=== PATIENT | female | born 1980 | race Caucasian/White ===

== ENCOUNTER 2020-02-14 16:59 | Outpatient (CLI) | payer OTHER, SELFPAY ==
--- NOTE | ~2020-02-14 | MR_ITS ---
EXAMINATION: MR brain/brain stem wo/w con DATE: 02/14/2020 18:46 INDICATION: Hyperprolactinemia. TECHNIQUE: Magnetic resonance imaging (MRI) of the brain and brainstem was performed without and with 20 mL MultiHance intravenous contrast. Whole-brain sequences included sagittal T1-weighted FSE, axia l diffusion-weighted FS EPI, axial T2*-weighted GRE, axial T2-weighted FLAIR Propeller, and axial T2- weighted Propeller. Small [id number] sequences included sagittal and coronal T1-weighted FSE cente red at the pituitary. Postcontrast sequences included small [id number]-[id number] coronal T1-weighted FSE in a time course and sagittal T1-weighted FSE and whole-brain axial T1-weighted FSE. Apparent diffusion coefficient (ADC) maps were created. COMPARISON: None. FINDINGS: The pituitary is normal in size with height of 6 mm. There is a 2 mm cyst in the pituitary at the junction of the anterior and posterior pituitary. The infundibulum is at midline. There is no intracranial hemorrhage or acute infarction. The ventricles are normal in size. The orbits are normal . The paranasal sinuses are clear. There is a small right mastoid effusion. IMPRESSION: 1. 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 Reviewed, dictated and finalized at location A.
[2020-02-14 18:09] LABS: Estimated Glomerular Filt Rate > 60
== END 2020-02-14 17:00 | disposition home or self-care (01) ==
PROVIDERS: PCP Nurse Practitioner Family; Visit Provider Family Medicine
DX: E22.1 Hyperprolactinemia (principal); E23.6 Other disorders of pituitary gland
CPT/HCPCS: 36415; 70553; A9577

== ENCOUNTER 2020-04-30 12:52 | Emergency (ER) | payer OTHER, SELFPAY ==
[2020-04-30 12:59] VITALS: BP 132/74; PULSE 92; RESP 18; TEMP 36.7; O2SAT 98
--- NOTE | 2020-04-30 12:59 | ED.FEMALEGU ---
HPI - Female Genitourinary General Chief complaint: Urogenital-Female Stated complaint: Blood in Urine Time Seen by Provider: 04/30/20 12:59 Source: patient and RN notes reviewed Mode of arrival: ambulatory Limitations: no limitations History of Present Illness HPI Narrative: 40 year old female who presents to express care with complaints of UTI symptoms since yesterday which includes urgency,frequency, decrease amounts, with some blood noted in urine. Patient states that she has some pain in the suprapubic abdominal area denies any CVA tenderness. Patient denies any fevers,chills, or sweats, denies any nausea or vomiting, states that appetite and foods are taken without complaints. Patient denies taking anything OTC such as AZO for her symptoms.Patient states that she has not had menses since November, states no recent test for past 3 months, is being worked up for possible PCOS. MD elicited complaint: dysuria Pertinent past history: recurrent UTIs Onset (ago): day(s) (1) Location of symptoms: suprapubic Severity: moderate Female Urogenital Radiation: Suprapubic Severity scale (1-10): 8 Quality of pain: other (pressure) Consistency: constant Vaginal discharge: none Vaginal bleeding: none Urinary symptoms: Dysuria, Urgency, Frequency and Hematuria Exacerbating factors: none Relieving factors: none Associated symptoms: denies other symptoms Treatment prior to arrival: none Sexual activity: Yes Patient : No Possible : unsure if (no menses since November,being worked up for PCOS) Related Data Home Medications Medication Instructions Recorded Confirmed buprenorphine-naloxone [Suboxone] 1 film BUCCAL DAILY 04/30/20 04/30/20 risperidone 2 mg PO DAILY 04/30/20 04/30/20 sumatriptan succinate See Rx Instructions .ROUTE .COMPLEX 04/30/20 04/30/20 Allergies Allergy/AdvReac Type Severity Reaction Status Date / Time [place] Allergy Unknown Unknown Uncoded 04/30/20 13:09 Review of Systems Review of Systems: Narrative: CONSTITUTIONAL: Denies fever, chills, or sweats. EYES: Denies visual changes, redness, or discharge. ENT: Denies rhinorrhea, congestion, sore throat, or otalgia. CARDIOVASCULAR: Denies chest pain, palpitations, or edema. RESPIRATORY: Denies cough or dyspnea. GASTROINTESTINAL: Denies abdominal pain, nausea, vomiting, or diarrhea. GENITOURINARY: Positive for dysuria or hematuria, frequency and urgency with decrease urine amounts. SKIN: Denies rash or itching. MUSCULOSKELETAL: Voices history of low back pain history with no CVA tenderness,no joint pain, or myalgia. NEUROLOGIC: Denies headache, numbness, or weakness. PSYCHIATRIC: Denies anxiety or depression. All systems reviewed & are unremarkable except as noted in HPI and below PMFSH Past Medical History Medical History (Updated 04/30/20 @ 13:20 by Mary Erwin NP) Anxiety and depression Back pain Psoriasis Surgical History Surgical History (Updated 04/30/20 @ 13:03 by Mary Erwin NP) H/O LEEP History of appendectomy History of tonsillectomy Family History Family History (Updated 04/30/20 @ 13:12 by Mary Erwin NP) Father Hypertension Other Diabetes mellitus Social History Social History (Updated 04/30/20 @ 13:13 by Mary Erwin NP) Smoking packs per day: 1 Smoking cigarettes per day: 20.0 Smoking status: Current every day smoker Tobacco type: cigarettes Alcohol intake: current Substance use: former Living arrangements: with family Gender identity (if verbalized by the patient): Female Comments At time of signature, agree with nursing past medical, surgical, social and family history. There is no relevant family history pertinent to the presenting complaint Exam Narrative: Exam Narrative: GENERAL: Well-appearing, well-nourished, and in no acute distress. HEAD: Normocephalic, atraumatic. EYES: PERRLA and EOMI. ENT: Nares clear, no rhinorrhea or epistaxis. Mucous membran
== END 2020-04-30 13:25 | disposition home or self-care (01) ==
PROVIDERS: Emergency Provider Registered Nurse; PCP Family Medicine
DX: N39.0 Urinary tract infection, site not specified (principal); F17.210 Nicotine dependence, cigarettes, uncomplicated
CPT/HCPCS: 81003; 87077; 87086; 87088; 87186; 99213; G0463

== ENCOUNTER 2020-07-14 11:39 | Emergency (ER) | payer OTHER, SELFPAY ==
--- NOTE | ~2020-07-14 | XR_ITS ---
EXAMINATION: XR chest 2V 07/14/2020 12:18 INDICATION: Dry cough PROCEDURE: 2 view chest COMPARISON: 08/25/2018 FINDINGS: The lungs are clear. The cardiomediastinal silhouette is within normal limits. There are no pleural effusions. There is no pneumothorax suspected. IMPRESSION: 1: NO ACUTE CARDIOPULMONARY DISEASE. Reviewed, dictated and finalized at location A. [employer]
[2020-07-14 11:50] VITALS: BP 118/92; PULSE 101; RESP 14; TEMP 36.3; O2SAT 97
[2020-07-14 12:22] VITALS: BP 118/92; PULSE 101; RESP 14; TEMP 36.3; O2SAT 97
--- NOTE | 2020-07-14 12:35 | ED.GENADULT ---
HPI - General Adult General Chief complaint: Upper Respiratory Infection Stated complaint: COVID Syptoms Source: patient Mode of arrival: ambulatory Limitations: no limitations History of Present Illness HPI narrative: Patient presents for evaluation of respiratory symptoms. She indicates 2 days ago she had a scratchy throat . Yesterday she developed fever, chills, sore throat, right-sided otalgia, nonproductive cough, body aches. During coughing spells she experiences some dyspnea but otherwise does not feel short of breath and denies any chest pain. No nausea, vomiting, diarrhea. She states she was in contact with her best friend 5 days ago and that individual tested positive for Covid 2 days ago. Patient reports smoking 1 pack/day and also vapes. She is not on exogenous estrogen. No leg swelling. No recent surgeries. No history of VTE. Related Data Home Medications Medication Instructions Recorded Confirmed buprenorphine-naloxone [Suboxone] 1 film BUCCAL DAILY 04/30/20 07/14/20 risperidone 2 mg PO DAILY 04/30/20 07/14/20 sumatriptan succinate See Rx Instructions .ROUTE .COMPLEX 04/30/20 07/14/20 fluvoxamine 50 mg PO HS 07/14/20 07/14/20 hydrochlorothiazide 25 mg PO DAILY 07/14/20 07/14/20 metformin 500 mg PO BID 07/14/20 07/14/20 quetiapine 50 mg PO HS 07/14/20 07/14/20 spironolactone 100 mg PO DAILY 07/14/20 07/14/20 Allergies Allergy/AdvReac Type Severity Reaction Status Date / Time [place] Allergy Unknown Unknown Uncoded 04/30/20 13:09 Review of Systems Review of Systems: Narrative: CONSTITUTIONAL: Reports fever and chills. Denies sweats. EYES: Denies visual changes, redness, or discharge. ENT: Reports sore throat and right sided otalgia. Denies tinnitus and hearing loss. CARDIOVASCULAR: Denies chest pain, palpitations, or edema. RESPIRATORY: Reports nonproductive cough and mild dyspnea during coughing spells. Denies shortness of breath otherwise. GASTROINTESTINAL: Denies abdominal pain, nausea, vomiting, or diarrhea. GENITOURINARY: Denies dysuria or hematuria. SKIN: Denies rash or itching. MUSCULOSKELETAL: Reports generalized body aches. NEUROLOGIC: Denies headache, numbness, dizziness, or weakness. PSYCHIATRIC: Denies anxiety or depression. [facility] Past Medical History Medical History Anxiety and depression Back pain Hypertension PCOS (polycystic ovarian syndrome) Psoriasis Schizophrenia Surgical History Surgical History H/O LEEP History of appendectomy History of tonsillectomy Family History Family History Father Hypertension Other Diabetes mellitus Social History Social History Smoking packs per day: 1 Smoking cigarettes per day: 20.0 Smoking status: Current every day smoker Tobacco type: cigarettes Alcohol intake: current Alcohol use details: 1 day per week-binge consumption those days Substance use: former Living arrangements: alone Gender identity (if verbalized by the patient): Female Spiritual care concerns: No Exam Narrative: Exam Narrative: GENERAL: Well-appearing, well-nourished, and in no acute distress. HEAD: Normocephalic, atraumatic. EYES: PERRLA and EOMI. ENT: Nares clear, no rhinorrhea or epistaxis. Mucous membranes moist. Oropharynx without tonsillar hypertrophy exudate. Posterior phary NECK: Supple. No adenopathy or masses. No carotid bruits or JVD CHEST: Effort nonlabored. Mild scattered wheezing bilaterally HEART: HR 98. No murmur heard. Normal peripheral pulses. ABDOMEN: Soft, nontender, nondistended, normal active bowel sounds. EXTREMITIES: Normal range of motion. No edema. SKIN: Warm, dry, no rash. NEURO: No focal deficits. Alert and oriented x3. PSYCH: Normal mood and affect. Course Course
== END 2020-07-14 13:07 | disposition home or self-care (01) ==
PROVIDERS: Emergency Provider Nurse Practitioner; PCP Family Medicine
DX: B34.9 Viral infection, unspecified (principal); F17.210 Nicotine dependence, cigarettes, uncomplicated; I10 Essential (primary) hypertension; E28.2 Polycystic ovarian syndrome; F20.9 Schizophrenia, unspecified
CPT/HCPCS: 71046; 87081; 87804; 87880; 99213; G0463

== ENCOUNTER 2020-09-09 12:26 | Emergency (ER) | payer OTHER, SELFPAY ==
[2020-09-09 12:31] VITALS: BP 133/80; PULSE 100; RESP 16; TEMP 36.4; O2SAT 100
--- NOTE | 2020-09-09 12:32 | ED.FEMALEGU ---
HPI - Female Genitourinary General Chief complaint: Urogenital-Female Stated complaint: poss uti Time Seen by Provider: 09/09/20 12:35 Source: patient and RN notes reviewed Mode of arrival: ambulatory Limitations: no limitations History of Present Illness HPI Narrative: 40-year-old female presents to the [facility] stating I have a UTI Has suprapubic pressure along with burning with urination. Denies fevers. No nausea vomiting or diarrhea. States that she has a history of UTIs. Denies any chance of . Denies any vaginal discharge. Related Data Home Medications Medication Instructions Recorded Confirmed risperidone 2 mg PO DAILY 04/30/20 09/09/20 fluvoxamine 50 mg PO HS 07/14/20 09/09/20 hydrochlorothiazide 25 mg PO DAILY 07/14/20 09/09/20 metformin 500 mg PO BID 07/14/20 09/09/20 quetiapine 50 mg PO HS 07/14/20 09/09/20 spironolactone 100 mg PO DAILY 07/14/20 09/09/20 Allergies Allergy/AdvReac Type Severity Reaction Status Date / Time [place] Allergy Unknown Unknown Uncoded 04/30/20 13:09 Review of Systems Review of Systems: Narrative: CONSTITUTIONAL: Denies fever, chills, or sweats. EYES: Denies visual changes, redness, or discharge. ENT: Denies rhinorrhea, congestion, sore throat, or otalgia. CARDIOVASCULAR: Denies chest pain, palpitations, or edema. RESPIRATORY: Denies cough or dyspnea. GASTROINTESTINAL: Denies nausea, vomiting, or diarrhea. Reports suprapubic pressure GENITOURINARY: Reports dysuria or hematuria. SKIN: Denies rash or itching. MUSCULOSKELETAL: Denies back pain, joint pain, or myalgia. NEUROLOGIC: Denies headache, numbness, or weakness. PSYCHIATRIC: Denies anxiety or depression. All other systems reviewed are negative, except as documented in HPI. [facility] Past Medical History Medical History Anxiety and depression Back pain Hypertension PCOS (polycystic ovarian syndrome) Psoriasis Schizophrenia Surgical History Surgical History H/O LEEP History of appendectomy History of tonsillectomy Family History Family History Father Hypertension Other Diabetes mellitus Social History Social History Smoking packs per day: 1 Smoking cigarettes per day: 20.0 Smoking status: Current every day smoker Tobacco type: cigarettes Alcohol intake: current Substance use: former Gender identity (if verbalized by the patient): Female Spiritual care concerns: No Comments At the time of my signature, I reviewed and agree with the nursing past medical, surgical, social, and family history. There is no relevant family history pertinent to the patient complaint. Exam Narrative: Exam Narrative: GENERAL: This is a well-nourished, well-developed patient, in no apparent distress. Obese HEAD: normocephalic, atraumatic. EYES: PERRL. Sclera clear/white. Vision is grossly intact. EARS: External ears normal. . CARDIOVASCULAR: Regular rate and rhythm without murmurs, gallops, or rubs. RESPIRATORY: Clear to auscultation. Breath sounds equal bilaterally. No wheezes, rales, or rhonchi. GASTROINTESTINAL: Abdomen soft, non-tender, nondistended. SKIN: warm, intact with no suspicious lesions or rash, good texture and turgor. NEURO: awake, alert, and oriented to person, place and time. There were no obvious focal neurologic abnormalities. EXTREMITIES: No joint tenderness, effusion, or edema noted. No calf tenderness. Negative Homans sign bilaterally. BACK: Nontender without deformity. No CVA tenderness. Course Vital Signs Vital signs: Vital Signs Temperature 97.5 F L 09/09/20 12:31 Pulse Rate 100 09/09/20 12:31 Respiratory Rate 16 09/09/20 12:31 Blood Pressure 133/80 09/09/20 12:31 Pulse Oximetry 100 09/09/20 12:31 Temperature 97.5 F L 09/09/20 12:41 Pulse Rate 100 03
[2020-09-09 12:41] VITALS: BP 133/80; PULSE 100; RESP 16; TEMP 36.4; O2SAT 100
== END 2020-09-09 12:55 | disposition home or self-care (01) ==
PROVIDERS: Emergency Provider Nurse Practitioner; PCP Family Medicine
DX: N30.01 Acute cystitis with hematuria (principal); F17.210 Nicotine dependence, cigarettes, uncomplicated; I10 Essential (primary) hypertension; E28.2 Polycystic ovarian syndrome; F20.9 Schizophrenia, unspecified
CPT/HCPCS: 81003; 87077; 87086; 87088; 87186; 99213; G0463

== ENCOUNTER 2021-06-29 14:14 | Emergency (ER) | payer OTHER, SELFPAY ==
--- NOTE | ~2021-06-29 | XR_ITS ---
EXAMINATION: XR foot RT min 3V DATE: 06/29/2021 15:28 INDICATION: Right foot injury. First toenail pain. TECHNIQUE: 5 views of right foot were obtained. COMPARISON: None. FINDINGS: Bone alignment is normal. There is a transverse fracture of tuft of first distal phalanx. T he distal fracture fragment demonstrates 2 mm plantar displacement. 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 There are enthesophytes at the posterior and plantar aspects of calca jael tuberosity. IMPRESSION: 1. Transverse fracture of tuft of first distal phalanx. Reviewed, dictated and finalized at location A. [employer]
[2021-06-29 15:17] VITALS: BP 127/87; PULSE 98; RESP 16; TEMP 36.5; O2SAT 98
--- NOTE | 2021-06-29 16:52 | ED.LOWEXIN ---
HPI - Extremity Injury (Lower) General Chief Complaint: Extremity Injury, Lower Stated Complaint: right big toe injury Time Seen by Provider: 06/29/21 16:50 Source: patient, RN notes reviewed and old records reviewed Mode of arrival: ambulatory Limitations: no limitations History of Present Illness HPI Narrative: 41 year old [facility] with complaints of falling down 12 stairs new years day with injury to her right great toe, developed pain and bruising that evening. Patient denies LOC or hitting her head or any other injuries. Patient has not taken any OTC medication for her discomfort or applied any ice to her toe. Patient verbalizes increased pain with ambulation.Patient has noted swelling to right great toe with ecchymosis noted. MD complaint: other (toe right great) Severity scale (1-10): 6 Related Data Home Medications Medication Instructions Recorded Confirmed risperidone 2 mg PO DAILY 04/30/20 06/30/21 fluvoxamine 50 mg PO HS 07/14/20 06/30/21 hydrochlorothiazide 25 mg PO DAILY 07/14/20 06/30/21 metformin 500 mg PO BID 07/14/20 06/30/21 quetiapine 50 mg PO HS 07/14/20 06/30/21 spironolactone 100 mg PO DAILY 07/14/20 06/30/21 cabergoline 0.25 mg PO 2XW 06/30/21 06/30/21 Allergies Allergy/AdvReac Type Severity Reaction Status Date / Time No Known Allergies Allergy Verified 06/30/21 16:09 Review of Systems Review of Systems: CONSTITUTIONAL: Denies fever, chills, or sweats. EYES: Denies visual changes, redness, or discharge. ENT: Denies rhinorrhea, congestion, sore throat, or otalgia. CARDIOVASCULAR: Denies chest pain, palpitations, or edema. RESPIRATORY: Denies cough or dyspnea. GASTROINTESTINAL: Denies abdominal pain, nausea, vomiting, or diarrhea. GENITOURINARY: Denies dysuria or hematuria. SKIN: Denies rash or itching. MUSCULOSKELETAL: Denies back pain,right great toe pain from injury, or myalgia. NEUROLOGIC: Denies headache, numbness, or weakness. PSYCHIATRIC: Positive anxiety or depression. All systems reviewed & are unremarkable except as noted in HPI and below PMFSH Past Medical History Medical History Anxiety and depression Back pain Hypertension PCOS (polycystic ovarian syndrome) Psoriasis Schizophrenia Surgical History Surgical History H/O LEEP History of appendectomy History of tonsillectomy Family History Family History Father Hypertension Other Diabetes mellitus Social History Social History Smoking packs per day: 1 Smoking cigarettes per day: 20.0 Smoking status: Current every day smoker Tobacco type: cigarettes Alcohol intake: current Alcohol use details: 1 day per week-binge consumption those days Substance use: former Gender identity (if verbalized by the patient): Female Spiritual care concerns: No Comments At time of signature, agree with nursing past medical, surgical, social and family history. There is no relevant family history pertinent to the presenting complaint Exam Narrative: GENERAL: Well-appearing, well-nourished, and in no acute distress. HEAD: Normocephalic, atraumatic. EYES: PERRLA and EOMI. ENT: Nares clear, no rhinorrhea or epistaxis. Mucous membranes moist.TM's normal throat pink with no lesions or exudates, tonsils absent NECK: Supple. CHEST: Clear to auscultation. No respiratory distress.SAO2 98% on room air HEART: Regular rate and rhythm. No murmur heard. Normal peripheral pulses. ABDOMEN: Soft, nontender, nondistended, normal active bowel sounds. EXTREMITIES: Normal range of motion. No edema.Exception noted to right great toe with noted pain swelling and ecchymosis. SKIN: Warm, dry, no rash. NEURO: No focal deficits. Alert and oriented x3. Course Course Level of Care: Express Care Visit Vital S
== END 2021-06-29 17:28 | disposition home or self-care (01) ==
PROVIDERS: Emergency Provider Registered Nurse; PCP Family Medicine
DX: S92.411A Displaced fracture of proximal phalanx of right great toe, initial encounter for closed fracture (principal); W10.9XXA Fall (on) (from) unspecified stairs and steps, initial encounter; F17.210 Nicotine dependence, cigarettes, uncomplicated; I10 Essential (primary) hypertension; E28.2 Polycystic ovarian syndrome; L40.9 Psoriasis, unspecified; F20.9 Schizophrenia, unspecified
CPT/HCPCS: 73630; 99213; G0463

== ENCOUNTER 2021-06-30 15:50 | Emergency (ER) | payer OTHER, SELFPAY ==
[2021-06-30 16:02] VITALS: BP 133/81; PULSE 86; RESP 14; TEMP 37; O2SAT 100
--- NOTE | 2021-06-30 17:05 | ED.FEMALEGU ---
HPI - Female Genitourinary General Chief complaint: Urogenital-Female Stated complaint: poss uti Time Seen by Provider: 06/30/21 17:06 Source: patient and family Mode of arrival: ambulatory Limitations: no limitations History of Present Illness HPI Narrative: patient presents with burning with urination. no vaginal discharge no abdominal, pelvic or flank pain. no gross hematuria and no concern for sti MD elicited complaint: dysuria and UTI Related Data Home Medications Medication Instructions Recorded Confirmed risperidone 2 mg PO DAILY 04/30/20 06/30/21 fluvoxamine 50 mg PO HS 07/14/20 06/30/21 hydrochlorothiazide 25 mg PO DAILY 07/14/20 06/30/21 metformin 500 mg PO BID 07/14/20 06/30/21 quetiapine 50 mg PO HS 07/14/20 06/30/21 spironolactone 100 mg PO DAILY 07/14/20 06/30/21 cabergoline 0.25 mg PO 2XW 06/30/21 06/30/21 Allergies Allergy/AdvReac Type Severity Reaction Status Date / Time No Known Allergies Allergy Verified 06/30/21 16:09 Review of Systems Review of Systems: CONSTITUTIONAL: Denies fever, chills, or sweats. EYES: Denies visual changes, redness, or discharge. ENT: Denies rhinorrhea, congestion, sore throat, or otalgia. CARDIOVASCULAR: Denies chest pain, palpitations, or edema. RESPIRATORY: Denies cough or dyspnea. GASTROINTESTINAL: Denies abdominal pain, nausea, vomiting, or diarrhea. GENITOURINARY: Denies dysuria or hematuria. SKIN: Denies rash or itching. MUSCULOSKELETAL: Denies back pain, joint pain, or myalgia. NEUROLOGIC: Denies headache, numbness, or weakness. PSYCHIATRIC: Denies anxiety or depression. Allergic/Immunologic: Comments: At time of signature, agree with nursing past medical, surgical, social and family history. There is no relevant family history pertinent to the presenting complaint [facility] Past Medical History Medical History Anxiety and depression Back pain Hypertension PCOS (polycystic ovarian syndrome) Psoriasis Schizophrenia Surgical History Surgical History H/O LEEP History of appendectomy History of tonsillectomy Family History Family History Father Hypertension Other Diabetes mellitus Social History Social History Smoking packs per day: 1 Smoking cigarettes per day: 20.0 Smoking status: Current every day smoker Tobacco type: cigarettes Alcohol intake: current Alcohol use details: 1 day per week-binge consumption those days Substance use: former Gender identity (if verbalized by the patient): Female Spiritual care concerns: No Exam Narrative: GENERAL: Well-appearing, well-nourished, and in no acute distress. HEAD: Normocephalic, atraumatic. EYES: PERRLA and EOMI. ENT: Nares clear, no rhinorrhea or epistaxis. Mucous membranes moist. NECK: Supple. CHEST: Clear to auscultation. No respiratory distress. HEART: Regular rate and rhythm. No murmur heard. Normal peripheral pulses. ABDOMEN: Soft, nontender, nondistended, normal active bowel sounds. EXTREMITIES: Normal range of motion. No edema. SKIN: Warm, dry, no rash. NEURO: No focal deficits. Alert and oriented x3. [place] Coma Scale Eye Opening: Spontaneous 4 [place] Coma Scale Motor: Obeys Commands 6 [place] Coma Scale Verbal: Oriented 5 [place] Coma Scale Total 15 Course Course Level of Care: Express Care Visit Vital Signs Vital signs: Vital Signs Temperature 37.0 C 06/30/21 16:02 Pulse Rate 86 06/30/21 16:02 Respiratory Rate 14 06/30/21 16:02 Blood Pressure 133/81 06/30/21 16:02 Pulse Oximetry 100 06/30/21 16:02 Temperature 37.0 C 06/30/21 16:02 Pulse Rate 86 06/30/21 16:02 Respiratory Rate 14 06/30/21 16:02 Blood Pressure 133/81 06/30/21 16:02 Pulse Oximetry 100 06/30/21 16:02 Please RAQUEL schedule a fo
== END 2021-06-30 17:21 | disposition home or self-care (01) ==
PROVIDERS: Emergency Provider Nurse Practitioner Family; PCP Family Medicine
DX: N39.0 Urinary tract infection, site not specified (principal); F17.210 Nicotine dependence, cigarettes, uncomplicated; I10 Essential (primary) hypertension; E28.2 Polycystic ovarian syndrome; L40.9 Psoriasis, unspecified; F20.9 Schizophrenia, unspecified
CPT/HCPCS: 81003; 87077; 87086; 87088; 87186; 99213; G0463

== ENCOUNTER 2021-09-24 12:25 | Outpatient (CLI) | payer OTHER, SELFPAY ==
--- NOTE | ~2021-09-24 | MMUS_ITS ---
EXAMINATION: MM diagnostic martha BI w monserrat, US breast BI limited HISTORY: Bilateral milky nipple discharge TECHNIQUE: Craniocaudal, mediolateral, and mediolateral oblique 3-D tomosynthesis images of the breas ts were performed and synthetic 2-D images were generated. CAD analysis was submitted and interpreted . High resolution limited bilateral breast ultrasound was performed. COMPARISON: None, baseline BREAST PARENCHYMAL COMPOSITION: There are scattered areas of fibroglandular density. FINDINGS: MAMMOGRAPHIC FINDINGS: There is no suspicious mass, calcification, or architectural distortion in either breast to suggest malignancy. Intramammary lymph nodes are noted in the upper outer quadrants of the breasts. ULTRASOUND: There are fluid-filled subareolar ducts bilaterally without suspicious mass. IMPRESSION: 1. No specific mammographic or sonographic correlate is identified for the patient's nipple discharge . Further evaluation at this time should be based on clinical assessment. Continued follow-up physica l examination is recommended. 2. Recommend routine screening mammography in one year. BI-RADS Category 2: Benign finding(s). Reviewed, dictated and finalized at location A. IMPRESSION: 1. No specific mammographic or sonographic correlate is identified for the mitra ent's nipple discharge. Further evaluation at this time should be based on clin ical assessment. Continued follow-up physical examination is recommended. 2. Recommend routine screening mammography in one year. BI-RADS Category 2: Benign finding(s).
--- NOTE | ~2021-09-24 | US_ITS ---
EXAMINATION: US thyroid DATE: 09/24/2021 13:49 INDICATION: Nontoxic goiter. TECHNIQUE: Multiple ultrasound images of the thyroid were obtained. COMPARISON: None. FINDINGS: The right thyroid lobe measures 5.7 x 2.8 x 1.4 cm. The left thyroid lobe measures 6.0 x 2.4 x 1.5 c m. In the right thyroid lobe, there is a 9 mm solid, hypoechoic, [id number] nodule with smooth margin without echogenic foci (TI-RADS TR4). In the right thyroid lobe, there is a 12 mm mixed cystic and solid, hypoechoic, qoefz-[id number]-[id number] nodule with smooth margin without echogenic foci (TR3). IMPRESSION: 1. Small thyroid nodules, likely not clinically significant. No follow-up is needed. Reviewed, dictated and finalized at location A. IMPRESSION: 1. Small thyroid nodules, likely not clinically significant. No follow-up is ne eded.
== END 2021-09-24 12:26 | disposition home or self-care (01) ==
PROVIDERS: PCP Family Medicine; Visit Provider Nurse Practitioner Obstetrics & Gynecology
DX: N64.52 Nipple discharge (principal)
CPT/HCPCS: 76536; 76642; 77062; 77066; G0279

== ENCOUNTER 2022-05-31 11:17 | Emergency (ER) | payer OTHER, SELFPAY ==
[2022-05-31 11:30] VITALS: BP 122/57; PULSE 91; RESP 20; TEMP 36.3; O2SAT 98
--- NOTE | 2022-05-31 11:38 | ED.URI ---
HPI - URI/Sore Throat General Chief Complaint: Upper Respiratory Infection Stated Complaint: sore throat fever chills cough Time Seen by Provider: 05/31/22 11:38 Source: patient and RN notes reviewed History of Present Illness HPI Narrative: Patient is a 42-year-old female who presents to complaints of sore throat, fever, cough. Patient states this started yesterday and she sent home from work. Patient has been taking symptoms. Denies any ill exposures. No other acute complaints. No acute distress noted. Patient aware of plan of care. Some parts of this dictation were generated by voice recognition software and may contain typographical and/or grammatical inaccuracies. Related Data Home Medications Medication Instructions Recorded Confirmed risperidone 2 mg tablet 2 mg PO DAILY 04/30/20 05/31/22 fluvoxamine 50 mg tablet 50 mg PO HS 07/14/20 05/31/22 hydrochlorothiazide 25 mg tablet 25 mg PO DAILY 07/14/20 05/31/22 metformin 500 mg tablet 500 mg PO BID 07/14/20 05/31/22 quetiapine 50 mg tablet 50 mg PO HS 07/14/20 05/31/22 spironolactone 100 mg tablet 100 mg PO DAILY 07/14/20 05/31/22 cabergoline 0.5 mg tablet 0.25 mg PO 2XW 06/30/21 05/31/22 Allergies Allergy/AdvReac Type Severity Reaction Status Date / Time No Known Allergies Allergy Verified 05/31/22 11:37 Review of Systems Review of Systems: CONSTITUTIONAL: t reports of fever, chills, sweats EYES: Denies visual changes, redness, or discharge. ENT: Reports of congestion, postnasal drainage, rhinorrhea, sore throat CARDIOVASCULAR: Denies chest pain, palpitations, or edema. RESPIRATORY: reports cough without dyspnea GASTROINTESTINAL: Denies abdominal pain, nausea, vomiting, or diarrhea. GENITOURINARY: Denies dysuria or hematuria. SKIN: Denies rash or itching. MUSCULOSKELETAL: Denies back pain, joint pain. Reports of body aches NEUROLOGIC: Denies headache, numbness, or weakness. All other systems reviewed are negative, except as documented in HPI. [facility] Past Medical History Medical History Anxiety and depression Back pain Hypertension PCOS (polycystic ovarian syndrome) Psoriasis Schizophrenia Surgical History Surgical History H/O LEEP History of appendectomy History of tonsillectomy Family History Family History Father Hypertension Other Diabetes mellitus Social History Social History Smoking packs per day: 1 Smoking cigarettes per day: 20.0 Smoking status: Current every day smoker Tobacco type: cigarettes Alcohol intake: current Alcohol use details: 1 day per week-binge consumption those days Substance use: former Gender identity (if verbalized by the patient): Female Spiritual care concerns: No Comments At the time of my signature, I reviewed and agree with the nursing past medical, surgical, social, and family history. There is no relevant family history pertinent to the patient complaint. Exam Narrative: GENERAL: This is a well-nourished, well-developed patient, in no apparent distress. HEAD: normocephalic, atraumatic. EYES: PERRL. Sclera clear/white. Vision is grossly intact. EARS: External ears normal, auditory canals clear and without drainage, TMs normal without perforation. Hearing grossly intact. NOSE: External nose normal with no obvious nasal discharge, nares without redness, Clear to yellow rhinorrhea. THROAT: Mucous membranes moist, Moderate erythema to posterior pharynx with moderate postnasal drainage. NECK: Neck supple, non-tender without lymphadenopathy CARDIOVASCULAR: Regular rate and rhythm without murmurs, gallops, or rubs. RESPIRATORY: harsh wet cough noted on exam. Inspiratory wheezes cleared with cough. SKIN: warm, intact with no suspicious lesions or rash, good t
== END 2022-05-31 12:20 | disposition home or self-care (01) ==
PROVIDERS: Emergency Provider Nurse Practitioner Family; PCP Family Medicine
DX: J11.1 Influenza due to unidentified influenza virus with other respiratory manifestations (principal); I10 Essential (primary) hypertension; F17.210 Nicotine dependence, cigarettes, uncomplicated
CPT/HCPCS: 87804; 99213; G0463

== ENCOUNTER 2022-07-26 11:25 | Emergency (ER) | payer BC, OTHER, SELFPAY ==
[2022-07-26 11:28] VITALS: BP 123/73; PULSE 95; RESP 20; TEMP 36.8; O2SAT 98
--- NOTE | 2022-07-26 11:37 | ED.URI ---
HPI - URI/Sore Throat General Chief Complaint: Upper Respiratory Infection Stated Complaint: cold flu Time Seen by Provider: 07/26/22 11:37 Source: patient and RN notes reviewed Mode of arrival: ambulatory Limitations: no limitations History of Present Illness HPI Narrative: 42-year-old female presents concern for 12 day history of cough, nasal congestion, yellow drainage. Reports sore throat started yesterday with worsening cough. She reports she has been taking DayQuil and Mucinex without relief. She uses an inhaler for asthma, last used it yesterday. MD elicited complaint: cough, sore throat and nasal congestion Related Data Home Medications Medication Instructions Recorded Confirmed risperidone 2 mg tablet 2 mg PO DAILY 04/30/20 07/26/22 fluvoxamine 50 mg tablet 50 mg PO HS 07/14/20 07/26/22 hydrochlorothiazide 25 mg tablet 25 mg PO DAILY 07/14/20 07/26/22 metformin 500 mg tablet 500 mg PO BID 07/14/20 07/26/22 quetiapine 50 mg tablet 50 mg PO HS 07/14/20 07/26/22 spironolactone 100 mg tablet 100 mg PO DAILY 07/14/20 07/26/22 lumateperone 10.5 mg capsule 10.5 mg PO DAILY 07/26/22 07/26/22 sertraline 50 mg tablet (Zoloft) 50 mg PO DAILY 07/26/22 07/26/22 Allergies Allergy/AdvReac Type Severity Reaction Status Date / Time No Known Allergies Allergy Verified 07/26/22 11:30 Review of Systems Review of Systems: CONSTITUTIONAL: Reports malaise. Denies fever. EYES: Denies visual changes, redness, or discharge. ENT: Reports rhinorrhea, congestion, sinus pain, and sore throat. CARDIOVASCULAR: Denies chest pain, palpitations, or edema. RESPIRATORY: Reports productive cough. Denies dyspnea. GASTROINTESTINAL: Denies abdominal pain, nausea, vomiting, diarrhea SKIN: Denies rash or itching. MUSCULOSKELETAL: Denies myalgia. NEUROLOGIC: Reports headache. All systems reviewed & are unremarkable except as noted in HPI and below PMFSH Past Medical History Medical History Anxiety and depression Back pain Hypertension PCOS (polycystic ovarian syndrome) Psoriasis Schizophrenia Surgical History Surgical History H/O LEEP History of appendectomy History of tonsillectomy Family History Family History Father Hypertension Other Diabetes mellitus Social History Social History Smoking packs per day: 1 Smoking cigarettes per day: 20.0 Smoking status: Current every day smoker Tobacco type: cigarettes Alcohol intake: current Alcohol use details: 1 day per week-binge consumption those days Substance use: former Living arrangements: alone Gender identity (if verbalized by the patient): Female Spiritual care concerns: No Comments At time of signature, agree with nursing past medical, surgical, social and family history. There is no relevant family history pertinent to the presenting complaint Exam Narrative: GENERAL: Nontoxic appearing And in no acute distress. HEAD: Normocephalic EYES: PERRLA, conjunctivae clear ENT: Nares clear, turbinates edematous and erythematous, yellow discharge. Mucous membranes moist. TM pearly casarez with dull light reflex bilaterally; no tragal tenderness. Oropharynx not erythematous without lesions. Tonsils not enlarged and without exudate, no drooling, no hoarseness, no trismus, uvula midline. NECK: Supple. No lymphadenopathy CHEST: Scattered Expiratory wheeze with upper airway rhonchi, otherwise Clear to auscultation, breath sounds equal. No rales, or stridor. No respiratory distress, speaks in full sentences. HEART: Regular rate and rhythm. No murmur heard. SKIN: Warm, dry, no rash. NEURO: Alert and oriented x3. PSYCH: Normal mood and affect Course Course Emergency Course: Patient is aware of diagnosis, understands and agrees to treatment plan.
== END 2022-07-26 11:54 | disposition home or self-care (01) ==
PROVIDERS: Emergency Provider Nurse Practitioner; PCP Family Medicine
DX: J32.9 Chronic sinusitis, unspecified (principal); J40 Bronchitis, not specified as acute or chronic; F17.210 Nicotine dependence, cigarettes, uncomplicated; I10 Essential (primary) hypertension; E28.2 Polycystic ovarian syndrome; L40.9 Psoriasis, unspecified; F20.9 Schizophrenia, unspecified; F41.9 Anxiety disorder, unspecified; F32.A Depression, unspecified
CPT/HCPCS: 99213; G0463

== ENCOUNTER 2022-09-13 17:57 | Emergency (ER) | payer BC, OTHER, SELFPAY ==
[2022-09-13 18:05] VITALS: BP 139/85; PULSE 99; RESP 20; TEMP 36.4; O2SAT 99
--- NOTE | 2022-09-13 19:12 | ED.URI ---
HPI - URI/Sore Throat General Chief Complaint: Upper Respiratory Infection Stated Complaint: Sore Throat Time Seen by Provider: 09/13/22 19:20 Source: patient, RN notes reviewed and old records reviewed Mode of arrival: ambulatory Limitations: no limitations History of Present Illness HPI Narrative: 42-year-old female who presents to [facility] with 2 day history of sore throat, headache,ear pain, cough, and runny nose with no fevers noted.Patient reports that she has not had any chills, sweats or any body aches, has taken some Excedrin for her discomfort. Patient reports no known ill contacts. MD elicited complaint: cough, sore throat, rhinorrhea, nasal congestion and other (ear pain and headache) Pertinent past history: other (tobacco abuse) Onset (ago): day(s) (2) Pain scale (0-10): 5 Able to tolerate fluids by mouth: Yes Treatments prior to arrival: other (excedrin) Related Data Home Medications Medication Instructions Recorded Confirmed hydrochlorothiazide 25 mg tablet 25 mg PO DAILY 07/14/20 09/13/22 quetiapine 50 mg tablet 50 mg PO HS 07/14/20 09/13/22 lumateperone 10.5 mg capsule 10.5 mg PO DAILY 07/26/22 09/13/22 sertraline 50 mg tablet (Zoloft) 50 mg PO DAILY 07/26/22 09/13/22 lumateperone 10.5 mg capsule See Rx Instructions .Route .COMPLEX 09/13/22 09/13/22 (Caplyta) Allergies Allergy/AdvReac Type Severity Reaction Status Date / Time No Known Allergies Allergy Verified 09/13/22 18:20 Review of Systems Review of Systems: CONSTITUTIONAL: Denies malaise, chills, sweats, or fever. EYES: Denies visual changes, redness, or discharge. ENT: Reports rhinorrhea, congestion, sinus pain, otalgia, positive for sore throat. CARDIOVASCULAR: Denies chest pain, palpitations, or edema. RESPIRATORY: Reports dry/loose cough.? Denies dyspnea. GASTROINTESTINAL: Denies abdominal pain, nausea, vomiting, diarrhea SKIN: Denies rash or itching. MUSCULOSKELETAL: Denies myalgia. NEUROLOGIC: Reports headache. All systems reviewed & are unremarkable except as noted in HPI and below PMFSH Past Medical History Medical History Anxiety and depression Back pain Hypertension PCOS (polycystic ovarian syndrome) Psoriasis Schizophrenia Surgical History Surgical History H/O LEEP History of appendectomy History of tonsillectomy Family History Family History Father Hypertension Other Diabetes mellitus Social History Social History Smoking packs per day: 1 Smoking cigarettes per day: 20.0 Smoking status: Current every day smoker Tobacco type: cigarettes Alcohol intake: current Alcohol use details: 1 day per week-binge consumption those days Substance use: former Living arrangements: alone Gender identity (if verbalized by the patient): Female Spiritual care concerns: No Comments At time of signature, agree with nursing past medical, surgical, social and family history. There is no relevant family history pertinent to the presenting complaint Exam Narrative: GENERAL: Well-appearing, well-nourished, and in no acute distress. HEAD: Normocephalic EYES: PERRLA, conjunctivae clear ENT: Nares clear, turbinates edematous and erythematous, clear discharge. Mucous membranes moist. TM pearly casarez with dull light reflex bilaterally; no tragal tenderness. Oropharynx erythematous without lesions. Tonsils not present and throat without exudate, no drooling, no hoarseness, no trismus, uvula midline.post nasal drainage NECK: Supple. No lymphadenopathy CHEST: Clear to auscultation, breath sounds equal. No wheezing, rhonchi, rales, or stridor. No respiratory distress, speaks in full sentences.loose cough, SAO2 99% on room air HEART: Regular rate and rhythm. No murmur heard.
== END 2022-09-13 19:30 | disposition home or self-care (01) ==
PROVIDERS: Emergency Provider Registered Nurse; PCP Family Medicine
DX: J06.9 Acute upper respiratory infection, unspecified (principal); I10 Essential (primary) hypertension; F41.9 Anxiety disorder, unspecified; F32.A Depression, unspecified; F17.210 Nicotine dependence, cigarettes, uncomplicated
CPT/HCPCS: 87081; 87880; 99213; G0463

== ENCOUNTER 2022-12-18 09:14 | Emergency (ER) | payer BC, OTHER, SELFPAY ==
[2022-12-18 09:20] VITALS: BP 152/92; PULSE 102; RESP 18; TEMP 36.8; O2SAT 98
--- NOTE | 2022-12-18 09:44 | ED.PSYCH ---
HPI - Psych General Chief Complaint: Psychiatric Symptoms Stated Complaint: psychotic episode Source: patient and RN notes reviewed History of Present Illness HPI Narrative: 42-year-old female with history of schizophrenia and bipolar, who presents to urgent care with complaints of having a psychotic episode. Pt states for the last 4 days, she has been paranoid and can't get anything done. Pt states she reads the newspaper and news feed on social media and sees murder stories. Pt states she then thinks she is the murderer. Pt also admits to hearing people at work talk badly to her. Pt states she can't go to [employer] b/c she is so paranoid. Pt states she is taking her medication but hasn't started the lithium yet b/c she was waiting until she got down to [place]. PT states she is supposed to move to [place] in 5 days and her daughter is on a plane currently, on her way here, to help her move. Pt denies any suicidal or homicidal ideations. Pt states she called her psychiatrist who told her he can do nothing for her. Pt refuses to go to the ER. Denies any fevers, chills, vomiting, chest pain, or SOB. Related Data Home Medications Medication Instructions Recorded Confirmed hydrochlorothiazide 25 mg tablet 25 mg PO DAILY 07/14/20 12/18/22 quetiapine 50 mg tablet 50 mg PO HS 07/14/20 12/18/22 lumateperone 10.5 mg capsule 10.5 mg PO DAILY 07/26/22 12/18/22 sertraline 50 mg tablet (Zoloft) 50 mg PO DAILY 07/26/22 12/18/22 lumateperone 10.5 mg capsule See Rx Instructions .Route .COMPLEX 09/13/22 12/18/22 (Caplyta) Allergies Allergy/AdvReac Type Severity Reaction Status Date / Time No Known Allergies Allergy Verified 12/18/22 09:33 Review of Systems Review of Systems: CONSTITUTIONAL: Denies fever, chills, or sweats. EYES: Denies visual changes, redness, or discharge. ENT: Denies otalgia and sore throat CARDIOVASCULAR: Denies chest pain, palpitations, or edema. RESPIRATORY: Denies cough or dyspnea. GASTROINTESTINAL: Denies abdominal pain, nausea, vomiting, or diarrhea. GENITOURINARY: Denies dysuria or hematuria. SKIN: Denies rash or itching. MUSCULOSKELETAL: Denies back pain, joint pain, or myalgia. NEUROLOGIC: Denies headache, numbness, or weakness. PSYCH: pt admits to paranoia, anxiety, and feeling stressed. Denies any SI or HI. Pertinent positives per HPI. [facility] Past Medical History Medical History Anxiety and depression Back pain Hypertension PCOS (polycystic ovarian syndrome) Psoriasis Schizophrenia Surgical History Surgical History H/O LEEP History of appendectomy History of tonsillectomy Family History Family History Father Hypertension Other Diabetes mellitus Social History Social History Smoking packs per day: 1 Smoking cigarettes per day: 20.0 Smoking status: Current every day smoker Tobacco type: cigarettes Alcohol intake: current Alcohol use details: 1 day per week-binge consumption those days Substance use: former Substance use type: does not use Living arrangements: alone Gender identity (if verbalized by the patient): Female Spiritual care concerns: No Comments At the time of my signature, I reviewed and agree with the nursing past medical, surgical, social, and family history. There is no relevant family history pertinent to the patient complaint. Exam Narrative: GENERAL: Pt is tearful, anxious, and admits to paranoid thoughts. HEAD: normocephalic, atraumatic. EYES: Sclera clear/white. Vision is grossly intact. EARS: External ears normal, auditory canals clear and without drainage, TMs normal without perforation. Hearing grossly intact. NOSE: External nose normal with no obvious nasal discharge, nares without redness, no rhinor
== END 2022-12-18 09:57 | disposition home or self-care (01) ==
PROVIDERS: Emergency Provider Nurse Practitioner Family; PCP Family Medicine
DX: F22 Delusional disorders (principal); F17.210 Nicotine dependence, cigarettes, uncomplicated; I10 Essential (primary) hypertension; E28.2 Polycystic ovarian syndrome; L40.9 Psoriasis, unspecified; F20.9 Schizophrenia, unspecified; F41.9 Anxiety disorder, unspecified; F32.A Depression, unspecified
CPT/HCPCS: 99212; G0463

== ENCOUNTER 2024-02-10 12:53 | Emergency (ER) | payer OTHER, SELFPAY ==
--- NOTE | ~2024-02-10 | XR_ITS ---
EXAMINATION: XR foot RT min 3V DATE: 02/10/2024 13:39 INDICATION: Right heel pain. Injury. TECHNIQUE: 4 views of right foot were obtained. COMPARISON: Right foot radiographs 06/29/2021 FINDINGS: Bone alignment is normal. Joint spaces are normal. There are enthesophytes at the posterior and plantar aspects of calcaneal tuberosity. There is nondisplaced fracture of the enthesophyte at t he plantar aspect of calcaneal tuberosity when compared to the prior radiograph. IMPRESSION: 1. Fracture of the enthesophyte at the plantar aspect of calcaneal tuberosity. Reviewed, dictated and finalized at location A.
--- NOTE | 2024-02-10 12:59 | ED.GENADULT ---
HPI - General Adult General Chief complaint: Extremity Injury, Lower Stated complaint: right ankle injury Time Seen by Provider: 02/10/24 12:59 Source: patient, RN notes reviewed and old records reviewed Mode of arrival: ambulatory Limitations: no limitations History of Present Illness HPI narrative: 43-[facility] right heel pain. Patient states that she rolled her right ankle last night and has had the heel pain since. Patient reports increased discomfort with walking and moderate swelling. Patient denies prior injury, numbness, tingling, weakness, allergies, pertinent medical history. Patient was able to drive [facility] to [facility] and able to ambulate into exam room with slow but steady gait. Patient appears mildly uncomfortable. Respirations even and nonlabored. Patient in no acute distress. Related Data Home Medications Medication Instructions Recorded Confirmed alprazolam 1 mg tablet 1 mg PO HS PRN Anxiety 02/10/24 02/10/24 aripiprazole 10 mg tablet 10 mg PO DAILY 02/10/24 02/10/24 cetirizine 10 mg tablet 10 mg PO DAILY 02/10/24 02/10/24 Allergies Allergy/AdvReac Type Severity Reaction Status Date / Time No Known Allergies Allergy Verified 12/18/22 09:33 Review of Systems Review of Systems: All systems reviewed & are unremarkable except as noted in HPI and below Constitutional: Constitutional: Reports no additional constitutional complaints Eyes: Eyes: Reports no additional eye complaints ENT: Reports system reviewed and no additional complaints, except as documented Cardiovascular: Cardiovascular: Reports no additional cardiovascular complaints, Denies chest pain and Denies dyspnea Respiratory: Respiratory: Reports no additional respiratory complaints, Denies cough and Denies dyspnea Musculoskeletal: Musculoskeletal: Reports as per HPI and Reports other (right heel pain) Neurologic: Reports as per HPI, Denies numbness, Denies tingling and Denies weakness Psychiatric: Psychiatric: Reports no additional psychiatric complaints PMFSH Past Medical History Medical History Anxiety and depression Back pain Hypertension PCOS (polycystic ovarian syndrome) Psoriasis Schizophrenia Surgical History Surgical History H/O LEEP History of appendectomy History of tonsillectomy Family History Family History Father Hypertension Other Diabetes mellitus Social History Social History Smoking packs per day: 1 Smoking cigarettes per day: 20.0 Smoking status: Current every day smoker Tobacco type: cigarettes Alcohol intake: current Alcohol use details: 1 day per week-binge consumption those days Substance use: former Substance use type: does not use Living arrangements: alone Gender identity (if verbalized by the patient): Female Spiritual care concerns: No Comments At the time of my signature, I reviewed and agree with the nursing past medical, surgical, social, and family history. There is no relevant family history pertinent to the patient complaint. Exam Const: General: cooperative, healthy appearing, comfortable, no acute distress, alert and well nourished Nutritional Appearance: well nourished Orientation/consciousness: patient oriented x3 Limitations: no limitations HENMT: Head: normal to inspection Ears: external ears normal Face/Nose/Sinus: Normal external nose present, Normal nares present, normal facial exam, No erythema and No edema Face and sinus: normal facial exam, no erythema and no edema Mouth: Yes Normal oral and palatal mucosa present Eyes: General: appearance normal, both eyes and all related structures Neck: Neck: normal visual inspection, full ROM and no meningeal signs Chest: Chest palp
[2024-02-10 13:02] VITALS: BP 130/89; PULSE 76; RESP 16; TEMP 36.5; O2SAT 100
== END 2024-02-10 14:12 | disposition home or self-care (01) ==
PROVIDERS: Emergency Provider Nurse Practitioner Family; PCP Emergency Medicine
DX: M77.31 Calcaneal spur, right foot (principal); F17.210 Nicotine dependence, cigarettes, uncomplicated; I10 Essential (primary) hypertension; E28.2 Polycystic ovarian syndrome; L40.9 Psoriasis, unspecified; F41.9 Anxiety disorder, unspecified
CPT/HCPCS: 73630; 99213; G0463

== ENCOUNTER 2024-02-26 05:12 | Emergency (ER) | payer OTHER, SELFPAY ==
[2024-02-26 05:19] VITALS: BP 148/135; PULSE 96; RESP 18; TEMP 36.7; O2SAT 97
--- NOTE | 2024-02-26 05:48 | ED.EXTPRO ---
HPI - Extremity Problem General Chief complaint: Extremity Problem,Nontraumatic Stated complaint: shoulder pain Time Seen by Provider: 02/26/24 05:18 History of Present Illness HPI Narrative: Patient is a 43-year-old female who presents to the emergency department this evening complaining of right shoulder pain. Patient states that she has a known nerve impingement of her right shoulder and is pending surgery in approximately 10 days for this. Patient has drained using Lidoderm patches, ibuprofen, Tylenol, tramadol with mild to no relief of pain. Patient states that overnight the pain has been throbbing preventing her from being able to sleep. Denies any recent injuries since her MRI showing the nerve impingement, denies any falls or trauma. No additional symptoms or concerns at this time. Related Data Home Medications Medication Instructions Recorded Confirmed alprazolam 1 mg tablet 1 mg PO HS PRN Anxiety 02/10/24 02/10/24 aripiprazole 10 mg tablet 10 mg PO DAILY 02/10/24 02/10/24 cetirizine 10 mg tablet 10 mg PO DAILY 02/10/24 02/10/24 Allergies Allergy/AdvReac Type Severity Reaction Status Date / Time No Known Allergies Allergy Verified 02/26/24 05:25 Review of Systems Review of Systems: All systems are reviewed and are negative unless stated otherwise in the HPI. PENDING SALE TO [facility] Past Medical History Medical History Anxiety and depression Back pain Hypertension PCOS (polycystic ovarian syndrome) Psoriasis Schizophrenia Surgical History Surgical History H/O LEEP History of appendectomy History of tonsillectomy Family History Family History Father Hypertension Other Diabetes mellitus Social History Social History Smoking packs per day: 1 Smoking cigarettes per day: 20.0 Smoking status: Current every day smoker Tobacco type: cigarettes Alcohol intake: current Alcohol use details: 1 day per week-binge consumption those days Substance use: former Substance use type: does not use Living arrangements: alone Gender identity (if verbalized by the patient): Female Spiritual care concerns: No Exam Narrative: General: Alert, awake, afebrile, in no acute distress. HEENT: PERRL, no rhinorrhea, no post nasal drip, oropharynx clear. Cardiovascular: Regular rate and rhythm, no murmurs, rubs or gallops, no peripheral edema. Respiratory: Clear to auscultation bilaterally, no tachypnea, no wheezing, no rhonchi, no rubs, no respiratory distress. Abdomen: Soft, nontender, nondistended, no rebound, no guarding, no peritoneal signs. Musculoskeletal: Patient has full range of motion of the right shoulder joint although limited past 90 degree abduction due to to pain. Skin: No rashes or petechia, no signs of infection. Neurological: Alert and oriented to person, place, and time. Follows all commands. No focal deficits, speech is clear and fluent. Course Vital Signs Vital signs: Vital Signs Temperature 98.1 F 02/26/24 05:19 Pulse Rate 96 02/26/24 05:19 Respiratory Rate 18 02/26/24 05:19 Blood Pressure 148/135 H 02/26/24 05:19 Pulse Oximetry 97 02/26/24 05:19 Oxygen Delivery Room Air 02/26/24 05:19 Temperature 98.1 F 02/26/24 05:19 Pulse Rate 96 02/26/24 05:19 Respiratory Rate 18 02/26/24 05:19 Blood Pressure 148/135 H 02/26/24 05:19 Pulse Oximetry 97 02/26/24 05:19 Oxygen Delivery Room Air 02/26/24 05:19 MDM - Extremity (Nontraumatic) MDM Narrative Medical decision making narrative: The patient was evaluated by myself in the emergency department. History is obtained from patient who is an independent historian and physical exam was performed. External medical records were reviewed at this time. IV was established and
[2024-02-26] MEDS: HYDROcodone/acetaminophen (*CRX) 7.5-325 MG TABLET 1 TAB PO (05:51)
== END 2024-02-26 05:56 | disposition home or self-care (01) ==
PROVIDERS: Emergency Provider Emergency Medicine; PCP Emergency Medicine
DX: M25.811 Other specified joint disorders, right shoulder (principal); F17.210 Nicotine dependence, cigarettes, uncomplicated; F41.9 Anxiety disorder, unspecified; F32.A Depression, unspecified; I10 Essential (primary) hypertension
CPT/HCPCS: 99283; A9270

== ENCOUNTER 2024-04-16 16:14 | Emergency (ER) | payer OTHER, SELFPAY ==
--- NOTE | ~2024-04-16 | XR_ITS ---
XR ribs RT 2V w CXR 2V Ordering provider: Sheree Perez PA-C History: . COUGH 5 WKS, COUGHED HARD RT RIB PAIN 1 WK, WORSENED 1 DAY . Comparison: July 14, 2020 FINDINGS: BONES: Possible fracture in the right seventh rib follow-up advised Degenerative spine. MEDIASTINUM: The cardiac silhouette is not enlarged. LUNGS: No infiltrates, effusions or pneumothorax. OTHER: No free air under the diaphragm. IMPRESSION: 1. Possible fracture in the right seventh rib. 2. No acute cardiopulmonary findings. Reviewed, dictated and finalized at location A.
[2024-04-16 16:20] VITALS: BP 127/64; PULSE 96; RESP 18; TEMP 36.6; O2SAT 100
--- NOTE | 2024-04-16 17:50 | PC.NURSE ---
Called out @ [id number], no answer. Pt not seen in waiting room or outside.
--- NOTE | 2024-04-16 17:58 | PC.NURSE ---
pt left due to long wait
== END 2024-04-16 18:19 | disposition left against medical advice (07) ==
PROVIDERS: Emergency Provider Physician Assistant; PCP Emergency Medicine
DX: R07.81 Pleurodynia (principal)
CPT/HCPCS: 71046; 71100; 99199

== ENCOUNTER 2024-06-18 04:24 | Emergency (ER) | payer OTHER, SELFPAY ==
--- NOTE | ~2024-06-18 | US_ITS ---
EXAMINATION: US right upper quadrant DATE: 06/18/2024 07:45 INDICATION: Abdominal pain. TECHNIQUE: Multiple grayscale and Doppler ultrasound images of the abdomen were obtained. COMPARISON: None FINDINGS: Sensitivity is decreased by obesity. The visualized portions of the head, body, and tail of the pancreas are normal. The liver is normal without focal lesion. There is normal flow in main port al vein. The gallbladder is normal in size. No gallstones or gallbladder wall thickening. There is no sonographic Philip's sign. The common duct is normal and measures 6 mm. IMPRESSION: 1. Normal right upper quadrant ultrasound. Reviewed, dictated and finalized at location A. ER [facility]
[2024-06-18 04:43] VITALS: BP 149/81; PULSE 94; RESP 15; TEMP 35.8; O2SAT 100
[2024-06-18 06:28] VITALS: BP 104/59; PULSE 72; RESP 17; O2SAT 98
[2024-06-18 06:30] LABS: Basophils Absolute Auto 0.1 K/mm3 (0.0-0.1); Eosinophils Absolute Auto 0.4 K/mm3 (0-0.3); Eosinophils Percent Auto 3.9 % (0-4.4); Hematocrit 36.1 % (37.0-47.0); Immature Granulocyte Absolute 0.03 K/mm3 (0.00-0.031); Immature Granulocyte Percent A 0.3 % (0-0.5); Lymphocytes Absolute Auto 2.75 K/mm3 (0.9-3.2); Lymphocytes Percent Auto 29.6 % (18.3-44.2); Mean Corpuscular HGB Conc 30.5 g/dl (32-36); Mean Corpuscular Hemoglobin 24.4 pg (26-34); Mean Platelet Volume 9.4 fl (7.4-10.4); Monocytes Absolute Auto 0.7 K/mm3 (0.1-0.6); Monocytes Percent Auto 7.9 % (2.6-8.5); Neutrophils Absolute Auto 5.3 K/mm3 (1.3-6.7); Neutrophils Percent Auto 57.3 % (45.5-73.1); Platelet Count Result 297 k/mm3 (150-375); Red Blood Count 4.51 M/mm3 (4.2-5.4); White Blood Count 9.3 K/mm3 (4.5-10.0)
[2024-06-18 06:38] LABS: Alanine Aminotransferase 23 U/L (6-35); Albumin Level 3.8 g/dL (3.5-5.1); Alkaline Phosphatase 57 U/L (38-126); Anion Gap 4 mmol/L (4-12); Aspartate Amino Transferase 30 U/L (14-36); Bilirubin,Total 0.3 mg/dL (0.2-1.3); Blood Urea Nitrogen 14 mg/dL (7-17); Calcium 9.1 mg/dL (8.4-10.2); Carbon Dioxide 24 mmol/L (22-30); Chloride 107 mmol/L (98-107); Estimated CRCL calculation 92 ml/min; Estimated Glomerular Filt Rate > 60; Glucose 100 mg/dL (65-110); Lipase 85 U/L (23-300); Potassium 4.5 mmol/L (3.4-5.0); Sodium 135 mmol/L (137-145)
--- NOTE | 2024-06-18 07:53 | ED_ITS ---
HPI - Abdominal Pain General Chief Complaint: Abdominal Pain Stated Complaint: abdominal pain Time Seen by Provider: 06/18/24 07:00 History of Present Illness HPI narrative: patient is a 44-year-old female who presents the ER with right-sided abdominal pain. Located upper quadrant. Worse with eating and drinking. Occurred suddenly overnight and last longer than typical. No fevers or chills or sweats. Occasional nausea. No history of gallstones. Reports 30 lb weight gain recently. Related Data Home Medications ?Medication ?Instructions ?Recorded ?Confirmed ?Last Taken ?Type alprazolam 1 mg tablet 1 mg PO HS PRN Anxiety 02/10/24 02/10/24 Unknown History aripiprazole 10 mg tablet 10 mg PO DAILY 02/10/24 02/10/24 Unknown History cetirizine 10 mg tablet 10 mg PO DAILY 02/10/24 02/10/24 Unknown History Allergies Allergy/AdvReac Type Severity Reaction Status Date / Time No Known Allergies Allergy Verified 06/18/24 06:22 Review of Systems 2 Review of Systems: All systems reviewed & are unremarkable except as noted in HPI and below Constitutional: Constitutional: Reports no additional constitutional complaints ENT: Reports system reviewed and no additional complaints, except as documented Cardiovascular: Cardiovascular: Reports no additional cardiovascular complaints Respiratory: Respiratory: Reports no additional respiratory complaints Gastrointestinal: Gastrointestinal: Reports abdominal pain, Reports nausea and Denies vomiting PMFSH Past Medical History Medical History Anxiety and depression Back pain Hypertension PCOS (polycystic ovarian syndrome) Psoriasis Schizophrenia Surgical History Surgical History H/O LEEP History of appendectomy History of tonsillectomy Family History Family History Father Hypertension Other Diabetes mellitus Social History Social History Smoking packs per day: 1 Smoking cigarettes per day: 20.0 Smoking status: Current every day smoker Tobacco type: cigarettes Alcohol intake: current Alcohol use details: 1 day per week-binge consumption those days Substance use: former Substance use type: does not use Living arrangements: alone Gender identity (if verbalized by the patient): Female Spiritual care concerns: No Exam 2 Narrative: GENERAL: Well-appearing, obese, and in no acute distress. HEAD: Normocephalic, atraumatic. ENT: Mucous membranes moist. NECK: Supple. CHEST: Clear to auscultation. No respiratory distress. HEART: Regular rate and rhythm. Normal peripheral pulses. ABDOMEN: Soft, mild tenderness the right upper quadrant without guarding, nondistended. EXTREMITIES: Normal range of motion. No edema. SKIN: Warm, dry, no rash. NEURO: Alert and oriented x3. PSYCH: Normal mood and affect. Course Course Emergency Course: Patient resting comfortably. Toradol for pain. No leukocytosis, mild anemia of 11. CMP normal as is lipase. Ultrasound without evidence of gallstones. Recommend follow-up with PCP. May need outpatient HIDA scan or GI referral. Recommend low-fat diet and will start on PPI. Vital Signs Vital signs: Vital Signs Temperature 96.4 F L 06/18/24 04:43 Pulse Rate 94 06/18/24 04:43 Respiratory Rate 15 06/18/24 04:43 Blood Pressure 149/81 H 06/18/24 04:43 Pulse Oximetry 100 06/18/24 04:43 Oxygen Delivery Room Air 06/18/24 04:43 Temperature 96.4 F L 06/18/24 04:43 Pulse Rate 71 06/18/24 08:12 Respiratory Rate 17 06/18/24 08:12 Blood Pressure 121/80 06/18/24 08:12 Pulse Oximetry 99 06/18/24 08:12 Oxygen Delivery Room Air 06/18/24 04:43 MDM - Abdominal Pain Lab Data 06/18/24 06:23 06/18/24 06:23 Labs: Lab Results 06/18/24 06/18/24 06/18/24 Range/Units 06:23 08:05 08:09 WBC 9.3 (4.5-10.0) K/mm3 RBC 4.51 (4.2-5.4) M/mm3 Hgb 11.0 L (12.0-15.0) g/dL Hct 36.1 L (37.0-47.0) % MCV 80.0 (80-100) fl MCH 24.4 L (26-34) pg MCHC 30.5 L (32-36) g/dl RDW 17.0 H (11.5-14.5) % Plt Count 297 (150-375) k/mm3 MPV 9.4 (7.4-10.4) fl Immature Gran % (Auto) 0.3 (0-0.5) % Neut % (Auto) 57.3 (45.5-73.1) % Lymph % (Auto) 29.6 (18.3-44.2) % Meagher % (Auto) 7.9 (2.6-8.5) % Eos % (Auto) 3.9 (0-4.4) % Baso % (Auto) 1.0 (0.2-1.2) % Lymph # (Auto) 2.75 (0.9-3.2) K/mm3 Meagher # (Auto) 0.7 H (0.1-0.6) K/mm3 Eos # (Auto) 0.4 H (0-0.3) K/mm3 Baso # (Auto) 0.1 (0.0-0.1) K/mm3 Abs Immat Gran (auto) 0.03 (0.00-0.031) K/mm3 Absolute Neuts (auto) 5.3 (1.3-6.7) K/mm3 Absolute Nucleated RBC 0.000 (0.0-0.012) K/mm3 Nucleated RBC % 0.0 (0.0-0.2) % Sodium 135 L (137-145) mmol/L Potassium 4.5 (3.4-5.0) mmol/L Chloride 107 (98-107) mmol/L Carbon Dioxide 24 (22-30) mmol/L Anion Gap 4 (4-12) mmol/L BUN 14 (7-17) mg/dL Creatinine 1.00 (0.7-1.0) mg/dL Estim Creat Clear Calc 92 ml/min Estimated GFR > 60 (59 - ) Glucose 100 (65-110) mg/dL Calcium 9.1 (8.4-10.2) mg/dL Total Bilirubin 0.3 (0.2-1.3) mg/dL AST 30 (14-36) U/L ALT 23 (6-35) U/L Alkaline Phosphatase 57 (38-126) U/L Total Protein 7.0 (6.3-8.2) g/dL Albumin 3.8 (3.5-5.1) g/dL Lipase 85 (23-300) U/L Urine Color Yellow (Yellow) Urine Appearance Cloudy H (Clear) Urine pH 5.5 (5.0-9.0) Ur Specific Pickford 1.013 (1.001-1.035) Urine Protein Negative (Negative) mg/dL Urine Glucose (UA) Negative (Negative) mg/dL Urine Ketones Negative (Negative) mg/dL Ur Blood (Man) Negative (Negative) Urine Nitrate Negative (Negative) Urine Bilirubin Negative (Negative) Urine Urobilinogen 0.2 (<2.0) mg/dL Add Ur Microanalysis Reviewed Leukocyte Esterase Rfl Negative (Negative) MAICOL/UL Urine RBC 6-10 H (0-2) /hpf Urine WBC 0-5 (0-3) /hpf Ur Squamous Epith Cells None seen (Few) /hpf Urine Bacteria None seen /hpf Urine Casts 0-2 POC Urine HCG, Qual Negative (Negative) Imaging Data Radiologist's impression: ITS Impressions Upper Quadrant Ultrasound 06/18/24 07:47 IMPRESSION: 1. Normal right upper quadrant ultrasound. Discharge Plan Discharge Clinical Impression: Right upper quadrant abdominal pain Patient Disposition: Home, Self-Care Condition: Stable Instructions: Low Fat Diet (ED), Abdominal Pain (ED) Additional Instructions: Return to the emergency department if you develop severe abdominal pain, severe nausea and vomiting to the point where you are unable to keep down fluids, if you develop chest pain or difficulty breathing, blood in your stool, dizziness or fainting, or if you develop any other new or concerning symptoms as these could be signs of more serious medical illness. Try to stay well hydrated. Discuss obtaining a HIDA scan with your PCP. Patient Language: Polish Prescriptions: New pantoprazole 20 mg tablet,delayed release (DR/EC) 20 mg PO HS 28 Days Qty: 28 0RF No Action cetirizine 10 mg tablet 10 mg PO DAILY alprazolam 1 mg tablet 1 mg PO HS PRN (Reason: Anxiety) aripiprazole 10 mg tablet 10 mg PO DAILY hydrocodone-acetaminophen 5-325 mg tablet 1 tablet PO Q8H PRN (Reason: pain) Qty: 8 0RF hydrocodone-acetaminophen 5-325 mg tablet 1 tablet PO Q6H PRN (Reason: pain) Qty: 8 0RF Follow-up/Referrals: Jose J Celeste MD [Physician] - 1 Week UNKNOWN,DOCTOR [Primary Care Provider] -
[2024-06-18 08:12] VITALS: BP 121/80; PULSE 71; RESP 17; O2SAT 99
[2024-06-18 08:12] LABS: BEDSIDEPREGUCG Negative (Negative)
[2024-06-18 08:29] LABS: Add Urine Microscopic? YES; Appearance Urine Cloudy (Clear); Bacteria Urine None Seen /hpf; Bilirubin Urine Negative (Negative); Blood Urine Negative (Negative); Color Urine Yellow (Yellow); Glucose Urine UA Negative (Negative); Ketones Urine Negative (Negative); Leukocyte Esterase Ur Negative LEU/UL (Negative); Need Manual Microscopic Reviewed; Nitrate Urine Negative (Negative); Non Pathogenic Casts 0-2; Protein Urine Negative (Negative); Specific Grav Ur 1.013 (1.001-1.035); Squamous Epithelial Cell Urine None Seen /hpf (Few); Urobilinogen Urine 0.2 mg/dL (<2.0); WBC Urine 0-5 /hpf (0-3); pH Urine 5.5 (5.0-9.0)
[2024-06-18] MEDS: BELLADONNA ALK/PHENOB ELIX 10 ML, MAG HYDROX/ALUMINUM HYD/SIMETH 30 ML, LIDOCAINE 2% VI... PO (08:38)
[2024-06-18] MEDS: KETOROLAC 30 MG/ML VIAL (*BKC) IV PUSH (08:38)
[2024-06-18 09:55] VITALS: BP 144/76; PULSE 80; RESP 16; O2SAT 98
--- OUTSIDE RECORDS SUMMARY | 2024-06-25 03:36 | XMS_ITS | Encounter Summary ---
Author Organization [facility] Address [address] [place] [address]. [place] [address] [place] [address] Care Team Providers Care Beauty Sales Advisor Name Role Phone None, Provider MD Primary Care Provider Unavaila ble Reason for Visit * Reason Onset Date Comments Other 05/15/2024 Patient is reque sting a letter for work restrictions Encounter Details Date Type Department Care Team (Late st Contact Info) Description 05/15/2024 Telephone [facility] - [place] [address] [place] [address] Dev Reynolds MD [address] [address] [place], [place] [id number] Other (Patient is requesting a letter for work restrictions) Social History Tobacco Use Types Packs/Day Years Used Date Smoking Tobacco: Every Day Cigarettes Smokeless Tobacco: Never Comments Unknown Sex and Gender Information Value Date Recorded Sex Assigned at Not on file Legal Sex Female 11:50 AM CDT Gender Identity Not on file Sexual Orientation Not on file documented as of this encounter Progress Notes * Catherine Aquino - 05/15/2024 4:09 PM CST Rosie from [employer] called saying her client needs a letter for restrictions for her new job she starts on Wednesday. I informed her that on 05/08/24 at 5:16 pm [employer] sent her a message thru my chart stating that she will have no restrictions until after surgery. I also told her that I told the patient that. OVEMENT ADVISOR documented in this encounter Plan of Treatment Upcoming Encounters Date Type Department Care Team (Latest Contact Info) Description 07/11/2024 1:20 PM IMPROVEMENT ADVISOR Office Visit [facility] Sports [facility] [address] [place] [address] Dev Reynolds MD [phone] [place] [id number] 07/26/2024 10:05 AM IMPROVEMENT ADVISOR Hospital Encounter [facility] [place] [address] Dev Reynolds MD [id number] [place] [id number] 07/26/2024 10:05 AM IMPROVEMENT ADVISOR - 07/26/2024 12:40 PM IMPROVEMENT ADVISOR Surgery [facility] [place] [address] Dev Reynolds MD [phone] [place] [phone] RIGHT SHOULDER ARTHROSCOPY WITH DEBRIDEMENT OF POSTERIOR VARIANT SLAP LESION, BICEPS TENOTOMY, DECOMPRESSION OF POSTERIOR SUPERIOR PARA LABRAL CYST, SUBACROMIAL DECOMPRESSION AND DISTAL CLAVICLE EXCISION 08/03/2024 11:00 AM IMPROVEMENT ADVISOR Office Visit [facility] [address] [place] [address] Dev Reynolds MD [phone] [place] [id number] Scheduled Procedures Name Priority Associated Diagnoses Date/Ti me ARTHROSCOPY SHOULDER Osteoarthritis of right acromioclavicular joint Paralabral cyst of right shoulder, initial encounter Suprascapular entrapment neuropathy, right 07/26/2024 10:05 AM IMPROVEMENT ADVISOR documented as of this encounter Visit Diagnoses Not on filedocumented in this encounter Care Teams Beauty Sales Advisor Relationship Specialty Start Date End Date None, Provider, PCP - General UNKNOWN PHYSICIAN SPECIALTY 02/23/24 documented as of this encounter
--- OUTSIDE RECORDS SUMMARY | 2024-06-25 03:36 | XMS_ITS | Encounter Summary ---
Author Organization [facility] Address [address] [place] [address]. [place] [address] [place] [address] Care Team Providers Care Cereal Popper Name Role Phone None, Provider Primary Care Provider Haley vargas Encounter Details Date Type Department Care Team (Latest Contact Info) Description 03/23/2024 Travel Social History Tobacco Use Types Packs/Day Years Used Date Smoking Tobacco: Every Day Cigarettes Smokeless Tobacco: Never Comments Unknown Sex and Gender Information Value Date Recorded Sex Assigned at Not on file Legal Sex Female 11:50 AM CDT Gender Identity Not on file Sexual Orientation Not on file documented as of this encounter Plan of Treatment Upcoming Encounters Date Type Department Care Team (Latest Contact Info) Description 07/11/2024 1:20 PM CHILD SUPPORT OFFICER Office Visit [facility] Medical Group [facility] Medicine - [place] [address] [place] [address] Dev Reynolds MD [address] [address] [place] [address] 07/26/2024 10:05 AM CHILD SUPPORT OFFICER Hospital Encounter [facility] [place] [address] Dev Reynolds MD [phone] [place] [phone] 07/26/2024 10:05 AM CHILD SUPPORT OFFICER - 07/26/2024 12:40 PM CHILD SUPPORT OFFICER Surgery [facility] OR [facility] [place] [address] Dev Reynolds MD [address] [address] [place] [address] RIGHT SHOULDER ARTHROSCOPY WITH DEBRIDEMENT OF POSTERIOR VARIANT SLAP LESION, BICEPS TENOTOMY, DECOMPRESSION OF POSTERIOR SUPERIOR PARA LABRAL CYST, SUBACROMIAL DECOMPRESSION AND DISTAL CLAVICLE EXCISION 08/03/2024 11:00 AM CHILD SUPPORT OFFICER Office Visit [facility] Medical [facility] - [place] [address] [place] [address] Dev Reynolds MD [address] [facility] [phone] [place] [id number] Scheduled Procedures Name Priority Associated Diagnoses Date/Ti me ARTHROSCOPY SHOULDER Osteoarthritis of right acromioclavicular joint Paralabral cyst of right shoulder, initial encounter Suprascapular entrapment neuropathy, right 07/26/2024 10:05 AM CHILD SUPPORT OFFICER documented as of this encounter Visit Diagnoses Not on filedocumented in this encounter Care Teams Cereal Popper Relationship Specialty Start Date End Date None, Provider, PCP - General UNKNOWN PHYSICIAN SPECIALTY 02/23/24 documented as of this encounter
--- OUTSIDE RECORDS SUMMARY | 2024-06-25 03:36 | XMS_ITS | Encounter Summary ---
Author Organization [facility] Address [address] [place] [address]. [place], [place] [id number] [place] [address] Care Team Providers Care Alcohol Still Operator Name Role Phone None, Provider MD Primary Care Provider Unavaila ble Reason for Referral * Imaging (Routine) - Closed Specialty Diagnoses / Procedures Referred By Contgerardo t Referred To Contact RADIOLOGY Diagnoses Paralabral cyst of right shoulder, initial encounter Procedures MRI SHOULDER RT WO CON Tae Owens MD [facility] [address] [place], [place] [address] Phone: tel: fax: Referral ID Status Reason Start Date Expiration Date Visits Re quested Visits Authorized [id number] Closed 2024 04/06/2025 1 1 * Procedure (Routine) - Closed Specialty Diagnoses / Procedures Referred By Contac t Referred To Contact Diagnoses Suprascapular entrapment neuropathy, right Procedures NCVS\EMG ([facility]) Tae Owens MD [address] [place] [address] [place] [address] [place] [address] Phone: tel: fax: Danny Hudson MD [address] [place] [address] Phone: tel: fax: Referral ID Status Reason Start Date Expiration Date V isits Requested Visits Authorized [id number] Closed Office Procedure 2024 04/07/2025 1 1 Reason for Visit * Reason Comments New Patient Right shoulder * Consultation/Treatment (Routine) - Pending Review Specialty Diagnoses / Procedures Referred By Deandre franco Referred To Contact ORTHOPAEDICS Diagnoses Work related injury Right shoulder pain Non-Staff, Provider Tae Owens MD [address] [address] [place] [address] Phone: tel: fax: Referral ID Status Reason Start Date Expiration Date V isits Requested Visits Authorized [id number] Pending Review 02/25/2024 02/24/2025 100 100 Encounter Details Date Type Department Care Team (Late st Contact Info) Description 2024 2:20 PM CDT Office Visit [facility] - [place] [address] [place] [address] [phone] Tae Owens MD [address] [address] [place], [place] [id number] New Patient (Right shoulder) Social History Tobacco Use Types Packs/Day Years Used Date Smoking Tobacco: Every Day Cigarettes Smokeless Tobacco: Never Tobacco Cessation:Ready to Q uit: No; Counseling Given: Yes Comments Unknown Sex and Gender Information Value Date Recorded Sex Assigned at Not on file Legal Sex Female 11:50 AM CDT Gender Identity Not on file Sexual Orientation Not on file documented as of this encounter Last Filed Vital Signs Vital Sign Reading Time Taken Comments Blood Pressure 126/79 2024 2:30 PM CDT Pulse 84 2024 2:30 PM CDT Temperature 36.2 ??C (97.2 ??F) 2024 2:30 PM CD T Respiratory Rate - - Oxygen Saturation - - Inhaled Oxygen Concentration - - Weight 117.2 kg (258 lb 6.4 oz) 2024 2:30 PM CDT Height 172.7 cm (5' 8 ) 2024 2:30 PM CDT Body Mass Index 39.29 2024 2:30 PM CDT documented in this encounter Progress Notes * Tae Owens MD - 2024 2:20 PM CDT Images from the original note were not included. 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 He had sudden pain extending from the trapezius up to the cervical spine. 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 She now has moved back to our area. She has taken multiple medicines for this including hydrocodone and naproxen and tramadol and Toradol as well as Flexeril and used lidocaine patches. She has had a couple of formal physical therapy visits and done a home exercise program. She saw an orthopedic surgeon on July 14 down in [place] who gave an injection that sounds like was at the AC joint and that helped for about 2 weeks. She is having anterior pain but also some posterior pain. It is worse with crossarm and overhead reaching and internal rotation behind the back. Pain better at rest. ROS: ROS VITALS: Filed Vitals: 03/07/24 1430 BP: 126/79 Pulse: 84 Temp: 97.2 ??F (36.2 ??C) Weight: 117.2 kg (258 lb 6.4 oz) Height: 1.727 m (5' 8 ) PE: Physical Exam Ortho Exam No swelling or warmth or erythema. Elevation 170, external rotation 45/90, internal rotation T12. Belly press test negative. Osiris's and empty can test negative. Infraspinatus test positive. Crossarm test negative. Impingement test negative. Strength +5/+5. Positive speeds test. Slight tenderness atthe AC joint. No tenderness at the long biceps tendon. No rotator cuff atrophy noted. Imaging: X-ray today shows type I acromion and severe AC joint arthritis. MRI scan from April 08, 2023 did show some bone marrow edema at the arthritic AC joint. There is a large paralabral cyst in the spinal glenoid notch as well as a SLAP lesion that is likely the source of that cyst. There is no rotator cuff atrophy or fatty infiltration noted. Discussion/Summary: I believe her present symptoms are from compression of the suprascapular nerve at the spinal glenoid notch by the paralabral cyst. This cyst is likely the result of the SLAP lesion which can commonlybe seen in patients that do a lot of lifting. I do not believe she sustained a sprain to the AC joint lifting boxes. That injury would only occur from a fall onto the shoulder. She does have AC jointarthritis which could have been flared up by a lot of lifting and might have improved after a cortisone injection given back in June. My recommendation is a repeat MRI scan to look for any changes in the infraspinatus muscle belly such as atrophy or fatty infiltration as I would expect with compression of the suprascapular nerve atthe spinal glenoid notch. Also a nerve conduction/EMG study to evaluate the suprascapular nerve. Worker's Comp. will have to approve the studies. If there is significant compression of the suprascapular nerve by the paralabral cysts at the spinal glenoid notch evident my recommendation would be a right shoulder arthroscopy with debridement of the SLAP lesion and debridement of the paralabral cyst and tenotomy of the long biceps tendon. Diagnoses: 1. Paralabral cyst of right shoulder, initial encounter MRI SHOULDER RT WO CON 2. Osteoarthritis of right acromioclavicular joint 3. Suprascapular entrapment neuropathy, right NCVS\EMG ([facility]) Medications: Current Outpatient Medications: ALPRAZolam (XANAX) 1 MG tablet, Take 1 tablet (1 mg total) by mouth nightly as needed., Disp: , Rfl: amLODIPine (NORVASC) 5 MG tablet, Take 1 tablet (5 mg total) by mouth daily., Disp: , Rfl: ARIPiprazole (ABILIFY) 10 MG tablet, Take 1 tablet (10 mg total) by mouth daily., Disp: , Rfl: cetirizine (ZYRTEC) 10 MG tablet, Take 1 tablet (10 mg total) by mouth daily., Disp: , Rfl: cyclobenzaprine (FLEXERIL) 10 MG tablet, Take 1 tablet (10 mg total) by mouth 3 (three) times daily., Disp: , Rfl: HYDROcodone-acetaminophen (NORCO) 5-325 MG tablet, Take 1 tablet by mouth every 6 (six) hours as needed., Disp: , Rfl: ibuprofen (MOTRIN) 600 MG tablet, Take 1 tablet (600 mg total) by mouth every 8 (eight) hours., Disp: , Rfl: ketorolac (TORADOL) 10 MG tablet, Take 1 tablet (10 mg total) by mouth 2 (two) times daily as needed., Disp: , Rfl: lidocaine (LIDODERM) 5 %, APPLY ONE PATCH TOPICALLY TO CLEAN, DRY SKIN ON RIGHT SHOULDER. LEAVE ON FOR 12 HOURS THEN REMOVE. MUST WAIT AT LEAST 12 HOURS BEFORE APPLYING PATCH(ES) AGAIN., Disp: , Rfl: Lumateperone Tosylate (CAPLYTA) 42 MG Cap, Take by mouth., Disp: , Rfl: naproxen (NAPROSYN) 500 MG tablet, TAKE 1 TABLET BY MOUTH EVERY 12 HOURS WITH FOOD NEEDED, Disp:, Rfl: ondansetron (ZOFRAN-ODT) 4 MG disintegrating tablet, DISSOLVE AND SWALLOW 1 TABLET BY MOUTH EVERY 8HOURS FOR 5 DAYS, Disp: , Rfl: QUEtiapine (SEROQUEL) 50 MG tablet, Take 1 tablet (50 mg total) by mouth daily., Disp: , Rfl: sertraline (ZOLOFT) 100 MG tablet, Take 1 tablet (100 mg total) by mouth daily., Disp: , Rfl: spironolactone (ALDACTONE) 50 MG tablet, Take 1 tablet (50 mg total) by mouth daily., Disp: , Rfl: SUMAtriptan (IMITREX) 50 MG tablet, , Disp: , Rfl: traMADol (ULTRAM) 50 MG tablet, TAKE 1 OR 2 TABLETS BY MOUTH EVERY 8 HOURS, Disp: , Rfl: Allergies: Review of patient's allergies indicates: No Known Allergies Medical History: Past Medical History: Diagnosis Date Bipolar disorder, unspecified ([facility]) Essential (primary) hypertension OCD (obsessive compulsive disorder) PCOS (polycystic ovarian syndrome) Schizophrenia, unspecified ([facility]) Sciatica Seasonal allergies Surgical History: Past Surgical History: Procedure Laterality Date APPENDECTOMY TONSILLECTOMY Social History: Social History Socioeconomic History Marital status: Single Tobacco Use Smoking status: Every Day Types: Cigarettes Smokeless tobacco: Never Vaping Use Vaping status: Never Used Family History: No family history on file. Orders Placed This Encounter MRI SHOULDER RT WO CON NCVS\EMG ([facility]) ALPRAZolam (XANAX) 1 MG tablet amLODIPine (NORVASC) 5 MG tablet ARIPiprazole (ABILIFY) 10 MG tablet cetirizine (ZYRTEC) 10 MG tablet cyclobenzaprine (FLEXERIL) 10 MG tablet HYDROcodone-acetaminophen (NORCO) 5-325 MG tablet ibuprofen (MOTRIN) 600 MG tablet ketorolac (TORADOL) 10 MG tablet lidocaine (LIDODERM) 5 % Lumateperone Tosylate (CAPLYTA) 42 MG Cap naproxen (NAPROSYN) 500 MG tablet ondansetron (ZOFRAN-ODT) 4 MG disintegrating tablet QUEtiapine (SEROQUEL) 50 MG tablet sertraline (ZOLOFT) 100 MG tablet spironolactone (ALDACTONE) 50 MG tablet SUMAtriptan (IMITREX) 50 MG tablet traMADol (ULTRAM) 50 MG tablet Cannot display discharge medications since this is not an admission. TAE OWENS MD 2024 documented in this encounter Plan of Treatment Upcoming Encounters Date Type Department Care Team (Latest Contact Info) Description 07/11/2024 1:20 PM BAG PRESS OPERATOR Office Visit [facility] - [place] [address] [place] [address] Tae Owens MD [address] [address] [place] [address] 07/26/2024 10:05 AM BAG PRESS OPERATOR Hospital Encounter [facility] [place] [address] Tae Owens MD [address] [address] [place] [address] 07/26/2024 10:05 AM BAG PRESS OPERATOR - 07/26/2024 12:40 PM BAG PRESS OPERATOR [facility] [place] [address] Tae Owens MD [address] [address] [place] [address] RIGHT SHOULDER ARTHROSCOPY WITH DEBRIDEMENT OF POSTERIOR VARIANT SLAP LESION, BICEPS TENOTOMY, DECOMPRESSION OF POSTERIOR SUPERIOR PARA LABRAL CYST, SUBACROMIAL DECOMPRESSION AND DISTAL CLAVICLE EXCISION 08/03/2024 11:00 AM BAG PRESS OPERATOR Office Visit [facility] - [place] [address] [place] [address] Tae Owens MD [address] [address] [place] [address] Scheduled Procedures Name Priority Associated Diagnoses Date/Ti me ARTHROSCOPY SHOULDER Osteoarthritis of right acromioclavicular joint Paralabral cyst of right shoulder, initial encounter Suprascapular entrapment neuropathy, right 07/26/2024 10:05 AM BAG PRESS OPERATOR documented as of this encounter Results * MRI SHOULDER RT WO CON (03/23/2024 12:15 PM CDT) Anatomical Region Laterality Modality Shoulder Magnetic Resonan ce 03/23/2024 1:45 PM CDT Impressions 03/23/2024 1:48 PM CDT IMPRESSION: 1. ?? There is likely a small posterior superior labral tear. ??Although not well visualized, superior posterior paralabral cyst communicates with this location, suggesting occult or subtle tear at this site. 2. ??No definite rotator cuff tear. ??Findings concerning for subacromial impingement including moderate bursitis. 3. ??Acromioclavicular osteoarthritis. Referred By: TAE OWENS Interpreted By: Mateo Berrios MD, 03/23/2024 1:45 PM Narrative 03/23/2024 1:[address] PM [address]T [address] [address] EXAMINATION: MRI RIGHT ??SHOULDER WITHOUT CONTRAST EXAM DATE: 03/23/2024 11:40 AM REASON FOR EXAM: Shoulder injury and pain and swelling COMPARISON: None TECHNIQUE: Multisequence multiplanar imaging of the shoulder without intravenous contrast. FINDINGS: Mild soft tissue swelling surrounding the joint. ROTATOR CUFF: No evidence of rotator cuff or deltoid atrophy. No clear evidence of rotator cuff tear. BICEPS: Long head biceps anatomically positioned in the intertubercular groove. LABRUM: No obvious labral tear. ??However presence of a 2 cm posterior superior paralabral cyst suggests an underlying subtle superior labral tear. ACROMIOCLAVICULAR: Osteoarthritis. ??Subacromial spurring and narrowing and moderate bursitis concerning for impingement. GLENOHUMERAL: No joint effusion or full-thickness cartilage loss is identified. BONES: No evidence of fracture or suspicious bone lesion. Procedure Note Mateo Berrios MD - 03/23/[address] [address] EXAMINATION: MRI RIGHT SHOULDER WITHOUT CONTRAST EXAM DATE: 03/23/2024 11:40 AM REASON FOR EXAM: Shoulder injury and pain and swelling COMPARISON: None TECHNIQUE: Multisequence multiplanar imaging of the shoulder withoutintravenous contrast. FINDINGS: Mild soft tissue swelling surrounding the joint. ROTATOR CUFF: No evidence of rotator cuff or deltoid atrophy. No clear evidence of rotator cuff tear. BICEPS: Long head biceps anatomically positioned in the intertubercular groove. LABRUM: No obvious labral tear. However presence of a 2 cm posterior superiorparalabral cyst suggests an underlying subtle superior labral tear. ACROMIOCLAVICULAR: Osteoarthritis. Subacromial spurring and narrowing and moderate bursitisconcerning for impingement. GLENOHUMERAL: No joint effusion or full-thickness cartilage loss is identified. BONES: No evidence of fracture or suspicious bone lesion. IMPRESSION: 1. There is likely a small posterior superior labral tear. Although notwell visualized, superior posterior paralabral cyst communicates with thislocation, suggesting occult or subtle tear at this site. 2. No definite rotator cuff tear. Findings concerning for subacromialimpingement including moderate bursitis. 3. Acromioclavicular osteoarthritis. Referred By: TAE OWENS Interpreted By: Mateo Berrios MD, 03/23/2024 1:45 PM us Tae Owens MD MRI Final Result * NCVS\EMG ([facility]) (03/16/2024 10:00 AM CDT) Narrative Danny Hudson MD - 03/16/2024 10:00 AM CDT Danny Hudson MD ? 03/16/2024 10:16 PM For sensory nerve conduction studies, the amplitude is measured [id number], the latency reported is the distal peak latency, and the conduction velocity, if measured, is determined from onset latencies and is over the forearm. For motor nerve conduction studies, the amplitude is measured [id number], the latency reported is the distal onset latency, the conduction velocity is calculated over the forearm, and the F wave latency is the minimum latency. Unless otherwise noted, the hand temperature was monitored continuously and remained between 32??C and 36??C during the performance of the NCSs.The study was performed with a concentric needle electrode. Fibrillation and fasciculation activity is graded from none (0) to continuous (4+). The configuration and recruitment pattern of motor unit action potentials under voluntary control, if not normal, are described below. Abbreviations: NCS= nerve conduction study SNAP= sensory nerve action potential CMAP= compound muscle action potential MUP= motor unit potential EMG= electromyogram F IBS= fibrillations PS W's= positive sharp waves Summary of findings Bilateral median and ulnar motor NCS is normal Left median sensory NCS is normal Right median sensory NCS is absent Bilateral ulnar and radial sensory NCS is normal Bilateral median and ulnar orthodromic mixed NCS is normal Needle EMG of the right upper limb, infraspinatus, supraspinatus, middle trapezius is normal Conclusion This study shows no electrodiagnostic evidence of a suprascapular neuropathy, cervical radiculopathy, brachial plexopathy, compressive mononeuropathy. 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
--- OUTSIDE RECORDS SUMMARY | 2024-06-25 03:36 | XMS_ITS | Encounter Summary ---
Author Organization [facility] Address [address] [place] [address]. [place], [place] [address] [place] [address] Care Team Providers Care Fittings Tightener Name Role Phone None, Provider Primary Care Provider Unavaila ble Reason for Referral * Imaging (Routine) - Closed Specialty Diagnoses / Procedures Referred By Deandre franco Referred To Contact RADIOLOGY Diagnoses Paralabral cyst of right shoulder, initial encounter Procedures MRI SHOULDER RT WO CON Tae Owens MD [address] [address] [place] [address] Phone: tel: fax: Referral ID Status Reason Start Date Expiration Date Visits Re quested Visits Authorized [id number] Closed 2024 04/06/2025 1 1 Reason for Visit * Imaging (Routine) - Closed Specialty Diagnoses / Procedures Referred By Deandre franco Referred To Contact RADIOLOGY Diagnoses Paralabral cyst of right shoulder, initial encounter Procedures MRI SHOULDER RT WO CON Tae Owens MD [address] [address] [place] [address] Phone: tel: fax: Referral ID Status Reason Start Date Expiration Date Visits Re quested Visits Authorized [id number] Closed 2024 04/06/2025 1 1 Encounter Details Date Type Department Care Team (Latest Contact Info) Description 03/23/2024 11:30 AM CDT - 03/23/2024 11:59 PM CDT Hospital Encounter [facility] [place] [address] Tae Owens MD [address] [address] [place] [address] Discharge Disposition: Home or Self Care (Routine Discharge) Social History Tobacco Use Types Packs/Day Years Used Date Smoking Tobacco: Every Day Cigarettes Smokeless Tobacco: Never Comments Unknown Sex and Gender Information Value Date Recorded Sex Assigned at Not on file Legal Sex Female 11:50 AM CDT Gender Identity Not on file Sexual Orientation Not on file documented as of this encounter Medications at Time of Discharge ALPRAZolam (XANAX) 1 MG tablet Take 1 tablet (1 mg total) by mouth nightly as needed. 01/12/2024 amLODIPine (NORVASC) 5 MG tablet Take 1 tablet (5 mg total) by mouth daily. ARIPiprazole (ABILIFY) 10 MG tablet Take 1 tablet (10 mg total) by mouth daily. 01/12/2024 cetirizine (ZYRTEC) 10 MG tablet Take 1 tablet (10 mg total) by mouth daily. cyclobenzaprine (FLEXERIL) 10 MG tablet Take 1 tablet (10 mg total) by mouth 3 (three) times daily. 08/19/2023 HYDROcodone-acetamin ophen (NORCO) 5-325 MG tablet Take 1 tablet by mouth every 6 (six) hours as needed. 02/26/2024 ibuprofen (MOTRIN) 600 MG tablet Take 1 tablet (600 mg total) by mouth every 8 (eight) hours. 06/19/2023 ketorolac (TORADOL) 10 MG tablet Take 1 tablet (10 mg total) by mouth 2 (two) times daily as needed. 09/20/2023 lidocaine (LIDODERM) 5 % APPLY ONE PATCH TOPICALLY TO CLEAN, DRY SKIN ON RIGHT SHOULDER. LEAVE ON FOR 12 HOURS THEN REMOVE. MUST WAIT AT LEAST 12 HOURS BEFORE APPLYING PATCH(ES) AGAIN. 07/01/2023 Lumateperone Tosylate (CAPLYTA) 42 MG Cap Take by mouth. naproxen (NAPROSYN) 500 MG tablet TAKE 1 TABLET BY MOUTH EVERY 12 HOURS WITH FOOD NEEDED 04/12/2023 ondansetron (ZOFRAN-ODT) 4 MG disintegrating tablet DISSOLVE AND SWALLOW 1 TABLET BY MOUTH EVERY 8 HOURS FOR 5 DAYS 10/22/2023 QUEtiapine (SEROQUEL) 50 MG tablet Take 1 tablet (50 mg total) by mouth daily. sertraline (ZOLOFT) 100 MG tablet Take 1 tablet (100 mg total) by mouth daily. spironolactone (ALDACTONE) 50 MG tablet Take 1 tablet (50 mg total) by mouth daily. SUMAtriptan (IMITREX) 50 MG tablet 10/08/2023 traMADol (ULTRAM) 50 MG tablet TAKE 1 OR 2 TABLETS BY MOUTH EVERY 8 HOURS 05/10/2023 documented as of this encounter Progress Notes * Tae Owens MD - 03/23/2024 11:30 AM CDT Posterior variant SLAP lesion with an associated 2 cm para-labral cyst at the spinoglenoid notch. No atrophy or fatty infiltration of the infraspinatus. No rotator cuff tear. Impingement at the AC joint which is significantly arthritic with bone marrow edema on both sides of the AC joint. My recommendation is : Right shoulder arthroscopy with debridement of posterior variant SLAP lesion, tenotomy of long biceps tendon, decompression of posterior- superior para-labral cyst, subacromial decompression and distal clavicle excision. * Charline Cali RN - 03/23/2024 11:30 AM CDT I have to get her W/C company to approve the surgery and then we can schedule documented in this encounter Plan of Treatment Upcoming Encounters Date Type Department Care Team (Latest Contact Info) Description 07/11/2024 1:20 PM SALES OPERATIONS COORDINATOR Office Visit [facility] Orth[facility] Medicine - [place] [address] [place] [address] Tae Owens MD [address] [address] [place] [address] 07/26/2024 10:05 AM SALES OPERATIONS COORDINATOR Hospital Encounter [facility] [place] [address] Tae Owens MD [id number] [place] [address] 07/26/2024 10:05 AM SALES OPERATIONS COORDINATOR - 07/26/2024 12:40 PM SALES OPERATIONS COORDINATOR [facility] [place] [address] Tae Owens MD [phone] [place] [address] RIGHT SHOULDER ARTHROSCOPY WITH DEBRIDEMENT OF POSTERIOR VARIANT SLAP LESION, BICEPS TENOTOMY, DECOMPRESSION OF POSTERIOR SUPERIOR PARA LABRAL CYST, SUBACROMIAL DECOMPRESSION AND DISTAL CLAVICLE EXCISION 08/03/2024 11:00 AM SALES OPERATIONS COORDINATOR Office Visit [facility] - [place] [address] [place] [address] Tae Owens MD [phone] [place] [address] Scheduled Procedures Name Priority Associated Diagnoses Date/Ti me ARTHROSCOPY SHOULDER Osteoarthritis of right acromioclavicular joint Paralabral cyst of right shoulder, initial encounter Suprascapular entrapment neuropathy, right 07/26/2024 10:05 AM SALES OPERATIONS COORDINATOR documented as of this encounter Procedures Procedure Name Priority Date/Time Associated Diagnosis Comments MRI SHOULDER RT WO CON Routine 03/23/2024 12:15 PM CDT Paralabral cyst of right shoulder, initial encounter documented in this encounter Results * MRI SHOULDER RT [...] 1:45 PM Narrative 03/23/2024 1:48 PM CDT [place] [address] EXAMINATION: MRI RIGHT ??SHOULDER WITHOUT CONTRAST EXAM [...] Procedure Note Mateo Berrios MD - 03/23/2024 [place] [address] EXAMINATION: MRI RIGHT SHOULDER WITHOUT CONTRAST EXAM [...] By: Mateo Berrios MD, 03/23/2024 1:45 PM Tae Owens MD MRI Final Result documented in this encounter Visit Diagnoses Diagnosis Paralabral cyst of right shoulder, initial encounter Osteoarthritis of right acromioclavicular joint Paralabral cyst of right shoulder, initial encounter Suprascapular entrapment neuropathy, right documented in this encounter Care Teams Fittings Tightener Relationship Specialty Start Date End Date None, Provider, PCP - General UNKNOWN PHYSICIAN SPECIALTY 02/23/24 documented as of this encounter
--- OUTSIDE RECORDS SUMMARY | 2024-06-25 03:36 | XMS_ITS | Encounter Summary ---
Author Organization [facility] Address [address] [place] [address]. [place] [address] [place] [address] Care Team Providers Care Assembler Ping Pong Table Name Role Phone None, Provider MD Primary Care Provider Unavaila ble Reason for Visit * Reason Onset Date Comments Work Comp Injury Management 03/08/2024 Question 03/08/2024 Encounter Details Date Type Department Care Team (Late st Contact Info) Description 03/08/2024 Telephone [facility] Medical Group Orthopedic & Sports Medicine - [place] [address] [place] [address] Dev Reynolds MD [address] [address] [place] [address] Work Comp Injury Management; Question Social History Tobacco Use Types Packs/Day Years Used Date Smoking Tobacco: Every Day Cigarettes Smokeless Tobacco: Never Comments Unknown Sex and Gender Information Value Date Recorded Sex Assigned at Not on file Legal Sex Female 11:50 AM CDT Gender Identity Not on file Sexual Orientation Not on file documented as of this encounter Progress Notes * Charline Cali RN - 03/08/2024 2:34 PM CDT I typed a note but Dr Reynolds said he will not address work status since she is no longer employed by [employer] there is no need I faxed to Sonia Kenney * Carley Clark - 03/08/2024 11:15 AM CDTSummary: WC- R shoulder - work status Sonia antonio/ Pablito FREEMAN called in about a letter for the work status for the patient. She is asking if Dr. Reynolds can type one up for her please. documented in this encounter Plan of Treatment Upcoming Encounters Date Type Department Care Team (Latest Contact Info) Description 07/11/2024 1:20 PM SUPPLY PERSON Office Visit [facility] [place] [address] [place] [address] Dev Reynolds MD [id number] [place] [address] 07/26/2024 10:05 AM SUPPLY PERSON Hospital Encounter [facility] [place] [address] Dev Reynolds MD [phone] [place] [address] 07/26/2024 10:05 AM SUPPLY PERSON - 07/26/2024 12:40 PM SUPPLY PERSON Surgery [facility] [place] [address] Dev Reynolds MD [id number] [place] [address] RIGHT SHOULDER ARTHROSCOPY WITH DEBRIDEMENT OF POSTERIOR VARIANT SLAP LESION, BICEPS TENOTOMY, DECOMPRESSION OF POSTERIOR SUPERIOR PARA LABRAL CYST, SUBACROMIAL DECOMPRESSION AND DISTAL CLAVICLE EXCISION 08/03/2024 11:00 AM SUPPLY PERSON Office Visit [facility] [place] [address] [place] [address] Dev Reynolds MD [address] [address] [place] [address] Scheduled Procedures Name Priority Associated Diagnoses Date/Ti me ARTHROSCOPY SHOULDER Osteoarthritis of right acromioclavicular joint Paralabral cyst of right shoulder, initial encounter Suprascapular entrapment neuropathy, right 07/26/2024 10:05 AM SUPPLY PERSON documented as of this encounter Visit Diagnoses Not on filedocumented in this encounter Care Teams Assembler Ping Pong Table Relationship Specialty Start Date End Date None, Provider, PCP - General UNKNOWN PHYSICIAN SPECIALTY 02/23/24 documented as of this encounter
--- OUTSIDE RECORDS SUMMARY | 2024-06-25 03:36 | XMS_ITS | Encounter Summary ---
Author Organization [facility] Address [address] [place] [address]. [place] [address] [place] [address] Care Team Providers Care Dishing Machine Operator Name Role Phone None, Provider MD Primary Care Provider Unavaila ble Reason for Visit * Reason Onset Date Comments Work Excuse 05/15/2024 Encounter Details Date Type Department Care Team (Late st Contact Info) Description 05/15/2024 Telephone [facility] Medical Group Orthopedic & Sports Medicine - [place] [address] [place] [address] Dev Reynolds MD [address] [address] [place], [place] [id number] Work Excuse Social History Tobacco Use Types Packs/Day Years Used Date Smoking Tobacco: Every Day Cigarettes Smokeless Tobacco: Never Comments Unknown Sex and Gender Information Value Date Recorded Sex Assigned at Not on file Legal Sex Female 11:50 AM CDT Gender Identity Not on file Sexual Orientation Not on file documented as of this encounter Progress Notes * Beth Arzate MA - 05/15/2024 12:26 PM CST Task given to Catherine to contact patient since she wants to talk to management ESSOR OF MECHANICAL ENGINEERING * Valencia Jara - 05/15/2024 12:12 PM CSTSummary: Letter Patient called in the office and stated that the nursing team had stated to her that we would not write the work restrictions letter, unless her employer would send us a formal request with restricted duties and that she wanted to speak with management team, and she asked if her mother was on her emergency contact list because we do not want her mother calling up here,I had put the patient on hold to reach management, and the patient had hung up the phone ESSOR OF MECHANICAL ENGINEERING documented in this encounter Plan of Treatment Upcoming Encounters Date Type Department Care Team (Latest Contact Info) Description 07/11/2024 1:20 PM PROFESSOR OF MECHANICAL ENGINEERING Office Visit [facility] Orthopedic [facility] Sports [facility] [address] [place] [address] Dev Reynolds MD [phone] [place] [address] 07/26/2024 10:05 AM PROFESSOR OF MECHANICAL ENGINEERING Hospital Encounter [facility] [place] [address] Dev Reynolds MD [phone] [place] [address] 07/26/2024 10:05 AM PROFESSOR OF MECHANICAL ENGINEERING - 07/26/2024 12:40 PM PROFESSOR OF MECHANICAL ENGINEERING Surgery [facility] [place] [address] Dev Reynolds MD [phone] [place] [address] RIGHT SHOULDER ARTHROSCOPY WITH DEBRIDEMENT OF POSTERIOR VARIANT SLAP LESION, BICEPS TENOTOMY, DECOMPRESSION OF POSTERIOR SUPERIOR PARA LABRAL CYST, SUBACROMIAL DECOMPRESSION AND DISTAL CLAVICLE EXCISION 08/03/2024 11:00 AM PROFESSOR OF MECHANICAL ENGINEERING Office Visit [facility] [address] [place] [address] Dev Reynolds MD [phone] [place] [address] Scheduled Procedures Name Priority Associated Diagnoses Date/Ti me ARTHROSCOPY SHOULDER Osteoarthritis of right acromioclavicular joint Paralabral cyst of right shoulder, initial encounter Suprascapular entrapment neuropathy, right 07/26/2024 10:05 AM PROFESSOR OF MECHANICAL ENGINEERING documented as of this encounter Visit Diagnoses Not on filedocumented in this encounter Care Teams Dishing Machine Operator Relationship Specialty Start Date End Date None, Provider, PCP - General UNKNOWN PHYSICIAN SPECIALTY 02/23/24 documented as of this encounter
--- OUTSIDE RECORDS SUMMARY | 2024-06-25 03:36 | XMS_ITS | Encounter Summary ---
Author Organization [facility] Address [address] [place] [address]. [place] [address] [place] [address] Care Team Providers Care Carpenter Bridge Name Role Phone None, Provider MD Primary Care Provider Unavaila ble Reason for Visit * Reason Comments EMG Testing BUE*SUPRASCAPULAR EN TRAPMENT NEUROPATHY RT * Procedure (Routine) - Closed Specialty Diagnoses / Procedures Referred By Contac t Referred To Contact Diagnoses Suprascapular entrapment neuropathy, right Procedures NCVS\EMG ([facility]) Dev Reynolds MD [address] [address] [place] [address] Phone: tel: fax: Danny Hudson MD [address] [place] [address] Phone: tel: fax: Referral ID Status Reason Start Date Expiration Date V isits Requested Visits Authorized [id number] Closed Office Procedure 2024 04/07/2025 1 1 Encounter Details Date Type Department Care Team (Latest Contact Info) Description 03/16/2024 10:00 AM CDT Office Visit [facility] Medical Group Multispecialty Care - [address], [address] [place] [address] Dev Reynolds MD [address] [address] [place] [address] Danny Hudson MD [address] [place] [address] EMG Testing (BUE*SUPRASCAPULAR ENTRAPMENT NEUROPATHY RT) Social History Tobacco Use Types Packs/Day Years Used Date Smoking Tobacco: Every Day Cigarettes Smokeless Tobacco: Never Comments Unknown Sex and Gender Information Value Date Recorded Sex Assigned at Not on file Legal Sex Female 11:50 AM CDT Gender Identity Not on file Sexual Orientation Not on file documented as of this encounter Progress Notes * Danny Hudson MD - 03/16/2024 10:00 AM CDT EMG report * Dev Reynolds MD - 03/16/2024 10:00 AM CDT NCV/EMG negative. See my result report with regards to the MRI of the shoulder for further recommendations. documented in this encounter Procedure Notes * Danny Hudson MD - 03/16/2024 10:00 AM CDTAssociated Order(s): EMG For sensory nerve conduction studies, the amplitude is measured [id number], the latency reported is the distal peak latency, and the conduction velocity, if measured, is determined from onset latencies and is over the forearm. For motor nerve conduction studies, the amplitude is measured [id number], the latency reported is the distal onset [...] neuropathy, cervical radiculopathy, brachial plexopathy, compressive mononeuropathy. documented in this encounter Plan of Treatment Upcoming Encounters Date Type Department Care Team (Latest Contact Info) Description 07/11/2024 1:20 PM TRUCK RAILROAD AND BUS MOTOR MECHANIC Office Visit [facility] Medical Group Orthopedic & Sports Medicine - [place] [address] [place] [address] Dev Reynolds MD [address] [place] [address] [place] [address] 07/26/2024 10:05 AM TRUCK RAILROAD AND BUS MOTOR MECHANIC Hospital Encounter [facility] [place] [address] Dev Reynolds MD [id number] [place] [address] 07/26/2024 10:05 AM TRUCK RAILROAD AND BUS MOTOR MECHANIC - 07/26/2024 12:40 PM TRUCK RAILROAD AND BUS MOTOR MECHANIC Surgery [facility] [address] Dev Reynolds MD [phone] [place] [address] RIGHT SHOULDER ARTHROSCOPY WITH DEBRIDEMENT OF POSTERIOR VARIANT SLAP LESION, BICEPS TENOTOMY, DECOMPRESSION OF POSTERIOR SUPERIOR PARA LABRAL CYST, SUBACROMIAL DECOMPRESSION AND DISTAL CLAVICLE EXCISION 08/03/2024 11:00 AM TRUCK RAILROAD AND BUS MOTOR MECHANIC Office Visit [facility] Medical Group Orthopedic & Sports Medicine - [place] [address] [place] [address] Dev Reynolds MD [address] [address] [place] [address] Scheduled Orders Name Type Priority Associated Diagnoses Orde r Schedule COMPLETE FIVE OR MORE MUSCLES STUDIED INNERVATED Procedures Routine Suprascapular entrapment neuropathy, right Ordered: 03/16/2024 NERVE CONDUCTION, 13+ STUDIES Procedures Routine Suprascapular entrapment neuropathy, right Ordered: 03/16/2024 Scheduled Procedures Name Priority Associated Diagnoses Date/Ti me ARTHROSCOPY SHOULDER Osteoarthritis of right acromioclavicular joint Paralabral cyst of right shoulder, initial encounter Suprascapular entrapment neuropathy, right 07/26/2024 10:05 AM TRUCK RAILROAD AND BUS MOTOR MECHANIC documented as of this encounter Procedures Procedure Name Priority Date/Time Associated Diagnosis Comments EMG Routine 03/16/2024 10:00 AM CDT Suprascapular entrapment neuropathy, right documented in this encounter Results * NCVS\EMG ([facility]) (03/16/2024 10:00 AM CDT) Narrative Danny Hudson MD - 03/16/2024 10:00 AM CDT Danny Hudson MD ? 03/16/2024 10:16 PM For sensory nerve conduction studies, the amplitude is measured [id number], the latency reported is the distal peak latency, and the conduction velocity, if measured, is determined from onset latencies and is over the forearm. For motor nerve conduction studies, the amplitude is measured [id number], the latency reported is the distal onset [...] neuropathy, cervical radiculopathy, brachial plexopathy, compressive mononeuropathy. Dev Reynolds MD NEUROLOGY ORDERABLES Final Re sult documented in this encounter Visit Diagnoses Diagnosis Suprascapular entrapment neuropathy, right Osteoarthritis of right acromioclavicular joint Paralabral cyst of right shoulder, initial encounter Suprascapular entrapment neuropathy, right documented in this encounter Care Teams Carpenter Bridge Relationship Specialty Start Date End Date None, Provider, PCP - General UNKNOWN PHYSICIAN SPECIALTY 02/23/24 documented as of this encounter
--- OUTSIDE RECORDS SUMMARY | 2024-06-25 03:36 | XMS_ITS | Encounter Summary ---
Author Organization [facility] Address [address] [place] [address]. [place], [place] [address] [place] [address] Care Team Providers Care Lpn Home Health Name Role Phone None, Provider Primary Care Provider Haley vargas Encounter Details Date Type Department Care Team (Latest Contact Info) Description 2024 Scan HEALTH INFO SRVCS Scanned, Doc Med Group Social History Tobacco Use Types Packs/Day Years [...] (Latest Contact Info) Description 07/11/2024 1:20 PM BLENDING KETTLE TENDER Office Visit [facility] Medical Group Orthopedic & Sports Medicine - [place] [address] [place] [address] Dev Reynolds MD [address] [address] [place] [address] 07/26/2024 10:05 AM BLENDING KETTLE TENDER Hospital Encounter [facility] [place] [address] Dev Reynolds MD [phone] [place] [address] 07/26/2024 10:05 AM BLENDING KETTLE TENDER - 07/26/2024 12:40 PM BLENDING KETTLE TENDER Surgery [facility] [address] [facility] [place] [address] Dev Reynolds MD [address] [address] [place] [address] RIGHT SHOULDER ARTHROSCOPY WITH DEBRIDEMENT OF POSTERIOR VARIANT SLAP LESION, BICEPS TENOTOMY, DECOMPRESSION OF POSTERIOR SUPERIOR PARA LABRAL CYST, SUBACROMIAL DECOMPRESSION AND DISTAL CLAVICLE EXCISION 08/03/2024 11:00 AM BLENDING KETTLE TENDER Office Visit [facility] Medical Group Orthopedic & Sports Medicine - [place] [address] [place] [address] Dev Reynolds MD [address] [address] [place] [address] Scheduled Procedures Name Priority Associated Diagnoses Date/Ti me ARTHROSCOPY SHOULDER Osteoarthritis of right acromioclavicular joint Paralabral cyst of right shoulder, initial encounter Suprascapular entrapment neuropathy, right 07/26/2024 10:05 AM BLENDING KETTLE TENDER documented as of this encounter Visit Diagnoses Not on filedocumented in this encounter Care Teams Lpn Home Health Relationship Specialty Start Date End Date None, Provider, PCP - General UNKNOWN PHYSICIAN SPECIALTY 02/23/24 documented as of this encounter
--- OUTSIDE RECORDS SUMMARY | 2024-06-25 03:36 | XMS_ITS | Encounter Summary ---
Author Organization [facility] Address [address] [place] [address]. [place] [address] [place] [address] Care Team Providers Care Drain Tile Press Operator Name Role Phone None, Provider MD Primary Care Provider Unavaila ble Reason for Visit * Reason Onset Date Comments Follow Up Call 06/08/2024 Encounter Details Date Type Department Care Team (Late st Contact Info) Description 06/08/2024 Telephone [facility] Medical Group Orthopedic & Sports Medicine - [place] [address] [place] [address] Dev Reynolds MD [address] [address] [place], [place] [phone] Follow Up Call Social History Tobacco Use Types Packs/Day Years Used Date Smoking Tobacco: Every Day Cigarettes Smokeless Tobacco: Never Comments Unknown Sex and Gender Information Value Date Recorded Sex Assigned at Not on file Legal Sex Female 11:50 AM CDT Gender Identity Not on file Sexual Orientation Not on file documented as of this encounter Progress Notes * Charline Cali RN - 06/08/2024 5:05 PM CST Thank you ARCH ARCHAEOLOGIST * Carley Clark - 06/08/2024 1:53 PM CSTSummary: RT shoulder- WC - orders Amparo FREEMAN case folder called in to ask if we could send her over any testing orders/notes if and when the patient gets to that point. RT shoulder Fax- [phone] ARCH ARCHAEOLOGIST documented in this encounter Plan of Treatment Upcoming Encounters Date Type Department Care Team (Latest Contact Info) Description 07/11/2024 1:20 PM RESEARCH ARCHAEOLOGIST Office Visit [facility] Orthopedic & Sports Medicine [facility] [address] [place] [address] Dev Reynolds MD [phone] [place] [address] 07/26/2024 10:05 AM RESEARCH ARCHAEOLOGIST Hospital Encounter [facility] [place] [address] Dev Reynolds MD [address] [place] [address] 07/26/2024 10:05 AM RESEARCH ARCHAEOLOGIST - 07/26/2024 12:40 PM RESEARCH ARCHAEOLOGIST Surgery [facility] [place] [address] Dev Reynolds MD [phone] [place] [address] RIGHT SHOULDER ARTHROSCOPY WITH DEBRIDEMENT OF POSTERIOR VARIANT SLAP LESION, BICEPS TENOTOMY, DECOMPRESSION OF POSTERIOR SUPERIOR PARA LABRAL CYST, SUBACROMIAL DECOMPRESSION AND DISTAL CLAVICLE EXCISION 08/03/2024 11:00 AM RESEARCH ARCHAEOLOGIST Office Visit [facility] Orthopedic & Sports Medicine [facility] [address] [place] [address] Dev Reynolds MD [address] [place] [address] Scheduled Procedures Name Priority Associated Diagnoses Date/Ti me ARTHROSCOPY SHOULDER Osteoarthritis of right acromioclavicular joint Paralabral cyst of right shoulder, initial encounter Suprascapular entrapment neuropathy, right 07/26/2024 10:05 AM RESEARCH ARCHAEOLOGIST documented as of this encounter Visit Diagnoses Not on filedocumented in this encounter Care Teams Drain Tile Press Operator Relationship Specialty Start Date End Date None, Provider, MD PCP - General UNKNOWN PHYSICIAN SPECIALTY 02/23/24 documented as of this encounter
--- OUTSIDE RECORDS SUMMARY | 2024-06-25 03:36 | XMS_ITS | Encounter Summary ---
Author Organization [facility] Address [address] [place] [address]. [place] [address] [place] [address] Care Team Providers Care Collating Machine Operator Name Role Phone None, Provider MD Primary Care Provider Unavaila ble Reason for Visit * Reason Onset Date Comments Schedule Surgery 03/29/2024 Encounter Details Date Type Department Care Team (Late st Contact Info) Description 03/29/2024 Local.[email or web address] Message [facility] Medical Group Orthopedic & Sports Medicine - [place] [address] [place] [address] [employer], [facility] Provider surgery information Social History Tobacco Use Types Packs/Day Years Used Date Smoking Tobacco: Every Day Cigarettes Smokeless Tobacco: Never Comments Unknown Sex and Gender Information Value Date Recorded Sex Assigned at Not on file Legal Sex Female 11:50 AM CDT Gender Identity Not on file Sexual Orientation Not on file documented as of this encounter Progress Notes * Charline Cali RN - 04/06/2024 11:39 AM CDT Looks like we received something yesterday but it did not approve the recommended surgery Dr Freeman to them. It had Dr Albin Mcdonnell listed and did not include the entire procedure. I have sent this back and messaged Melvina to let her know what is happening now * Valencia Jara - 04/06/2024 10:09 AM CDT Patient called in the office and stated that she heard from her attourney that the surgery was approved and she wanted to know if we got the approval from and she would like [facility] documented in this encounter Plan of Treatment Upcoming Encounters Date Type Department Care Team (Latest Contact Info) Description 07/11/2024 1:20 PM MUD MIXER HELPER Office Visit [facility] Orthopedic & Sports Medicine [facility] [address] [place] [address] Dev Reynolds MD [phone] [place] [address] 07/26/2024 10:05 AM MUD MIXER HELPER Hospital Encounter [facility] [place] [address] Dev Reynolds MD [address] [place] [address] 07/26/2024 10:05 AM MUD MIXER HELPER - 07/26/2024 12:40 PM MUD MIXER HELPER Surgery [place] [address] Dev Reynolds MD [phone] [place] [address] RIGHT SHOULDER ARTHROSCOPY WITH DEBRIDEMENT OF POSTERIOR VARIANT SLAP LESION, BICEPS TENOTOMY, DECOMPRESSION OF POSTERIOR SUPERIOR PARA LABRAL CYST, SUBACROMIAL DECOMPRESSION AND DISTAL CLAVICLE EXCISION 08/03/2024 11:00 AM MUD MIXER HELPER Office Visit [facility] Orthopedic & Sports [facility] [address] [place] [address] Dev Reynolds MD [phone] [place] [address] Scheduled Procedures Name Priority Associated Diagnoses Date/Ti me ARTHROSCOPY SHOULDER Osteoarthritis of right acromioclavicular joint Paralabral cyst of right shoulder, initial encounter Suprascapular entrapment neuropathy, right 07/26/2024 10:05 AM MUD MIXER HELPER documented as of this encounter Visit Diagnoses Not on filedocumented in this encounter Care Teams Collating Machine Operator Relationship Specialty Start Date End Date None, Provider, PCP - General UNKNOWN PHYSICIAN SPECIALTY 02/23/24 documented as of this encounter
--- OUTSIDE RECORDS SUMMARY | 2024-06-25 03:36 | XMS_ITS | Encounter Summary ---
Author Organization [facility] Address [address] [place] [address]. [place] [address] [place] [address] Care Team Providers Care Coloring Room Man Name Role Phone None, Provider MD Primary Care Provider Unavaila ble Reason for Visit * Reason Onset Date Comments Question 03/15/2024 Encounter Details Date Type Department Care Team (Late st Contact Info) Description 03/15/2024 Telephone [facility] Medical Group Orthopedic & Sports Medicine - [place] [address] [place], [place] [address] [phone] Dev Reynolds MD [address] [address] [place], [place] [id number]- Question Social History Tobacco Use Types Packs/Day Years Used Date Smoking Tobacco: Every Day Cigarettes Smokeless Tobacco: Never Comments Unknown Sex and Gender Information Value Date Recorded Sex Assigned at Not on file Legal Sex Female 11:50 AM CDT Gender Identity Not on file Sexual Orientation Not on file documented as of this encounter Progress Notes * Beth Arzate MA - 03/16/2024 10:00 AM CDT Spoke with Madiha explained that Dr. Reynolds had said he will not do work restrictions since she isno longer an employee of [employer]. Madiha said she has spoken to crop insurance claims adjuster as well and since patient is currently waiting to testing and results they are ok without having work restrictions however if patient is surgical and has surgery since they will be paying her benefits under work comp at that time they will have to have restrictions letter. I let her know I will update this in the chart * Valencia Jara - 03/15/2024 11:56 AM CDT Sonia from [facility] called in and stated that she had sent request needing work restrictions, and Dr Reynolds and nursing team sent back to her stating that Dr Reynolds would not be addressing restrictions since she is no longer working for [employer], and Sonia stated that they still need somethingas to what she can or can't do with that arm she is still under WC documented in this encounter Plan of Treatment Upcoming Encounters Date Type Department Care Team (Latest Contact Info) Description 07/11/2024 1:20 PM SCROLL SHEAR OPERATOR Office Visit [facility] Medical Group Orthopedic & Sports Medicine - [place] [address] [place] [address] Dev Reynolds MD [id number] [place] [address] 07/26/2024 10:05 AM SCROLL SHEAR OPERATOR Hospital Encounter [facility] [place] [address] Dev Reynolds MD [phone] [place] [address] 07/26/2024 10:05 AM SCROLL SHEAR OPERATOR - 07/26/2024 12:40 PM SCROLL SHEAR OPERATOR Surgery [facility] [address] Dev Reynolds MD [phone] [place] [address] RIGHT SHOULDER ARTHROSCOPY WITH DEBRIDEMENT OF POSTERIOR VARIANT SLAP LESION, BICEPS TENOTOMY, DECOMPRESSION OF POSTERIOR SUPERIOR PARA LABRAL CYST, SUBACROMIAL DECOMPRESSION AND DISTAL CLAVICLE EXCISION 08/03/2024 11:00 AM SCROLL SHEAR OPERATOR Office Visit [facility] Medical Group Orthopedic & Sports Medicine - [place] [address] [place] [address] Dev Reynolds MD [address] [address] [place] [address] Scheduled Procedures Name Priority Associated Diagnoses Date/Ti me ARTHROSCOPY SHOULDER Osteoarthritis of right acromioclavicular joint Paralabral cyst of right shoulder, initial encounter Suprascapular entrapment neuropathy, right 07/26/2024 10:05 AM SCROLL SHEAR OPERATOR documented as of this encounter Visit Diagnoses Not on filedocumented in this encounter Care Teams Coloring Room Man Relationship Specialty Start Date End Date None, Provider, PCP - General UNKNOWN PHYSICIAN SPECIALTY 02/23/24 documented as of this encounter
--- OUTSIDE RECORDS SUMMARY | 2024-06-25 03:36 | XMS_ITS | Encounter Summary ---
Author Organization [facility] Address [address] [place] [address]. [place] [address] [place] [address] Care Team Providers Care Cow Trimmer Name Role Phone None, Provider Primary Care Provider Haley vargas Encounter Details Date Type Department Care Team (Latest Contact Info) Description 2024 Travel Social History Tobacco Use Types Packs/Day [...] (Latest Contact Info) Description 07/11/2024 1:20 PM COVERED BUCKLE ASSEMBLER Office Visit [facility] Medical Group Orthopedic & Sports Medicine - [place] [address] [place] [address] Dev Reynolds MD [address] [address] [place] [address] 07/26/2024 10:05 AM COVERED BUCKLE ASSEMBLER Hospital Encounter [facility] [place] [address] Dev Reynolds MD [phone] [place] [address] 07/26/2024 10:05 AM COVERED BUCKLE ASSEMBLER - 07/26/2024 12:40 PM COVERED BUCKLE ASSEMBLER Surgery [facility] OR [facility] [place] [address] Dev Reynolds MD [address] [address] [place] [address] RIGHT SHOULDER ARTHROSCOPY WITH DEBRIDEMENT OF POSTERIOR VARIANT SLAP LESION, BICEPS TENOTOMY, DECOMPRESSION OF POSTERIOR SUPERIOR PARA LABRAL CYST, SUBACROMIAL DECOMPRESSION AND DISTAL CLAVICLE EXCISION 08/03/2024 11:00 AM COVERED BUCKLE ASSEMBLER Office Visit [facility] Medical Group Orthopedic & Sports Medicine - [place] [address] [place] [address] Dev Reynolds MD [address] [facility] [phone] [place] [address] Scheduled Procedures Name Priority Associated Diagnoses Date/Ti me ARTHROSCOPY SHOULDER Osteoarthritis of right acromioclavicular joint Paralabral cyst of right shoulder, initial encounter Suprascapular entrapment neuropathy, right 07/26/2024 10:05 AM COVERED BUCKLE ASSEMBLER documented as of this encounter Visit Diagnoses Not on filedocumented in this encounter Care Teams Cow Trimmer Relationship Specialty Start Date End Date None, Provider, PCP - General UNKNOWN PHYSICIAN SPECIALTY 02/23/24 documented as of this encounter
--- OUTSIDE RECORDS SUMMARY | 2024-06-25 03:36 | XMS_ITS | Encounter Summary ---
Author Organization [facility] Address [address] [place] [address]. [place], [place] [address] [place] [address] Care Team Providers Care Brownfield Redevelopment Site Manager Name Role Phone None, Provider Primary Care Provider Haley vargas Encounter Details Date Type Department Care Team (Late st Contact Info) Description 03/06/2024 Orders Only [facility] Medical [facility] Orthopedic & Sports Medicine [facility] [address] [place] [address] Dev Reynolds MD [phone] [place] [address] Social History Tobacco Use Types Packs/Day Years Used Date Smoking Tobacco: Never Assessed Comments Unknown Sex and Gender Information Value Date Recorded Sex Assigned at Not on file Legal Sex Female 11:50 AM CDT Gender Identity Not on file Sexual Orientation Not on file documented as of this encounter Plan of Treatment Upcoming Encounters Date Type Department Care Team (Latest Contact Info) Description 07/11/2024 1:20 PM CARDER BLANKETS Office Visit [facility] Medical [facility] Orthopedic & Sports Medicine [facility] [address] [place] [address] Dev Reynolds MD [phone] [place] [address] 07/26/2024 10:05 AM CARDER BLANKETS Hospital Encounter [facility] [place] [address] Dev Reynolds MD [address] [address] [place] [address] 07/26/2024 10:05 AM CARDER BLANKETS - 07/26/2024 12:40 PM CARDER BLANKETS Surgery [facility] OR ONE [facility] [place] [address] Dev Reynolds MD [address] [address] [place] [address] RIGHT SHOULDER ARTHROSCOPY WITH DEBRIDEMENT OF POSTERIOR VARIANT SLAP LESION, BICEPS TENOTOMY, DECOMPRESSION OF POSTERIOR SUPERIOR PARA LABRAL CYST, SUBACROMIAL DECOMPRESSION AND DISTAL CLAVICLE EXCISION 08/03/2024 11:00 AM CARDER BLANKETS Office Visit [facility] Medical Group Orthopedic & Sports Medicine - [place] [address] [place] [address] Dev Reynolds MD [address] [facility] [address] [place] [address] Scheduled Procedures Name Priority Associated Diagnoses Date/Ti me ARTHROSCOPY SHOULDER Osteoarthritis of right acromioclavicular joint Paralabral cyst of right shoulder, initial encounter Suprascapular entrapment neuropathy, right 07/26/2024 10:05 AM CARDER BLANKETS documented as of this encounter Results * OXR RT SHOULDER 3V (2024 2:20 PM CDT) Anatomical Region Laterality Modality Radiographic Alycia ging Narrative 2024 2:31 PM CDT PROCEDURE: OXR RT SHOULDER 3V VIEWS: 4 DATE: ??03/07/24 COMPARISONS: None CLINICAL INDICATION: ?? FINDINGS: Type I acromion, severe acromioclavicular joint osteoarthritis. ?? No acute findings. IMPRESSION: Severe AC joint arthritis. Dev Reynolds MD GENERAL IMAGING Final Result documented in this encounter Visit Diagnoses Diagnosis Right shoulder pain, unspecified chronicity- Primary Osteoarthritis of right acromioclavicular joint Paralabral cyst of right shoulder, initial encounter Suprascapular entrapment neuropathy, right documented in this encounter Care Teams Brownfield Redevelopment Site Manager Relationship Specialty Start Date End Date None, Provider, MD PCP - General UNKNOWN PHYSICIAN SPECIALTY 02/23/24 documented as of this encounter
--- OUTSIDE RECORDS SUMMARY | 2024-06-25 03:36 | XMS_ITS | Encounter Summary ---
Author Organization [facility] Address [address] [place] [address]. [place], [place] [address] [place] [address] Care Team Providers Care Marble Setter Helper Name Role Phone None, Provider Primary Care Provider Haley vargas Encounter Details Date Type Department Care Team (Latest Contact Info) Description 03/08/2024 Scan HEALTH INFO SRVCS Scanned, Doc Med [...] (Latest Contact Info) Description 07/11/2024 1:20 PM DIVER'S TENDER Office Visit [facility] Medical Group Orthopedic & Sports Medicine - [place] [address] [place] [address] Dev Reynolds MD [address] [address] [place] [address] 07/26/2024 10:05 AM DIVER'S TENDER Hospital Encounter [facility] [place] [address] Dev Reynolds MD [phone] [place] [address] 07/26/2024 10:05 AM DIVER'S TENDER - 07/26/2024 12:40 PM DIVER'S TENDER Surgery [facility] OR [place] [address] Dev Reynolds MD [address] [address] [place] [address] RIGHT SHOULDER ARTHROSCOPY WITH DEBRIDEMENT OF POSTERIOR VARIANT SLAP LESION, BICEPS TENOTOMY, DECOMPRESSION OF POSTERIOR SUPERIOR PARA LABRAL CYST, SUBACROMIAL DECOMPRESSION AND DISTAL CLAVICLE EXCISION 08/03/2024 11:00 AM DIVER'S TENDER Office Visit [facility] Medical Group Orthopedic & Sports Medicine - [place] [address] [place] [address] Dev Reynolds MD [address] [address] [place] [address] Scheduled Procedures Name Priority Associated Diagnoses Date/Ti me ARTHROSCOPY SHOULDER Osteoarthritis of right acromioclavicular joint Paralabral cyst of right shoulder, initial encounter Suprascapular entrapment neuropathy, right 07/26/2024 10:05 AM DIVER'S TENDER documented as of this encounter Visit Diagnoses Not on filedocumented in this encounter Care Teams Marble Setter Helper Relationship Specialty Start Date End Date None, Provider, PCP - General UNKNOWN PHYSICIAN SPECIALTY 02/23/24 documented as of this encounter
--- OUTSIDE RECORDS SUMMARY | 2024-06-25 03:36 | XMS_ITS | Encounter Summary ---
Author Organization [facility] Address [address] [place] [address]. [place] [address] [place] [address] Care Team Providers Care Advance Agent Name Role Phone None, Provider MD Primary Care Provider Unavaila ble Reason for Visit * Reason Onset Date Comments Information 05/19/2024 Encounter Details Date Type Department Care Team (Late st Contact Info) Description 05/19/2024 Telephone [facility] Medical Group Orthopedic & Sports Medicine - [place] [address] [place] [address] Dev Reynolds MD [address] [address] [place] [address] Information Social History Tobacco Use Types Packs/Day Years Used Date Smoking Tobacco: Every Day Cigarettes Smokeless Tobacco: Never Comments Unknown Sex and Gender Information Value Date Recorded Sex Assigned at Not on file Legal Sex Female 11:50 AM CDT Gender Identity Not on file Sexual Orientation Not on file documented as of this encounter Progress Notes * Valencia Jara - 05/19/2024 2:26 PM CST Patient called in the office and stated that she had missed a call from our office, she was informed that unfortunatley we do not have sooner appointments at this time, and as far as pain medicationsgoes, our providers usually do not prescribe any pain medications before surgery and that she wouldhave to contact her pcp for that. She stated she did and they told her to call us, patient vu INAL ANALYST * Beth Arzate MA - 05/19/2024 2:23 PM CST LVM for patient to return call At this time there are not any sooner openings, Dr. Reynolds does not prescribe pain medication pre surgery she will need to discuss with her PCM INAL ANALYST * Carolyn Torres - 05/19/2024 2:12 PM CST Melvina is calling in stating she is in a lot of pain and would like to see if she can be seen sooner. She also asked if she can't be seen sooner if Dr. Reynolds could send her anything for her pain. Melvina would like a call back at [phone] INAL ANALYST documented in this encounter Plan of Treatment Upcoming Encounters Date Type Department Care Team (Latest Contact Info) Description 07/11/2024 1:20 PM CRIMINAL ANALYST Office Visit [facility] Medical Group Orthopedic & Sports Medicine - [place] [address] [place] [address] Dev Reynolds MD [phone] [place] [address] 07/26/2024 10:05 AM CRIMINAL ANALYST Hospital Encounter [facility] [place] [address] Dev Reynolds MD [address] [address] [place] [address] 07/26/2024 10:05 AM CRIMINAL ANALYST - 07/26/2024 12:40 PM CRIMINAL ANALYST Surgery [facility] [place] [address] Dev Reynolds MD [phone] [place] [address] RIGHT SHOULDER ARTHROSCOPY WITH DEBRIDEMENT OF POSTERIOR VARIANT SLAP LESION, BICEPS TENOTOMY, DECOMPRESSION OF POSTERIOR SUPERIOR PARA LABRAL CYST, SUBACROMIAL DECOMPRESSION AND DISTAL CLAVICLE EXCISION 08/03/2024 11:00 AM CRIMINAL ANALYST Office Visit [facility] Medical Group Orthopedic & Sports Medicine - [place] [address] [place] [address] Dev Reynolds MD [address] [address] [place] [address] Scheduled Procedures Name Priority Associated Diagnoses Date/Ti me ARTHROSCOPY SHOULDER Osteoarthritis of right acromioclavicular joint Paralabral cyst of right shoulder, initial encounter Suprascapular entrapment neuropathy, right 07/26/2024 10:05 AM CRIMINAL ANALYST documented as of this encounter Visit Diagnoses Not on filedocumented in this encounter Care Teams Advance Agent Relationship Specialty Start Date End Date None, Provider, PCP - General UNKNOWN PHYSICIAN SPECIALTY 02/23/24 documented as of this encounter
--- OUTSIDE RECORDS SUMMARY | 2024-06-25 03:36 | XMS_ITS | Encounter Summary ---
Author Organization [facility] Address [address] [place] [address]. [place] [address] [place] [address] Care Team Providers Care Fire Supervisor Name Role Phone None, Provider Primary Care Provider Haley vargas Encounter Details Date Type Department Care Team (Latest Contact Info) Description 03/16/2024 Travel Social History Tobacco Use Types Packs/Day [...] (Latest Contact Info) Description 07/11/2024 1:20 PM DRAMATIC TEACHER Office Visit [facility] Medical Group Orthopedic & Sports Medicine - [place] [address] [place] [address] Dev Reynolds MD [address] [address] [place] [address] 07/26/2024 10:05 AM DRAMATIC TEACHER Hospital Encounter [facility] [address] Dev Reynolds MD [phone] [place] [address] 07/26/2024 10:05 AM DRAMATIC TEACHER - 07/26/2024 12:40 PM DRAMATIC TEACHER Surgery [facility] [place] [address] Dev Reynolds MD [address] [address] [place] [address] RIGHT SHOULDER ARTHROSCOPY WITH DEBRIDEMENT OF POSTERIOR VARIANT SLAP LESION, BICEPS TENOTOMY, DECOMPRESSION OF POSTERIOR SUPERIOR PARA LABRAL CYST, SUBACROMIAL DECOMPRESSION AND DISTAL CLAVICLE EXCISION 08/03/2024 11:00 AM DRAMATIC TEACHER Office Visit [facility] Medical Group Orthopedic & Sports Medicine - [place] [address] [place] [address] Dev Reynolds MD [address] [facility] [phone] [place] [address] Scheduled Procedures Name Priority Associated Diagnoses Date/Ti me ARTHROSCOPY SHOULDER Osteoarthritis of right acromioclavicular joint Paralabral cyst of right shoulder, initial encounter Suprascapular entrapment neuropathy, right 07/26/2024 10:05 AM DRAMATIC TEACHER documented as of this encounter Visit Diagnoses Not on filedocumented in this encounter Care Teams Fire Supervisor Relationship Specialty Start Date End Date None, Provider, PCP - General UNKNOWN PHYSICIAN SPECIALTY 02/23/24 documented as of this encounter
--- OUTSIDE RECORDS SUMMARY | 2024-06-25 03:36 | XMS_ITS | Encounter Summary ---
Author Organization [facility] Address [address] [place] [address]. [place] [address] [place] [address] Care Team Providers Care Outside Maintenance Worker Name Role Phone None, Provider Primary Care Provider Haley vargas Encounter Details Date Type Department Care Team (Late st Contact Info) Description 04/06/2024 tagga Message Enc [facility] Medical [facility] Orthopedic & Sports Medicine [facility] [address] [place], [place] [address] [phone] Sarmad, [facility] Provider surgery approval Social History Tobacco Use Types Packs/Day Years [...] (Latest Contact Info) Description 07/11/2024 1:20 PM PSYCHOLOGIST RESEARCH ASSISTANT Office Visit [facility] Medical [facility] Orthopedic & Sports Medicine [facility] [address] [place] [address] Dev Reynolds MD [address] [address] [place] [address] 07/26/2024 10:05 AM PSYCHOLOGIST RESEARCH ASSISTANT Hospital Encounter [facility] [place] [address] Dev Reynolds MD [address] [address] [place] [address] 07/26/2024 10:05 AM PSYCHOLOGIST RESEARCH ASSISTANT - 07/26/2024 12:40 PM PSYCHOLOGIST RESEARCH ASSISTANT Surgery [facility] OR ONE [facility] [place] [address] Dev Reynolds MD [phone] [place] [address] RIGHT SHOULDER ARTHROSCOPY WITH DEBRIDEMENT OF POSTERIOR VARIANT SLAP LESION, BICEPS TENOTOMY, DECOMPRESSION OF POSTERIOR SUPERIOR PARA LABRAL CYST, SUBACROMIAL DECOMPRESSION AND DISTAL CLAVICLE EXCISION 08/03/2024 11:00 AM PSYCHOLOGIST RESEARCH ASSISTANT Office Visit [facility] Medical Group Orthopedic & Sports Medicine - [place] [address] [place] [address] Dev Reynodls MD [address] [facility] [phone] [place] [address] Scheduled Procedures Name Priority Associated Diagnoses Date/Ti me ARTHROSCOPY SHOULDER Osteoarthritis of right acromioclavicular joint Paralabral cyst of right shoulder, initial encounter Suprascapular entrapment neuropathy, right 07/26/2024 10:05 AM PSYCHOLOGIST RESEARCH ASSISTANT documented as of this encounter Visit Diagnoses Not on filedocumented in this encounter Care Teams Outside Maintenance Worker Relationship Specialty Start Date End Date None, Provider, PCP - General UNKNOWN PHYSICIAN SPECIALTY 02/23/24 documented as of this encounter
--- OUTSIDE RECORDS SUMMARY | 2024-06-25 03:36 | XMS_ITS | Encounter Summary ---
Author Organization [facility] Address [address] [place] [address]. [place], [place] [address] [place] [address] Care Team Providers Care Medical Safety Director Name Role Phone None, Provider Primary Care Provider Haley vargas Encounter Details Date Type Department Care Team (Late st Contact Info) Description 05/04/2024 MyChart Message Enc [facility] Medical [facility] Orthopedic & Sports Medicine [place] [address] [place] [address] Dev Reynolds MD [phone] [place] [address] Restrictions Social History Tobacco Use Types Packs/Day Years [...] (Latest Contact Info) Description 07/11/2024 1:20 PM CLINICAL EDUCATION SPECIALIST Office Visit [facility] Medical [facility] Orthopedic & Sports Medicine - [place] [address] [place] [address] Dev Reynolds MD [phone] [place] [address] 07/26/2024 10:05 AM CLINICAL EDUCATION SPECIALIST Hospital Encounter [facility] [place] [address] Dev Reynolds MD [address] [address] [place] [address] 07/26/2024 10:05 AM CLINICAL EDUCATION SPECIALIST - 07/26/2024 12:40 PM CLINICAL EDUCATION SPECIALIST Surgery [facility] OR [address] [facility] [place] [address] Dev Reynolds MD [address] [address] [place] [address] RIGHT SHOULDER ARTHROSCOPY WITH DEBRIDEMENT OF POSTERIOR VARIANT SLAP LESION, BICEPS TENOTOMY, DECOMPRESSION OF POSTERIOR SUPERIOR PARA LABRAL CYST, SUBACROMIAL DECOMPRESSION AND DISTAL CLAVICLE EXCISION 08/03/2024 11:00 AM CLINICAL EDUCATION SPECIALIST Office Visit [facility] Medical Group Orthopedic & Sports Medicine - [place] [address] [place] [address] Dev Reynolds MD [address] [address] [place] [address] Scheduled Procedures Name Priority Associated Diagnoses Date/Ti me ARTHROSCOPY SHOULDER Osteoarthritis of right acromioclavicular joint Paralabral cyst of right shoulder, initial encounter Suprascapular entrapment neuropathy, right 07/26/2024 10:05 AM CLINICAL EDUCATION SPECIALIST documented as of this encounter Visit Diagnoses Not on filedocumented in this encounter Care Teams Medical Safety Director Relationship Specialty Start Date End Date None, Provider, PCP - General UNKNOWN PHYSICIAN SPECIALTY 02/23/24 documented as of this encounter
--- OUTSIDE RECORDS SUMMARY | 2024-06-25 03:36 | XMS_ITS | Encounter Summary ---
Author Organization [facility] Address [address] [place] [address]. [place], [place] [id number] [place] [address] Care Team Providers Care District Home Economics Agent Name Role Phone None, Provider MD Primary Care Provider Unavaila ble Reason for Referral * Surgical (Routine) - Authorized Specialty Diagnoses / Procedures Referred By Deandre franco Referred To Contact Diagnoses Osteoarthritis of right acromioclavicular joint Paralabral cyst of right shoulder, initial encounter Suprascapular entrapment neuropathy, right Procedures Case request operating room: RIGHT SHOULDER ARTHROSCOPY WITH DEBRIDEMENT OF POSTERIOR VARIANT SLAP LESION, BICEPS TENOTOMY, DECOMPRESSION OF POSTERIOR SUPERIOR PARA LABRAL CYST, SUBACROMIAL DECOMPRESSION AND DISTAL CLAVICLE EXCISION SHLDR ARTHROSCOP,PART ACROMIOPLAS SHOULDER ARTHROSCOPY/SURGERY SHLDR ARTHROSCOP,EXTEN DEBRIDE Dev Reynolds MD [id number] [place] [address] Phone: tel: fax: [place] [address] Phone: tel: Referral ID Status Reason Start Date Expiration Date Visits Requested Visits Authorized [id number] Authorized Surgery Outpatient 07/26/2024 05/16/2025 1 1 RRAGE CLERK Encounter Details Date Type Department Care Team (Late st Contact Info) Description 05/16/2024 Prep for Procedure [facility] Orthopedic & Sports Medicine - [place] [address] [place] [address] [phone] Dev Reynolds MD [address] [address] [place] [address] Social History Tobacco Use Types Packs/Day Years [...] (Latest Contact Info) Description 07/11/2024 1:20 PM DEMURRAGE CLERK Office Visit [facility] Orthopedic & Sports Medicine [facility] [address] [place] [address] Dev Reyonlds MD [address] [address] [place] [address] 07/26/2024 10:05 AM DEMURRAGE CLERK Hospital Encounter [facility] [place] [address] Dev Reynolds MD [address] [address] [place] [address] 07/26/2024 10:05 AM DEMURRAGE CLERK - 07/26/2024 12:40 PM DEMURRAGE CLERK Surgery [facility] [place] [address] Dev Reynolds MD [id number] [place] [address] RIGHT SHOULDER ARTHROSCOPY WITH DEBRIDEMENT OF POSTERIOR VARIANT SLAP LESION, BICEPS TENOTOMY, DECOMPRESSION OF POSTERIOR SUPERIOR PARA LABRAL CYST, SUBACROMIAL DECOMPRESSION AND DISTAL CLAVICLE EXCISION 08/03/2024 11:00 AM DEMURRAGE CLERK Office Visit [facility] Orthopedic & Sports Medicine [facility] [address] [place] [address] Dev Reynolds MD [address] [address] [place] [address] Scheduled Orders Name Type Priority Associated Diagnoses Orde r Schedule Case request operating room: RIGHT SHOULDER ARTHROSCOPY WITH DEBRIDEMENT OF POSTERIOR VARIANT SLAP LESION, BICEPS TENOTOMY, DECOMPRESSION OF POSTERIOR SUPERIOR PARA LABRAL CYST, SUBACROMIAL DECOMPRESSION AND DISTAL CLAVICLE EXCISION Case Request Routine Osteoarthritis of right acromioclavicular joint Paralabral cyst of right shoulder, initial encounter Suprascapular entrapment neuropathy, right Once for 1 Occurrences starting 05/16/2024 until 05/16/2024 Scheduled Procedures Name Priority Associated Diagnoses Date/Ti me ARTHROSCOPY SHOULDER Osteoarthritis of right acromioclavicular joint Paralabral cyst of right shoulder, initial encounter Suprascapular entrapment neuropathy, right 07/26/2024 10:05 AM DEMURRAGE CLERK documented as of this encounter Visit Diagnoses Diagnosis Osteoarthritis of right acromioclavicular joint- Primary Paralabral cyst of right shoulder, initial encounter Suprascapular entrapment neuropathy, right Suprascapular entrapment neuropathy, right- Primary Osteoarthritis of right acromioclavicular joint Paralabral cyst of right shoulder, initial encounter Osteoarthritis of right acromioclavicular joint Paralabral cyst of right shoulder, initial encounter Suprascapular entrapment neuropathy, right documented in this encounter Care Teams District Home Economics Agent Relationship Specialty Start Date End Date None, Provider, PCP - General UNKNOWN PHYSICIAN SPECIALTY 02/23/24 documented as of this encounter
--- OUTSIDE RECORDS SUMMARY | 2024-06-25 03:36 | XMS_ITS | Clinical Summary ---
Author Organization [facility] Address [address] [place] [address]. [place], [place] [address] [place] [address] Care Team Providers Care Manager Fiber Name Role Phone None, Provider MD Primary Care Provider Unavaila ble Allergies No known active allergies Medications ALPRAZolam (XANAX) 1 MG tablet Take 1 tablet (1 mg total) by mouth nightly as needed. 4 Active amLODIPine (NORVASC) 5 MG tablet Take 1 tablet (5 mg total) by mouth daily. Active ARIPiprazole (ABILIFY) 10 MG tablet Take 1 tablet (10 mg total) by mouth daily. 4 Active cetirizine (ZYRTEC) 10 MG tablet Take 1 tablet (10 mg total) by mouth daily. Active cyclobenzaprine (FLEXERIL) 10 MG tablet Take 1 tablet (10 mg total) by mouth 3 (three) times daily. 4 Active HYDROcodone-acetam inophen (NORCO) 5-325 MG tablet Take 1 tablet by mouth every 6 (six) hours as needed. 4 Active ibuprofen (MOTRIN) 600 MG tablet Take 1 tablet (600 mg total) by mouth every 8 (eight) hours. 3 Active ketorolac (TORADOL) 10 MG tablet Take 1 tablet (10 mg total) by mouth 2 (two) times daily as needed. 4 Active lidocaine (LIDODERM) 5 % APPLY ONE PATCH TOPICALLY TO CLEAN, DRY SKIN ON RIGHT SHOULDER. LEAVE ON FOR 12 HOURS THEN REMOVE. MUST WAIT AT LEAST 12 HOURS BEFORE APPLYING PATCH(ES) AGAIN. 4 Active Lumateperone Tosylate (CAPLYTA) 42 MG Cap Take by mouth. Active naproxen (NAPROSYN) 500 MG tablet TAKE 1 TABLET BY MOUTH EVERY 12 HOURS WITH FOOD NEEDED 3 Active ondansetron (ZOFRAN-ODT) 4 MG disintegrating tablet DISSOLVE AND SWALLOW 1 TABLET BY MOUTH EVERY 8 HOURS FOR 5 DAYS 4 Active QUEtiapine (SEROQUEL) 50 MG tablet Take 1 tablet (50 mg total) by mouth daily. Active sertraline (ZOLOFT) 100 MG tablet Take 1 tablet (100 mg total) by mouth daily. Active spironolactone (ALDACTONE) 50 MG tablet Take 1 tablet (50 mg total) by mouth daily. 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 2024 Paralabral cyst of right shoulder, initial encou nter 2024 Encounters Date Type Department Care Team Description 06/08/2024 Telephone [facility] Orthopedic & Sports Medicine [facility] [address] [place] [address] Dev Reynolds MD Follow Up Call 05/19/2024 Telephone [facility] Orthopedic & Sports Medicine [facility] [address] [place] [address] Dev Reynolds MD Information 05/16/2024 Prep for Procedure [facility] Orthopedic & Sports Medicine [facility] [address] [place] [address] Dev Reynolds MD 05/15/2024 Telephone [facility] Orthopedic & Sports Medicine [facility] [address] [place] [address] Dev Reynolds MD Other (Patient is requesting a letter for work restrictions) 05/15/2024 Telephone [facility] Orthopedic & Sports Medicine [facility] [address] [place] [address] Dev Reynolds MD Work Excuse 05/04/2024 MyChart Message Enc [facility] Orthopedic & Sports Medicine [facility] [address] [place] [address] Dev Reynolds MD Restrictions 04/06/2024 MyChart Message Enc [facility] Orthopedic & Sports [facility] [address] [place] [address] Sarmad, [facility] Provider surgery approval 03/29/2024 MyChart Message Enc [facility] Orthopedic & Sports [facility] [address] [place] [address] [place], [facility] Provider surgery information from Last 3 Months Social History Tobacco Use Types Packs/Day Years Used Date Smoking Tobacco: Every Day Cigarettes Smokeless Tobacco: Never Tobacco Cessation:Ready to Q uit: No; Counseling Given: Yes Comments Unknown Sex and Gender Information Value Date Recorded Sex Assigned at Not on file Legal Sex Female 11:50 AM CDT Gender Identity Not on file Sexual Orientation Not on file Last Filed Vital Signs Vital Sign Reading [...] Mass Index 39.29 2024 2:30 PM CDT Plan of Treatment Upcoming Encounters Date Type Department Care Team (Latest Contact Info) Description 07/11/2024 1:20 PM CUB REPORTER Office Visit [facility] Medical [facility] Orthopedic & Sports [facility] [address] [place] [address] Dev Reynolds MD [address] [address] [place] [address] 07/26/2024 10:05 AM CUB REPORTER Hospital Encounter [facility] [place] [address] Dev Reynolds MD [phone] [place] [address] 07/26/2024 10:05 AM CUB REPORTER - 07/26/2024 12:40 PM CUB REPORTER Surgery [facility] [place] [address] Dev Reynolds MD [id number] [place] [address] RIGHT SHOULDER ARTHROSCOPY WITH DEBRIDEMENT OF POSTERIOR VARIANT SLAP LESION, BICEPS TENOTOMY, DECOMPRESSION OF POSTERIOR SUPERIOR PARA LABRAL CYST, SUBACROMIAL DECOMPRESSION AND DISTAL CLAVICLE EXCISION 08/03/2024 11:00 AM CUB REPORTER Office Visit [facility] Medical Group Orthopedic & Sports Medicine - [place] [address] [place] [address] Dev Reynolds MD [phone] [place] [address] Scheduled Procedures Name Priority Associated Diagnoses Date/Ti me ARTHROSCOPY SHOULDER Osteoarthritis of right acromioclavicular joint Paralabral cyst of right shoulder, initial encounter Suprascapular entrapment neuropathy, right 07/26/2024 10:05 AM CUB REPORTER Health Maintenance Due Date Last Done Comments Cervical Cancer Screening Pap Smear (Age 30 to 64) Every 3 Years 1982 Annual Physical 1985 Pneumococcal Vaccine: Pediatrics (0 to 5 Years) and At-Risk Patients (6 to 64 Years) (1 of 2 - PCV) 1988 Hepatitis C 2000 Hepatitis B Vaccines (1 of 3 - 19+ 3-dose series) 2001 Cervical Cancer Screening Pap with HPV Testing (Age 30 to 64) Every 5 Years 2012 Cervical Cancer Screening with HPV 2012 Mammogram Screening 2022 COVID-19 Vaccine ( - season) 2024 05/14/2022, 09/02/2021, 12/18/2020, Additional history exists Influenza Adult (#1) 2024 05/14/2022, 04/03/20 15 DTaP, Tdap and Td Vaccines (2 - Td or Tdap) 03/22/2028 03/22/2018 HPV Vaccines Aged Out No longer eligi ble based on patient's age to complete this topic Meningococcal Vaccine Aged Out No lm kristin eligible based on patient's age to complete this topic RSV Immunizations Under 20 Months Aged Out No longer eligible based on patient's age to complete [place] [address] [facility] [employer] [facility] Care Teams Manager Fiber Relationship Specialty Start Date End Date None, Provider, MD PCP - General UNKNOWN PHYSICIAN SPECIALTY 02/23/24
--- OUTSIDE RECORDS SUMMARY | 2024-06-25 03:36 | XMS_ITS | Encounter Summary ---
Author Organization [facility] Address [address] [place] [address]. [place] [address] [place] [address] Care Team Providers Care Gas Desulfurizer Name Role Phone None, Provider MD Primary Care Provider Unavaila ble Reason for Visit * Reason Onset Date Comments Information 03/15/2024 Encounter Details Date Type Department Care Team (Late st Contact Info) Description 03/15/2024 Telephone [facility] Medical Group Orthopedic & Sports Medicine - [place] [address] [place], [place] [address] [phone] Dev Reynolds MD [address] [address] [place], [place] [phone] Information Social History Tobacco Use Types Packs/Day Years Used Date Smoking Tobacco: Every Day Cigarettes Smokeless Tobacco: Never Comments Unknown Sex and Gender Information Value Date Recorded Sex Assigned at Not on file Legal Sex Female 11:50 AM CDT Gender Identity Not on file Sexual Orientation Not on file documented as of this encounter Progress Notes * Beth Arzate MA - 03/15/2024 12:50 PM CDT Noted, let patient know we received her message and once results are in Dr. Reynolds will review * Valencia Jara - 03/15/2024 12:05 PM CDT Patient called in the office and stated that she has some upcoming appointments for emg and mri on and and she wanted Dr Reynolds to know so he can check for her results, documented in this encounter Plan of Treatment Upcoming Encounters Date Type Department Care Team (Latest Contact Info) Description 07/11/2024 1:20 PM CREEL CLEANER Office Visit [facility] Orthopedic & Sports Medicine [facility] [address] [place] [address] Dev Reynolds MD [phone] [place] [address] 07/26/2024 10:05 AM CREEL CLEANER Hospital Encounter [facility] [place] [address] Dev Reynolds MD [address] [place] [address] 07/26/2024 10:05 AM CREEL CLEANER - 07/26/2024 12:40 PM CREEL CLEANER Surgery [facility] [place] [address] Dev Reynolds MD [phone] [place] [address] RIGHT SHOULDER ARTHROSCOPY WITH DEBRIDEMENT OF POSTERIOR VARIANT SLAP LESION, BICEPS TENOTOMY, DECOMPRESSION OF POSTERIOR SUPERIOR PARA LABRAL CYST, SUBACROMIAL DECOMPRESSION AND DISTAL CLAVICLE EXCISION 08/03/2024 11:00 AM CREEL CLEANER Office Visit [facility] Orthopedic & Sports Medicine [facility] [address] [place] [address] Dev Reynolds MD [phone] [place] [address] Scheduled Procedures Name Priority Associated Diagnoses Date/Ti me ARTHROSCOPY SHOULDER Osteoarthritis of right acromioclavicular joint Paralabral cyst of right shoulder, initial encounter Suprascapular entrapment neuropathy, right 07/26/2024 10:05 AM CREEL CLEANER documented as of this encounter Visit Diagnoses Not on filedocumented in this encounter Care Teams Gas Desulfurizer Relationship Specialty Start Date End Date None, Provider, PCP - General UNKNOWN PHYSICIAN SPECIALTY 02/23/24 documented as of this encounter
--- OUTSIDE RECORDS SUMMARY | 2024-06-25 03:38 | XMS_ITS | Encounter Summary ---
Author Organization [facility] Healthcare Address [address] [place] [address] Care Team Providers Care Carbon Dioxide Operator Name Role Phone Miscellaneous, Not In File Unavailable Unava Dony Logan MD Primary Care [facility] Encounter Details Date Type Department Care Team (Late st Contact Info) Description 03/17/2024 Telephone [facility] Medical Group [facility] [address] [place] [address] Giana Arvizu LPN Social History Tobacco Use Types Packs/Day Years Used Date Smoking Tobacco: Every Day Cigarettes 07 27 Started: 1994 Vaping Smokeless Tobacco: Never Alcohol Use Standard Drinks/Week Comments Yes 0 (1 standard drink = 0.6 oz pur e alcohol) 1-2 times per week PHQ-2 Answer Date Recorded PHQ-2 Total Score (If total score is 3 or more points, staff should administer the PHQ-9) 0 03/08/2024 Comments No Sex and Gender Information Value Date Recorded Sex Assigned at Not on file Legal Sex Female 1:38 PM SEWER Gender Identity Not on file Sexual Orientation Not on file documented as of this encounter Miscellaneous Notes * Telephone Encounter - Giana Arvizu LPN - 03/17/2024 4:11 PM CDT Yes, report was filed. * Telephone Encounter - Chelsea Koroma DO - 03/17/2024 3:55 PM CDT This should be reported. The orders were in. * Telephone Encounter - Shannan Salazar MA - 03/17/2024 3:50 PM CDT Pt notified and will have labs done here or at [facility]. * Telephone Encounter - Giana Arvizu LPN - 03/17/2024 3:45 PM CDT LMOM to return call. Lab missed some blood work and patient will need to come back in to have done. Lab orders are stillin system. * Telephone Encounter - Giana Arvizu LPN - 03/17/2024 2:24 PM CDT Message sent to [facility] lab. * Telephone Encounter - Giana Arvizu LPN - 03/17/2024 2:24 PM CDT ----- Message from Chelsea Koroma DO sent at 03/17/2024 1:25 PM CDT ----- Can we check on this and make sure all of the labs ordered were drawn? A few of them just saw Future on them. documented in this encounter Plan of Treatment Not on file documented as of this encounter Visit Diagnoses Not on filedocumented in this encounter Care Teams Carbon Dioxide Operator Relationship Specialty Start Date End Date Dony Reed MD [address] [address] PCP - General Family Practice 03/08/24 Miscellaneous, Not In File 02/02/24 documented as of this encounter
--- OUTSIDE RECORDS SUMMARY | 2024-06-25 03:38 | XMS_ITS | Encounter Summary ---
Author Organization [facility] Healthcare Address [address] [place] [address] Care Team Providers Care Fountain Worker Name Role Phone Miscellaneous, Not In File Unavailable Unava Dony Logan MD Primary Care [facility] Encounter Details Date Type Department Care Team (Latest Contact Info) Description 05/18/2024 2:21 PM BINDER CASER - 05/18/2024 11:59 PM BINDER CASER Hospital Encounter [facility] [address] [place] [address] Shortness of breath; Abnormal breath sounds Discharge Disposition: Discharge to home or self care Social History Tobacco Use Types Packs/Day Years [...] on file Legal Sex Female 1:38 PM BINDER CASER Gender Identity Not on file Sexual Orientation Not on file documented as of this encounter Medications at Time of Discharge amLODIPine (NORVASC) 5 mg tabletIndications:Es sential hypertension Take 1 tablet (5 mg total) by mouth daily 90 tablet 1 05/18/2024 cetirizine (ZyrTEC) 10 mg tabletIndications:En vironmental and seasonal allergies Take 1 tablet (10 mg total) by mouth daily 90 tablet 1 04/06/2024 5 cyclobenzaprine (FLEXERIL) 10 mg tabletIndications:Ch ronic right-sided low back pain with right-sided sciatica Take 1 tablet (10 mg total) by mouth 3 (three) times a day as needed for muscle spasms 12 tablet 04/06/2024 ibuprofen (ADVIL,MOTRIN) 600 mg tablet Take 1 tablet (600 mg total) by mouth 06/19/2023 lumateperone (Caplyta) 42 mg capsule 07/09/2022 lumateperone (Caplyta) 42 mg capsuleIndications:D epression associated with Bipolar Disorder Take 1 capsule (42 mg total) by mouth daily 90 capsule 1 05/18/2024 ondansetron ODT (ZOFRAN-ODT) 4 mg disintegrating tablet DISSOLVE AND SWALLOW 1 TABLET BY MOUTH EVERY 8 HOURS FOR 5 DAYS 10/22/2023 spironolactone (ALDACTONE) 50 mg tabletIndications:Es sential hypertension Take 1 tablet (50 mg total) by mouth daily 90 tablet 1 05/18/2024 5 SUMAtriptan (IMITREX) 50 mg tablet 10/08/2023 traMADoL (ULTRAM) 50 mg tablet TAKE 1 TABLET BY MOUTH EVERY 6 HOURS NEEDED FOR MODERATE OR SEVERE PAIN 05/15/2024 azithromycin (ZITHROMAX) 250 mg tablet Take 2 tabs (500 mg) by mouth today, than 1 tab (250 mg) daily for 4 days. 6 tablet 05/18/2024 4 ALPRAZolam (XANAX) 1 mg tabletIndications:Bi polar affective disorder in remission (CMS/HCC) (HCC) Take 1 tablet (1 mg total) by mouth nightly 30 tablet 1 04/06/2024 4 documented as of this encounter Discharge Disposition Disposition Code Departure Means Destination Discharge to home or self care documented in this encounter Miscellaneous Notes * Result Encounter Note - Beth Wiseman MA - 05/18/2024 11:59 PM BINDER CASER Baetat message sent ER CASER documented in this encounter Plan of Treatment Not on file documented as of this encounter Procedures Procedure Name Priority Date/Time Associated Diagnosis Comments XR CHEST PA LATERAL 2 VIEWS Schedule Routine, Read Routine (OP Routine) 05/18/2024 2:50 PM BINDER CASER Shortness of breath Abnormal breath sounds documented in this encounter Results * XR Chest Pa Lateral 2 Views (05/18/2024 2:50 PM BINDER CASER) Anatomical Region Laterality Modality Body, Chest N/A Computed Radiogr aphy 05/23/2024 2:43 PM BINDER CASER Narrative 05/23/2024 2:44 PM BINDER CASER EXAM DESCRIPTION: XR CHEST PA LATERAL 2 VIEWS REASON FOR STUDY: SOB ?? Shortness of breath, cough since February 2024 ??Hypertension controlled with meds. ??Asthma. No surgery ?? TECHNIQUE: Frontal and lateral ??radiographic view(s) of the chest. COMPARISON: 10/01/2021. FINDINGS: LUNGS: ??No focal opacity, pleural effusion, or pneumothorax. ?? HEART/MEDIASTINUM: ??Cardiac silhouette normal in size. Mediastinal and hilar contours appear normal. LINES/TUBES: ??None. BONES: ??No acute osseous abnormality. IMPRESSION: No acute cardiopulmonary abnormality. THIS IS AN ELECTRONICALLY VERIFIED FINAL REPORT 05/23/2024 2:44 PM - Electronically signed by ??Denys Lewis M.D. CH: CH D: ??05/23/2024 2:44 PM T: ??05/23/2024 2:44 PM Report ID: [id number] Reading Location: ??[id number] Procedure Note Denys Lewis Jr., MD - 05/23/2024 EXAM DESCRIPTION: XR CHEST PA LATERAL 2 VIEWS REASON FOR STUDY: SOB Shortness of breath, cough since February 2024 Hypertension controlledwith meds. Asthma. No surgery TECHNIQUE: Frontal and lateral radiographic view(s) of the chest. COMPARISON: 10/01/2021. FINDINGS: LUNGS: No focal opacity, pleural effusion, or pneumothorax. HEART/MEDIASTINUM: Cardiac silhouette normal in size. Mediastinal andhilar contours appear normal. LINES/TUBES: None. BONES: No acute osseous abnormality. IMPRESSION: No acute cardiopulmonary abnormality. THIS IS AN ELECTRONICALLY VERIFIED FINAL REPORT 05/23/2024 2:44 PM - Electronically signed by Denys Lewis M.D. CH: DESTINY Report ID: [id number] Reading Location: [place] [address] Dony Reed MD IMG XR PROCEDURES F inal Result documented in this encounter Visit Diagnoses Diagnosis Shortness of breath Abnormal breath sounds Abnormal chest sounds documented in this encounter Care Teams Fountain Worker Relationship Specialty Start Date End Date Dony Reed MD [address] [address] PCP - General Family Practice 03/08/24 Miscellaneous, Not In File 02/02/24 documented as of this encounter
--- OUTSIDE RECORDS SUMMARY | 2024-06-25 03:38 | XMS_ITS | Clinical Summary ---
Author Organization [facility] [place] Address [address] [place] [address] Phone Care Team Providers Care Public Relations Coordinator Name Role Phone Provider, None Primary Care Provider Unavailabl e Allergies No known active allergies Medications ALPRAZolam (XANAX) 1 MG Tablet Take 1 mg by mouth. 4 Active amLODIPine (NORVASC) 5 MG Tablet Take 5 mg by mouth daily. Active cetirizine (ZyrTEC) 10 MG Tablet Take 10 mg by mouth daily. Active cyclobenzaprine (FLEXERIL) 10 MG Tablet take 1 tablet by mouth three times a day as needed for muscle spasms Active ibuprofen (MOTRIN) 600 MG Tablet Take 600 mg by mouth. 3 Active Lumateperone Tosylate (Caplyta) 42 MG Capsule Take by mouth. Active ondansetron (ZOFRAN-ODT) 4 MG TABLET DISPERSIBLE DISSOLVE AND SWALLOW 1 TABLET BY MOUTH EVERY 8 HOURS FOR 5 DAYS 4 Active spironolactone (ALDACTONE) 50 MG Tablet Take 50 mg by mouth. Active SUMAtriptan (IMITREX) 50 MG Tablet 4 Active traMADol (ULTRAM) 50 MG Tablet TAKE 1 OR 2 TABLETS BY MOUTH EVERY 8 HOURS 3 Active traMADol (ULTRAM) 50 MG TabletIndication s:Chronic right shoulder pain Take 1 Tablet by mouth every 6 hours as needed for Moderate or more severe pain. 12 Tablet 4 Active Active Problems No known active problems Encounters Date Type Department Care Team Description 05/15/2024 11:35 AM OPAL POLISHER Urgent Care Visit [facility] [place] [address] [place] [phone] Ryan Najera, PAC Chronic right shoulder pain (Primary Dx) Discharge Disposition: Discharged to home or Selfcare 05/15/2024 Travel from Last 3 Months Social History Tobacco Use Types Packs/Day Years Used Date Smoking Tobacco: Every Day Cigarettes Smokeless Tobacco: Never Tobacco Cessation:Ready to Q uit: Not Asked; Counseling Given: Not Answered Alcohol Use Standard Drinks/Week Comments Not Currently 0 (1 standard drink = 0.6 oz pur e alcohol) Comments Unknown Sex and Gender Information Value Date Recorded Sex Assigned at Not on file Legal Sex Female 11:39 PM CDT Gender Identity Not on file Sexual Orientation Not on file Last Filed Vital Signs Vital Sign Reading Time Taken Comments Blood Pressure 130/84 05/15/2024 11:41 AM OPAL POLISHER Pulse 88 05/15/2024 11:41 AM OPAL POLISHER Temperature 37.1 ??C (98.8 ??F) 05/15/2024 11:[address] Respiratory Rate 18 05/15/2024 11:41 AM OPAL POLISHER Oxygen Saturation 100% 05/15/2024 11:41 AM OPAL POLISHER Inhaled Oxygen Concentration - - Weight - - Height - - Body Mass Index - - Plan of Treatment Health Maintenance Due Date Last Done Comments Hepatitis C Virus (HCV) Screening 1982 Hepatitis B Immunization (1 of 3 - 19+ 3-dose series) 2001 Pneumococcal Immunization Combined (1 of 2 - PCV) 2001 Pap Smear 2003 Cervical Cancer Screening (CCS) 2012 HPV/Cotest 2012 Discussion re Starting/Frequency of Mammograms 2022 Influenza Immunization (#1) 2024 05/14/2022, 1 SARS-COV-2 Immunization ( season) 2024 05/14/2022, 09/02/2021, 12/18/2020, Additional history exists Respiratory Syncytial Virus (RSV) Immunization (Adult) (1 - 1-dose 75+ series) 2057 TdaP Immunization Completed 03/22/2018 Meningococcal Immunization (ACWY) Aged Out No longer eligible based on patient's age to complete this topic Rotavirus Immunization Aged Out No lo nger eligible based on patient's age to complete this topic Insurance MEDICAID [facility] Care Teams Public Relations Coordinator Relationship Specialty Start Date End Date Provider, None [place] PCP - General 05/15/24
--- OUTSIDE RECORDS SUMMARY | 2024-06-25 03:38 | XMS_ITS | Encounter Summary ---
Author Organization [facility] Healthcare Address [address] [place] [address] Care Team Providers Care Glove Turner Name Role Phone Miscellaneous, Not In File Unavailable Unava ilable Dony Reed MD Primary Care Provi renetta Encounter Details Date Type Department Care Team (Late st Contact Info) Description 03/14/2024 Orders Only [facility] Medical Group [facility] [address] [place] [address] Chelsea Koroma, DO [address] [place] [address] Social History Tobacco Use Types Packs/Day Years [...] on file Legal Sex Female 1:38 PM DRY CURE WORKER Gender Identity Not on file Sexual Orientation Not on file documented as of this encounter Plan of Treatment Not on file documented as of this encounter Visit Diagnoses Not on filedocumented in this encounter Care Teams Glove Turner Relationship Specialty Start Date End Date Dony Reed MD [address] [facility] [address] [place] [address] PCP - General Family Practice 03/08/24 Miscellaneous, Not In File 02/02/24 documented as of this encounter
--- OUTSIDE RECORDS SUMMARY | 2024-06-25 03:38 | XMS_ITS | Encounter Summary ---
Author Organization [facility] Healthcare Address [address] [place] [address] Care Team Providers Care Payroll Tax Analyst Name Role Phone Miscellaneous, Not In File Unavailable Unava ilable Dony Reed MD Primary Care Provi renetta Reason for Visit * Reason Comments Anxiety Bipolar * Consultation (Urgent) - Closed Specialty Diagnoses / Procedures Referred By Contac t Referred To Contact Psychiatry Diagnoses Paranoid schizophrenia (CMS/HCC) (HCC) Bipolar affective disorder in remission (CMS/HCC) (HCC) Dony Reed MD [address] [address] Phone: tel: fax: [facility] [id number] [place] [phone] Phone: tel: fax: Referral ID Status Reason Start Date Expiration Date V isits Requested Visits Authorized [id number] Closed Specialty Services Required 03/08/2024 04/07/2025 1 1 Encounter Details Date Type Department Care Team (Latest Contact Info) Description 05/18/2024 2:00 PM SMOCKING MACHINE OPERATOR Telemedicine [facility] [address] [place] [phone] [place] [address] [address] Bipolar 1 disorder (HCC) (Primary Dx); Paranoid schizophrenia (CMS/HCC) (HCC); Bipolar affective disorder in remission ([facility]) ([facility]) Social History Tobacco Use Types Packs/Day Years [...] on file Legal Sex 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 During the visit, I was located at home, and the patient was located at at home in the [place] [facility]. Total encounter time was 60 minutes, which includes the time spent today on precharting, the patient encounter, and post charting. My visit with the patient started at 2:10 pm and ended at 3:10 pm Total time devoted solely to psychotherapy during this visit was 16 minutes The patient has been informed that the visit may not be secure and acknowledged the information. I have explained the option of participating in a video visit during the COVID- 19 public health emergency to the patient. After being given an opportunity to ask questions about and discuss this typeof visit, the patient verbally consented to proceeding with the video visit. The patient understands that this service replaces an office visit and they may be billed and/or responsible for any applicable copayments. Patient ID Melvina Newsome is a 44 y.o. female with a date of of 1980. Chief Complaint: I have Bipolar, and schizophrenia Anxiety and Bipolar HPI: Patient with psychiatric history significant for bipolar disorder is being seen today through video conference with a view to taking over her psychiatric care given that she currently has no psychiatrist in the community she is following up with since after she relocated from [place] to [place]in December 2023. On evaluation, patient reports that she was diagnosed with bipolar disorder in 2016 due to having manic symptoms/manic episode with paranoia. She also reports being diagnosed with schizophrenia. She reports 1 prior inpatient psychiatric hospitalization in 2016. She denied history of suicide attempts. She states that she has been tried on several psychotropic medications through the years that includes risperidone that caused elevation of her prolactin level, and Zoloft that causedher problem with passing urine. She reports to have been stabilized on Caplyta which she started receiving through the certified ophthalmic medical technician program in [place] in June 2022, when she relocated to [place] in January 15, 2024 was not able to get securities analyst with a psychiatrist she saw the time starting her onAbilify which has caused her to gain 50 lbs, and had to stop taking. She reports to have gotten back on Caplyta 42 mg q.day but does not know if insurance will pick it up now that she has establishedtherapeutic relationship with our practice who can perform pre authorization should her insurance insists on alprazolam transition before approving her Caplyta medication which is important as it has been keeping her stable without any major side effects. She is also on Xanax p.o. 1 mg q.day p.r.n.for anxiety/panic attacks currently being prescribed for her by her primary care doctor. Patient denied SI, HI, and or audiovisual hallucinations during the encounter. She also denied feeling depressed but did acknowledge feeling stressed. Past Medical History: Diagnosis Date Back pain Allergies Codeine No family history on file. Social History Tobacco Use Smoking status: Every Day Current packs/day: 1.00 Average packs/day: 1 pack/day for 29.9 years (29.9 ttl pk-yrs) Types: Cigarettes, Vaping Start date: 1992 Smokeless tobacco: Never Substance and Sexual Activity Drug use: No Sexual activity: Yes Partners: Male control/protection: None Alcohol Use: Not on file Patient states that she was born in [facility], and grew up in [facility]. She reportsthat she is a product of broken home that saw her live with several members of her family at several different times during her childhood up bringing including her dad, stepmom, mom, and grand mom. She denied any abuse during her childhood. She has an associate degree in science, and currently works for [employer]. Patient denied abuse of alcohol, and use of any illicit drugs. She denied abuse of anyprescription medication. She states that she smokes a pack of cigarettes daily. She denies any issues with the law. She is her own guardian, and currently lives with her dad in [facility]. ROS I have reviewed Health, Past Family and Social History from the Patient Health History form filled out on 05/18/24 and there are no changes MENTAL STATUS EXAMINATION: General appearance and Behavior: cooperative Good eye contact Speech: Normal rate Normal tone Normal volume Normal latency - 3 seconds Average vocabulary Thought Process: linear Content of Thought: She denies Si, Hi, and or AVH Mood: ok Affect: congruent with mood Insight: fair Judgement: fair Sensorium and Intellect: normal Orientation: full(x3) Memory:intact Attention/Concentration:fair Associations: normal Language:normal Fund of Knowledge: adequate Musculoskeletal:normal Assessment/Plan : Patient is fairly stable psychiatrically at this time, and as such will remain onCaplyta p.o. 42 mg q.day, and alprazolam p.o. 1 mg q.day p.r.n. for anxiety/panic attacks(currentlybeing prescribed for her by her primary care doctor) for now. Patient will be re-evaluated in 4 weeks' time during her follow-up appointment. Psychotherapy: I provided cognitive behavioral and supportive psychotherapy focusing on increasing pleasant events, increasing socialization, coping with anxiety and coping with depression. Diagnoses and all orders for this visit: Bipolar 1 disorder (HCC) (Primary) Paranoid schizophrenia (CMS/HCC) ([facility]) - Ambulatory referral to Psychiatry Bipolar affective disorder in remission ([facility]/HCC) ([facility]) - Ambulatory referral to Psychiatry Other orders - lumateperone (Caplyta) 42 mg capsule; Take 1 capsule (42 mg total) by mouth daily KING MACHINE OPERATOR documented in this encounter Plan of Treatment Not on file documented as of this encounter Visit Diagnoses Diagnosis Bipolar 1 disorder (HCC)- Primary Paranoid schizophrenia (CMS/HCC) ([facility]) Paranoid schizophrenia, unspecified condition Bipolar affective disorder in remission (CMS/HCC) (HCC) documented in this encounter Orders Outpatient Referral Count Last Ordered Date Fir st Ordered Date AMB REFERRAL TO PSYCHIATRY 1 05/18/2024 documented in this encounter Care Teams Payroll Tax Analyst Relationship Specialty Start Date End Date Dony Reed MD [address] [facility] [address] [place] [address] PCP - General Family Practice 03/08/24 Miscellaneous, Not In File 02/02/24 documented as of this encounter
--- OUTSIDE RECORDS SUMMARY | 2024-06-25 03:38 | XMS_ITS | Encounter Summary ---
Author Organization [facility] Healthcare Address [address] [place] [address] Care Team Providers Care Hide House Supervisor Name Role Phone Miscellaneous, Not In File Unavailable Unava Dony Logan MD Primary Care Provi [facility] Encounter Details Date Type Department Care Team (Late st Contact Info) Description 05/19/2024 Telephone [facility] Medical [facility] [address] [place] [address] Giana Arvizu LPN Social History [...] on file Legal Sex Female 1:38 PM MANAGER COUNCIL Gender Identity Not on file Sexual Orientation Not on file documented as of this encounter Miscellaneous Notes * Telephone Encounter - Giana Arvizu LPN - 05/19/2024 2:22 PM MANAGER COUNCIL Patient notified and verbalizes understanding. GER COUNCIL * Telephone Encounter - Giana Arvizu LPN - 05/19/2024 1:33 PM MANAGER COUNCIL LMOM to return call. 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 GER COUNCIL documented in this encounter Plan of Treatment Not on file documented as of this encounter Visit Diagnoses Not on filedocumented in this encounter Care Teams Hide House Supervisor Relationship Specialty Start Date End Date Dony Reed MD [address] [address] PCP - General Family Practice 03/08/24 Miscellaneous, Not In File 02/02/24 documented as of this encounter
--- OUTSIDE RECORDS SUMMARY | 2024-06-25 03:38 | XMS_ITS | Encounter Summary ---
Author Organization [facility] Healthcare Address [address] [place] [address] Care Team Providers Care Stock Feeder Name Role Phone Miscellaneous, Not In File Unavailable Unava Dony Logan MD Primary Care 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 Gender Identity Not on file Sexual Orientation Not on file documented as of this encounter Medications at Time of Discharge ibuprofen (ADVIL,MOTRIN) 600 mg tablet Take 1 tablet (600 mg total) by mouth 06/19/2023 lumateperone (Caplyta) 42 mg capsule 07/09/2022 ondansetron ODT (ZOFRAN-ODT) 4 mg disintegrating tablet DISSOLVE AND SWALLOW 1 TABLET BY MOUTH EVERY 8 HOURS FOR 5 DAYS 10/22/2023 SUMAtriptan (IMITREX) 50 mg tablet 10/08/2023 ALPRAZolam (XANAX) 1 mg tabletIndications:B ipolar affective disorder in remission ([facility]) ([facility]) Take 1 tablet (1 mg total) by mouth nightly 30 tablet 1 03/08/2024 04/06/20 24 amLODIPine (NORVASC) 5 mg tabletIndications:E ssential hypertension Take 1 tablet (5 mg total) by mouth daily 09/09/2023 05/18/20 24 ARIPiprazole (ABILIFY) 10 mg tabletIndications:P aranoid schizophrenia ([facility]) ([facility]) Take 1 tablet (10 mg total) by mouth daily 01/12/2024 04/06/20 24 cetirizine (ZyrTEC) 10 mg tablet Take 1 tablet (10 mg total) by mouth daily 04/06/20 24 cyclobenzaprine (FLEXERIL) 10 mg tablet Take 1 tablet (10 mg total) by mouth 3 (three) times a day as needed for muscle spasms 12 tablet 10/01/2021 04/06/20 24 fluvoxaMINE (LUVOX) 50 mg tablet fluvoxamine 50 mg tablet 05/11/20 24 HYDROcodone-acetami nophen (NORCO) 5-325 mg per tablet Take 1 tablet by mouth every 6 (six) hours as needed 02/26/2024 05/11/20 ketorolac (TORADOL) 10 mg tablet Take 1 tablet (10 mg total) by mouth 2 (two) times a day as needed 09/20/2023 05/11/20 24 lidocaine (LIDODERM) 5 % APPLY ONE PATCH TOPICALLY TO CLEAN, DRY SKIN ON RIGHT SHOULDER. LEAVE ON FOR 12 HOURS THEN REMOVE. MUST WAIT AT LEAST 12 HOURS BEFORE APPLYING PATCH(ES) AGAIN. 07/01/2023 05/11/20 24 naloxone (NARCAN) 4 mg/actuation spray,non-aerosolIn dications:Opiate-In duced Respiratory Depression Administer 1 spray into affected nostril(s) as needed for opioid reversal or respiratory depression Call 911. Administer a single spray in one nostril. Repeat every 3 minutes as needed if no or minimal response. 1 each 1 03/08/2024 05/11/20 ondansetron ODT (ZOFRAN-ODT) 4 mg disintegrating tablet DISSOLVE AND SWALLOW 1 TABLET BY MOUTH EVERY 8 HOURS FOR 5 DAYS 10/22/2023 05/11/20 24 sertraline (ZOLOFT) 100 mg tablet Take 1 tablet (100 mg total) by mouth daily 09/11/2023 04/06/20 spironolactone (ALDACTONE) 50 mg tablet Take 1 tablet (50 mg total) by mouth daily 12/13/2023 05/18/20 24 SUMAtriptan (IMITREX) 50 mg tablet 10/08/2023 05/11/20 24 documented as of this encounter Discharge Disposition Disposition Code Departure Means Destination Discharge to home or self care documented in this encounter Plan of Treatment Not on file documented as of this encounter Visit Diagnoses Not on filedocumented in this encounter Care Teams Stock Feeder Relationship Specialty Start Date End Date Dony Reed MD [address] [address] PCP - General Family Practice 03/08/24 Miscellaneous, Not In File 02/02/24 documented as of this encounter
--- OUTSIDE RECORDS SUMMARY | 2024-06-25 03:38 | XMS_ITS | Encounter Summary ---
Author Organization [facility] Healthcare Address [address] [place] [address] Care Team Providers Care Piece Goods Clerk Name Role Phone Miscellaneous, Not In File Unavailable Unava ilable Dony Reed MD Primary Care [facility] Reason for Visit * Reason Onset Date Comments Medical Question/Miscellaneous 04/20/2024 Encounter Details Date Type Department Care Team (Late st Contact Info) Description 04/20/2024 Telephone [facility] Medical Group Primary Care at [address] [phone] Dony Reed MD [address] [place] [address] Medical Question/Miscellaneou s Social History Tobacco Use Types Packs/Day Years Used Date Smoking Tobacco: Every Day Cigarettes 30 Started: 1992 Vaping Smokeless Tobacco: Never Alcohol [...] on file 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 Reed to review * Telephone Encounter - Yuliya Aguilar - 04/20/2024 4:28 PM CDT Medical Question/Miscellaneous Caller???s Concern: Caller called asking for test results after xrays done at [facility] on 04/18 for cough and rib pain. Patient left ED before results given. VECTOR CONTROL SPECIALIST offered national insurance officer or appointment but patient feels she is getting better and will call back Wednesday if she needs follow up for symptoms. Does message need to be routed? Yes-Action Needed documented in this encounter Plan of Treatment Not on file documented as of this encounter Visit Diagnoses Not on filedocumented in this encounter Care Teams Piece Goods Clerk Relationship Specialty Start Date End Date Dony Reed MD [address] [facility] [address] [place] [address] PCP - General Family Practice 03/08/24 Miscellaneous, Not In File 02/02/24 documented as of this encounter
--- OUTSIDE RECORDS SUMMARY | 2024-06-25 03:38 | XMS_ITS | Encounter Summary ---
Author Organization [facility] Healthcare Address [address] [place] [address] Care Team Providers Care Belt Press Operator Name Role Phone Miscellaneous, Not In File Unavailable Unava ilable Dony Reed MD Primary Care [facility] Encounter Details Date Type Department Care Team (Late st Contact Info) Description 05/24/2024 Orders Only [facility] Medical Group Primary Care at [address] [place] [phone] Dony Reed MD [address] [facility] [address] [place] [address] Social History Tobacco Use Types Packs/Day Years Used Date Smoking Tobacco: Every Day Cigarettes 1 30 Started: 1992 Vaping Smokeless Tobacco: Never [...] on file 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 30 patch 05/24/2024 documented in this encounter Plan of Treatment Not on file documented as of this encounter Visit Diagnoses Not on filedocumented in this encounter Care Teams Belt Press Operator Relationship Specialty Start Date End Date Dony Reed MD [address] [facility] [address] [place] [address] PCP - General Family Practice 03/08/24 Miscellaneous, Not In File 02/02/24 documented as of this encounter
--- OUTSIDE RECORDS SUMMARY | 2024-06-25 03:38 | XMS_ITS | Encounter Summary ---
Author Organization [facility] Care Team Providers Care Training And Development Officer Name Role Phone Provider, None Primary Care Provider Unavailabl e Encounter Details Date Type Department Care Team (Latest Contact Info) Description 05/15/2024 Travel Social History Tobacco Use Types Packs/Day Years Used Date Smoking Tobacco: Every Day Cigarettes Smokeless Tobacco: Never Alcohol Use Standard Drinks/Week Comments Not Currently [...] on filedocumented in this encounter Care Teams Training And Development Officer Relationship Specialty Start Date End Date Provider, None TERE PCP - General 05/15/24 documented as of this encounter
--- OUTSIDE RECORDS SUMMARY | 2024-06-25 03:38 | XMS_ITS | Clinical Summary ---
Author Organization [facility] Address [address] [place] [address] Phone Care Team Providers Care Mathematics Education Professor Name Role Phone Miscellaneous, Not In File Unavailable Unava Dony Logan MD Primary Care Provi renetta Allergies Active Allergy Reactions Criticality Noted Date Comments Codeine Vomiting Low 07/21/2020 Medications cyclobenzaprine (FLEXERIL) 10 mg tabletIndications: Chronic right-sided low back pain with right-sided sciatica Take 1 tablet (10 mg total) by mouth 3 (three) times a day as needed for muscle spasms 12 tablet 04/06/20 24 Active cetirizine (ZyrTEC) 10 mg tabletIndications: Environmental and seasonal allergies Take 1 tablet (10 mg total) by mouth daily 90 tablet 1 04/06/20 24 025 Active lumateperone (Caplyta) 42 mg capsule 07/09/19 23 Active traMADoL (ULTRAM) 50 mg tablet TAKE 1 TABLET BY MOUTH EVERY 6 HOURS NEEDED FOR MODERATE OR SEVERE PAIN 05/15/20 24 Active ibuprofen (ADVIL,MOTRIN) 600 mg tablet Take 1 tablet (600 mg total) by mouth 06/19/20 23 Active ondansetron ODT (ZOFRAN-ODT) 4 mg disintegrating tablet DISSOLVE AND SWALLOW 1 TABLET BY MOUTH EVERY 8 HOURS FOR 5 DAYS 10/22/19 24 Active SUMAtriptan (IMITREX) 50 mg tablet 10/08/19 24 Active amLODIPine (NORVASC) 5 mg tabletIndications: Essential hypertension Take 1 tablet (5 mg total) by mouth daily 90 tablet 1 05/18/20 24 025 Active spironolactone (ALDACTONE) 50 mg tabletIndications: Essential hypertension Take 1 tablet (50 mg total) by mouth daily 90 tablet 1 05/18/20 24 025 Active lumateperone (Caplyta) 42 mg capsuleIndications :Depression associated with Bipolar Disorder Take 1 capsule (42 mg total) by mouth daily 90 capsule 1 05/18/20 24 Active lidocaine (LIDODERM) 5 % Place 1 patch on the skin daily as needed for pain Apply to painful area 12 hours per day, remove for 12 hours. 30 patch 05/24/20 24 Active ALPRAZolam (XANAX) 1 mg tabletIndications: Bipolar affective disorder in remission (CMS/HCC) (HCC) TAKE 1 TABLET BY MOUTH EVERY DAY NIGHTLY 30 tablet 1 06/12/20 24 Active ALPRAZolam (XANAX) 1 mg tabletIndications: Bipolar affective disorder in remission (CMS/HCC) ([facility]) Take 1 tablet (1 mg total) by mouth nightly 30 tablet 1 04/06/20 24 024 Discontinued Active Problems Problem Noted Date Diagnosed Date Normocytic anemia 05/18/2024 Right shoulder pain 05/18/2024 Tear of right glenoid labrum 05/18/2024 Peripheral edema 05/18/2024 Abnormal weight gain 05/18/2024 Galactorrhea 05/18/2024 Shortness of breath 05/18/2024 Abnormal breath sounds 05/18/2024 Bipolar 1 disorder 05/18/2024 Suprascapular entrapment neuropathy, right 05/16 Essential hypertension 03/08/2024 Bipolar affective disorder in remission (CMS/HCC ) 03/08/2024 Morbid obesity with BMI of 40.0-44.9, adult 02/26 Prediabetes 03/08/2024 Paranoid schizophrenia ([facility]/HCC) 03/08/2024 Chronic right-sided low back pain with right-jonathan ed sciatica 03/08/2024 Osteoarthritis of right acromioclavicular joint 2024 Paralabral cyst of right shoulder 2024 Abdominal pain 08/24/2018 Overview (03/14/2024): Abdominal pain;Recorded Elsewhere: No Location: [facility] Source: EHR Chronic: N Practice ID: [id number] Billable Time: 04:15:00 PM Urinary tract infectious disease 08/24/2018 Overview (03/14/2024): UTI;Recorded Elsewhere: No Location: [facility] Source: EHR Chronic: N Practice ID: [id number] Billable Time: 04:15:00 PM 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 Overview (03/14/2024): Carcinoma in situ of cervix uteri;Recorded Elsewhere: No Location: [facility] Source: EHR Chronic: N Practice ID: [id number] Billable Time: 01:00:00 PM Atypical squamous cells of u ndetermined significance (ASCUS) on Papanicolaou smear of cervix 02/08/2012 Elbow injury 09/04/2009 Encounters Date Type Department Care Team Description 05/24/2024 Orders Only [facility] Primary Care at [address] [place] [address] Dony Reed MD 05/22/2024 Orders Only [facility] Primary Care at [address] [place] [address] Beth Wiseman MA Galactorrhea (Primary Dx) 05/19/2024 Telephone [facility] [address] [place] [address] Giana Arvizu LPN 05/18/2024 3:05 PM [employer] [facility] Lab [address] [address] Screen for sexually transmitted diseases; Screening for STD (sexually transmitted disease) 05/18/2024 3:00 PM [employer] TE[facility] Lab [address] [address] Shortness of breath; Abnormal breath sounds; Galactorrhea; Abnormal weight gain; Peripheral edema 05/18/2024 2:21 PM ELEMENTARY SPANISH TEACHER - 05/18/2024 11:59 PM ELEMENTARY SPANISH TEACHER Hospital Encounter [facility] [address] [place] [address] Shortness of breath; Abnormal breath sounds Discharge Disposition: Discharge to home or self care 05/18/2024 2:00 PM ELEMENTARY SPANISH TEACHER Telemedicine [facility] [address] [phone] Gil Mendosa MD Bipolar 1 disorder (HCC) (Primary Dx); Paranoid schizophrenia (CMS/HCC) (HCC); Bipolar affective disorder in remission (CMS/HCC) (HCC) 05/18/2024 1:00 PM ELEMENTARY SPANISH TEACHER Office Visit [facility] Primary Care at [address] [address] Dony Reed MD Essential hypertension (Primary Dx); Prediabetes; Morbid obesity with BMI of 40.0-44.9, adult (HCC); Normocytic anemia; Chronic right shoulder pain; Tear of right glenoid labrum, initial encounter; Abnormal weight gain; Peripheral edema; Galactorrhea; Shortness of breath; Abnormal breath sounds 05/15/2024 8:02 PM ELEMENTARY SPANISH TEACHER - 05/15/2024 11:59 PM ELEMENTARY SPANISH TEACHER Hospital Encounter [facility] [address] [place] [address] Prediabetes; Essential hypertension Discharge Disposition: Discharge to home or self care 05/15/2024 1:30 PM ELEMENTARY SP[employer]ISH TE[employer]ER Lab [facility] Outpatient Lab at [address] [place] [address] 04/20/2024 Telephone [facility] Primary Care at [address] [place] [address] Dony Reed MD Medical Question/Miscellane ous from Last 3 Months Immunizations Name Administration Dates Next Due Hep A, Adult 03/22/2018,09/14/2017 Influenza, Quadrivalent, Spl it, Preservative Free, Intramuscular 05/14/2022,04/03/2015 Influenza, Unspecified 04/18/2023(Deferr ed: Patient Refused),04/10/2023(Deferred: Patient Refused),04/10/2023(Deferred: Patient Refused) Pfizer SARS-CoV-2 Monovalent Vaccination (12+ Yrs) [place]-READY TO USE 09/02/2021 Pfizer SARS-CoV-2 Monovalent Vaccination (12+ Yrs) PURPLE 12/18/2020,11/27/2020 Pfizer Sars-Cov-2 Bivalent V accination (12+ YRS) 05/14/2022 Tdap 03/22/2018 Surgical History Surgery Date Site/Laterality Comments APPENDECTOMY TONSILLECTOMY CERVICAL BIOPSY W/ LOOP ELECTRODE EXCISION Medical History Medical History Date Comments Back pain Social History Tobacco Use Types Packs/Day Years Used Date Smoking Tobacco: Every Day Cigarettes 1 30 Started: 1994 Vaping Smokeless Tobacco: Never Tobacco Cessation:Ready to Q uit: Not Asked; Counseling Given: Not Answered Alcohol Use Standard Drinks/Week Comments Yes 0 (1 standard drink = 0.6 oz pur e alcohol) 1-2 times per week PHQ-2 Answer Date Recorded PHQ-2 Total Score (If total score is 3 or more points, staff should administer the PHQ-9) 0 03/08/2024 Comments No Sex and Gender Information Value Date Recorded Sex Assigned at Not on file Legal Sex Female 1:38 PM ELEMENTARY SP[employer]ISH TE[employer]ER Gender Identity Not on file Sexual Orientation Not on file Obstetrics History Para Term AB IAB SAB Ectopic Multiple Livin g Live Births 2 1 1 0 1 0 1 0 0 1 1 Date Outcome GA Total Labor Labor/2nd/3rd Weight Sex Type Anes PTL Joya A1 A5 Name Clin SAB 2002 Term 4.394 kg (9 lb 11 oz) F Vag-S pont Living Last Filed Vital Signs Vital Sign Reading Time Taken Comments Blood Pressure 126/80 05/18/2024 12:50 PM ELEMENTARY SPANISH TEACHER Pulse 105 05/18/2024 12:50 PM ELEMENTARY SPANISH TEACHER Temperature 36.7 ??C (98 ??F) 05/18/2024 12: 50 PM ELEMENTARY SPANISH TEACHER Respiratory Rate 18 10/01/2021 3:42 PM CDT Oxygen Saturation 97% 05/18/2024 12: 50 PM ELEMENTARY SPANISH TEACHER Inhaled Oxygen Concentration - - Weight 129.3 kg (285 lb 1.6 oz) 024 12:50 PM ELEMENTARY SP[employer]ISH TEACHER Height 170.2 cm (5' 7.01 ) 05/18/2024 1 2:50 PM ELEMENTARY SPANISH TEACHER Body Mass Index 44.64 05/18/2024 12:50 PM ELEMENTARY SPANISH TEACHER Plan of Treatment Health Maintenance Due Date Last Done Comments Breast Cancer Screening-Mammogram 1982 Pneumococcal vaccine <65 (1 of 2 - PCV) 1988 Varicella Vaccines (1 of 2 - 13+ 2-dose series) 1995 Hepatitis B Screening 2000 Covid-19 Vaccine ( season) 2024 05/14/2022, 09/02/2021, 12/18/2020, Additional history exists Influenza Vaccine (#1) 2024 05/14/2022, 2014 Depression Screening 03/08/2025 03/08/2024 Cervical Cancer Screening 03/14/2025 03/14/2024, Regular Well Visit/Exam 18-64 03/14/2025 03/14/2024 DTaP/Tdap/Td Vaccine (2 - Td or Tdap) 03/22/2028 03/22/2018 Hepatitis C Screening Completed 03/14/2024 HPV Vaccines Aged Out No longer eligi ble based on patient's age to complete this topic Procedures Procedure Name Priority Date/Time Associated Diagnosis Comments XR CHEST PA LATERAL 2 VIEWS Schedule Routine, Read Routine (OP Routine) 05/18/2024 2:50 PM ELEMENTARY SPANISH TEACHER Shortness of breath Abnormal breath sounds DIFFERENTIAL AUTO Routine 05/18/2024 2:3 7 PM ELEMENTARY SPANISH TEACHER Shortness of breath Abnormal breath sounds PRO B-TYPE NATRIURETIC PEPTIDE Routine 05/18/2024 2:37 PM ELEMENTARY SPANISH TEACHER Abnormal weight gain Peripheral edema Shortness of breath PROLACTIN Routine 05/18/2024 2:37 PM ELEMENTARY SPANISH TEACHER Galactorrhea CBC WITH AUTO DIFFERENTIAL Routine 05/18/2024 2:37 PM ELEMENTARY SPANISH TEACHER Shortness of breath Abnormal breath sounds HEPATITIS B SURFACE ANTIGEN Routine 05/18/2024 2:37 PM ELEMENTARY SPANISH TEACHER Screening for STD (sexually transmitted disease) HSV 1 ANTIBODY, IGG Routine 05/18/2024 2 :37 PM ELEMENTARY SP[employer]ISH TE[employer]ER Screening for STD (sexually transmitted disease) HSV 2 ANTIBODY, IGG Routine 05/18/2024 2 :37 PM ELEMENTARY SPANISH TEACHER Screening for STD (sexually transmitted disease) RPR Routine 05/18/2024 2:37 PM ELEMENTARY SPANISH TEACHER Screening for STD (sexually transmitted disease) EGFR Routine 05/15/2024 4:00 PM ELEMENTARY SPANISH TEACHER Essential hypertension DIFFERENTIAL AUTO Routine 05/15/2024 4:0 0 PM ELEMENTARY SP[employer]ISH TEACHER Prediabetes CBC WITH AUTO DIFFERENTIAL Routine 05/15/2024 4:00 PM ELEMENTARY SPANISH TEACHER Prediabetes TSH Routine 05/15/2024 4:00 PM ELEMENTARY SPANISH TEACHER Prediabetes LIPID PANEL Routine 05/15/2024 4:00 PM ELEMENTARY SPANISH TEACHER Essential hypertension COMPREHENSIVE METABOLIC PANEL Routine 05/15/2024 4:00 PM ELEMENTARY SPANISH TEACHER Essential hypertension HEMOGLOBIN A1C Routine 05/15/2024 4:00 PM ELEMENTARY SPANISH TEACHER Prediabetes HEPATITIS C ANTIBODY Routine 03/14/2024 2:20 PM CDT Screening for STD (sexually transmitted disease) HIGH RISK HPV DNA DETECTION WITH GENOTYPING Routine 03/14/2024 2:20 PM CDT Screening for malignant neoplasm of cervix from Last 3 Months or Most Recently Relevant to Health Maintenance Results * XR Chest Pa Lateral 2 Views (05/18/2024 2:50 PM ELEMENTARY SPANISH TEACHER) Anatomical Region Laterality Modality Body, Chest N/A Computed Radiogr aphy 05/23/2024 2:43 PM ELEMENTARY SPANISH TEACHER Narrative 05/23/2024 2:44 PM ELEMENTARY SPANISH TEACHER EXAM DESCRIPTION: XR CHEST PA LATERAL 2 [...] PM T: ??05/23/2024 2:44 PM Report ID: [id number] [place] Location: ??[id number] Procedure Note Denys Lewis Jr., MD - [...] Electronically signed by Denys Lewis M.D. CH: CH Report ID: [id number] [place] Location: [id number] Dony Reed MD IM XR PROCEDURES F inal Result * (ABNORMAL) Differential, auto (05/18/2024 2:37 PM ELEMENTARY SPANISH TEACHER) Neutrophil abs 6.8(H) 1.5 - 6.5 K/cumm Imm gran abs 0.1 0.0 - 0.1 K/cumm [facility] ([place]) Lymphocyte abs 2.7 0.8 - 3.3 K/cumm [facility] ([place]) Monocyte abs 1.2(H) 0.2 - 0.8 K/cumm [facility] ([place]) Eosinophil abs 0.3 0.0 - 0.5 K/cumm [facility] ([place]) Basophil abs 0.1 0.0 - 0.1 K/cumm [facility] ([place]) Neutrophil pct 61.1 % [facility] ([place]) Comment: Interpretive Data Percent cell count reference ranges are not reported, since discordance with absolute values may lead to misinterpretation of CBC data. Current Interpretive Data was last revised on 2017. Imm gran pct 0.7 % [facility] ([place]) Comment: Interpretive Data Percent cell count reference ranges are not reported, since discordance with absolute values may lead to misinterpretation of CBC data. Current Interpretive Data was last revised on 2017. Lymphocyte pct 24.1 % [facility] ([place]) Comment: Interpretive Data Percent cell count reference ranges are not reported, since discordance with absolute values may lead to misinterpretation of CBC data. Current Interpretive Data was last revised on 2017. Monocyte pct 10.5 % [facility] ([place]) Comment: Interpretive Data Percent cell count reference ranges are not reported, since discordance with absolute values may lead to misinterpretation of CBC data. Current Interpretive Data was last revised on 2017. Eosinophil pct 2.8 % [facility] ([place]) Comment: Interpretive Data Percent cell count reference ranges are not reported, since discordance with absolute values may lead to misinterpretation of CBC data. Current Interpretive Data was last revised on 2017. Basophil pct 0.8 % [facility] ([place]) Comment: Interpretive Data Percent cell count reference ranges are not reported, since discordance with absolute values may lead to misinterpretation of CBC data. Current Interpretive Data was last revised on 2017. Blood 05/18/2024 2:37 PM ELEMENTARY SPANISH TEACHER 05/18/2024 3:37 PM ELEMENTARY SP[employer]ISH TEACHER Dony Reed MD LAB BLOOD ORDERABLE S Final Result [facility] [place]) 1 [facility] Department [place] [address] * Pro B-type natriuretic peptide (05/18/2024 2:37 PM ELEMENTARY SPANISH TEACHER) NT-proBNP <36 <=300 pg/mL Comment: Interpretive Comments: A. Dyspnea in Acute Care Setting All Ages: ?< 300 pg/ml, acute heart failure unlikely. < 50 yrs: ?300 - 450 pg/ml, further investigation warranted. ? > 450 pg/ml, acute heart failure likely. 50 - 74 yrs: ? 300 - 900 pg/ml, further investigation warranted. ? > 900 pg/ml, acute heart failure likely . > or = 75 yrs: ? 450 - 1800 pg/ml, further investigation warranted. ? > 1800 pg/ml, acute heart failure likely. B. Non-acute Setting < 75 yrs ? < 125 pg/ml, rules out heart failure. ? > or = 125 pg/ml, further investigation warranted. > or = 75 yrs ?< 450 pg/ml, rules out heart failure. ? > or = 450 pg/ml, further investigation warranted. - Knowledge of each individual patient's NT-proBNP range may be more useful than using similar cut-points for every patient. Please note that marked elevations in NT-proBNP levels may be observed in state other than Left Ventricular Congestive Failure, including: acute coronary syndromes, right heart strain/failure (including pulmonary embolism and cor pulmonale), critical illness, renal failure, as well as advanced age. - References: 1. Gustavo PATEL et.al. Eur Heart J. 2006:27:330-337. 2. Orquidea RW, Ben SHEN. J. AM Brandy Cardiol: Cardiovasc Imag. 2009;2: 216- 225. Interpretive Data Last Revised Date: 2018. Blood 05/18/2024 2:37 PM ELEMENTARY SPANISH TEACHER 05/18/2024 3:37 PM ELEMENTARY SPANISH TEACHER Dony Reed MD LAB BLOOD ORDERABLE S Final Result [facility] ([place] 1 [facility] Department [place] [address] * (ABNORMAL) CBC with auto differential (05/18/2024 2:37 PM ELEMENTARY SPANISH TEACHER) WBC 11.1(H) 3.8 - 9.9 K/cumm Hgb 11.4(L) 11.9 - 15.5 g/dL [facility] ([place]) Hct 37.0 35.6 - 45.5 % [facility] ([place]) Plt 281 150 - 400 K/cumm [facility] ([place]) MPV 9.7 9.1 - 12.3 fL [facility] ([place]) RBC 4.67 3.90 - 5.20 M/cumm [facility] ([place]) MCV 79.2(L) 81.3 - 96.4 fL [facility] ([place]) MCH 24.4(L) 27.1 - 33.3 pg [facility] ([place]) MCHC 30.8(L) 32.3 - 35.7 g/dL [facility] ([place]) RDW CV 17.4(H) 11.1 - 14.9 % [facility] ([place]) RDW SD 49.7(H) 35.7 - 48.1 fL [facility] ([place]) NRBC abs 0.00 0.00 - 0.01 K/cumm [facility] ([place]) Blood 05/18/2024 2:37 PM ELEMENTARY SPANISH TEACHER 05/18/2024 3:37 PM ELEMENTARY SPANISH TEACHER Dony Reed MD LAB BLOOD ORDERABLE S Final Result [facility] ([place]) 1 [facility] Department [place] [email or web address] [place] [address] * Prolactin (05/18/2024 2:37 PM ELEMENTARY SPANISH TEACHER) [facility] Prolactin 23.3 4.8 - 23.3 ng/mL Comment:Testing performed by : [facility], [address] [place] [address], [id number] Blood 05/18/2024 2:37 PM ELEMENTARY SPANISH TEACHER 05/18/2024 8:18 PM ELEMENTARY SPANISH TEACHER Dony Reed MD LAB BLOOD ORDERABLE S Final Result Performing Organization Address City/[facility] Co de Phone Number [facility] ([place]) 1 [facility] [place] [address] * (ABNORMAL) HSV 2 IgG Antibody Blood (05/18/2024 2:37 PM ELEMENTARY SPANISH TEACHER) [facility] HSV 2 IgG Reactive( A) Nonreactive Comment: Interpretive Data 1. Nonreactive: No detectable IgG antibody to HSV-2. 2. Equivocal: Presence or absence of detectable antibodies to HSV-2 cannot be determined and the test should be repeated. 3. Reactive: Indicates presence of detectable IgG antibody to HSV-2. Current interpretive data was last revised on 2022. Testing performed by: [facility], [address] [place] [address], [id number] Blood 05/18/2024 2:37 PM ELEMENTARY SPANISH TEACHER 05/18/2024 7:30 PM ELEMENTARY SPANISH TEACHER Chelsea Koroma DO LAB MICROBIOLOGY - GENE RAL ORDERABLES Final Result [facility] ([place]) 1 [facility] Department [place] [email or web address] [address] * (ABNORMAL) HSV 1 IgG Antibody Blood (05/18/2024 2:37 PM ELEMENTARY SPANISH TEACHER) [facility] HSV 1 IgG Reactive( A) Nonreactive Comment: Interpretive Data 1. Nonreactive: No detectable IgG antibody to HSV-1. 2. Equivocal: Presence or absence of detectable antibodies to HSV-1 cannot be determined and the test should be repeated. 3. Reactive: Indicates presence of detectable IgG antibody to HSV-1. Current interpretive data was last revised on 2016. Testing performed by: [facility], [address] [place]., [address] Blood 05/18/2024 2:37 PM ELEMENTARY SPANISH TEACHER 05/18/2024 7:30 PM ELEMENTARY SPANISH TEACHER us Chelsea Koroma DO LAB MICROBIOLOGY - GENE RAL ORDERABLES Final Result [facility] ([place]) 1 [facility] Department [place] [email or web address] [address] * RPR Blood (05/18/2024 2:37 PM ELEMENTARY SPANISH TEACHER) RPR Nonreactive Nonreactive Comment:Testing performed by : [facility], [address] [place] [address]., [id number] Blood 05/18/2024 2:37 PM ELEMENTARY SPANISH TEACHER 05/18/2024 8:18 PM ELEMENTARY SPANISH TEACHER us Chelsea Koroma DO LAB MICROBIOLOGY - GENE RAL ORDERABLES Final Result Performing Organization Address City/[facility]/ZIP Co de Phone Number [facility]OP[facility] ([place]) 1 [facility] [email or web address] [address] * Hepatitis B Surface Antigen Blood (05/18/2024 2:37 PM ELEMENTARY SPANISH TEACHER) HepBsAg Nonreactive Nonreactive Comment:Testing performed by : [facility], [address] [place] [address]., [id number] Blood 05/18/2024 2:37 PM ELEMENTARY SPANISH TEACHER 05/18/2024 8:18 PM ELEMENTARY SPANISH TEACHER us Chelsea Koroma DO LAB MICROBIOLOGY - GENE RAL ORDERABLES Final Result [facility] ([place]) 1 [facility] Department [place] [address] * eGFR (05/15/2024 4:00 PM ELEMENTARY SPANISH TEACHER) eGFR 85 >=60 mL/min/1. 73 m2 Comment: Interpretive Data Reference Interval Normal ?>/= 90 mL/min/1.73m2 Mildly decreased* ? 60 - 89 mL/min/1.73m2 Mildly to moderately decreased ?45 - 59 mL/min/1.73m2 Moderately to severely decreased ??30 - 44 mL/min/1.73m2 Severely decreased ?15 - 29 mL/min/1.73m2 Kidney Failure ?< 15 ??mL/min/1.73m2 *Relative to young adult level Estimated glomerular filtration rate is determined by the 2020 CKD-EPI equation recommended by the National Kidney Foundation (A Unifying Approach to GFR Estimation: Recommendations of the NKF-ASK Task Force on Reassessing the Inclusion of Race in Diagnosing Kidney Disease, JASN 2020). The CKD-EPI equation should not be used for patients with unstable renal function and has not been validated in children and those over 70. Current interpretive data was last reviewed 2021. Blood 05/15/2024 4:00 PM ELEMENTARY SPANISH TEACHER 05/15/2024 8:46 PM ELEMENTARY SPANISH TEACHER us Dony Reed MD LAB BLOOD ORDERABLE S Final Result [facility] [address] Department [place] [address] * (ABNORMAL) Differential, auto (05/15/2024 4:00 PM ELEMENTARY SPANISH TEACHER) Neutrophil abs 6.5 1.5 - 6.5 K/cumm Imm gran abs 0.1 0.0 - 0.1 K/cumm [facility] Lymphocyte abs 3.3 0.8 - 3.3 K/cumm [facility] Monocyte abs 1.1(H) 0.2 - 0.8 K/cumm [facility] Eosinophil abs 0.3 0.0 - 0.5 K/cumm [facility] Basophil abs 0.1 0.0 - 0.1 K/cumm [facility] Neutrophil pct 57.1 % [facility] Comment: Interpretive Data Percent cell count reference ranges are not reported, since discordance with absolute values may lead to misinterpretation of CBC data. Current Interpretive Data was last revised on 2017. Imm gran pct 0.9 % [facility] Comment: Interpretive Data Percent cell count reference ranges are not reported, since discordance with absolute values may lead to misinterpretation of CBC data. Current Interpretive Data was last revised on 2017. Lymphocyte pct 28.6 % [facility] Comment: Interpretive Data Percent cell count reference ranges are not reported, since discordance with absolute values may lead to misinterpretation of CBC data. Current Interpretive Data was last revised on 2017. Monocyte pct 10.0 % [facility] Comment: Interpretive Data Percent cell count reference ranges are not reported, since discordance with absolute values may lead to misinterpretation of CBC data. Current Interpretive Data was last revised on 2017. Eosinophil pct 2.5 % [facility] Comment: Interpretive Data Percent cell count reference ranges are not reported, since discordance with absolute values may lead to misinterpretation of CBC data. Current Interpretive Data was last revised on 2017. Basophil pct 0.9 % [facility] Comment: Interpretive Data Percent cell count reference ranges are not reported, since discordance with absolute values may lead to misinterpretation of CBC data. Current Interpretive Data was last revised on 2017. Blood 05/15/2024 4:0 0 PM ELEMENTARY SPANISH TEACHER 05/15/2024 8:22 PM ELEMENTARY SPANISH TEACHER us Dony Reed MD LAB BLOOD ORDERABLE S Final Result [facility] [address] Department [place] [address] * (ABNORMAL) CBC with auto differential (05/15/2024 4:00 PM ELEMENTARY SPANISH TEACHER) WBC 11.4(H) 3.8 - 9.9 K/cumm Hgb 11.3(L) 11.9 - 15.5 g/dL [facility] Hct 38.6 35.6 - 45.5 % [facility] Plt 315 150 - 400 K/cumm [facility] MPV 10.3 9.1 - 12.3 fL [facility] RBC 4.69 3.90 - 5.20 M/cumm [facility] MCV 82.3 81.3 - 96.4 fL [facility] MCH 24.1(L) 27.1 - 33.3 pg [facility] MCHC 29.3(L) 32.3 - 35.7 g/dL [facility] RDW CV 17.8(H) 11.1 - 14.9 % [facility] RDW SD 53.0(H) 35.7 - 48.1 fL CERNER [facility] NRBC abs 0.00 0.00 - 0.01 K/cumm CERNER [facility] Blood 05/15/2024 4:00 PM ELEMENTARY SPANISH TEACHER 05/15/2024 8:22 PM ELEMENTARY SPANISH TEACHER Dony Reed MD LAB BLOOD ORDERABLE S Final Result Performing Organization Address City/[facility] Co de Phone Number BRIAN DESTINY [id number] [address] [facility] [email or web address] [address] * TSH (05/15/2024 4:00 PM ELEMENTARY SPANISH TEACHER) Pathologist [facility] Thyroid Stimulating Hormone 1.69 0.30 - 4.20 mcIUnit/mL Blood 05/15/2024 4:00 PM ELEMENTARY SPANISH TEACHER 05/15/2024 8:22 PM ELEMENTARY SPANISH TEACHER Dony Reed MD LAB BLOOD ORDERABLE S Final Result BRIAN DIXON [id number] [address] [facility] [email or web address] [address] * (ABNORMAL) Hemoglobin A1c (05/15/2024 4:00 PM ELEMENTARY SPANISH TEACHER) Hgb A1C 6.0(H) 4.0 - 5.6 % Estimated Average Glucose 126 mg/dL BRIAN DIXON Comment: The ADA recommends reporting an estimated Average Glucose (eAG) with all Hemoglobin A1c results using the equation derived from a study of 507 normal and diabetic adults. ??Minority populations were underrepresented and children were not included. ?? (Diabetes Care 31:8924-4905, 2008). ??The eAG is not equivalent to a fasting glucose. Blood 05/15/2024 4:00 PM ELEMENTARY SPANISH TEACHER 05/15/2024 8:22 PM ELEMENTARY SPANISH TEACHER us Dony Reed MD LAB BLOOD ORDERABLE S Final Result BRIAN [id number] [facility] [place] [address] * Lipid panel (05/15/2024 4:00 PM ELEMENTARY SPANISH TEACHER) Cholesterol 191 30 - 199 mg/dL Comment: Interpretive Data Ages < or = 19 years ??Acceptable: ? <170 mg/dL ??Borderline high: ??170-199 mg/dL ??High: ? >or= 200 mg/dL Ages > or = 20 years ??Desirable: ?<200 mg/dL ??Borderline high: ??200-239 mg/dL ??High: ? >or= 240 mg/dL Literature References: 1. Expert Panel on Integrated Guidelines for Cardiovascular Health and Risk Reduction in Children and Adolescents. Pediatrics 2011;128:S213 2. NCEP Expert Panel. Circulation 2004;110:227 Current Interpretive Data was last revised on 2018. Triglycerides 114 <=149 mg/dL BRIAN DIXON Comment: Interpretive Data Ages < or = 9 years ??Acceptable: ? <75 mg/dL ??Borderline high: ??75-99 mg/dL ??High: ? >or= 100 mg/dL Ages 10 to 20 years ??Acceptable: ? <90 mg/dL ??Borderline high: ??90-129 mg/dL ??High: ? >or= 130 mg/dL Ages > or = 20 years ??Desirable: ?<150 mg/dL ??Borderline high: ??150-199 mg/dL ??High: ? 200-499 mg/dL ?Very high: ?? >or= 499 mg/dL Literature References: 1. Expert Panel on Integrated Guidelines for Cardiovascular Health and Risk Reduction in Children and Adolescents. Pediatrics 2011;128:S213 2. NCEP Expert Panel. Circulation 2004;110:227 Current Interpretive Data was last revised on 2018. HDL 71 >=40 mg/dL BRIAN DIXON Comment: Interpretive Data Ages < or = 19 years ??Acceptable: ? >45 mg/dL ??Borderline low: ?? 40-45 mg/dL ??Low: ? <40 mg/dL Ages > or = 20 years ??Desirable: ?>or= 60 mg/dL ??Low: ? <40 mg/dL Literature References: 1. Expert Panel on Integrated Guidelines for Cardiovascular Health and Risk Reduction in Children and Adolescents. Pediatrics 2011;128:S213 2. NCEP Expert Panel. Circulation 2004;110:227 Current Interpretive Data was last revised on 2018. LDL, calculated 100 <=129 mg/dL BRIAN DIXON Comment: Interpretive Data Ages < or = 19 years ??Acceptable: ? <110 mg/dL ??Borderline high: ??110-129 mg/dL ??High: ?>or= 130 mg/dL Ages > or = 20 years ??Optimal: ? <100 mg/dL ??Near optimal: ?100-129 mg/dL ??Borderline high: ?? 130-159 mg/dL ??High: ?>160 mg/dL Calculated using the Aravind LDL-C estimating equation. This equation was implemented on 2024. Prior to this date LDL-C was estimated using the Friedewald equation. Literature References: 1. Expert Panel on Integrated Guidelines for Cardiovascular Health and Risk Reduction in Children and Adolescents. Pediatrics 2011;128:S213 2. NCEP Expert Panel. Circulation 2004;110:227 3. Aravind Fermin et al. BUDDY Cardiol. 2020 October 26;5(5):540-548. doi: 10.1001/jamacardio.2020.0013 Current Interpretive Data was last revised on 2024. Non-HDL Cholesterol 120 mg/dL BRIAN DIXON Comment: Interpretive Data Ages < or = 19 years ??Acceptable: ?<120 mg/dL ??Borderline high: ??120-144 mg/dL ??High: ?>145 mg/dL Ages > or = 20 years ??When triglycerides are >200 mg/dL, Non-HDL cholesterol is a secondary target of ? therapy with treatment goals that are 30 mg/dL greater than the LDL cholesterol target. ? Literature References: 1. Expert Panel on Integrated Guidelines for Cardiovascular Health and Risk Reduction in Children and Adolescents. Pediatrics 2011;128:S213 2. NCEP Expert Panel. Circulation 2004;110:227 Current Interpretive Data was last revised on 2018. Chol/HDL ratio 3 BRIAN Blood 05/15/2024 4:00 PM ELEMENTARY SPANISH TEACHER 05/15/2024 8:22 PM ELEMENTARY SPANISH TEACHER us Dony Reed MD LAB BLOOD ORDERABLE S Final Result BRIAN [id number] [address] Department [place] [address] * Comprehensive metabolic panel (05/15/2024 4:00 PM ELEMENTARY SPANISH TEACHER) Sodium 136 135 - 145 mmol/L Potassium, pl 4.6 3.3 - 4.9 mmol/L ALMANER CH Chloride 103 97 - 110 mmol/L CERNER CH CO2 25 22 - 32 mmol/L CERNER CH Anion gap 8 2 - 15 mmol/L CERNER CH BUN 13 6 - 25 mg/dL CERNER [facility] Creatinine 0.87 0.60 - 1.10 mg/dL CERNER CH Glucose 95 70 - 199 mg/dL CERNER CH Comment: Interpretive Data Fasting glucose >/= 126 mg/dl is diagnostic for diabetes. ?? Fasting is defined as no caloric intake for at least 8 hours. Fasting glucose between 100 mg/dl to 125 mg/dl is diagnostic of prediabetes. In a patient with classic symptoms of hyperglycemia or hyperglycemic crisis, a random glucose >/= 200 mg/dl is diagnostic for diabetes. In the absence of unequivocal hyperglycemia, results should be confirmed by repeat testing. The classification and Diagnosis of Diabetes Diabetes Care 202; 46: S19-S40. Current interpretive data was last revised 2022. Calcium 8.9 8.5 - 10.3 mg/dL CERNER CH Bilirubin, total 0.2 0.1 - 1.2 mg/dL CERNER CH Protein, pl 6.8 6.5 - 8.5 g/dL CERNER CH Albumin 3.8 3.5 - 5.0 g/dL CERNER CH Alk phos 59 40 - 130 Units/L CERNER [facility] ALT 17 7 - 45 Units/L CERNER [facility] AST 23 10 - 45 Units/L CERNER CH Blood 05/15/2024 4:00 PM ELEMENTARY SPANISH TEACHER 05/15/2024 8:22 PM ELEMENTARY SPANISH TEACHER Dony Reed MD LAB BLOOD ORDERABLE S Final Result [facility] [address] [address] Department [place] [address] * High Risk HPV DNA Detection with Genotyping (Molecular component) (03/14/2024 2:20 PM CDT) Pathologist [facility] HPV HR 16 Not Detected Not Detected [facility] Comment:Testing performed by : [facility], [address] [place]., [address] HPV HR 18 Not Detected Not Detected [facility] Comment:Testing performed by : [facility], [address] [place]., [address] HPV HR Non 16/18 Not Detected Not Detected BRIAN DIXON Comment: Interpretive Data Nucleic acid amplification for detection of high-risk Human Papilloma virus (HPV) is performed by the Hussein Carmelina 6800 HPV test. ??This assay specifically detects HPV-16 and HPV-18 genotypes. ??The following HPV genotypes are detected as high-risk HPV: ?? HPV-31, 33, 35, ,39, 45, 51, 52, 56, 58, 59, 66, and 68. ??This assay has been approved by the [place] Food and Drug Administration for detection of HPV in cervical specimens collected by a physician using an endocervical brush/spatula or cervical broom and placed in the ThinPrep Pap Test PreservCyt collection containers. ??The performance characteristics of this test have been verified by the [facility] Molecular Infectious Disease laboratory. Correlate with separately reported cytology results, as applicable. Interpretive data last revised 22 Testing performed by: [facility], [address] [place]., [address] Endocervical 03/14/2024 2:20 PM CDT 03/15/2024 12:22 PM CDT Narrative BRIAN - 03/15/2024 11:56 PM CDT Clinical history and diagnosis->Liquid-based PAP test with high risk HPV test- Z12.4 Number of vials->1 Testing type->Screening Last menstrual period (date if known)->03/02/24 Chelsea Koroma DO LAB BODY FLUIDS AND STO OLS ORDERABLES Final Result BRIAN DIXON [id number] Department [place] [address] [facility] * Hepatitis C antibody Blood (03/14/2024 2:20 PM CDT) Hep C Ab Nonreactive Nonreactive Comment: Interpretive Data Nonreactive: Antibodies to HCV not detected. Does NOT exclude the possibility of recent exposure to HCV. Equivocal: Equivocal for HCV antibodies. Supplemental molecular testing will be automatically performed to determine infection status in accordance with current CDC screening recommendations. ?? Reactive: Positive for HCV antibodies. ??This may represent current or past HCV infection. Supplemental molecular testing will be automatically performed to determine ??current infection status in accordance with current CDC screening recommendations. Interpretive data was last revised on 2019. Testing performed by: [facility], [address] [place] [address]., [id number] Blood 03/14/2024 2:20 PM CDT 03/14/2024 9:12 PM CDT Chelsea Koroma DO LAB MICROBIOLOGY - GENE RAL ORDERABLES Final Result BRIAN [id number] [facility] Department [place] [address] from Last 3 Months or Most Recently Relevant to Health Maintenance Insurance [facility] [place] [id number] [facility] Care Teams Mathematics Education Professor Relationship Specialty Start Date End Date Dony Reed MD [address] [facility] [address] [place] [address] PCP - General Family Practice 03/08/24 Miscellaneous, Not In File 02/02/24
--- OUTSIDE RECORDS SUMMARY | 2024-06-25 03:38 | XMS_ITS | Encounter Summary ---
Author Organization [facility] Healthcare Address [address] [place] [address] Care Team Providers Care Ice Cutter Name Role Phone Miscellaneous, Not In File Unavailable Unava Dony Logan MD Primary Care Pro[facility] Encounter Details Date Type Department Care Team (Late st Contact Info) Description 03/21/2024 Telephone [facility] Medical Group [facility] [address] [place] [address] Gaina Arvizu LPN Social History Tobacco Use Types [...] on file Legal 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 * Telephone Encounter - Giana Arvizu LPN - 03/21/2024 1:46 PM CDT LMOM to return call. * Telephone Encounter - Giana Arvizu LPN - 03/21/2024 1:46 PM CDT ----- Message from Chelsea Koroma DO sent at 03/21/2024 1:21 PM CDT ----- Please inform the patient her pap smear was normal. Unfortunately, not all of the labs were sent which is an error on the lab's part. What we did get was all normal. If she would like to return to have the others drawn, she can. documented in this encounter Plan of Treatment Not on file documented as of this encounter Visit Diagnoses Not on filedocumented in this encounter Care Teams Ice Cutter Relationship Specialty Start Date End Date Dony Reed MD [address] [facility] [address] [place] [address] PCP - General Family Practice 03/08/24 Miscellaneous, Not In File 02/02/24 documented as of this encounter
--- OUTSIDE RECORDS SUMMARY | 2024-06-25 03:38 | XMS_ITS | Encounter Summary ---
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
--- OUTSIDE RECORDS SUMMARY | 2024-06-25 03:38 | XMS_ITS | Encounter Summary ---
Author Organization [facility] Healthcare Address [address] [place] [id number] Care Team Providers Care Cap Maker Name Role Phone Miscellaneous, Not In File Unavailable Unava ilable Dony Reed MD Primary Care Provi renetta Reason for Referral * MRI/CAT/PET Scan (Routine) - Authorized Specialty Diagnoses / Procedures Referred By Contac t Referred To Contact Radiology Diagnoses Galactorrhea Procedures MRI Brain W WO Contrast (Pituitary) Dony Reed MD [address] [facility] [address] [place] [address] Phone: tel: fax: [address] [phone] Referral ID Status Reason Start Date Expiration Date V isits Requested Visits Authorized [id number] Authorized 05/23/2024 05/23/2025 1 1 [employer]ALL CLUB MANAGER Reason for Visit * Reason Comments Follow-up Encounter Details Date Type Department Care Team (Late st Contact Info) Description 05/18/2024 1:00 PM BASEBALL CLUB MANAGER Office Visit [facility] [place] [address] [place] [address] [address] [place] [id number] Dony Reed MD [address] [facility] [address] [place] [address] Essential hypertension (Primary Dx); Prediabetes; Morbid obesity with BMI of 40.0-44.9, adult (HCC); Normocytic anemia; Chronic right shoulder pain; Tear of right glenoid labrum, initial encounter; Abnormal weight gain; Peripheral edema; Galactorrhea; Shortness of breath; Abnormal breath sounds Social History Tobacco Use Types Packs/Day Years Used Date Smoking Tobacco: Every Day Cigarettes 07 27 Started: 1994 Vaping Smokeless Tobacco: Never Tobacco [...] on file Legal Sex Female 1:38 PM BASEBALL CLUB MANAGER Gender Identity Not on file Sexual Orientation Not on file documented as of this encounter Last Filed Vital Signs Vital Sign Reading Time Taken Comments Blood Pressure 126/80 05/18/2024 12:50 PM BASEBALL CLUB MANAGER Pulse 105 05/18/2024 12:50 PM BASEBALL CLUB MANAGER Temperature 36.7 ??C (98 ??F) 05/18/2024 12: 50 PM BASEBALL CLUB MANAGER Respiratory Rate - - Oxygen Saturation 97% 05/18/2024 12: 50 PM BASEBALL CLUB MANAGER Inhaled Oxygen Concentration - - Weight 129.3 kg (285 lb 1.6 oz) 024 12:50 PM BASEBALL CLUB MANAGER Height 170.2 cm (5' 7.01 ) 05/18/2024 1 2:50 PM BASEBALL CLUB MANAGER Body Mass Index 44.64 05/18/2024 12:50 PM BASEBALL CLUB MANAGER documented in this encounter Ordered Prescriptions Prescription Sig Dispense Quantity Refills Last Filled Start Date End Date spironolactone (ALDACTONE) 50 mg tabletIndications: Essential hypertension Take 1 tablet (50 mg total) by mouth daily 90 tablet 1 05/18/2024 11/14/2024 amLODIPine (NORVASC) 5 mg tabletIndications: Essential hypertension Take 1 tablet (5 mg total) by mouth daily 90 tablet 1 05/18/2024 11/14/2024 azithromycin (ZITHROMAX) 250 mg tablet Take 2 tabs (500 mg) by mouth today, than 1 tab (250 mg) daily for 4 days. 6 tablet 05/18/2024 05/23/2024 documented in this encounter Progress Notes * Dony Reed MD - 05/18/2024 1:00 PM CST Images from the original note were not included. Subjective/Objective Patient ID: Melvina Newsome is a 44 y.o. female. Diagnoses and all orders for this visit: Essential hypertension (Primary) - amLODIPine (NORVASC) 5 mg tablet; Take 1 tablet (5 mg total) by mouth daily - spironolactone (ALDACTONE) 50 mg tablet; Take 1 tablet (50 mg total) by mouth daily Blood pressure is controlled at this time. She will continue the amlodipine and spironolactone. Prediabetes Blood sugars are at goal. We will look to follow up on this in the future. Morbid obesity with BMI of 40.0-44.9, adult ([facility]) She needs work on weight loss but I am not sure the cause of all the weight gain in the last coupleof months. Normocytic anemia I am going to recheck this. Chronic right shoulder pain She needs to follow up with Orthopedics and her workman's comp physician on this. I explained to her that I really can not provide her any work restrictions but it makes good sense to me that she would have them. She is not able to lift heavy objects with a shoulder issue that she is having but I can not identify specifically what those restrictions should be. She should be able just call the orthopedist and get this taken care of. Tear of right glenoid labrum, initial encounter Following with orthopedics. Abnormal weight gain - Pro B-type natriuretic peptide; Future Given the abnormal weight gain in the shortness of breath I am going to check a BNP to verify that she is not having any heart failure related issue. I am going to hold off on echocardiogram at this time. This does not appear to be related to her kidneys as her kidney function is fine. Peripheral edema - Pro B-type natriuretic peptide; Future Galactorrhea - MRI Brain W WO Contrast (Pituitary); Future - Prolactin; Future I am concerned about the galactorrhea in the absence of medications that would cause it or any breast pain. In talking to her she states that she has been medicated for this in the past but ended up having to stop the medication due to interactions with her antipsychotics. I am going to get an MRI of the brain and also check a prolactin level. Shortness of breath - XR Chest Pa Lateral 2 Views; Future - Pro B-type natriuretic peptide; Future - CBC with auto differential; Future Sending her over for chest x-ray and CBC. Differential would be mechanical shortness of breath due to increased body habitus versus possibly congestive heart failure. Abnormal breath sounds - XR Chest Pa Lateral 2 Views; Future - CBC with auto differential; Future While we are doing workup I am also going to put her on azithromycin for possible bronchitis as herlungs sound pretty junky. She is coughing a lot in the office. Other orders - azithromycin (ZITHROMAX) 250 mg tablet; Take 2 tabs (500 mg) by mouth today, than 1 tab (250 mg) daily for 4 days. Follow up with me in a couple of weeks. Return in about 2 weeks (around 06/01/2024) for Recheck. Chief Complaint Chief Complaint Patient presents with Follow-up HPI 44-year-old female here to follow up on blood pressure and labs, though she is more concerned aboutwork restrictions in relation to issues she is having with her right shoulder. She had requested that I outline work restrictions for her for her shoulder, but I have never seen her for her shoulder.When I met her for the first time in February she told me that she was seeing orthopedics and that she was scheduled for imaging just after I had seen her. At that time she stated that this all stemmed from an injury at work maybe a year prior. I have no correspondence from an orthopedist nor anyone else about the shoulder. I do see an EMG from March 16 that was unremarkable. There was also an MRI from March 23 that shows a likely small posterior labral tear but no definite rotator cuff tear. There was suggestion of possible moderate bursitis. Also seen was AC osteoarthritis. Scheduled for shoulder surgery but until August 03. CMP shows normal renal function and is otherwise unremarkable. Lipid panel and TSH were both withinnormal range. CBC showed a very mild elevation in white blood cell count at 11.4 and hemoglobin at 11.3 but was otherwise unremarkable. MCV was normal. A1c is a little elevated at 6.0. Blood pressure looks great today. Her weight is up 24 lb from February. C/o swelling in her ankles for the last couple weeks. She put on a lot of weight while on Abilify so she's been off of that about 2 weeks now. She's back on Caplyta. She's lactating as well, which she noticed two days ago. Patient Active Problem List Diagnosis Date Noted Normocytic anemia 05/18/2024 Right shoulder pain 05/18/2024 Tear of right glenoid labrum 05/18/2024 Peripheral edema 05/18/2024 Abnormal weight gain 05/18/2024 Galactorrhea 05/18/2024 Shortness of breath 05/18/2024 Abnormal breath sounds 05/18/2024 Suprascapular entrapment neuropathy, right 05/16/2024 Essential hypertension 03/08/2024 Bipolar affective disorder in remission ([facility]) ([facility]) 03/08/2024 Morbid obesity with BMI of 40.0-44.9, adult ([facility]) 03/08/2024 Prediabetes 03/08/2024 Paranoid schizophrenia ([facility]) ([facility]) 03/08/2024 Chronic right-sided low back pain with right-sided sciatica 03/08/2024 Osteoarthritis of right acromioclavicular joint 2024 Paralabral cyst of right shoulder 2024 Abdominal pain 08/24/2018 Urinary tract infectious disease 08/24/2018 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 Atypical squamous cells of undetermined significance (ASCUS) on Papanicolaou smear of cervix 02/08/2012 Elbow injury 09/04/2009 Past Medical History: Diagnosis Date Back pain Past Surgical History: Procedure Laterality Date APPENDECTOMY CERVICAL BIOPSY W/ LOOP ELECTRODE EXCISION TONSILLECTOMY Current Outpatient Medications Medication Sig Dispense Refill ALPRAZolam (XANAX) 1 mg tablet Take 1 tablet (1 mg total) by mouth nightly 30 tablet 1 cetirizine (ZyrTEC) 10 mg tablet Take 1 tablet (10 mg total) by mouth daily 90 tablet 1 cyclobenzaprine (FLEXERIL) 10 mg tablet Take 1 tablet (10 mg total) by mouth 3 (three) times a day as needed for muscle spasms 12 tablet 0 ibuprofen (ADVIL,MOTRIN) 600 mg tablet Take 1 tablet (600 mg total) by mouth lumateperone (Caplyta) 42 mg capsule ondansetron ODT (ZOFRAN-ODT) 4 mg disintegrating tablet DISSOLVE AND SWALLOW 1 TABLET BY MOUTH EVERY 8 HOURS FOR 5 DAYS SUMAtriptan (IMITREX) 50 mg tablet traMADoL (ULTRAM) 50 mg tablet TAKE 1 TABLET BY MOUTH EVERY 6 HOURS NEEDED FOR MODERATE OR SEVERE PAIN amLODIPine (NORVASC) 5 mg tablet Take 1 tablet (5 mg total) by mouth daily 90 tablet 1 azithromycin (ZITHROMAX) 250 mg tablet Take 2 tabs (500 mg) by mouth today, than 1 tab (250 mg) daily for 4 days. 6 tablet 0 spironolactone (ALDACTONE) 50 mg tablet Take 1 tablet (50 mg total) by mouth daily 90 tablet 1 No current facility-administered medications for this visit. Allergies as of 05/18/2024 - Reviewed 05/18/2024 Allergen Reaction Noted Codeine Vomiting 07/21/2020 Social History Tobacco Use Smoking status: Every Day Current packs/day: 1.00 Average packs/day: 1 pack/day for 29.9 years (29.9 ttl pk-yrs) Types: Cigarettes, Vaping Start date: 1994 Smokeless tobacco: Never Substance and Sexual Activity Drug use: No Sexual activity: Yes Partners: Male control/protection: None Alcohol Use: Not on file No family history on file. Review of Systems Constitutional: Positive for fatigue and unexpected weight change. Negative for chills and fever. HENT: Positive for rhinorrhea. Negative for congestion, ear pain, hearing loss, sore throat and tinnitus. Eyes: Negative for pain, discharge and visual disturbance. Respiratory: Positive for cough and shortness of breath. Negative for wheezing. Cardiovascular: Positive for leg swelling. Negative for chest pain and palpitations. Gastrointestinal: Negative for abdominal pain, constipation, diarrhea, nausea and vomiting. Genitourinary: Negative for dysuria and frequency. Musculoskeletal: Positive for arthralgias and back pain. Negative for myalgias. Skin: Negative for rash. Neurological: Positive for headaches. Negative for dizziness and light-headedness. Psychiatric/Behavioral: The patient is nervous/anxious. Breast: Positive for breast discharge. Negative for tenderness. BP 126/80 (BP Location: Left arm, Patient Position: Sitting) Pulse 105 Temp 36.7 ??C (98 ??F) (Temporal) Ht 170.2 cm (5' 7.01 ) Wt 129.3 kg (285 lb 1.6 oz) SpO2 97% BMI 44.64 kg/m?? Physical Exam Vitals and nursing note reviewed. Constitutional: Appearance: Normal appearance. She is obese. HENT: Head: Normocephalic and atraumatic. Right Ear: External ear normal. Left Ear: External ear normal. Nose: Rhinorrhea present. Mouth/Throat: Mouth: Mucous membranes are moist. Eyes: Extraocular Movements: Extraocular movements intact. Conjunctiva/sclera: Conjunctivae normal. Pupils: Pupils are equal, round, and reactive to light. Cardiovascular: Rate and Rhythm: Regular rhythm. Tachycardia present. Pulses: Normal pulses. Heart sounds: Normal heart sounds. No murmur heard. No friction rub. No gallop. Pulmonary: Effort: Pulmonary effort is normal. No respiratory distress. Breath sounds: Rhonchi present. No wheezing or rales. Comments: Scattered rhonchi heard throughout all lung solorio Abdominal: General: Bowel sounds are normal. There is distension. Palpations: Abdomen is soft. Musculoskeletal: Cervical back: Normal range of motion and neck supple. Right lower le+ Edema present. Left lower le+ Edema present. Comments: Limited range of motion all directions of the right shoulder Skin: General: Skin is warm and dry. Capillary Refill: Capillary refill takes less than 2 seconds. Neurological: General: No focal deficit present. Mental Status: She is alert and oriented to person, place, and time. Cranial Nerves: No cranial nerve deficit. Psychiatric: Mood and Affect: Mood normal. Behavior: Behavior normal. Thought Content: Thought content normal. Judgment: Judgment normal. Lab Results Component Value Date HGBA1C 6.0 (H) 05/15/2024 Lab Results Component Value Date CHOL 191 05/15/2024 Lab Results Component Value Date HDL 71 05/15/2024 Lab Results Component Value Date LDLCALC 100 05/15/2024 Lab Results Component Value Date TRIG 114 05/15/2024 Chemistry Lab Results Component Value Date SODIUM 136 05/15/2024 POTASSIUM 4.6 05/15/2024 CHLORIDE 103 05/15/2024 CO2 25 05/15/2024 ANIONGAP 8 05/15/2024 BUNSER 13 05/15/2024 CREATININE 0.87 05/15/2024 GLUCOSE 95 05/15/2024 CALCIUM 8.9 05/15/2024 BILITOT 0.2 05/15/2024 PROTEIN 6.7 04/01/2015 ALBUMIN 3.8 05/15/2024 GFRNAA 85 05/15/2024 ALKPHOS 59 05/15/2024 AST 23 05/15/2024 ALT 17 05/15/2024 Dony Reed MD There may be syntax/grammatical errors in this note due to the use of voice recognition software. BALL CLUB MANAGER documented in this encounter Miscellaneous Notes * Addendum Note - Hazel Espitia - 05/18/2024 1:00 PM CSTAddended by: HAZEL ESPITIA on: 05/18/2024 02:25 PM Modules accepted: Orders BALL CLUB MANAGER documented in this encounter Plan of Treatment Scheduled Orders Name Type Priority Associated Diagnoses Orde r Schedule MRI Brain W WO Contrast (Pituitary) Imaging Schedule Routine, Read Routine (OP Routine) Galactorrhea Expected: 05/18/2024, Expires: 05/18/2025 documented as of this encounter Results * XR Chest Pa Lateral 2 Views (05/18/2024 2:50 PM BASEBALL CLUB MANAGER) Anatomical Region Laterality Modality Body, Chest N/A Computed Radiogr aphy 05/23/2024 2:43 PM BASEBALL CLUB MANAGER Narrative 05/23/2024 2:44 PM BASEBALL CLUB MANAGER EXAM DESCRIPTION: XR CHEST PA LATERAL 2 [...] Electronically signed by ??Denys Lewis M.D. CH: D: ??05/23/2024 2:44 PM T: ??05/23/2024 2:44 PM Report ID: [id number] Reading Location: ??[id number] Procedure Note Denys Lewis Jr., MD - [...] Electronically signed by Denys Lewis M.D. CH: Report ID: [id number] Reading Location: [id number] Dony Reed MD IMG XR PROCEDURES F inal Result * (ABNORMAL) CBC with auto differential (05/18/2024 2:37 PM BASEBALL CLUB MANAGER) WBC 11.1(H) 3.8 - 9.9 K/cumm Hgb [...] ([facility]) MCH 24.4(L) 27.1 - 33.3 pg [facility] ([place]) MCHC 30.8(L) 32.3 - 35.7 g/dL [facility] ([place]) RDW CV 17.4(H) 11.1 - 14.9 % [facility] ([place]) RDW SD 49.7(H) 35.7 - 48.1 fL [facility] ([place]) NRBC abs 0.00 0.00 - 0.01 K/cumm [facility] ([place]) Blood 05/18/2024 2:37 PM BASEBALL CLUB MANAGER 05/18/2024 3:37 PM BASEBALL CLUB MANAGER Dony Reed MD LAB BLOOD ORDERABLE S Final Result [facility] ([facility]) [address] [facility] [place] [address] * Prolactin (05/18/2024 2:37 PM BASEBALL CLUB MANAGER) Prolactin 23.3 4.8 - 23.3 ng/mL Comment:Testing performed by : [facility], [address] [place] [address], [id number] Blood 05/18/2024 2:37 PM BASEBALL CLUB MANAGER 05/18/2024 8:18 PM BASEBALL CLUB MANAGER Dony Reed MD LAB BLOOD ORDERABLE S Final Result [facility] ([place]) 1 [facility] [place] [address] * Pro B-type natriuretic peptide (05/18/2024 2:37 PM BASEBALL CLUB MANAGER) NT-proBNP <36 <=300 pg/mL Comment: Interpretive Comments: [...] Heart J. 2006:27:330-337. 2. [place] RW, Ben AM. J. AM Brandy Cardiol: Cardiovasc Imag. 2009;2: 216- 225. Interpretive Data Last Revised Date: 2018. Blood 05/18/2024 2:37 PM BASEBALL CLUB MANAGER 05/18/2024 3:37 PM BASEBALL CLUB MANAGER us Dony Reed MD LAB BLOOD ORDERABLE S Final Result [facility] [place] 1 [facility] Department of Laboratories [place], [place] [id number] documented in this encounter Visit Diagnoses Diagnosis Essential hypertension- Primary Unspecified essential hypertension Prediabetes Other abnormal glucose Morbid obesity with BMI of 40.0-44.9, adult (HCC) Normocytic anemia Unspecified anemia Chronic right shoulder pain Pain in joint, shoulder region Tear of right glenoid labrum, initial encounter Abnormal weight gain Peripheral edema Edema Galactorrhea Galactorrhea not associated with childbirth Shortness of breath Abnormal breath sounds Abnormal chest sounds Shortness of breath Abnormal breath sounds Abnormal chest sounds documented in this encounter Discontinued Medications Medication Sig Discontinue Reason Start Date End Da te amLODIPine (NORVASC) 5 mg tabletIndications:Essenti al hypertension Take 1 tablet (5 mg total) by mouth daily Reorder 09/09/2023 05/18/2024 spironolactone (ALDACTONE) 50 mg tablet Take 1 tablet (50 mg total) by mouth daily Reorder 12/13/2023 05/18/2024 documented as of this encounter Historical Medications * This list may reflect changes made after this encounter. SUMAtriptan (IMITREX) 50 mg tablet 10/08/2023 ondansetron ODT (ZOFRAN-ODT) 4 mg disintegrating tablet DISSOLVE AND SWALLOW 1 TABLET BY MOUTH EVERY 8 HOURS FOR 5 DAYS 10/22/2023 ibuprofen (ADVIL,MOTRIN) 600 mg tablet Take 1 tablet (600 mg total) by mouth 06/19/2023 traMADoL (ULTRAM) 50 mg tablet TAKE 1 TABLET BY MOUTH EVERY 6 HOURS NEEDED FOR MODERATE OR SEVERE PAIN 05/15/2024 added in this encounter Care Teams Cap Maker Relationship Specialty Start Date End Date Dony Reed MD [address] [facility] [address] [address] PCP - General Family Practice 03/08/24 Miscellaneous, Not In File 02/02/24 documented as of this encounter
--- OUTSIDE RECORDS SUMMARY | 2024-06-25 03:38 | XMS_ITS | Encounter Summary ---
Author Organization [facility] Address [address] [place] [address] Phone Care Team Providers Care Spray Rig Operator Name Role Phone Provider, None Primary Care Provider Unavailabl e Reason for Visit * Reason Comments Shoulder Pain Encounter Details Date Type Department Care Team (Latest Contact Info) Description 05/15/2024 11:35 AM GLASS ROLLING MACHINE OPERATOR Urgent Care Visit [facility] - [address] [phone] Ryan Najera, TIESHA [facility] [place] [id number] Chronic right shoulder pain (Primary Dx) Discharge Disposition: Discharged to home or Selfcare Social History Tobacco Use Types Packs/Day Years [...] Comments Blood Pressure 130/84 05/15/2024 11:41 AM GLASS ROLLING MACHINE OPERATOR Pulse 88 05/15/2024 11:41 AM GLASS ROLLING MACHINE OPERATOR Temperature 37.1 ??C (98.8 ??F) 05/15/2024 11:[address] Respiratory Rate 18 05/15/2024 11:41 AM GLASS ROLLING MACHINE OPERATOR Oxygen Saturation 100% 05/15/2024 11:41 AM GLASS ROLLING MACHINE OPERATOR Inhaled Oxygen Concentration - - Weight - - Height - - Body Mass Index - - documented in this encounter Patient Instructions * Patient Instructions* Ryan Najera PAC - 05/15/2024 11:35 AM GLASS ROLLING MACHINE OPERATOR Ice to shoulder Note given for no lifting right arm until 05/17/2024 Rx for tramadol sent to pharmacy See your primary care provider or orthopedist for further work limit instructions S ROLLING MACHINE OPERATOR S ROLLING MACHINE OPERATOR * Attachments The following attachments cannot be sent through Care Everywhere. * Shoulder Pain [id number] (Bengali) documented in this encounter Progress Notes * Dony Edwards - 05/15/2024 11:35 AM CST Melvina complains of Right shoulder pain. Pt states she was lifting boxes when moving about a year ago. Pt states she is scheduled for surgery on August 03, 2024. Pt states pain level is 8/10 and states pain shoots down right arm. Pt states she has a cyst sitting on her scapular nerve. 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 Pt has not taken anything otc for pain. Shoulder Pain This is a new problem. Episode onset: a year ago. The problem occurs constantly. The problem has been unchanged. Exacerbated by: lifting heavy obhects. She has tried nothing for the symptoms. Today's ROS S ROLLING MACHINE OPERATOR * Ryan Najera PAC - 05/15/2024 11:35 AM CST HPI: Melvina Newsome is a 44 y.o. female in the prompt care today for right shoulder pain, patient had an injury 16 months ago and is being seen by ortho, she has surgery scheduled in 6 months, since this morning her pain has flared without new injury, she was late for her primary care appointment and needs a note for work There is no problem list on file for this patient. Available past, family, surgical, and social history reviewed and updated in the chart. ROS: Review of Systems Constitutional: Negative for chills and fever. HENT: Negative for ear pain and sore throat. Eyes: Negative for pain and visual disturbance. Respiratory: Negative for cough and shortness of breath. Cardiovascular: Negative for chest pain and palpitations. Gastrointestinal: Negative for abdominal pain and vomiting. Genitourinary: Negative for dysuria and hematuria. Musculoskeletal: Negative for arthralgias and back pain. Right shoulder pain Skin: Negative for color change and rash. Neurological: Negative for seizures and syncope. All other systems reviewed and are negative. PE: BP 130/84 (BP Location: Right Arm, BP Position: Sitting, BP Cuff Size: Large) Pulse 88 Temp 98.8 ??F (37.1 ??C) (Temporal) Resp 18 SpO2 100% Physical Exam Vitals and nursing note reviewed. Constitutional: General: She is not in acute distress. Appearance: She is well-developed. HENT: Head: Normocephalic and atraumatic. Eyes: Conjunctiva/sclera: Conjunctivae normal. Cardiovascular: Rate and Rhythm: Normal rate and regular rhythm. Heart sounds: No murmur heard. Pulmonary: Effort: Pulmonary effort is normal. No respiratory distress. Breath sounds: Normal breath sounds. Abdominal: Palpations: Abdomen is soft. Tenderness: There is no abdominal tenderness. Musculoskeletal: General: No swelling. Cervical back: Neck supple. Comments: Right shoulder shows no swelling, erythema or ecchymosis, moderate to severe tenderness to anterior palpation, full range of motion with moderate pain, negative drop test, weed thinner strength is slightly weaker than the right, neurovascular and sensory intact distally Skin: General: Skin is warm and dry. Capillary Refill: Capillary refill takes less than 2 seconds. Neurological: Mental Status: She is alert. Psychiatric: Mood and Affect: Mood normal. ASSESSMENT/PLAN: Diagnoses and all orders for this visit: Chronic right shoulder pain - traMADol (ULTRAM) 50 MG Tablet; Take 1 Tablet by mouth every 6 hours as needed for Moderate or more severe pain. Other orders - ALPRAZolam (XANAX) 1 MG Tablet; Take 1 mg by mouth. - amLODIPine (NORVASC) 5 MG Tablet; Take 5 mg by mouth daily. - cetirizine (ZyrTEC) 10 MG Tablet; Take 10 mg by mouth daily. - cyclobenzaprine (FLEXERIL) 10 MG Tablet; take 1 tablet by mouth three times a day as needed for muscle spasms - ibuprofen (MOTRIN) 600 MG Tablet; Take 600 mg by mouth. - Lumateperone Tosylate (Caplyta) 42 MG Capsule; Take by mouth. - ondansetron (ZOFRAN-ODT) 4 MG TABLET DISPERSIBLE; DISSOLVE AND SWALLOW 1 TABLET BY MOUTH EVERY 8 HOURS FOR 5 DAYS - spironolactone (ALDACTONE) 50 MG Tablet; Take 50 mg by mouth. - SUMAtriptan (IMITREX) 50 MG Tablet - traMADol (ULTRAM) 50 MG Tablet; TAKE 1 OR 2 TABLETS BY MOUTH EVERY 8 HOURS Patient Instructions Ice to shoulder Note given for no lifting right arm until 05/17/2024 Rx for tramadol sent to pharmacy See your primary care provider or orthopedist for further work limit instructions Chief complaint and all history documented by ancillary staff were reviewed and verified, with additions or corrections, as appropriate. S ROLLING MACHINE OPERATOR documented in this encounter Plan of Treatment Not on file documented as of this encounter Visit Diagnoses Diagnosis Chronic right shoulder pain- Primary Pain in joint, shoulder region documented in this encounter Care Teams Spray Rig Operator Relationship Specialty Start Date End Date Provider, Wilian CARRANZA PCP - General 05/15/24 documented as of this encounter
--- OUTSIDE RECORDS SUMMARY | 2024-06-25 03:38 | XMS_ITS | Encounter Summary ---
Author Organization [facility] Healthcare Address [address] [place] [address] Care Team Providers Care Product Marketing Intern Name Role Phone Miscellaneous, Not In File Unavailable Unava Dony Logan MD Primary Care Provi [facility] Encounter Details Date Type Department Care Team (Latest Contact Info) Description 05/15/2024 8:02 PM TELECINE OPERATOR - 05/15/2024 11:59 PM TELECINE OPERATOR Hospital Encounter [address] [id number] Prediabetes; Essential hypertension Discharge Disposition: Discharge to [...] on file Legal Sex Female 1:38 PM TELECINE OPERATOR Gender Identity Not on file Sexual Orientation Not on file documented as of this encounter Medications at Time of Discharge cetirizine (ZyrTEC) 10 mg tabletIndications:En vironmental and seasonal allergies Take 1 tablet (10 mg total) by mouth daily 90 tablet 1 04/06/2024 cyclobenzaprine (FLEXERIL) 10 mg tabletIndications:Ch ronic right-sided [...] 10/22/2023 SUMAtriptan (IMITREX) 50 mg tablet 10/08/2023 traMADoL (ULTRAM) 50 mg tablet TAKE 1 TABLET BY MOUTH EVERY 6 HOURS NEEDED FOR MODERATE OR SEVERE PAIN 05/15/2024 ALPRAZolam (XANAX) 1 mg tabletIndications:Bi polar affective disorder in remission (CMS/HCC) (HCC) Take 1 tablet (1 mg total) by mouth nightly 30 tablet 1 04/06/2024 4 amLODIPine (NORVASC) 5 mg tabletIndications:Es sential hypertension Take 1 tablet (5 mg total) by mouth daily 09/09/2023 4 ARIPiprazole (ABILIFY) 10 mg tabletIndications:Pa ranoid schizophrenia (CMS/HCC) (HCC) Take 1 tablet (10 mg total) by mouth daily 30 tablet 2 04/06/2024 4 sertraline (ZOLOFT) 100 mg tabletIndications:Pa ranoid schizophrenia (CMS/HCC) (HCC),Bipolar affective disorder in remission (CMS/HCC) (HCC) TAKE 1 TABLET BY MOUTH EVERY DAY 90 tablet 05/09/2024 4 spironolactone (ALDACTONE) 50 mg tablet Take 1 tablet (50 mg total) by mouth daily 12/13/2023 4 documented as of this encounter Discharge Disposition Disposition Code Departure Means Destination Discharge to home or self care documented in this encounter Miscellaneous Notes * Result Encounter Note - Beth Wiseman MA - 05/15/2024 11:59 PM TELECINE OPERATOR Message sent via [employer]. CINE OPERATOR documented in this encounter Plan of Treatment Not on file documented as of this encounter Procedures Procedure Name Priority Date/Time Associated Diagnosis Comments EGFR Routine 05/15/2024 4:00 PM TELECINE OPERATOR Essential hypertension DIFFERENTIAL AUTO Routine 05/15/2024 4:0 0 PM TELECINE OPERATOR Prediabetes CBC WITH AUTO DIFFERENTIAL Routine 05/15/2024 4:00 PM TELECINE OPERATOR Prediabetes TSH Routine 05/15/2024 4:00 PM TELECINE OPERATOR Prediabetes HEMOGLOBIN A1C Routine 05/15/2024 4:00 PM TELECINE OPERATOR Prediabetes LIPID PANEL Routine 05/15/2024 4:00 PM TELECINE OPERATOR Essential hypertension COMPREHENSIVE METABOLIC PANEL Routine 05/15/2024 4:00 PM TELECINE OPERATOR Essential hypertension documented in this encounter Results * eGFR (05/15/2024 4:00 PM TELECINE OPERATOR) eGFR 85 >=60 mL/min/1. 73 m2 Comment: [...] last reviewed 2021. Blood 05/15/2024 4:00 PM TELECINE OPERATOR 05/15/2024 8:46 PM TELECINE OPERATOR us Dony Reed MD LAB BLOOD ORDERABLE S Final Result [facility] [id number] [address] [place] [address] * (ABNORMAL) Differential, auto (05/15/2024 4:00 PM TELECINE OPERATOR) Neutrophil abs 6.5 1.5 - 6.5 K/cumm Imm gran abs 0.1 0.0 - 0.1 K/cumm [facility] Lymphocyte abs 3.3 0.8 - 3.3 K/cumm [facility] Monocyte abs 1.1(H) 0.2 - 0.8 K/cumm [facility] Eosinophil abs 0.3 0.0 - 0.5 K/cumm [facility] Basophil abs 0.1 0.0 - 0.1 K/cumm [facility] Neutrophil pct 57.1 % [facility] Comment: Interpretive Data Percent cell count reference ranges are not reported, since discordance with absolute values may lead to misinterpretation of CBC data. Current Interpretive Data was last revised on 2017. Imm gran pct 0.9 % [facility] Comment: Interpretive Data Percent cell count reference ranges are not reported, since discordance with absolute values may lead to misinterpretation of CBC data. Current Interpretive Data was last revised on 2017. Lymphocyte pct 28.6 % [facility] Comment: Interpretive Data Percent cell count reference ranges are not reported, since discordance with absolute values may lead to misinterpretation of CBC data. Current Interpretive Data was last revised on 2017. Monocyte pct 10.0 % [facility] Comment: Interpretive Data Percent cell count reference ranges are not reported, since discordance with absolute values may lead to misinterpretation of CBC data. Current Interpretive Data was last revised on 2017. Eosinophil pct 2.5 % [facility] Comment: Interpretive Data Percent cell count reference ranges are not reported, since discordance with absolute values may lead to misinterpretation of CBC data. Current Interpretive Data was last revised on 2017. Basophil pct 0.9 % [facility] Comment: Interpretive Data Percent cell count reference ranges are not reported, since discordance with absolute values may lead to misinterpretation of CBC data. Current Interpretive Data was last revised on 2017. Blood 05/15/2024 4:00 PM TELECINE OPERATOR 05/15/2024 8:22 PM TELECINE OPERATOR us Dony Reed MD LAB BLOOD ORDERABLE S Final Result [facility] [id number] [address] [place] [address] * (ABNORMAL) CBC with auto differential (05/15/2024 4:00 PM TELECINE OPERATOR) WBC 11.4(H) 3.8 - 9.9 K/cumm Hgb 11.3(L) 11.9 - 15.5 g/dL [facility] Hct 38.6 35.6 - 45.5 % [facility] Plt 315 150 - 400 K/cumm [facility] MPV 10.3 9.1 - 12.3 fL [facility] RBC 4.69 3.90 - 5.20 M/cumm [facility] MCV 82.3 81.3 - 96.4 fL [facility] MCH 24.1(L) 27.1 - 33.3 pg [facility] MCHC 29.3(L) 32.3 - 35.7 g/dL [facility] RDW CV 17.8(H) 11.1 - 14.9 % [facility] RDW SD 53.0(H) 35.7 - 48.1 fL [facility] NRBC abs 0.00 0.00 - 0.01 K/cumm [facility] Blood 05/15/2024 4:00 PM TELECINE OPERATOR 05/15/2024 8:22 PM TELECINE OPERATOR Dony Reed MD LAB BLOOD ORDERABLE S Final Result Performing Organization Address [facility] de Phone Number BRIAN [address] [address] [facility] [place] [address] * TSH (05/15/2024 4:00 PM TELECINE OPERATOR) Thyroid Stimulating Hormone 1.69 0.30 - 4.20 mcIUnit/mL Blood 05/15/2024 4:00 PM TELECINE OPERATOR 05/15/2024 8:22 PM TELECINE OPERATOR Dony Reed MD LAB BLOOD ORDERABLE S Final Result Performing Organization Address [facility] de Phone Number BRIAN [phone] [place] [address] * Lipid panel (05/15/2024 4:00 PM TELECINE OPERATOR) Pathologist [facility] Cholesterol 191 30 - 199 mg/dL Comment: [...] mg/dL ??High: ?>160 mg/dL Calculated using the Nazario LDL-C estimating equation. This equation was implemented on 2024. Prior to this date LDL-C was estimated using the Friedewald equation. Literature References: 1. Expert Panel on Integrated Guidelines for Cardiovascular Health and Risk Reduction in Children and Adolescents. Pediatrics 2011;128:S213 2. NCEP Expert Panel. Circulation 2004;110:227 3. Aravind Fermin et al. BUDDY Cardiol. 2019October 26;5(5):540-548. doi: 10.1001/jamacardio.2020.0013 Current Interpretive Data was last revised on 2024. Non-HDL Cholesterol 120 mg/dL [facility] Comment: Interpretive Data Ages < or = [...] last revised on 2018. Chol/HDL ratio 3 [facility] Blood 05/15/2024 4:00 PM TELECINE OPERATOR 05/15/2024 8:22 PM TELECINE OPERATOR us Dony Reed MD LAB BLOOD ORDERABLE S Final Result [facility] [address] [address] Department [place] [address] * Comprehensive metabolic panel (05/15/2024 4:00 PM TELECINE OPERATOR) Sodium 136 135 - 145 mmol/L Potassium, pl 4.6 3.3 - 4.9 mmol/L [facility] Chloride 103 97 - 110 mmol/L [facility] CO2 25 22 - 32 mmol/L [facility] Anion gap 8 2 - 15 mmol/L [facility] BUN 13 6 - 25 mg/dL [facility] Creatinine 0.87 0.60 - 1.10 mg/dL [facility] Glucose 95 70 - 199 mg/dL [facility] Comment: Interpretive Data Fasting glucose >/= 126 [...] 2022. Calcium 8.9 8.5 - 10.3 mg/dL [facility] Bilirubin, total 0.2 0.1 - 1.2 mg/dL [facility] Protein, pl 6.8 6.5 - 8.5 g/dL [facility] Albumin 3.8 3.5 - 5.0 g/dL [facility] Alk phos 59 40 - 130 Units/L [facility] ALT 17 7 - 45 Units/L [facility] CH AST 23 10 - 45 Units/L [facility] Blood 05/15/2024 4:00 PM TELECINE OPERATOR 05/15/2024 8:22 PM TELECINE OPERATOR us Dony Reed MD LAB BLOOD ORDERABLE S Final Result Performing Organization Address City/State/ZIP [place] Phone Number [facility] [id number] [address] Department [place] [address] * (ABNORMAL) Hemoglobin A1c (05/15/2024 4:00 PM TELECINE OPERATOR) Hgb A1C 6.0(H) 4.0 - 5.6 % Estimated Average Glucose 126 mg/dL [facility] Comment: The ADA recommends reporting an estimated Average Glucose (eAG) with all Hemoglobin A1c results using the equation derived from a study of 507 normal and diabetic adults. ??Minority populations were underrepresented and children were not included. ?? (Diabetes Care 31:4239-7352, 2008). ??The eAG is not equivalent to a fasting glucose. Blood 05/15/2024 4:00 PM TELECINE OPERATOR 05/15/2024 8:22 PM TELECINE OPERATOR us Dony Reed MD LAB BLOOD ORDERABLE S Final Result [facility] [address] [address] Department [place] [address] documented in this encounter Visit Diagnoses Diagnosis Prediabetes Other abnormal glucose Essential hypertension Unspecified essential hypertension documented in this encounter Care Teams Product Marketing Intern Relationship Specialty Start Date End Date Dony Reed MD [address] [address] PCP - General Family Practice 03/08/24 Miscellaneous, Not In File 02/02/24 documented as of this encounter
--- OUTSIDE RECORDS SUMMARY | 2024-06-25 03:38 | XMS_ITS | Encounter Summary ---
Author Organization [facility] Healthcare Address [address] [place] [address] Care Team Providers Care Concierge Receptionist Name Role Phone Miscellaneous, Not In File Unavailable Unava ilable Dony Reed MD Primary Care Provi renetta Reason for Referral * Diagnostic Imaging (Routine) - Authorized Specialty Diagnoses / Procedures Referred By Contac t Referred To Contact Diagnoses Galactorrhea Procedures DIAGNOSTIC MAMMOGRAM BILATERAL W JENNIEDony Brunner MD [address] [place] [address] [address] [place] [address] Phone: tel: fax: [address] [phone] Referral ID Status Reason Start Date Expiration Date V isits Requested Visits Authorized [id number] Authorized 05/22/2024 06/21/2025 1 1 T LINE OPERATOR Encounter Details Date Type Department Care Team (Late st Contact Info) Description 05/22/2024 Orders Only [facility] Primary Care at [address] [place] [phone] Beth Wiseman MA Galactorrhea (Primary Dx) Social History Tobacco Use Types Packs/Day Years [...] on file Legal Sex Female 1:38 PM SHIRT LINE OPERATOR Gender Identity Not on file Sexual Orientation Not on file documented as of this encounter Plan of Treatment Scheduled Orders Name Type Priority Associated Diagnoses Orde r Schedule DIAGNOSTIC MAMMOGRAM BILATERAL W JENNIE Imaging Schedule Routine, Read Routine (OP Routine) Galactorrhea Expected: 05/22/2024, Expires: 07/22/2025 documented as of this encounter Visit Diagnoses Diagnosis Galactorrhea- Primary Galactorrhea not associated with childbirth documented in this encounter Care Teams Concierge Receptionist Relationship Specialty Start Date End Date Dony Reed MD [address] [address] PCP - General Family Practice 03/08/24 Miscellaneous, Not In File 02/02/24 documented as of this encounter
--- OUTSIDE RECORDS SUMMARY | 2024-06-25 03:38 | XMS_ITS | Referral Summary ---
Author Organization [facility] Address [address] [place] [address] Phone Care Team Providers Care Brace Maker Name Role Phone Miscellaneous, Not In File Unavailable Unava ilable Dony Reed MD Primary Care Provi renetta Encounters Date Type Department Care Team Description 05/24/2024 Orders Only [facility] Primary Care at [address] [place] [address] Dony Reed MD 05/22/2024 Orders Only [facility] Primary Care at [address] [place] [address] Beth Wiseman MA Galactorrhea (Primary Dx) 05/19/2024 Telephone [facility] [address] [place] [phone] Giana Arvizu LPN 05/18/2024 3:05 PM REPORTING CONSULTANT Lab [address] [address] Screen for sexually transmitted diseases; Screening for STD (sexually transmitted disease) 05/18/2024 3:00 PM REPORTING CONSULTANT Lab [address] [address] Shortness of breath; Abnormal breath sounds; Galactorrhea; Abnormal weight gain; Peripheral edema 05/18/2024 2:21 PM REPORTING CONSULTANT - 05/18/2024 11:59 PM REPORTING CONSULTANT Hospital Encounter [facility] [address] [place] [address] Shortness of breath; Abnormal breath sounds Discharge Disposition: Discharge to home or self care 05/18/2024 1:00 PM REPORTING CONSULTANT Office Visit [facility] at [address] [phone] Dony Reed MD Essential hypertension (Primary Dx); Prediabetes; Morbid obesity with BMI of 40.0-44.9, adult (HCC); Normocytic anemia; Chronic right shoulder pain; Tear of right glenoid labrum, initial encounter; Abnormal weight gain; Peripheral edema; Galactorrhea; Shortness of breath; Abnormal breath sounds 05/18/2024 2:00 PM REPORTING CONSULTANT Telemedicine [facility] [id number] [place] [phone] Gil Mendosa MD Bipolar 1 disorder (HCC) (Primary Dx); Paranoid schizophrenia (CMS/HCC) (HCC); Bipolar affective disorder in remission (CMS/HCC) (HCC) 05/15/2024 8:02 PM REPORTING CONSULTANT - 05/15/2024 11:59 PM REPORTING CONSULTANT Hospital Encounter [address] [address] Prediabetes; Essential hypertension Discharge Disposition: Discharge to home or self care 05/15/2024 1:30 PM REPORTING CONSULTANT Lab [facility] at [address] [phone] 04/20/2024 Telephone [facility] at [address] [phone] Dony Reed MD Medical Question/Miscellane ous from Last 3 Months Allergies Active Allergy Reactions Criticality Noted Date Comments Codeine Vomiting Low 07/21/2020 Medications cyclobenzaprine (FLEXERIL) 10 mg tabletIndications: Chronic right-sided low back pain with right-sided sciatica Take 1 tablet (10 mg total) by mouth 3 (three) times a day as needed for muscle spasms 12 tablet 10/10/20 24 Active cetirizine (ZyrTEC) 10 mg tabletIndications: [...] tabletIndications: Bipolar affective disorder in remission (CMS/HCC) ([facility]) TAKE 1 TABLET BY MOUTH EVERY DAY NIGHTLY 30 tablet 1 06/12/20 24 Active ALPRAZolam (XANAX) 1 mg tabletIndications: Bipolar affective disorder in remission (CMS/HCC) ([facility]) Take 1 tablet (1 mg total) [...] hypertension 03/08/2024 Bipolar affective disorder in remission ([facility] ) 03/08/2024 Morbid obesity with BMI of 40.0-44.9, adult 02/26 Prediabetes 03/08/2024 Paranoid schizophrenia ([facility]) 03/08/2024 Chronic right-sided low back pain with right-jonathan ed sciatica 03/08/2024 Osteoarthritis of right acromioclavicular joint 2024 Paralabral cyst of right shoulder 2024 Abdominal pain 08/24/2018 Overview (03/14/2024): Abdominal pain;Recorded Elsewhere: No Location: [facility] Source: EHR Chronic: N Practice ID: [id number] Billable Time: 04:15:00 PM Urinary tract infectious disease 08/24/2018 Overview (03/14/2024): UTI;Recorded Elsewhere: No Location: [facility] Source: EHR Chronic: N Practice ID: [id number] Billable Time: 04:15:00 PM 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 Overview (03/14/2024): Carcinoma in situ of cervix uteri;Recorded Elsewhere: No Location: [facility] Source: EHR Chronic: N Practice ID: [id number] Billable Time: 01:00:00 PM Atypical squamous cells of u ndetermined significance (ASCUS) on Papanicolaou smear of cervix 02/08/2012 Elbow injury 09/04/2009 Immunizations Name Administration Dates Next Due Hep A, Adult 03/22/2018,09/14/2017 Influenza, Quadrivalent, Spl it, Preservative Free, Intramuscular 05/14/2022,04/03/2015 Influenza, Unspecified 04/18/2023(Deferr ed: Patient Refused),04/10/2023(Deferred: Patient Refused),04/10/2023(Deferred: Patient Refused) Pfizer SARS-CoV-2 Monovalent Vaccination (12+ Yrs) GLOVER-READY TO USE 09/02/2021 Pfizer SARS-CoV-2 Monovalent Vaccination (12+ Yrs) PURPLE 12/18/2020,11/27/2020 Pfizer Sars-Cov-2 Bivalent V accination (12+ YRS) 05/14/2022 Tdap 03/22/2018 Social History Tobacco Use Types Packs/Day Years [...] on file Legal Sex Female 1:38 PM REPORTING CONSULTANT Gender Identity Not on file Sexual Orientation Not on file Last Filed Vital Signs Vital Sign Reading Time Taken Comments Blood Pressure 126/80 05/18/2024 12:50 PM REPORTING CONSULTANT Pulse 105 05/18/2024 12:50 PM REPORTING CONSULTANT Temperature 36.7 ??C (98 ??F) 05/18/2024 12: 50 PM REPORTING CONSULTANT Respiratory Rate 18 10/01/2021 3:42 PM CDT Oxygen Saturation 97% 05/18/2024 12: 50 PM REPORTING CONSULTANT Inhaled Oxygen Concentration - - Weight 129.3 kg (285 lb 1.6 oz) 024 12:50 PM REPORTING CONSULTANT Height 170.2 cm (5' 7.01 ) 05/18/2024 1 2:50 PM REPORTING CONSULTANT Body Mass Index 44.64 05/18/2024 12:50 PM REPORTING CONSULTANT Plan of Treatment Not on file Procedures Procedure Name Priority Date/Time Associated Diagnosis Comments XR CHEST PA LATERAL 2 VIEWS Schedule Routine, Read Routine (OP Routine) 05/18/2024 2:50 PM REPORTING CONSULTANT Shortness of breath Abnormal breath sounds DIFFERENTIAL AUTO Routine 05/18/2024 2:3 7 PM REPORTING CONSULTANT Shortness of breath Abnormal breath sounds PRO B-TYPE NATRIURETIC PEPTIDE Routine 05/18/2024 2:37 PM REPORTING CONSULTANT Abnormal weight gain Peripheral edema Shortness of breath PROLACTIN Routine 05/18/2024 2:37 PM REPORTING CONSULTANT Galactorrhea CBC WITH AUTO DIFFERENTIAL Routine 05/18/2024 2:37 PM REPORTING CONSULTANT Shortness of breath Abnormal breath sounds HEPATITIS B SURFACE ANTIGEN Routine 05/18/2024 2:37 PM REPORTING CONSULTANT Screening for STD (sexually transmitted disease) HSV 1 ANTIBODY, IGG Routine 05/18/2024 2 :37 PM REPORTING CONSULTANT Screening for STD (sexually transmitted disease) HSV 2 ANTIBODY, IGG Routine 05/18/2024 2 :37 PM REPORTING CONSULTANT Screening for STD (sexually transmitted disease) RPR Routine 05/18/2024 2:37 PM REPORTING CONSULTANT Screening for STD (sexually transmitted disease) EGFR Routine 05/15/2024 4:00 PM REPORTING CONSULTANT Essential hypertension DIFFERENTIAL AUTO Routine 05/15/2024 4:0 0 PM REPORTING CONSULTANT Prediabetes CBC WITH AUTO DIFFERENTIAL Routine 05/15/2024 4:00 PM REPORTING CONSULTANT Prediabetes TSH Routine 05/15/2024 4:00 PM REPORTING CONSULTANT Prediabetes LIPID PANEL Routine 05/15/2024 4:00 PM REPORTING CONSULTANT Essential hypertension COMPREHENSIVE METABOLIC PANEL Routine 05/15/2024 4:00 PM REPORTING CONSULTANT Essential hypertension HEMOGLOBIN A1C Routine 05/15/2024 4:00 PM REPORTING CONSULTANT Prediabetes HEPATITIS C ANTIBODY Routine 03/14/2024 2:20 PM CDT Screening for STD (sexually transmitted disease) HIGH RISK HPV DNA DETECTION WITH GENOTYPING Routine 03/14/2024 2:20 PM CDT Screening for malignant neoplasm of cervix from Last 3 Months or Most Recently Relevant to Health Maintenance Results * XR Chest Pa Lateral 2 Views (05/18/2024 2:50 PM REPORTING CONSULTANT) Anatomical Region Laterality Modality Body, Chest N/A Computed Radiogr aphy 05/23/2024 2:43 PM REPORTING CONSULTANT Narrative 05/23/2024 2:44 PM REPORTING CONSULTANT EXAM DESCRIPTION: XR CHEST PA LATERAL 2 [...] PM T: ??05/23/2024 2:44 PM Report ID: [id number] Reading Location: ??[id number] Procedure Note Denys Lewis Jr., MD - [...] by Denys Lewis M.D. CH: Report ID: [id number] Reading Location: [id number] Dony Reed MD IMG XR PROCEDURES F inal Result * (ABNORMAL) Differential, auto (05/18/2024 2:37 PM REPORTING CONSULTANT) Neutrophil abs 6.8(H) 1.5 - 6.5 K/cumm [...] revised on 2017. Basophil pct 0.8 % [facility] LOPES ([place]) Comment: Interpretive Data Percent cell count reference ranges are not reported, since discordance with absolute values may lead to misinterpretation of CBC data. Current Interpretive Data was last revised on 2017. Blood 05/18/2024 2:37 PM REPORTING CONSULTANT 05/18/2024 3:37 PM REPORTING CONSULTANT us Dony Reed MD LAB BLOOD ORDERABLE S Final Result [facility] LOP[facility] ([place]) 1 [facility] Department [place] [address] * Pro B-type natriuretic peptide (05/18/2024 2:37 PM REPORTING CONSULTANT) NT-proBNP <36 <=300 pg/mL Comment: Interpretive Comments: [...] 2. Orquidea RW, Ben AM. J. AM Rbandy Cardiol: Cardiovasc Imag. 2009;2: 216- 225. Interpretive Data Last Revised Date: 2018. Blood 05/18/2024 2:37 PM REPORTING CONSULTANT 05/18/2024 3:37 PM REPORTING CONSULTANT us Dony Reed MD LAB BLOOD ORDERABLE S Final Result [facility] ([place]) [address] [facility] Department [place] [address] * (ABNORMAL) CBC with auto differential (05/18/2024 2:37 PM REPORTING CONSULTANT) WBC 11.1(H) 3.8 - 9.9 K/cumm Hgb [...] (LISHA) MCHC 30.8(L) 32.3 - 35.7 g/dL [facility] ([place]) RDW CV 17.4(H) 11.1 - 14.9 % [facility] ([place]) RDW SD 49.7(H) 35.7 - 48.1 fL [facility] ([place]) NRBC abs 0.00 0.00 - 0.01 K/cumm [facility]OP[facility] ([place]) Blood 05/18/2024 2:37 PM REPORTING CONSULTANT 05/18/2024 3:37 PM REPORTING CONSULTANT Dony Reed MD LAB BLOOD ORDERABLE S Final Result [facility]OPES ([place]) 1 [facility] [place] [place] [address] * Prolactin (05/18/2024 2:37 PM REPORTING CONSULTANT) Pathologist [facility] Prolactin 23.3 4.8 - 23.3 ng/mL Comment:Testing performed by : [facility], [address] [place] [address], [id number] Blood 05/18/2024 2:37 PM REPORTING CONSULTANT 05/18/2024 8:18 PM REPORTING CONSULTANT Dony Reed MD LAB BLOOD ORDERABLE S Final Result [facility] ([place]) 1 [place] [address] * (ABNORMAL) HSV 2 IgG Antibody Blood (05/18/2024 2:37 PM REPORTING CONSULTANT) Pathologist [facility] HSV 2 IgG Reactive( A) Nonreactive Comment: Interpretive Data 1. Nonreactive: No detectable IgG antibody to HSV-2. 2. Equivocal: Presence or absence of detectable antibodies to HSV-2 cannot be determined and the test should be repeated. 3. Reactive: Indicates presence of detectable IgG antibody to HSV-2. Current interpretive data was last revised on 2022. Testing performed by: [facility], [address] [place] [address], [id number] Blood 05/18/2024 2:37 PM REPORTING CONSULTANT 05/18/2024 7:30 PM REPORTING CONSULTANT Chelsea Koroma DO LAB MICROBIOLOGY - GENE RAL ORDERABLES Final Result [facility]OP[facility] ([place]) 1 [facility] [place] [address] * (ABNORMAL) HSV 1 IgG Antibody Blood (05/18/2024 2:37 PM REPORTING CONSULTANT) HSV 1 IgG Reactive( A) Nonreactive Comment: Interpretive Data 1. Nonreactive: No detectable IgG antibody to HSV-1. 2. Equivocal: Presence or absence of detectable antibodies to HSV-1 cannot be determined and the test should be repeated. 3. Reactive: Indicates presence of detectable IgG antibody to HSV-1. Current interpretive data was last revised on 2016. Testing performed by: [facility], [address] [place] [address]., [id number] Blood 05/18/2024 2:37 PM REPORTING CONSULTANT 05/18/2024 7:30 PM REPORTING CONSULTANT Chelsea Koroma DO LAB MICROBIOLOGY - GENE RAL ORDERABLES Final Result Performing Organization Address City/[facility]/ZIP Co de Phone Number [facility]AN LOPES ([place]) 1 [facility] [place] [address] * RPR Blood (05/18/2024 2:37 PM REPORTING CONSULTANT) RPR Nonreactive Nonreactive Comment:Testing performed by : [facility], [address] [place] [address], [place]., [address] Blood 05/18/2024 2:37 PM REPORTING CONSULTANT 05/18/2024 8:18 PM REPORTING CONSULTANT Chelsea Koroma DO LAB MICROBIOLOGY - GENE RAL ORDERABLES Final Result [facility]OP[facility] ([place]) 1 [facility] Department [place] [address] * Hepatitis B Surface Antigen Blood (05/18/2024 2:37 PM REPORTING CONSULTANT) [facility] HepBsAg Nonreactive Nonreactive Comment:Testing performed by : [facility], [address] [place] [address], [place]., [address] Blood 05/18/2024 2:37 PM REPORTING CONSULTANT 05/18/2024 8:18 PM REPORTING CONSULTANT Chelsea Koroma DO LAB MICROBIOLOGY - GENE RAL ORDERABLES Final Result [facility]RIAN LOPES [place]) 1 [facility] Department [place] [address] * eGFR (05/15/2024 4:00 PM REPORTING CONSULTANT) [facility] eGFR 85 >=60 mL/min/1. 73 m2 Comment: [...] last reviewed 2021. Blood 05/15/2024 4:00 PM REPORTING CONSULTANT 05/15/2024 8:46 PM REPORTING CONSULTANT us Dony Reed MD LAB BLOOD ORDERABLE S Final Result [facility] [address] Department [place] [address] * (ABNORMAL) Differential, auto (05/15/2024 4:00 PM REPORTING CONSULTANT) Neutrophil abs 6.5 1.5 - 6.5 K/cumm Imm gran abs 0.1 0.0 - 0.1 K/cumm [facility] Lymphocyte abs 3.3 0.8 - 3.3 K/cumm [facility] Monocyte abs 1.1(H) 0.2 - 0.8 K/cumm [facility] Eosinophil abs 0.3 0.0 - 0.5 K/cumm [facility] Basophil abs 0.1 0.0 - 0.1 K/cumm [facility] Neutrophil pct 57.1 % [facility] Comment: Interpretive Data Percent cell count reference ranges are not reported, since discordance with absolute values may lead to misinterpretation of CBC data. Current Interpretive Data was last revised on 2017. Imm gran pct 0.9 % [facility] Comment: Interpretive Data Percent cell count reference ranges are not reported, since discordance with absolute values may lead to misinterpretation of CBC data. Current Interpretive Data was last revised on 2017. Lymphocyte pct 28.6 % [facility] Comment: Interpretive Data Percent cell count reference ranges are not reported, since discordance with absolute values may lead to misinterpretation of CBC data. Current Interpretive Data was last revised on 2017. Monocyte pct 10.0 % [facility] Comment: Interpretive Data Percent cell count reference ranges are not reported, since discordance with absolute values may lead to misinterpretation of CBC data. Current Interpretive Data was last revised on 2017. Eosinophil pct 2.5 % [facility] Comment: Interpretive Data Percent cell count reference ranges are not reported, since discordance with absolute values may lead to misinterpretation of CBC data. Current Interpretive Data was last revised on 2017. Basophil pct 0.9 % [facility] Comment: Interpretive Data Percent cell count reference ranges are not reported, since discordance with absolute values may lead to misinterpretation of CBC data. Current Interpretive Data was last revised on 2017. Blood 05/15/2024 4:00 PM REPORTING CONSULTANT 05/15/2024 8:22 PM REPORTING CONSULTANT Dony Reed MD LAB BLOOD ORDERABLE S Final Result Performing Organization Address City/[facility] Co de Phone Number BRIAN DESTINY [address] [place] [address] * (ABNORMAL) CBC with auto differential (05/15/2024 4:00 PM REPORTING CONSULTANT) WBC 11.4(H) 3.8 - 9.9 K/cumm Hgb 11.3(L) 11.9 - 15.5 g/dL [facility] Hct 38.6 35.6 - 45.5 % [facility] Plt 315 150 - 400 K/cumm [facility] MPV 10.3 9.1 - 12.3 fL [facility] RBC 4.69 3.90 - 5.20 M/cumm [facility] MCV 82.3 81.3 - 96.4 fL [facility] MCH 24.1(L) 27.1 - 33.3 pg [facility] MCHC 29.3(L) 32.3 - 35.7 g/dL [facility] CH RDW CV 17.8(H) 11.1 - 14.9 % [facility] CH RDW SD 53.0(H) 35.7 - 48.1 fL [facility] NRBC abs 0.00 0.00 - 0.01 K/cumm [facility] Blood 05/15/2024 4:00 PM REPORTING CONSULTANT 05/15/2024 8:22 PM REPORTING CONSULTANT Dony Reed MD LAB BLOOD ORDERABLE S Final Result Performing Organization Address City/[facility]/ZIP Co de Phone Number BRIAN [address] [place] [address] * TSH (05/15/2024 4:00 PM REPORTING CONSULTANT) Pathologist [facility] Thyroid Stimulating Hormone 1.69 0.30 - 4.20 mcIUnit/mL Blood 05/15/2024 4:00 PM REPORTING CONSULTANT 05/15/2024 8:22 PM REPORTING CONSULTANT Dony Reed MD LAB BLOOD ORDERABLE S Final Result Performing Organization Address [facility] de Phone Number [facility] [address] [place] [address] * (ABNORMAL) Hemoglobin A1c (05/15/2024 4:00 PM REPORTING CONSULTANT) [facility] Hgb A1C 6.0(H) 4.0 - 5.6 % Estimated Average Glucose 126 mg/dL BRIAN DIXON Comment: The ADA recommends reporting an estimated Average Glucose (eAG) with all Hemoglobin A1c results using the equation derived from a study of 507 normal and diabetic adults. ??Minority populations were underrepresented and children were not included. ?? (Diabetes Care 31:6247-7552, 2008). ??The eAG is not equivalent to a fasting glucose. Blood 05/15/2024 4:00 PM REPORTING CONSULTANT 05/15/2024 8:22 PM REPORTING CONSULTANT Dony Reed MD LAB BLOOD ORDERABLE S Final Result Performing Organization Address [facility] de Phone Number [facility] [address] [facility] [address] * Lipid panel (05/15/2024 4:00 PM REPORTING CONSULTANT) Pathologist [facility] Cholesterol 191 30 - 199 mg/dL Comment: [...] 2018. LDL, calculated 100 <=129 mg/dL BRIAN Comment: Interpretive Data Ages < or = [...] NCEP Expert Panel. Circulation 2004;110:227 3. Aravind M et al. BUDDY Cardiol. 2020 October 26;5(5):540-548. doi: 10.1001/jamacardio.2020.0013 Current Interpretive Data was last revised on 2024. Non-HDL Cholesterol 120 mg/dL BRIAN Comment: Interpretive Data Ages < or = [...] 3 [facility] Blood 05/15/2024 4:00 PM REPORTING CONSULTANT 05/15/2024 8:22 PM REPORTING CONSULTANT us Dony Reed MD LAB BLOOD ORDERABLE S Final Result [facility] [address] [address] Department of Laboratories [place] [id number] * Comprehensive metabolic panel (05/15/2024 4:00 PM REPORTING CONSULTANT) Sodium 136 135 - 145 mmol/L Potassium, [...] classification and Diagnosis of Diabetes Diabetes Care 2021; 46: S19-S40. Current interpretive data was last [...] Units/L [facility] Blood 05/15/2024 4:00 PM REPORTING CONSULTANT 05/15/2024 8:22 PM REPORTING CONSULTANT us Dony Reed MD LAB BLOOD ORDERABLE S Final Result [facility] [address] [address] [place] [address] * High Risk HPV DNA Detection with Genotyping (Molecular component) (03/14/2024 2:20 PM CDT) HPV HR 16 Not Detected Not Detected [facility] Comment:Testing performed by : [facility], [address] [place]., [address] HPV HR 18 Not Detected Not Detected BRIAN Comment:Testing performed by : [facility], [address] [place]., [address] HPV HR Non 16/18 Not Detected Not Detected BRIAN Comment: Interpretive Data Nucleic acid amplification for [...] this test have been verified by the [facility] Molecular Infectious Disease laboratory. Correlate with separately reported cytology results, as applicable. Interpretive data last revised 22 Testing performed by: [facility], [address] [place]., [address] Endocervical 03/14/2024 2:20 PM CDT 03/15/2024 12:22 PM CDT Narrative BRIAN - 03/15/2024 11:56 PM CDT Clinical history and diagnosis->Liquid-based PAP test with high risk HPV test- Z12.4 Number of vials->1 Testing type->Screening Last menstrual period (date if known)->03/02/24 Chelsea Koroma DO LAB BODY FLUIDS AND STO OLS ORDERABLES Final Result Performing Organization Address [facility] Co de Phone Number BRIAN DIXON [address] [place] [address] [facility] * Hepatitis C antibody Blood (03/14/2024 2:20 [...] last revised on 2019. Testing performed by: [facility], [address] [place] [address]., [address] Blood 03/14/2024 2:20 PM CDT 03/14/2024 9:12 PM CDT Chelsea Koroma DO LAB MICROBIOLOGY - GENE RAL ORDERABLES Final Result Performing Organization Address [facility] de Phone Number BRIAN DIXON [address] [address] [place] [address] from Last 3 Months or Most Recently Relevant to Health Maintenance Insurance [facility] Care Teams Brace Maker Relationship Specialty Start Date End Date Dony Reed MD [address] [address] PCP - General Family Practice 03/08/24 Miscellaneous, Not In File 02/02/24
--- OUTSIDE RECORDS SUMMARY | 2024-06-25 03:38 | XMS_ITS | Encounter Summary ---
Author Organization [facility] Healthcare Address [address] [place] [address] Care Team Providers Care Belt Lacer Name Role Phone Miscellaneous, Not In File Unavailable Unava Dony Logan MD Primary Care Provi [facility] Encounter Details Date Type Department Care Team (Late st Contact Info) Description 05/18/2024 3:00 PM COP Lab [address] [id number] Shortness of breath; Abnormal breath sounds; Galactorrhea; Abnormal weight gain; Peripheral edema Social History Tobacco Use Types Packs/Day Years [...] on file Legal Sex Female 1:38 PM COP Gender Identity Not on file Sexual Orientation Not on file documented as of this encounter Miscellaneous Notes * Result Encounter Note - Beth Wiseman MA - 05/22/2024 9:42 AM CST Orders placed and detailed message left and ti call back with any questions or concerns. Also informed this is available on O4IT * Result Encounter Note - Beth Wiseman MA - 05/18/2024 4:31 PM CST Seen by patient via mychart documented in this encounter Plan of Treatment Not on file documented as of this encounter Procedures Procedure Name Priority Date/Time Associated Diagnosis Comments DIFFERENTIAL AUTO Routine 05/18/2024 2:3 7 PM COP Shortness of breath Abnormal breath sounds PRO B-TYPE NATRIURETIC PEPTIDE Routine 05/18/2024 2:37 PM COP Abnormal weight gain Peripheral edema Shortness of breath CBC WITH AUTO DIFFERENTIAL Routine 05/18/2024 2:37 PM COP Shortness of breath Abnormal breath sounds PROLACTIN Routine 05/18/2024 2:37 PM COP Galactorrhea documented in this encounter Results * (ABNORMAL) Differential, auto (05/18/2024 2:37 PM COP) Neutrophil abs 6.8(H) 1.5 - 6.5 K/cumm [...] revised on 2017. Monocyte pct 10.5 % [facility] ([place]) Comment: Interpretive Data Percent cell [...] revised on 2017. Basophil pct 0.8 % [facility] ([place]) Comment: Interpretive Data Percent cell count reference ranges are not reported, since discordance with absolute values may lead to misinterpretation of CBC data. Current Interpretive Data was last revised on 2017. Blood 05/18/2024 2:37 PM COP 05/18/2024 3:37 PM COP us Dony Reed MD LAB BLOOD ORDERABLE S Final Result [facility]AN MARIANNE ([place]) 1 [facility] Department [place] [address] * Pro B-type natriuretic peptide (05/18/2024 2:37 PM COP) NT-proBNP <36 <=300 pg/mL Comment: Interpretive Comments: [...] Revised Date: 2018. Blood 05/18/2024 2:37 PM COP 05/18/2024 3:37 PM COP us Dony Reed MD LAB BLOOD ORDERABLE S Final Result [facility] [place]) 1 [facility] Department [place] [address] * Prolactin (05/18/2024 2:37 PM COP) [facility] Signature Prolactin 23.3 4.8 - 23.3 ng/mL Comment:Testing performed by : [facility], [address] [place] [address], [place]., [address] Blood 05/18/2024 2:37 PM COP 05/18/2024 8:18 PM COP Dony Reed MD LAB BLOOD ORDERABLE S Final Result [facility] ([place]) 1 [facility] Department [place] [address] * (ABNORMAL) CBC with auto differential (05/18/2024 2:37 PM COP) WBC 11.1(H) 3.8 - 9.9 K/cumm Hgb [...] [facility] ([place]) Blood 05/18/2024 2:37 PM COP 05/18/2024 3:37 PM COP Dony Reed MD LAB BLOOD ORDERABLE S Final Result [facility] ([place]) 1 [facility] [place] [address] documented in this encounter Visit Diagnoses Diagnosis Shortness of breath Abnormal breath sounds Abnormal chest sounds Galactorrhea Galactorrhea not associated with childbirth Abnormal weight gain Peripheral edema Edema documented in this encounter Care Teams Belt Lacer Relationship Specialty Start Date End Date Dony Reed MD [address] [address] PCP - General Family Practice 03/08/24 Miscellaneous, Not In File 02/02/24 documented as of this encounter
--- OUTSIDE RECORDS SUMMARY | 2024-06-25 03:38 | XMS_ITS | Encounter Summary ---
Author Organization [facility] Healthcare Address [address] [place] [address] Care Team Providers Care Diesel Roller Operator Name Role Phone Miscellaneous, Not In File Unavailable Unava Dony Logan MD Primary Care [facility] Encounter Details Date Type Department Care Team (Late st Contact Info) Description 05/18/2024 3:05 PM MEDICAL LABORATORY MANAGER Lab [address] [address] Screen for sexually transmitted diseases; Screening for STD (sexually transmitted disease) Social History Tobacco Use Types Packs/Day Years [...] on file Legal Sex Female 1:38 PM MEDICAL LABORATORY MANAGER Gender Identity Not on file Sexual Orientation Not on file documented as of this encounter Plan of Treatment Not on file documented as of this encounter Procedures Procedure Name Priority Date/Time Associated Diagnosis Comments HSV 2 ANTIBODY, IGG Routine 05/18/2024 2 :37 PM MEDICAL LABORATORY MANAGER Screening for STD (sexually transmitted disease) HSV 1 ANTIBODY, IGG Routine 05/18/2024 2 :37 PM MEDICAL LABORATORY MANAGER Screening for STD (sexually transmitted disease) RPR Routine 05/18/2024 2:37 PM MEDICAL LABORATORY MANAGER Screening for STD (sexually transmitted disease) HEPATITIS B SURFACE ANTIGEN Routine 05/18/2024 2:37 PM MEDICAL LABORATORY MANAGER Screening for STD (sexually transmitted disease) documented in this encounter Results * Hepatitis B Surface Antigen Blood (05/18/2024 2:37 PM MEDICAL LABORATORY MANAGER) HepBsAg Nonreactive Nonreactive Comment:Testing performed by : [facility], [address] [place] [address], [address] Blood 05/18/2024 2:37 PM MEDICAL LABORATORY MANAGER 05/18/2024 8:18 PM MEDICAL LABORATORY MANAGER Chelsea Koroma DO LAB MICROBIOLOGY - GENE RAL ORDERABLES Final Result Performing Organization Address [facility] Co de Phone Number [facility] [place]) [address] [place] [address] [place] [address] * (ABNORMAL) HSV 1 IgG Antibody Blood (05/18/2024 2:37 PM MEDICAL LABORATORY MANAGER) HSV 1 IgG Reactive( A) Nonreactive Comment: Interpretive Data 1. Nonreactive: No detectable IgG antibody to HSV-1. 2. Equivocal: Presence or absence of detectable antibodies to HSV-1 cannot be determined and the test should be repeated. 3. Reactive: Indicates presence of detectable IgG antibody to HSV-1. Current interpretive data was last revised on 2016. Testing performed by: [facility], [address] [place] [address], [address] Blood 05/18/2024 2:37 PM MEDICAL LABORATORY MANAGER 05/18/2024 7:30 PM MEDICAL LABORATORY MANAGER Chelsea Koroma DO LAB MICROBIOLOGY - GENE RAL ORDERABLES Final Result [facility] ([place]) 1 [facility] [address] * (ABNORMAL) HSV 2 IgG Antibody Blood (05/18/2024 2:37 PM MEDICAL LABORATORY MANAGER) HSV 2 IgG Reactive( A) Nonreactive Comment: Interpretive Data 1. Nonreactive: No detectable IgG antibody to HSV-2. 2. Equivocal: Presence or absence of detectable antibodies to HSV-2 cannot be determined and the test should be repeated. 3. Reactive: Indicates presence of detectable IgG antibody to HSV-2. Current interpretive data was last revised on 2022. Testing performed by: [facility], [address] [place]., [address] Blood 05/18/2024 2:37 PM MEDICAL LABORATORY MANAGER 05/18/2024 7:30 PM MEDICAL LABORATORY MANAGER Chelsea Koroma DO LAB MICROBIOLOGY - GENE RAL ORDERABLES Final Result [facility] ([place]) 1 [facility] [place] [address] * RPR Blood (05/18/2024 2:37 PM MEDICAL LABORATORY MANAGER) RPR Nonreactive Nonreactive Comment:Testing performed by : [facility], [address] [place] [address]., [address] Blood 05/18/2024 2:37 PM MEDICAL LABORATORY MANAGER 05/18/2024 8:18 PM MEDICAL LABORATORY MANAGER Chelsea Koroma DO LAB MICROBIOLOGY - GENE RAL ORDERABLES Final Result [facility] ([place]) 1 [facility] [place] [place] [address] documented in this encounter Visit Diagnoses Diagnosis Screen for sexually transmitted diseases Screening examination for venereal disease Screening for STD (sexually transmitted disease) documented in this encounter Care Teams Diesel Roller Operator Relationship Specialty Start Date End Date Dony Reed MD [address] [address] PCP - General Family Practice 9/11/24 Miscellaneous, Not In File 02/02/24 documented as of this encounter
--- OUTSIDE RECORDS SUMMARY | 2024-06-25 03:39 | XMS_ITS | Encounter Summary ---
Author Organization [facility] Healthcare Address [address] [place] [address] Care Team Providers Care Paper Roller Name Role Phone Unavailable Primary Care Provider Unavailabl e Encounter Details Date Type Department Care Team (Late st Contact Info) Description 05/05/2012 8:49 PM CAMP GUARD - 05/05/2012 11:59 PM CAMP GUARD Hospital Encounter [facility] Sheldon Hull MD [address] [place] [address] Lumbosacral spondylosis without myelopathy; Thoracic spondylosis without myelopathy; Backache; Sciatica Social History Tobacco Use Types Packs/Day Years Used Date Smoking Tobacco: Never Assessed Comments Unknown Sex and Gender Information Value Date Recorded Sex Assigned at Not on file Legal Sex Female 1:38 PM CAMP GUARD Gender Identity Not on file Sexual Orientation Not on file documented as of this encounter Plan of Treatment Not on file documented as of this encounter Visit Diagnoses Diagnosis Lumbosacral spondylosis without myelopathy Thoracic spondylosis without myelopathy Backache Unspecified backache Sciatica documented in this encounter
--- OUTSIDE RECORDS SUMMARY | 2024-06-25 03:39 | XMS_ITS | Encounter Summary ---
Author Organization [facility] Healthcare Address [address] [place] [address] Care Team Providers Care Sandfill Operator Surface Name Role Phone Unavailable Primary Care Provider Unavailabl e Encounter Details Date Type Department Care Team (Late st Contact Info) Description 09/02/2010 2:52 PM TRAUMA SURGEON - 09/02/2010 3:38 PM TRAUMA SURGEON Hospital Encounter [facility] Thiago Tipton MD [address] [place] [address] Dental caries; Disorder of teeth and supporting structures; Tobacco use disorder Social History Tobacco Use Types Packs/Day Years Used Date Smoking Tobacco: Never Assessed Comments Unknown Sex and Gender Information Value Date Recorded Sex Assigned at Not on file Legal Sex Female 1:38 PM TRAUMA SURGEON Gender Identity Not on file Sexual Orientation Not on file documented as of this encounter Plan of Treatment Not on file documented as of this encounter Visit Diagnoses Diagnosis Dental caries Unspecified dental caries Disorder of teeth and supporting structures Unspecified disorder of the teeth and supporting structures Tobacco use disorder documented in this encounter
--- OUTSIDE RECORDS SUMMARY | 2024-06-25 03:39 | XMS_ITS | Encounter Summary ---
Author Organization [facility] Healthcare Address [address] [place] [address] Care Team Providers Care Flatwork Catcher Name Role Phone Miscellaneous, Not In File Unavailable Unava Dony Logan MD Primary Care [facility] Encounter Details Date Type Department Care Team (Late st Contact Info) Description 03/14/2024 2:20 PM CDT Lab [facility] [address] [place] [phone] Screening for STD (sexually transmitted disease); Screening for malignant neoplasm of cervix; Screen for sexually transmitted diseases Social History Tobacco Use Types Packs/Day Years [...] on file Legal Sex Female 1:38 PM 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 GONORRHOEAE/C. TRACHOMATIS AMPLIFICATION Routine 03/14/2024 2:20 PM CDT Screen for sexually transmitted diseases HIV 1/2 ANTIBODY PLUS P24 ANTIGEN Routine 03/14/2024 2:20 PM CDT Screening for STD (sexually transmitted disease) HEPATITIS C ANTIBODY Routine 03/14/2024 2:20 PM CDT Screening for STD (sexually transmitted disease) PAP AND HIGH RISK HPV, REFLEX TO GENOTYPING Routine 03/14/2024 8:55 AM CDT Screening for malignant neoplasm of cervix documented in this encounter Results * N. gonorrhoeae/C. trachomatis Amplification Thin prep-Endocervical (03/14/2024 2:20 PM CDT) Pathologist [facility] C. trachomatis Not Detected [facility] Comment:Testing performed by : [facility], [address] [place] [address]., [address] N. gonorrhoeae Not Detected [facility] Comment: Interpretive Data This assay detects Chlamydia trachomatis and Neisseria gonorrhoeae by nucleic acid amplification testing (NAAT). This assay has been cleared by the [place] Food and Drug administration. The performance characteristics of this test have been verified by the [facility] Molecular Infectious Disease laboratory. The performance characteristics of this test have not been evaluated in individuals less than 14 years of age. Current Interpretive Data was last revised on 2023. Testing performed by: [facility], [address] [place] [address]., [address] Thin prep-Endocervica l 03/14/2024 2:20 PM CDT 03/15/2024 12:22 PM CDT us Chelsea Koroma DO LAB MICROBIOLOGY - GENE RAL ORDERABLES Final Result [facility] DIXON [address] [address] Department [place] [address] [facility] * High Risk HPV DNA Detection with Genotyping (Molecular component) (03/14/2024 2:20 PM CDT) HPV HR 16 Not Detected Not Detected [facility] Comment:Testing performed by : [facility], [address] [place]., [address] HPV HR 18 Not Detected Not Detected [facility] Comment:Testing performed by : [facility], [address] [place]., [address] HPV HR Non 16/18 Not Detected Not [...] this test have been verified by the [facility] Infectious Disease laboratory. Correlate with separately reported cytology results, as applicable. Interpretive data last revised 22 Testing performed by: [facility], [address] [place]., [address] Endocervical 03/14/2024 2:20 PM CDT 03/15/2024 12:22 PM CDT Narrative BRI[facility] - 03/15/2024 11:56 PM CDT Clinical history and diagnosis->Liquid-based PAP test with high risk HPV test- Z12.4 Number of vials->1 Testing type->Screening Last menstrual period (date if known)->03/02/24 Chelsea Koroma DO LAB BODY FLUIDS AND STO OLS ORDERABLES Final Result BRIAN [address] [address] Department [place] [address] [facility] * HIV 1/2 Antibody plus p24 Antigen Blood (03/14/2024 2:20 PM CDT) HIV 1/2 ab + p24 ag Nonreactive Nonreactive Comment: Nonreactive for HIV-1 antigen and HIV-1/HIV-2 antibodies. No laboratory evidence of HIV infection. If acute HIV infection is suspected, consider testing for HIV-1 RNA. Testing performed by: [address] [address] Blood 03/14/2024 2:20 PM CDT 03/14/2024 9:16 PM CDT Chelsea Koroma DO LAB MICROBIOLOGY - GENE RAL ORDERABLES Final Result Performing Organization Address [facility] Co de Phone Number [facility] [employer] [place] [address] * Hepatitis C antibody Blood (03/14/2024 2:20 [...] last revised on 2019. Testing performed by: [facility], [address] [place] [address]., [address] Blood 03/14/2024 2:20 PM CDT 03/14/2024 9:12 PM CDT Chelsea Koroma DO LAB MICROBIOLOGY - GENE RAL ORDERABLES Final Result Performing Organization Address [facility] Co de Phone Number [facility] [address] [facility] [employer] [place] [address] * Pap and High Risk HPV and Genotyping (Cytology Component) (03/14/2024 8:55 AM CDT) Thin prep (Pap test) 03/14/2024 8:55 AM CDT 03/15/2024 8:55 AM CDT Narrative PATHOLOGY CH - 03/16/2024 10:52 AM CDT [facility] Department of Pathology [address] [place] [address] Final Report with Addendum Note to Patients: This report may contain a detailed description of human tissue sent by a health care provider to the laboratory for pathologic evaluation. The content of this report is essential for diagnosis and may provide important critical findings. This information may be unfamiliar to patients to review without a medical professional present. It is advised that the patient review this report in the presence of a health care provider who can answer questions and explain the details. Patient Name: ??FREDA NEWSOME Mira Address: ??[address] [place] [address], ?? [place], [place] ??[facility] Gender: ??F : ??1980 (Age: 44) Service: ?? Location: ?? Hospital #: ??[id number] Patient Type: ??[facility] EP ANCILLARY Taken: ??03/14/2024 Received: ??03/15/2024 Accessioned:: ??03/15/2024 Reported: ??03/16/2024 Physician(s): Mago Rushing D.O. Diagnosis: SOURCE OF SPECIMEN ? SCREENING THIN PREP IMAGED PAP w/ HPV: STATEMENT OF ADEQUACY ?- Specimen satisfactory for interpretation; endocervical/transformation zone component absent or ?insufficient ? GENERAL CATEGORIZATION: ?- Negative for intraepithelial lesion or malignancy ? CALLIE Donis(ASCP) Report Electronically Reviewed and Signed Out By ??CALLIE Donis(ASCP) ??03/16/2024 10:52:39Addenda: HPV Test Interpretation (Normal-Negative for High Risk HPV) HPV HR 16- Not detected HPV HR 18-Not detected HPV HR non 16/18- Not detected Interpretive Data Nucleic acid amplification for detection of high-risk Human Papilloma virus (HPV) is performed by the Hussein Carmelina 6800 HPV test. This assay specifically detects HPV- 16 and HPV-18 genotypes. The following HPV genotypes are detected as high-risk HPV: HPV-31, 33, 35, 39, 45, 51, 52, 56, 58, 59, 66, and 68. This assay has been approved by the [place] Food and Drug Administration for detection of HPV in cervical specimens collected by a physician using an endocervical brush/spatula or cervical broom and placed in the ThinPrep Pap Test PreservCyt collection containers. The performance characteristics of this test have been verified by the [facility] Molecular Infectious Disease laboratory. Correlate with reported cytology results, as applicable. Interpretive data last revised 22 CALLIE Donis(ASCP)Report Electronically Reviewed and Signed Out By ??CALLIE Donis(ASCP) ??03/16/2024 11:44:14 ?? Specimen(s) Received: A: SCREENING THIN PREP IMAGED PAP w/ HPV Clinical History: Last Menstrual Period: 03/02/24 The Pap test is a screening test used to aid in the detection of cervical cancer and its precursors. ??It should not be the sole means by which malignant and premalignant lesions are diagnosed. ??Both false negative and false positive results may occur. ?? It also has poor sensitivity for the detection of endometrial lesions and should not be used to evaluate suspected endometrial abnormalities. ??For these reasons it is most important to obtain Pap tests at regular intervals. The performance characteristics of some immunohistochemical stains, fluorescence in-situ hybridization tests and immunophenotyping by flow cytometry cited in this report (if any) were determined by the Surgical Pathology Department at [facility] as part of an ongoing quality compliance consultant program and in compliance with federally mandated regulations drawn from the Clinical Laboratory Improvement Act of 1988 (CLIA '88). ??Some of these tests rely on the use of analyte specific reagents and are subject to specific labeling requirements by the [place] Food and Drug Administration. ??Such diagnostic tests may only be performed in a facility that is certified by the Department of Health and Human Services as a high complexity laboratory under CLIA '88. The FDA has determined that such clearance or approval is not necessary. ??This test is used for clinical purposes. ??It should not be regarded as investigational or for research. ??Nevertheless, federal rules concerning the medical use of analyte specific reagents require that the following disclaimer be attached to the report: This test was developed and its performance characteristics determined by the Surgical Pathology Department [facility]. ??It has not been cleared or approved by the [place]. S. Food and Drug Administration. Chelsea Koroma DO LAB [place]TOLOGY [place] [id number] [place] [address] documented in this encounter Visit Diagnoses Diagnosis Screening for STD (sexually transmitted disease) Screening for malignant neoplasm of cervix Screening for malignant neoplasm of the cervix Screen for sexually transmitted diseases Screening examination for venereal disease documented in this encounter Care Teams Flatwork Catcher Relationship Specialty Start Date End Date Dony Reed MD [address] [address] PCP - General Family Practice 03/08/24 Miscellaneous, Not In File 02/02/24 documented as of this encounter
--- OUTSIDE RECORDS SUMMARY | 2024-06-25 03:39 | XMS_ITS | Encounter Summary ---
Author Organization [facility] Care Team Providers Care Attendant Honor Bar Name Role Phone Unavailable Primary Care Provider Unavailabl e Encounter Details Date Type Department Care Team (Late st Contact Info) Description 09/04/2009 2:59 PM RESOLUTION SPECIALIST - 09/04/2009 4:00 PM RESOLUTION SPECIALIST Hospital En[facility] Uday Vogel MD [address] [facility] [place] [address] Closed dislocation of elbow; Fall; Unspecified place of occurrence Social History Tobacco Use Types Packs/Day Years Used Date Smoking Tobacco: Never Assessed Comments Unknown Sex and Gender Information Value Date Recorded Sex Assigned at Not on file Legal Sex Female 1:38 PM RESOLUTION SPECIALIST Gender Identity Not on file Sexual Orientation Not on file documented as of this encounter Plan of Treatment Not on file documented as of this encounter Visit Diagnoses Diagnosis Closed dislocation of elbow Closed unspecified dislocation of elbow Fall Unspecified fall Unspecified place of occurrence documented in this encounter
--- OUTSIDE RECORDS SUMMARY | 2024-06-25 03:39 | XMS_ITS | Encounter Summary ---
Author Organization [facility] Healthcare Address [address] [place] [address] Care Team Providers Care Procedures Analyst Name Role Phone No, Physician Primary Care Provider [phone] Encounter Details Date Type Department Care Team (Late st Contact Info) Description 01/12/2017 3:21 PM CDT - 01/12/2017 4:13 PM CDT Emergency [facility] Emergency Department [address] [place] [address] Israel Alvarez MD [address] [place] [address] Discharge Disposition: Discharge to home or self care Social History Tobacco Use Types Packs/Day Years Used Date Smoking Tobacco: Never Assessed Comments Unknown Sex and Gender Information Value Date Recorded Sex Assigned at Not on file Legal Sex Female 1: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
--- OUTSIDE RECORDS SUMMARY | 2024-06-25 03:39 | XMS_ITS | Encounter Summary ---
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 Gender Identity Not on file Sexual Orientation Not on file documented as of this encounter Plan of Treatment Not on file documented as of this encounter Procedures Procedure Name Priority Date/Time Associated Diagnosis Comments POCT HCG, URINE Routine 09/20/2016 6:09 PM CDT documented in this encounter Results * POCT hCG, urine (09/20/2016 6:09 PM CDT) HCG, ur, POC Negative Negative [facility] ([facility]) Urine/Blood 09/20/2016 6:09 PM CDT 09/20/2016 6:11 PM CDT us Notinfile Unknown LAB POCT ORDERABLES - DEVICE F inal Result [facility] ([place]) 1 [facility] Department [place] [address] documented in this encounter Visit Diagnoses Not on filedocumented in this encounter
--- OUTSIDE RECORDS SUMMARY | 2024-06-25 03:39 | XMS_ITS | Encounter Summary ---
Author Organization [facility] Healthcare Address [address] [place] [address] Care Team Providers Care Release Coordinator Name Role Phone Unavailable Primary Care Provider Unavailabl e Encounter Details Date Type Department Care Team (Late st Contact Info) Description 05/01/2009 1:26 PM PIPE ORGAN BUILDER - 05/01/2009 3:25 PM PIPE ORGAN BUILDER Hospital Encounter [facility] Thiago Tipton MD [address] [place] [address] Otitis media Social History Tobacco Use Types Packs/Day Years Used Date Smoking Tobacco: Never Assessed Comments Unknown Sex and Gender Information Value Date Recorded Sex Assigned at Not on file Legal Sex Female 1:38 PM PIPE ORGAN BUILDER Gender Identity Not on file Sexual Orientation Not on file documented as of this encounter Plan of Treatment Not on file documented as of this encounter Visit Diagnoses Diagnosis Otitis media Unspecified otitis media documented in this encounter
--- OUTSIDE RECORDS SUMMARY | 2024-06-25 03:39 | XMS_ITS | Encounter Summary ---
Author Organization [facility] Healthcare Address [address] [place] [address] Care Team Providers Care Materials Tech Name Role Phone Unavailable Primary Care Provider Unavailabl e Encounter Details Date Type Department Care Team (Late st Contact Info) Description 10/26/2011 1:37 PM CDT - 10/26/2011 5:05 PM CDT Hospital Encounter [facility] Holli Chris MD [address] [place] [address] [place] [address] Low back pain; Tobacco use disorder Social History Tobacco Use Types Packs/Day Years Used Date Smoking Tobacco: Never Assessed Comments Unknown Sex and Gender Information Value Date Recorded Sex Assigned at Not on file 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
--- OUTSIDE RECORDS SUMMARY | 2024-06-25 03:39 | XMS_ITS | Encounter Summary ---
Author Organization [facility] Healthcare Address [address] [place] [address] Care Team Providers Care Unarmed Security Officer Name Role Phone Rakel Weber NP Primary Care Provider [phone] Reason for Visit * Reason Comments Other Cramping (Generalize d) Encounter Details Date Type Department Care Team (Late st Contact Info) Description 07/21/2020 11:49 AM STORAGE WHARFAGE CLERK - 07/21/2020 12:52 PM STORAGE WHARFAGE CLERK Emergency [facility] Emergency Department [address] [place] [address] Whole body pain (Primary Dx); Crampy pain; Muscle spasm Discharge Disposition: Discharge to home or self care Social History Tobacco Use Types Packs/Day Years Used Date Smoking Tobacco: Every Day Cigarettes Smokeless Tobacco: Never Alcohol Use Standard Drinks/Week Comments Yes 0 (1 standard drink = 0.6 oz pur e alcohol) 1-2 times per week Comments No Sex and Gender Information Value Date Recorded Sex Assigned at Not on file Legal Sex Female 1:38 PM STORAGE WHARFAGE CLERK Gender Identity Not on file Sexual Orientation Not on file documented as of this encounter Last Filed Vital Signs Vital Sign Reading Time Taken Comments Blood Pressure 120/84 07/21/2020 11:49 AM STORAGE WHARFAGE CLERK Pulse 97 07/21/2020 11:45 AM STORAGE WHARFAGE CLERK Temperature 36.1 ??C (97 ??F) 07/21/2020 11:45 AM STORAGE WHARFAGE CLERK Respiratory Rate 18 07/21/2020 11:45 AM STORAGE WHARFAGE CLERK Oxygen Saturation 98% 07/21/2020 11:45 AM STORAGE WHARFAGE CLERK Inhaled Oxygen Concentration - - Weight 113.4 kg (250 lb) 07/21/2020 11:45 AM STORAGE WHARFAGE CLERK Height 170.2 cm (5' 7 ) 07/21/2020 11:45 AM STORAGE WHARFAGE CLERK Body Mass Index 39.16 07/21/2020 11:45 AM STORAGE WHARFAGE CLERK documented in this encounter Discharge Diagnoses Diagnosis Cramp and spasm - CRAMP AND SPASM Myalgia, unspecified site - MYALGIA, UNSPECIFIED SITE Nicotine dependence, cigarettes, uncomplicated - NICOTINE DEPENDENCE, CIGARETTES, UNCOMPLICATED documented in this encounter Discharge Instructions * Discharge Instructions* Nirmala Varghese NP - 07/21/2020 12:36 PM STORAGE WHARFAGE CLERK Use over the counter Tylenol and Motrin per manufacturers guidelines for relief of pain and fever. Follow up with Dr. Weber without fail. Use Biofreeze, icy hot, bengay, epsom salt baths, ice and heat for muscle pain relief AGE WHARFAGE CLERK * Attachments The following attachments cannot be sent through Care Everywhere. * Muscle Spasm (Colombian) documented in this encounter Medications at Time of Discharge methocarbamol (ROBAXIN) 500 mg tablet Take 2 tablets (1,000 mg total) by mouth 4 (four) times a day as needed for muscle spasms. 40 tablet 08/15/2018 10/01/2021 documented as of this encounter Discharge Disposition Disposition Code Departure Means Destination Discharge to home or self care documented in this encounter ED Notes * Nirmala Varghese NP - 07/21/2020 11:43 AM CST HPI Chief Complaint Patient presents with ??? Other Cramping (Generalized) 40 y.o. year old female with PMHX Back pain; accompanied by self presents to ED with c/o Cramping (Generalized) Denies fever, chills, nausea, vomiting, diarrhea, SOB, CP, numbness, tingling. Pt reports she has been having cramps in her legs, abdomen, arms and hands for some time however ptsays she has been taking HCTZ for about a month now and her cramps have gotten worse. Denies other complaint at this time. Patient History: There are no active problems to display for this patient. Past Medical History: Diagnosis Date ??? Back pain Past Surgical History: Procedure Laterality Date ??? APPENDECTOMY ??? TONSILLECTOMY History reviewed. No pertinent family history. Social History Tobacco Use ??? Smoking status: Current Every Day Smoker Types: Cigarettes ??? Smokeless tobacco: Never Used Substance Use Topics ??? Alcohol use: Yes Comment: 1-2 times per week ??? Drug use: No Social History Social History Narrative ??? Not on file Review of Systems Review of Systems Constitutional: Negative. Negative for chills and fever. HENT: Negative. Negative for ear pain and sore throat. Eyes: Negative. Negative for pain and visual disturbance. Respiratory: Negative. Negative for cough and shortness of breath. Cardiovascular: Negative. Negative for chest pain and palpitations. Gastrointestinal: Negative for abdominal pain and vomiting. Genitourinary: Negative. Negative for dysuria and hematuria. Musculoskeletal: Negative for arthralgias and back pain. Muscle pain Skin: Negative. Negative for color change and rash. Neurological: Negative. Negative for seizures and syncope. Psychiatric/Behavioral: Negative. All other systems reviewed and are negative. Physical Exam ED Triage Vitals Temp Pulse Resp BP SpO2 07/21/20 1145 07/21/20 1145 07/21/20 1145 07/21/20 1149 07/21/20 1145 36.1 ??C (97 ??F) 97 18 120/84 98 % Temp src Heart Rate Source Patient Position BP Location FiO2 (%) 07/21/20 1145 -- 07/21/20 1149 07/21/20 1149 -- Temporal Sitting Left arm Physical Exam Vitals signs and nursing note reviewed. Constitutional: General: She is awake. She is not in acute distress. Appearance: Normal appearance. She is well-developed. She is not ill-appearing, toxic-appearing or diaphoretic. HENT: Head: Normocephalic and atraumatic. Right Ear: Hearing and external ear normal. Left Ear: Hearing and external ear normal. Nose: Nose normal. Mouth/Throat: Lips: [place]. Mouth: Mucous membranes are moist. Eyes: General: Lids are normal. Conjunctiva/sclera: Conjunctivae normal. Neck: Musculoskeletal: Full passive range of motion without pain, normal range of motion and neck supple. Trachea: Trachea and phonation normal. Cardiovascular: Rate and Rhythm: Normal rate and regular rhythm. Pulses: Normal pulses. No decreased pulses. Heart sounds: Normal heart sounds. No murmur. Pulmonary: Effort: Pulmonary effort is normal. No respiratory distress. Breath sounds: Normal breath sounds and air entry. No stridor, decreased air movement or transmitted upper airway sounds. No decreased breath sounds, wheezing, rhonchi or rales. Abdominal: General: Bowel sounds are normal. There is no distension. Palpations: Abdomen is soft. Tenderness: There is no abdominal tenderness. There is no guarding. Skin: General: Skin is warm and dry. Capillary Refill: Capillary refill takes less than 2 seconds. Neurological: General: No focal deficit present. Mental Status: She is alert, oriented to person, place, and time and easily aroused. Psychiatric: Attention and Perception: Attention normal. Mood and Affect: Mood normal. Speech: Speech normal. Behavior: Behavior normal. Behavior is cooperative. Thought Content: Thought content normal. Cognition and Memory: Cognition normal. Judgment: Judgment normal. [facility] ED Course as of Jul 21 1334 Time: 07/21 1142 Comment: Discussed with pt benefits of stop smoking and encouraged to stop smoking. Pt was counseled on smoking sensation. By: Nirmala Varghese NP Time: 07/21 1235 Comment: Discussed lab results with patient. Advised to use Tylenol and Motrin for relief of fever and pain, to follow up with PMD for further evaluation and treatment. Pt verbalized understanding. All questions answered at this time. By: Nirmala Varghese NP Final diagnoses: Whole body pain Crampy pain Muscle spasm Nirmala Varghese NP 07/21/20 1335 Cosigned by Shahbaz De Anda MD at 07/23/2020 12:14 PM STORAGE WHARFAGE CLERK AGE WHARFAGE CLERK AGE WHARFAGE CLERK * Marlyn He RN - 07/21/2020 11:43 AM CST 40 yr old female presents to the ED with C/O severe cramping . Pt reports she has been having cramps in her legs, abdomen, arms and hands for some time however pt says she has been taking HCTZ for about a month now and her cramps have gotten worse. Pt awake and alert upon arrival. AGE WHARFAGE CLERK documented in this encounter Plan of Treatment Not on file documented as of this encounter Procedures Procedure Name Priority Date/Time Associated Diagnosis Comments EGFR STAT 07/21/2020 12:05 PM STORAGE WHARFAGE CLERK DIFFERENTIAL AUTO STAT 07/21/2020 12: 05 PM STORAGE WHARFAGE CLERK CBC WITH AUTO DIFFERENTIAL STAT 07/21/2020 12:05 PM STORAGE WHARFAGE CLERK COMPREHENSIVE METABOLIC PANEL STAT 07/21/2020 12:05 PM STORAGE WHARFAGE CLERK documented in this encounter Results * eGFR (07/21/2020 12:05 PM STORAGE WHARFAGE CLERK) eGFR 58 mL/min/1.7 3 m2 [facility] ([facility]) Comment: Interpretive Data Reference Interval Normal ?>/= 90 mL/min/1.73m2 Mildly decreased* ? 60 - 89 mL/min/1.73m2 Mildly to moderately decreased ?45 - 59 mL/min/1.73m2 Moderately to severely decreased ??30 - 44 mL/min/1.73m2 Severely decreased ?15 - 29 mL/min/1.73m2 Kidney Failure ?< 15 ??mL/min/1.73m2 *Relative to young adult level Estimated glomerular filtration rate is determined by the CKD-EPI equation recommended by the National Kidney Foundation (KDIGO 2012 Clinical Practice Guideline for the Evaluation and Management of Chronic Kidney Disease. Kidney Intnl Suppl Jun 2012;3:1). The CKD-EPI equation should not be used for patients with unstable renal function and has not been validated in children and those over 70. Current interpretive data was last reviewed 2020 Blood specimen (specimen) 07/21/2020 12:05 PM STORAGE WHARFAGE CLERK 07/21/2020 12:07 PM STORAGE WHARFAGE CLERK us Nirmala Varghese NP LAB BLOOD ORDERABLES Final Result [facility] ([place]) 1 [facility] Department [place] [address] * (ABNORMAL) Differential, auto (07/21/2020 12:05 PM STORAGE WHARFAGE CLERK) Neutrophil abs 6.6(H) 1.7 - 6.5 K/cumm [facility] ([place]) Imm gran abs 0.1 0.0 - 0.1 K/cumm [facility] ([place]) Lymphocyte abs 2.4 0.8 - 3.3 K/cumm [facility] ([place]) Monocyte abs 0.9(H) 0.2 - 0.8 K/cumm [facility] ([place]) Eosinophil abs 0.3 0.0 - 0.5 K/cumm [facility] ([place]) Basophil abs 0.1 0.0 - 0.1 K/cumm [facility] ([place]) Neutrophil pct 64.1 % [facility] ([place]) Comment: Interpretive Data Percent cell count reference ranges are not reported, since discordance with absolute values may lead to misinterpretation of CBC data. Current Interpretive Data was last revised on 2017. Imm gran pct 0.8 % [facility] ([place]) Comment: Interpretive Data Percent cell count reference ranges are not reported, since discordance with absolute values may lead to misinterpretation of CBC data. Current Interpretive Data was last revised on 2017. Lymphocyte pct 23.1 % [facility] ([place]) Comment: Interpretive Data Percent cell count reference ranges are not reported, since discordance with absolute values may lead to misinterpretation of CBC data. Current Interpretive Data was last revised on 2017. Monocyte pct 8.6 % [facility] ([place]) Comment: Interpretive Data Percent cell count reference ranges are not reported, since discordance with absolute values may lead to misinterpretation of CBC data. Current Interpretive Data was last revised on 2017. Eosinophil pct 2.5 % [facility] ([place]) Comment: Interpretive Data Percent cell count reference ranges are not reported, since discordance with absolute values may lead to misinterpretation of CBC data. Current Interpretive Data was last revised on 2017. Basophil pct 0.9 % [facility] ([place]) Comment: Interpretive Data Percent cell count reference ranges are not reported, since discordance with absolute values may lead to misinterpretation of CBC data. Current Interpretive Data was last revised on 2017. Blood specimen (specimen) 07/21/2020 12:05 PM STORAGE WHARFAGE CLERK 07/21/2020 12:07 PM STORAGE WHARFAGE CLERK Nirmala Varghese NP LAB BLOOD ORDERABLES Final Result [facility] ([place]) 1 [facility] Department [place] [address] * (ABNORMAL) Comprehensive metabolic panel (07/21/2020 12:05 PM STORAGE WHARFAGE CLERK) Sodium 134(L) 135 - 145 mmol/L [facility] ([place]) Potassium, pl 4.2 3.3 - 4.9 mmol/L [facility] ([place]) Chloride 97 97 - 110 mmol/L [facility] ([place]) CO2 28 22 - 32 mmol/L [facility] ([place]) Anion gap 9 2 - 15 mmol/L [facility] ([place]) BUN 14 8 - 25 mg/dL [facility] ([place]) Creatinine 1.19(H) 0.60 - 1.10 mg/dL [facility] ([place]) Glucose 141 70 - 199 mg/dL [facility] ([place]) Comment: Interpretive Data Fasting glucose >/= 126 [...] classification and Diagnosis of Diabetes Diabetes Care 2017;40 (Suppl. 1):S11. Current interpretive data was last revised 2017. Calcium 9.6 8.5 - 10.3 mg/dL [facility] ([place]) Bilirubin, total 0.2 0.1 - 1.2 mg/dL [facility] ([place]) Protein, pl 6.9 6.5 - 8.5 g/dL [facility] ([place]) Albumin 4.2 3.5 - 5.0 g/dL [facility] ([place]) Alk phos 62 40 - 130 Units/L [facility] ([place]) ALT 18 7 - 45 Units/L [facility] ([place]) AST 22 10 - 45 Units/L [facility] ([place]) Blood specimen (specimen) 07/21/2020 12:05 PM STORAGE WHARFAGE CLERK 07/21/2020 12:07 PM STORAGE WHARFAGE CLERK Nirmala Varghese NP LAB BLOOD ORDERABLES Final Result [facility] ([place] 1 [facility] Department [place] [address] * (ABNORMAL) CBC with auto differential (07/21/2020 12:05 PM STORAGE WHARFAGE CLERK) WBC 10.4(H) 3.8 - 9.9 K/cumm [facility] ([place]) Hgb 14.8 11.9 - 15.5 g/dL [facility] ([place]) Hct 44.3 35.6 - 45.5 % [facility] ([place]) Plt 246 150 - 400 K/cumm [facility] ([place]) MPV 9.7 9.1 - 12.3 fL [facility] ([place]) RBC 5.08 3.90 - 5.20 M/cumm [facility] ([place]) MCV 87.2 81.3 - 96.4 fL [facility] ([place]) MCH 29.1 27.1 - 33.3 pg [facility] ([place]) MCHC 33.4 32.3 - 35.7 g/dL [facility] ([place]) RDW CV 13.9 11.1 - 14.9 % [facility] ([place]) RDW SD 44.7 35.7 - 48.1 fL [facility] ([place]) NRBC abs 0.00 0.00 - 0.01 K/cumm [facility] ([place]) Blood specimen (specimen) 07/21/2020 12:05 PM STORAGE WHARFAGE CLERK 07/21/2020 12:07 PM STORAGE WHARFAGE CLERK Nirmala Varghese NP LAB BLOOD ORDERABLES Final Result [facility] ([place] 1 [facility] Department [place] [address] documented in this encounter Visit Diagnoses Diagnosis Whole body pain- Primary Crampy pain Muscle spasm Spasm of muscle documented in this encounter Care Teams Unarmed Security Officer Relationship Specialty Start Date End Date Rakel Weber NP [address] [place] [address] PCP - General 07/21/20 09/30/21 documented as of this encounter
--- OUTSIDE RECORDS SUMMARY | 2024-06-25 03:39 | XMS_ITS | Encounter Summary ---
Author Organization [facility] Healthcare Address [address] [place] [address] Care Team Providers Care Shape Carver Name Role Phone Unavailable Primary Care Provider Unavailabl e Encounter Details Date Type Department Care Team (Late st Contact Info) Description 03/16/2012 3:45 PM CDT - 03/16/2012 5:40 PM CDT Hospital Encounter [facility] Holli Lopes MD [address] [place] [address] [place] [address] Bronchitis; Urinary tract infection; Tobacco use disorder; Cervical dysplasia Social History Tobacco Use Types Packs/Day Years Used Date Smoking Tobacco: Never Assessed Comments Unknown Sex and Gender Information Value Date Recorded Sex Assigned at Not on file Legal Sex Female 1:38 PM OPERATION RESEARCH ANALYST Gender Identity Not on file Sexual Orientation Not on file documented as of this encounter Plan of Treatment Not on file documented as of this encounter Visit Diagnoses Diagnosis Bronchitis Bronchitis, not specified as acute or chronic Urinary tract infection Urinary tract infection, site not specified Tobacco use disorder Cervical dysplasia Dysplasia of cervix, unspecified documented in this encounter
--- OUTSIDE RECORDS SUMMARY | 2024-06-25 03:39 | XMS_ITS | Encounter Summary ---
Author Organization [facility] Healthcare Address [address] [place] [address] Care Team Providers Care Truck Headlight Assembler Name Role Phone Unavailable Primary Care Provider Unavailabl e Encounter Details Date Type Department Care Team (Late st Contact Info) Description 09/20/2016 Orders Only [facility] Interim [phone] Bambi Echavarria NP [facility] [place] [address] Social History Tobacco Use Types Packs/Day Years Used Date Smoking Tobacco: Never Assessed Comments Unknown Sex and Gender Information Value Date Recorded Sex Assigned at Not on file Legal Sex Female 1:38 PM WIRELESS SALES REPRESENTATIVE Gender Identity Not on file Sexual Orientation Not on file documented as of this encounter Plan of Treatment Not on file documented as of this encounter Procedures Procedure Name Priority Date/Time Associated Diagnosis Comments GROUP A STREP, RAPID SCREEN GEN LAB STAT 09/20/2016 5:48 PM CDT documented in this encounter Results * Group A Strep, rapid screen (09/20/2016 5:48 PM CDT) Rapid Strep A Negative Negative [facility] ([facility]) Throat 09/20/2016 5:48 PM CDT 09/20/2016 5:51 PM CDT us Bambi Echavarria NP LAB BODY FLUIDS AND STO OLS ORDERABLES Final Result [facility] ([place] 1 [facility] Department [place] [address] documented in this encounter Visit Diagnoses Not on filedocumented in this encounter
--- OUTSIDE RECORDS SUMMARY | 2024-06-25 03:39 | XMS_ITS | Encounter Summary ---
Author Organization [facility] Healthcare Address [address] [place] [address] Care Team Providers Care Certified Nurse Aide Name Role Phone Unavailable Primary Care Provider Unavailabl e Encounter Details Date Type Department Care Team (Late st Contact Info) Description 09/20/2016 5:30 PM CDT - 09/20/2016 7:26 PM CDT Emergency [facility] Emergency Department [address] [place] [address] Mario Sims MD [address] [place] [address] Discharge Disposition: Discharge to home or self care Social History Tobacco Use Types Packs/Day Years Used Date Smoking Tobacco: Never Assessed Comments Unknown Sex and Gender Information Value Date Recorded Sex Assigned at Not on file Legal Sex Female 1:38 PM GROUP HOME PARAPROFESSIONAL Gender Identity Not on file Sexual Orientation Not on file documented as of this encounter Discharge Disposition Disposition Code Departure Means Destination Discharge to home or self care documented in this encounter Plan of Treatment Not on file documented as of this encounter Procedures Procedure Name Priority Date/Time Associated Diagnosis Comments XR CHEST PA LATERAL 2 VIEWS Routine 09/20/2016 10:45 PM CDT documented in this encounter Results * XR Chest Pa Lateral 2 Vw (09/20/2016 10:45 PM CDT) Anatomical Region Laterality Modality Body, Chest N/A Radiographic Alycia ging 09/20/2016 10:4 5 PM CDT Narrative 09/20/2016 10:45 PM CDT XR Chest 2 Views ?[id number] ??Acc#: ??[id number] DATE OF EXAM: ??Sep 20 2016 CLINICAL HISTORY: Cough. Smoker. RESULT: Erect PA and lateral views are compared to exam on 16 March 2012. Heart size and pulmonary vascularity are normal. No infiltrate, mass or pleural effusion is seen. There is no hilar or mediastinal enlargement. Diaphragm is smooth and costophrenic angles clear. Minimal dextroscoliosis and very mild spurring in the thoracic spine at multiple levels are noted. IMPRESSION: 1. ??NO ACTIVE DISEASE SEEN. 2. ??NO SIGNIFICANT CHANGE SINCE 2011. Interpreting Physician: ??DR RENE LOONEY M.D. ??Read on: ??Sep 20 2016 9:54P Transcribed by: ??TXD ??On: Sep 21 2016 10:24A Approved Electronically by: ??AAYUSH Wilkes, DR LÓPEZ ??on: ??Sep 21 2016 11:51A Attending: ??MARIO SIMS Requesting: ??BLACK THAKUR Requesting Fax: ??-- Attending Fax: ??[phone] Attending ID: ??[id number] Requesting ID: ??[id number] Report To 1 ID: ??[id number] Report To 1 Name: ??CLARISSA BELTRÁN Report To 1 FAX: ??[phone] NextGen Order #: ?? Procedure Note Miscellaneous, Notinfile / ProviderAbigail MD - 11/18/2016 XR Chest 2 Views [id number] Acc#: [id number] DATE OF EXAM: Sep 20 2016 CLINICAL HISTORY: Cough. Smoker. RESULT: Erect PA and lateral views are compared to exam on 16 March 2012.Heart size and pulmonary vascularity are normal. No infiltrate, mass orpleural effusion is seen. There is no hilar or mediastinal enlargement.Diaphragm is smooth and costophrenic angles clear. Minimal dextroscoliosisand very mild spurring in the thoracic spine at multiple levels arenoted. IMPRESSION: 1. NO ACTIVE DISEASE SEEN. 2. NO SIGNIFICANT CHANGE SINCE 2011. Interpreting Physician: DR RENE LOONEY M.D. Read on: Sep 20 20169:54P Transcribed by: TXD On: Sep 21 2016 10:24A Approved Electronically by: AAYUSH Wilkes, DR LÓPEZ on: Sep 21 [id number] Attending: MARIO SIMS Requesting: BLACK THAKUR Requesting Fax: -- Attending Attending ID: [id number] Requesting ID: [id number] Report To 1 ID: [id number] Report To 1 Name: CLARISSA BELTRÁN Report To 1 FAX: [phone] NextGen Order #: us Not In File Miscellaneous IMG XR PROCEDURES Rula l Result documented in this encounter Visit Diagnoses Not on filedocumented in this encounter
--- OUTSIDE RECORDS SUMMARY | 2024-06-25 03:39 | XMS_ITS | Encounter Summary ---
Author Organization [facility] Healthcare Address [address] [place] [address] Care Team Providers Care Applied Exercise Physiologist Name Role Phone Unavailable Primary Care Provider Unavailabl e Encounter Details Date Type Department Care Team (Late st Contact Info) Description 12/09/2007 12:01 AM CDT - 12/09/2007 11:59 PM CDT Hospital Encounter [facility] Ryan Reyes Social History Tobacco Use Types Packs/Day Years Used Date Smoking Tobacco: Never Assessed Comments Unknown Sex and Gender Information Value Date Recorded Sex Assigned at Not on file Legal Sex Female 1:38 PM SOFTWARE PROJECT MANAGER Gender Identity Not on file Sexual Orientation Not on file documented as of this encounter Plan of Treatment Not on file documented as of this encounter Visit Diagnoses Not on filedocumented in this encounter
--- OUTSIDE RECORDS SUMMARY | 2024-06-25 03:39 | XMS_ITS | Encounter Summary ---
Author Organization [facility] Healthcare Address [address] [place] [address] Care Team Providers Care Strap Stitcher Name Role Phone No, Physician Primary Care Provider [phone] Reason for Visit * Reason Comments Back Pain Encounter Details Date Type Department Care Team (Late st Contact Info) Description 08/15/2018 4:41 PM [employer] - 08/15/2018 6:13 PM [employer] Emergency [facility] Emergency Department [address] [place] [address] [id number] Acute exacerbation of chronic low back pain (Primary Dx) Discharge Disposition: Discharge to home or self care Social History Tobacco Use Types Packs/Day Years Used Date Smoking Tobacco: Every Day Smokeless Tobacco: Never Alcohol Use Standard Drinks/Week Comments No 0 (1 standard drink = 0.6 oz pur e alcohol) Comments No Sex and Gender Information Value Date Recorded Sex Assigned at Not on file Legal Sex Female 1:38 PM [employer]IVESTOCK [employer]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 WORK[employer] Gender Identity Not on file Sexual Orientation Not on file documented as of this encounter Last Filed Vital Signs Vital Sign Reading Time Taken Comments Blood Pressure 106/63 08/15/2018 5:57 PM [employer] Pulse 64 08/15/2018 5:57 PM [employer] Temperature 36.2 ??C (97.1 ??F) 08/15/2018 4:46 PM CS T Respiratory Rate 14 08/15/2018 5:57 PM [employer] Oxygen Saturation - - Inhaled Oxygen Concentration - - Weight 88.9 kg (196 lb) 08/15/2018 4:46 PM [employer] Height 170.2 cm (5' 7 ) 08/15/2018 4:46 PM [employer] Body Mass Index 30.7 08/15/2018 4:46 PM [employer] documented in this encounter Discharge Instructions * Attachments The following attachments cannot be sent through Care Everywhere. * Back Pain (Acute or Chronic) (Hebrew) documented in this encounter Medications at Time of Discharge dexamethasone (DECADRON) 4 mg tabletIndications :Anti-inflammator y Take 1 tablet (4 mg total) by mouth 2 (two) times a day with meals for 5 days. 10 tablet 08/15/2018 08/20/2018 methocarbamol (ROBAXIN) 500 mg tablet Take 2 tablets (1,000 mg total) by mouth 4 (four) times a day as needed for muscle spasms. 40 tablet 08/15/2018 10/01/2021 documented as of this encounter Ordered Prescriptions Prescription Sig Dispense Quantity Refills Last Filled Start Date End Date methocarbamol (ROBAXIN) 500 mg tablet Take 2 tablets (1,000 mg total) by mouth 4 (four) times a day as needed for muscle spasms. 40 tablet 08/15/2018 2 dexamethasone (DECADRON) 4 mg tabletIndications: Anti-inflammatory Take 1 tablet (4 mg total) by mouth 2 (two) times a day with meals for 5 days. 10 tablet 08/15/2018 9 documented in this encounter Discharge Disposition Disposition Code Departure Means Destination Discharge to home or self care documented in this encounter ED Notes * Mary Maria, GEAR AND SPLINE GRINDER - 08/15/2018 5:14 PM CST HPI Chief Complaint Patient presents with ??? Back Pain Pt is a 38 y/o CF, hx of chronic low back pain that she reports was diagnosed many years ago and has actually improved over time. Over the past week, she has been on her feet frequently and believes this may have flared her back pain. Today, any movement, sneezing or coughing increases pain to the central lumbar spine. Her pain radiates from the low back into the right buttock, posterior right knee and ankle. She denies numbness or tingling, trauma, bowel or bladder incontinence or saddle anesthesia. She reports I haven't been to the ER for this in over a year with frequent visits reported previously. She took one dose of Naproxen last night and one dose of Excedrin migraine this morning without relief, prompting her visit. She recalls only steroid shorts seemed to help me in the past . She further denies fevers, chills, CP, SOB, abdominal pain, NVDC or urinary symptoms. Patient History There are no active problems to display for this patient. Past Medical History: Diagnosis Date ??? Back pain Past Surgical History: Procedure Laterality Date ??? APPENDECTOMY ??? TONSILLECTOMY History reviewed. No pertinent family history. Social History Substance Use Topics ??? Smoking status: Current Every Day Smoker ??? Smokeless tobacco: Never Used ??? Alcohol use No Social History Social History Narrative ??? No narrative on file Review of Systems Review of Systems Constitutional: Negative. HENT: Negative for congestion, dental problem, ear discharge, ear pain, facial swelling, rhinorrhea, sinus pressure, sore throat, trouble swallowing and voice change. Eyes: Negative for pain and discharge. Respiratory: Negative for cough, chest tightness, shortness of breath and wheezing. Cardiovascular: Negative for chest pain and palpitations. Gastrointestinal: Negative for abdominal pain, constipation, diarrhea, nausea and vomiting. Endocrine: Negative for polydipsia, polyphagia and polyuria. Genitourinary: Negative for dysuria, flank pain and urgency. Musculoskeletal: Positive for arthralgias, back pain and myalgias. Negative for gait problem, jointswelling, neck pain and neck stiffness. Skin: Negative for color change, pallor, rash and wound. Neurological: Negative for dizziness, syncope, speech difficulty, weakness, numbness and headaches. Hematological: Negative for adenopathy. Psychiatric/Behavioral: Negative for agitation. The patient is not nervous/anxious. Physical Exam ED Triage Vitals Temp Pulse Resp BP SpO2 08/15/18 1646 08/15/18 1646 08/15/18 1646 08/15/18 1646 -- 36.2 ??C (97.1 ??F) 92 20 99/67 Temp src Heart Rate Source Patient Position BP Location FiO2 (%) 08/15/18 1646 08/15/18 1757 -- 08/15/18 1757 -- Oral Radial Right arm Physical Exam Constitutional: She is oriented to person, place, and time. She appears well- developed and well-nourished. No distress. HENT: Head: Normocephalic and atraumatic. Right Ear: External ear normal. Left Ear: External ear normal. Nose: Nose normal. Mouth/Throat: Oropharynx is clear and moist. No oropharyngeal exudate. Eyes: Pupils are equal, round, and reactive to light. Conjunctivae and EOM are normal. Neck: Normal range of motion. Neck supple. No thyromegaly present. Cardiovascular: Normal rate, regular rhythm, normal heart sounds and intact distal pulses. No murmur heard. Pulmonary/Chest: Effort normal and breath sounds normal. No respiratory distress. Abdominal: Soft. There is no tenderness. Musculoskeletal: She exhibits tenderness. She exhibits no edema or deformity. Pt is TTP over the lumbar spinous processes diffusely, no step offs noted There is TTP over the right lumbar paraspinal muscles with spasm palpable Pt's movements are guarded. She lays on her left side with knees flexed in position of comfort Normal sensation to saddle region Normal sensation in the RLE, distal PMS intact SLR increases pain, as does any movements of the lower and upper extremities. Lymphadenopathy: She has no cervical adenopathy. Neurological: She is alert and oriented to person, place, and time. No cranial nerve deficit or sensory deficit. Skin: Skin is warm and dry. Capillary refill takes less than 2 seconds. Psychiatric: She has a normal mood and affect. Nursing note and vitals reviewed. MDM MDM Number of Diagnoses or Management Options Diagnosis management comments: DIFF DX: chronic back pain, lumbosacral strain, sciatica Risk of Complications, Morbidity, and/or Mortality Presenting problems: low Diagnostic procedures: minimal Management options: minimal Patient Progress Patient progress: stable XR Spine Lumbar 2 or 3 Views Final Result No acute fractures or subluxations. As the patient is experiencing radicular pain consider further evaluation with MRI. Electronically signed by: Gideon Burgos M.D. ED Course as of Aug 15 1807 Time: 08/15 1804 Comment: Pt notes pain is improved after medications provided. Plan to discharge home with steroid pack and muscle relaxant, with work restrictions for one week. Pt is agreeable with this plan and verbalizes understanding of instructions provided. Outpatient FU referral provided. 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 Pt c/o pain to right lower back for past 2 days. States pain radiates into her right hip, down right posterior leg to right calf. States she has been working more lately. Denies any known injury. Pt restless and shifting positions frequently. Neuro-circ checks to distal legs bilat wnl. arom noted to same. amb steadily et stiffly. 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 ??As the patient is experiencing radicular pain consider further evaluation with MRI. Electronically signed by: Gideon Burgos M.D. Narrative 08/15/2018 5:13 PM [employer] EXAM: XR SPINE LUMBAR 2 OR 3 VIEWS AP, lateral, oblique, and L5-S1 views HISTORY: acute low back pain, radiating down right LL. COMPARISON: MRI from 05/05/2012 FINDINGS: Five vxj-hef-mpsjnqw lumbar vertebrae are seen. The vertebral bodies are average height and without anterior wedge compression deformity, fracture, dislocation or blastic/lytic lesion. ??Mild disc space narrowing is noted at L5-S1 with associated facet arthropathy seen at that level. No pars defects are seen. Procedure Note Gideon Burgos MD - 08/15/2018 EXAM: XR SPINE LUMBAR 2 OR 3 VIEWS AP, lateral, oblique, and L5-S1 views HISTORY: acute low back pain, radiating down right LL. COMPARISON: MRI from 05/05/2012 FINDINGS: Five xqp-wxl-vyafilp lumbar vertebrae are seen. The vertebral bodies are average height and without anterior wedge compression deformity, fracture, dislocation or blastic/lytic lesion. Mild disc space narrowing is noted at L5-S1 with associated facet arthropathy seen at that level. No pars defects are seen. IMPRESSION: No acute fractures or subluxations. As the patient is experiencing radicular pain consider further evaluation with MRI. Electronically signed by: Gideon Burgos M.D. us Mary Maria GEAR AND SPLINE GRINDER IMG XR PROCEDURES Final Re sult documented in this encounter Visit Diagnoses Diagnosis Acute exacerbation of chronic low back pain- Primary documented in this encounter Administered Medications Inactive Administered Medications - up to 3 most recent administrations Medication Order MAR Action Action Date Dose Rate Site dexamethasone (DECADRON) injection solution 10 mg 10 mg, intramuscular, Once, On Wed08/15/18 at 1658, For 1 dose Given 08/15/2018 5:23 PM [employer] 10 mg Right Dorsogluteal/Buttoc k diazePAM (VALIUM) tablet 10 mg 10 mg, oral, Once, On Wed08/15/18 at 1658, For 1 dose Given 08/15/2018 5:23 PM [employer] 10 mg documented in this encounter Active and Recently Administered Medications Times are shown in [employer]. Scheduled Medication Order 08/13/2018 08/14/2018 08/15/2018 dexamethasone (DECADRON) injection solution 10 mg (COMPLETED) 10 mg, intramuscular, Once, On Wed08/15/18 at 1658, For 1 dose 1723 (Given - Provid er: Lauren Elder RN) diazePAM (VALIUM) tablet 10 mg (COMPLETED) 10 mg, oral, Once, On Wed08/15/18 at 1658, For 1 dose 1723 (Given - Provid er: Lauren Elder RN) documented in this encounter Care Teams Strap Stitcher Relationship Specialty Start Date End Date No, Physician PCP - General 01/12/17 07/20/20 documented as of this encounter
--- OUTSIDE RECORDS SUMMARY | 2024-06-25 03:39 | XMS_ITS | Encounter Summary ---
Author Organization [facility] Healthcare Address [address] [place] [address] Care Team Providers Care Nailhead Operator Name Role Phone Miscellaneous, Not In File Unavailable Unava Dony Logan MD Primary Care [facility] Encounter Details Date Type Department Care Team (Late st Contact Info) Description 03/14/2024 Orders Only [facility] Medical Group [facility] [address] [place] [address] Chelsea Koroma, DO [address] [place] [address] Screening for STD (sexually transmitted disease) (Primary Dx) Social History Tobacco Use Types [...] on file Legal Sex Female 1:38 PM 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 Gender Identity Not on file Sexual Orientation Not on file documented as of this encounter Miscellaneous Notes * Addendum Note - Rakel Espitia - 03/14/2024 2:16 PM CDTAddended by: RAKEL ESPITIA on: 05/18/2024 02:26 PM Modules accepted: Orders STANT TO THE CEO * Addendum Note - Rakel Espitia - 03/14/2024 2:16 PM CDTAddended by: RAKEL ESPITIA on: 05/18/2024 02:26 PM Modules accepted: Orders STANT TO THE CEO * Addendum Note - Rakel Espitia - 03/14/2024 2:16 PM CDTAddended by: RAKEL ESPITIA on: 05/18/2024 02:26 PM Modules accepted: Orders STANT TO THE CEO * Addendum Note - Rakel Espitia - 03/14/2024 2:16 PM CDTAddended by: RAKEL ESPITIA on: 05/18/2024 02:26 PM Modules accepted: Orders STANT TO THE CEO documented in this encounter Plan of Treatment Not on file documented as of this encounter Results * Hepatitis B Surface Antigen Blood (05/18/2024 2:37 PM ASSISTANT TO THE CEO) Pathologist [facility] HepBsAg Nonreactive Nonreactive Comment:Testing performed by : [facility], [address] [place] [address]., [address] Blood 05/18/2024 2:37 PM ASSISTANT TO THE CEO 05/18/2024 8:18 PM ASSISTANT TO THE CEO us Chelsea Koroma DO LAB MICROBIOLOGY - GENE RAL ORDERABLES Final Result [facility] ([place]) [address] [facility] [place] [address] * (ABNORMAL) HSV 1 IgG Antibody Blood (05/18/2024 2:37 PM ASSISTANT TO THE CEO) Pathologist [facility] HSV 1 IgG Reactive( A) Nonreactive Comment: Interpretive Data 1. Nonreactive: No detectable IgG antibody to HSV-1. 2. Equivocal: Presence or absence of detectable antibodies to HSV-1 cannot be determined and the test should be repeated. 3. Reactive: Indicates presence of detectable IgG antibody to HSV-1. Current interpretive data was last revised on 2016. Testing performed by: [facility], [address] [facility], [place]., [address] Blood 05/18/2024 2:37 PM ASSISTANT TO THE CEO 05/18/2024 7:30 PM ASSISTANT TO THE CEO Chelsea Koroma DO LAB MICROBIOLOGY - GENE RAL ORDERABLES Final Result [facility] ([place]) [address] [facility] [place] [address] * (ABNORMAL) HSV 2 IgG Antibody Blood (05/18/2024 2:37 PM ASSISTANT TO THE CEO) Pathologist [facility] HSV 2 IgG Reactive( A) Nonreactive Comment: Interpretive Data 1. Nonreactive: No detectable IgG antibody to HSV-2. 2. Equivocal: Presence or absence of detectable antibodies to HSV-2 cannot be determined and the test should be repeated. 3. Reactive: Indicates presence of detectable IgG antibody to HSV-2. Current interpretive data was last revised on 2022. Testing performed by: [facility], [address] [place] [address], [place]., [address] Blood 05/18/2024 2:37 PM ASSISTANT TO THE CEO 05/18/2024 7:30 PM ASSISTANT TO THE CEO Chelsea Koroma DO LAB MICROBIOLOGY - GENE RAL ORDERABLES Final Result [facility] ([place]) [address] [facility] [place] [address] * RPR Blood (05/18/2024 2:37 PM ASSISTANT TO THE CEO) RPR Nonreactive Nonreactive Comment:Testing performed by : [facility], [address] [place] [address], [place]., [address] Blood 05/18/2024 2:37 PM ASSISTANT TO THE CEO 05/18/2024 8:18 PM ASSISTANT TO THE CEO Chelsea Koroma DO LAB MICROBIOLOGY - GENE RAL ORDERABLES Final Result [facility] ([place]) [address] [facility] Department [place] [address] * Hepatitis C antibody Blood (03/14/2024 2:20 [...] last revised on 2019. Testing performed by: [facility], [address] [place] [address]., [address] Blood 03/14/2024 2:20 PM CDT 03/14/2024 9:12 PM CDT Chelsea Koroma DO LAB MICROBIOLOGY - GENE RAL ORDERABLES Final Result Performing Organization Address City/[facility]/ZIP Co de Phone Number BRIAN [address] [facility] Department [place] [address] * HIV 1/2 Antibody plus p24 Antigen Blood (03/14/2024 2:20 PM CDT) HIV 1/2 ab + p24 ag Nonreactive Nonreactive Comment: Nonreactive for HIV-1 antigen and HIV-1/HIV-2 antibodies. No laboratory evidence of HIV infection. If acute HIV infection is suspected, consider testing for HIV-1 RNA. Testing performed by: [address] [place]., [address] Blood 03/14/2024 2:20 PM CDT 03/14/2024 9:16 PM CDT us Chelsea Koroma DO LAB MICROBIOLOGY - GENE RAL ORDERABLES Final Result [facility] [address] [address] Department [place] [address] documented in this encounter Visit Diagnoses Diagnosis Screening for STD (sexually transmitted disease)- Primary documented in this encounter Care Teams Nailhead Operator Relationship Specialty Start Date End Date Dony Reed MD [address] [address] PCP - General Family Practice 03/08/24 Miscellaneous, Not In File 02/02/24 documented as of this encounter
--- OUTSIDE RECORDS SUMMARY | 2024-06-25 03:39 | XMS_ITS | Encounter Summary ---
Author Organization [facility] Address [address] [place] [address] Phone Care Team Providers Care Design Center Consultant Name Role Phone Miscellaneous, Not In File Primary Care Provider Unavailable Miscellaneous, Not In File Primary Care Provider Unavailable Miscellaneous, Not In File Unavailable Unava ilable Encounter Details Date Type Department Care Team (Late st Contact Info) Description 01/27/2024 Orders Only [facility] [address] [place] [address] Unknown, Notinfile Social History Tobacco Use Types Packs/Day Years Used Date Smoking Tobacco: Every Day Cigarettes Smokeless Tobacco: Never Alcohol Use Standard Drinks/Week Comments Yes 0 (1 standard drink = 0.6 oz pur e alcohol) 1-2 times per week Comments No Sex and Gender Information Value Date Recorded Sex Assigned at Not on file Legal Sex Female 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 Gender Identity Not on file Sexual Orientation Not on file documented as of this encounter Plan of Treatment Not on file documented as of this encounter Procedures Procedure Name Priority Date/Time Associated Diagnosis Comments SURGICAL PATHOLOGY Routine 01/27/2024 2: 10 PM CDT documented in this encounter Results * Surgical pathology (01/27/2024 2:10 PM CDT) Skin, shave biopsy 01/27/2024 2:10 PM CDT 02/02/2024 6:48 AM CDT Narrative 02/04/2024 12:24 PM CDT EPIC results best viewed via link to PDF [facility] [address] [place], [place] [address]., ??[address], [place] [address] ? [email or web address] Note to Patients: ??This report may contain a detailed description of human tissue sent by a health care provider to the laboratory for pathologic evaluation. ??The content of this report is essential for diagnosis and may provide important critical findings. ??This information may be unfamiliar to patients to review without a medical professional present. ?? It is advised that the patient review this report in the presence of a health care provider who can answer questions and explain the details. FINAL REPORT Patient Information: PATIENT NAME: ??FREDA NEWSOME ? SEX: ??F ? : ??1980 (Age: 43) ? Specimen Information: COLLECTED: ??01/27/2024 ? RECEIVED: ??02/02/2024 ? REPORTED: ??02/04/2024 ? Submitting Physician Information: Maren Costa, [facility], [address] [place] [address] ??[id number], ? DERMATOPATHOLOGY REPORT RESULTS ?? DIAGNOSIS: SKIN, RIGHT INFERIOR CENTRAL MALAR CHEEK, SHAVE BIOPSY: ? EPITHELIOID FIBROUS PAPULE ? 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 djd/[id number] By this signature, I attest that the above diagnosis is based upon my personal examination of the slides(and/or other material indicated in the diagnosis). Husam Govea M.D. ?? Report Electronically Reviewed and Signed Out By ??Husam Govea M.D. 02/04/2024 12:24:16 CLINICAL INFORMATION NEOPLASM OF UNCERTAIN BEHAVIOR VS DERMAL NEVUS SPECIMEN DATA MICROSCOPIC DESCRIPTION: This dome-shaped lesion is composed of a dense proliferation of plump, epithelioid cells with abundant pink, somewhat granular cytoplasms on a background of thickened collagen bundles. ??A panel of immunohistochemical stains was performed to further evaluate the lesion. ??Lesional cells show diffuse expression of CD34 and CD68 but are negative for SOX-10. (D23.9) GROSS DESCRIPTION: Received in a formalin-containing bottle is a superficial fragment of rizzo and dome-shaped skin measuring 0.7 by 0.7 by 0.6 cm. The surgical margin is inked blue. The specimen is sectioned into 3 pieces and submitted entirely in a single cassette. Due to shrinkage, measurements may be different than those at time of procedure. ag/dxv Clerical Data A; [address], [id number], [address] IHC, [address] IHC The characteristics of special, immunohistochemical, and immunofluorescence stains and in-situ hybridization tests performed by the [facility] were deemed acceptable in ongoing quality control associate measures and in compliance with regulations drawn from the Clinical Laboratory Improvement Act ln6731 (CLIA '88). Control reactions for all stains performed were deemed adequate and appropriate by a pathologist prior to evaluation of patient tissue. Some diagnoses were rendered with the assistance of laboratory-developed tests utilizing analyte-specific reagents; the performance characteristic of these tests were determined by [facility] and are not cleared or approved by the [place] Food an Drug administration. Laboratory developed test may only be performed in a facility that is certified by the [facility] as a high-complexity laboratory under CLIA '88. These tests are used for clinical purposes and are not investigational. us Notinfile Unknown LAB PATHOLOGY ORDERABLES Final Result documented in this encounter Visit Diagnoses Not on filedocumented in this encounter Care Teams Design Center Consultant Relationship Specialty Start Date End Date Miscellaneous, Not In File PCP - General 10/01/21 4 Miscellaneous, Not In File PCP - General 02/02/24 Miscellaneous, Not In File 02/02/24 documented as of this encounter
--- OUTSIDE RECORDS SUMMARY | 2024-06-25 03:39 | XMS_ITS | Encounter Summary ---
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
--- OUTSIDE RECORDS SUMMARY | 2024-06-25 03:39 | XMS_ITS | Encounter Summary ---
Author Organization [facility] Healthcare Address [address] [place] [id number] Care Team Providers Care Dice Spotter Name Role Phone Unavailable Primary Care Provider Unavailabl e Encounter Details Date Type Department Care Team (Late st Contact Info) Description 08/27/2012 12:06 AM WAISTBAND SETTER LOCKSTITCH - 08/27/2012 3:02 AM WAISTBAND SETTER LOCKSTITCH Hospital Encounter [facility] Junaid Holm Acute bronchitis; Tobacco use disorder Social History Tobacco Use Types Packs/Day Years Used Date Smoking Tobacco: Never Assessed Comments Unknown Sex and Gender Information Value Date Recorded Sex Assigned at Not on file Legal Sex Female 1:38 PM WAISTBAND SETTER LOCKSTITCH Gender Identity Not on file Sexual Orientation Not on file documented as of this encounter Plan of Treatment Not on file documented as of this encounter Visit Diagnoses Diagnosis Acute bronchitis Tobacco use disorder documented in this encounter
--- OUTSIDE RECORDS SUMMARY | 2024-06-25 03:39 | XMS_ITS | Encounter Summary ---
Author Organization [facility] Healthcare Address [address] [place] [address] Care Team Providers Care Hip Hop Performers Name Role Phone Miscellaneous, Not In File Unavailable Unava ilable Dony Reed MD Primary Care Provi renetta Reason for Referral * Consultation (Routine) - Closed Specialty Diagnoses / Procedures Referred By Deandre franco Referred To Contact Physical Therapy Diagnoses Chronic right-sided low back pain with right-sided sciatica Dony Reed MD [address] [address] Phone: tel: fax: [facility] [address] [address] Phone: tel: fax: Referral ID Status Reason Start Date Expiration Date V isits Requested Visits Authorized [id number] Closed Evaluate and Treat 03/08/2024 04/07/2025 24 24 Question Answer PTRFR PT Evaluate and Treat Therapy options discussed with patient? Yes Location provided for therapy services is: Patient requested/Patient preferred Please select the performing region: External Order [171] To loc/pos [facility] [place] [[id number]] # of visits: 24 Comments If not covered on insurance, prefer in or near [place] * Consultation (Urgent) - Closed Specialty Diagnoses / Procedures Referred By Contgerardo t Referred To Contact Psychiatry Diagnoses Paranoid schizophrenia (CMS/HCC) (HCC) Bipolar affective disorder in remission (CMS/HCC) (HCC) Dony Reed MD [address] [facility] [address] [place] [address] Phone: tel: fax: [facility] [address] [facility] [address] [place] [phone] Phone: tel: fax: Referral ID Status Reason Start Date Expiration Date V isits Requested Visits Authorized [id number] Closed Specialty Services Required 03/08/2024 04/07/2025 1 1 Question Answer Please select the performing region: [facility] [[id number]] Please select the performing department: [facility] [[id number]] # of visits: 1 * Diagnostic Imaging (Routine) - Closed Specialty Diagnoses / Procedures Referred By Deandre franco Referred To Contact Diagnoses Encounter for screening mammogram for malignant neoplasm of breast Procedures SCREENING MAMMOGRAM BILATERAL W JENNIE Dony Reed MD [address] [facility] [address] [place] [address] Phone: tel: fax: [address] [phone] Referral ID Status Reason Start Date Expiration Date Visits Re quested Visits Authorized [id number] Closed 03/08/2024 04/07/2025 1 1 Reason for Visit * Reason Comments New Patient Encounter Details Date Type Department Care Team (Late st Contact Info) Description 03/08/2024 3:30 PM CDT Office Visit [facility] [place] [address] [facility] [address] [place] [phone] Dony Reed MD [address] [facility] [address] [place] [address] Essential hypertension (Primary Dx); Paranoid schizophrenia (CMS/HCC) ([facility]); Bipolar affective disorder in remission ([facility]) ([facility]); Prediabetes; Chronic right-sided low back pain with right-sided sciatica; Encounter for screening mammogram for malignant neoplasm of breast; Dysuria; Morbid obesity with BMI of 40.0-44.9, adult ([facility]) Social History Tobacco Use Types Packs/Day Years [...] on file Legal Sex Female 1:38 PM CHIEF 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 Gender Identity Not on file Sexual Orientation Not on file documented as of this encounter Last Filed Vital Signs Vital Sign Reading Time Taken Comments Blood Pressure 130/78 03/08/2024 3:35 PM CDT Pulse 108 03/08/2024 3:35 PM CDT Temperature 36.7 ??C (98 ??F) 03/08/2024 3:35 PM CDT Respiratory Rate - - Oxygen Saturation 98% 03/08/2024 3:35 PM CDT Inhaled Oxygen Concentration - - Weight 117.9 kg (259 lb 14.4 oz) 03/08/2024 3:35 PM CDT Height 170.2 cm (5' 7.01 ) 03/08/2024 3:35 PM CD T Body Mass Index 40.7 03/08/2024 3:35 PM CDT documented in this encounter Ordered Prescriptions Prescription Sig Dispense Quantity Refills Last Filled Start Date End Date naloxone (NARCAN) 4 mg/actuation spray,non-aerosolI ndications:Opiate- Induced Respiratory Depression Administer 1 spray into affected nostril(s) as needed for opioid reversal or respiratory depression Call 911. Administer a single spray in one nostril. Repeat every 3 minutes as needed if no or minimal response. 1 each 1 03/08/2024 11/14/202 4 ALPRAZolam (XANAX) 1 mg tabletIndications: Bipolar affective disorder in remission (CMS/HCC) ([facility]) Take 1 tablet (1 mg total) by mouth nightly 30 tablet 1 03/08/2024 4 documented in this encounter Progress Notes * Dony Reed MD - 03/08/2024 4:30 PM CDT Images from the original note were not included. Subjective/Objective Patient ID: Melvina Newsome is a 44 y.o. female. Diagnoses and all orders for this visit: Essential hypertension (Primary) - Comprehensive metabolic panel; Future - Lipid panel; Future Her blood pressure is decently controlled at this time. I am not going to make any changes on medication. I am going to have her come back in a couple of months for a checkup on this plus her blood sugars. Paranoid schizophrenia (CMS/HCC) ([facility]) - Ambulatory referral to Psychiatry; Future Referral placed to Psychiatry. It looks like she has been on several different medications and now she is having difficulty with insurance coverage. At this point I am going to keep her on what she is already on and she does not need any refills on anything but Xanax that she is taking every night. Bipolar affective disorder in remission (CMS/HCC) ([facility]) - Ambulatory referral to Psychiatry; Future - ALPRAZolam (XANAX) 1 mg tablet; Take 1 tablet (1 mg total) by mouth nightly Again referral placed to Psychiatry. I did go ahead and refill her Xanax for nightly dosing. Morbid obesity (HCC) - TSH; Future Prediabetes - Hemoglobin A1c; Future - TSH; Future - CBC with auto differential; Future She has been off the metformin about a month now so I am going to wait for a couple of more months and check her A1c as well as other labs to see if there are any issues that we need to address to restart the medicine. Chronic right-sided low back pain with right-sided sciatica - Ambulatory referral order to Physical Therapy -; Future Having this chronic right-sided flank pain. A UA in the office today was negative. I am going to refer her to physical therapy near where she lives in [place]. Encounter for screening mammogram for malignant neoplasm of breast - SCREENING MAMMOGRAM BILATERAL W JENNIE Other orders - naloxone (NARCAN) 4 mg/actuation spray,non-aerosol; Administer 1 spray into affected nostril(s) as needed for opioid reversal or respiratory depression Call 911. Administer a single spray in one nostril. Repeat every 3 minutes as needed if no or minimal response. Return in about 2 months (around 05/08/2024) for Recheck prediabetes, etc.. Chief Complaint Chief Complaint Patient presents with New Patient HPI 45-year-old female new to clinic here to establish care and for management of ongoing chronic medical conditions. She is prescribed amlodipine and spironolactone it looks like 4 hypertension. Blood pressure looks pretty good today at 130/78. She is obese with a BMI of 40. Review of previous records show diagnoses bipolar disorder and depression. She does need [facility] to [facility]iatry. She is on a couple of different antipsychotics and depression medications. She has recently relocated here. She has been unable to get 1 of the medications due to cost (Caplyta). She actually just saw orthopedics yesterday for her right shoulder issue. Looks like they ordered an MRI. This stems from some injury while at work a year or so ago. I do see an office visit record from back in September of this year that she had a normal cholesterol panel. Her A1c was elevated at 5.9. She is on metformin. GFR looked great with those labs. I do not see a specific diagnosis of diabetes anywhere on the list. She is having some difficulty urinating and dysuria.This has been going on since last . States she has pain over the right kidney area. Was referred to PT for low back pain when she was living in [place] earlier this year but then moved. She does have some radiation down the right leg at times. I have no imaging reports on this. Patient Active Problem List Diagnosis Date Noted Essential hypertension 03/08/2024 Bipolar affective disorder in remission ([facility]) ([facility]) 03/08/2024 Morbid obesity ([facility]) 03/08/2024 Prediabetes 03/08/2024 Paranoid schizophrenia ([facility]) ([facility]) 03/08/2024 Chronic right-sided low back pain with right-sided sciatica 03/08/2024 Osteoarthritis of right acromioclavicular joint 2024 Paralabral cyst of right shoulder 2024 Atypical squamous cells of undetermined significance (ASCUS) on Papanicolaou smear of cervix 02/08/2012 Elbow injury 09/04/2009 Past Medical History: Diagnosis Date Back pain Past Surgical History: Procedure Laterality Date APPENDECTOMY TONSILLECTOMY Current Outpatient Medications Medication Sig Dispense Refill amLODIPine (NORVASC) 5 mg tablet Take 1 tablet (5 mg total) by mouth daily ARIPiprazole (ABILIFY) 10 mg tablet Take 1 tablet (10 mg total) by mouth daily cetirizine (ZyrTEC) 10 mg tablet Take 1 tablet (10 mg total) by mouth daily cyclobenzaprine (FLEXERIL) 10 mg tablet Take 1 tablet (10 mg total) by mouth 3 (three) times a day as needed for muscle spasms 12 tablet 0 fluvoxaMINE (LUVOX) 50 mg tablet fluvoxamine 50 mg tablet HYDROcodone-acetaminophen (NORCO) 5-325 mg per tablet Take 1 tablet by mouth every 6 (six) hours asneeded ketorolac (TORADOL) 10 mg tablet Take 1 tablet (10 mg total) by mouth 2 (two) times a day as needed lidocaine (LIDODERM) 5 % APPLY ONE PATCH TOPICALLY TO CLEAN, DRY SKIN ON RIGHT SHOULDER. LEAVE ON FOR 12 HOURS THEN REMOVE. MUST WAIT AT LEAST 12 HOURS BEFORE APPLYING PATCH(ES) AGAIN. ondansetron ODT (ZOFRAN-ODT) 4 mg disintegrating tablet DISSOLVE AND SWALLOW 1 TABLET BY MOUTH EVERY 8 HOURS FOR 5 DAYS sertraline (ZOLOFT) 100 mg tablet Take 1 tablet (100 mg total) by mouth daily spironolactone (ALDACTONE) 50 mg tablet Take 1 tablet (50 mg total) by mouth daily SUMAtriptan (IMITREX) 50 mg tablet ALPRAZolam (XANAX) 1 mg tablet Take 1 tablet (1 mg total) by mouth nightly 30 tablet 1 naloxone (NARCAN) 4 mg/actuation spray,non-aerosol Administer 1 spray into affected nostril(s) as needed for opioid reversal or respiratory depression Call 911. Administer a single spray in one nostril. Repeat every 3 minutes as needed if no or minimal response. 1 each 1 No current facility-administered medications for this visit. Allergies as of 03/08/2024 - Reviewed 03/08/2024 Allergen Reaction Noted Codeine Vomiting 07/21/2020 Social History Tobacco Use Smoking status: Every Day Types: Cigarettes Smokeless tobacco: Never Substance and Sexual Activity Drug use: No Sexual activity: Yes Partners: Male control/protection: None Alcohol Use: Not on file No family history on file. Review of Systems Constitutional: Negative for chills, fatigue and fever. HENT: Negative for congestion, ear pain, hearing loss, rhinorrhea, sore throat and tinnitus. Eyes: Negative for pain, discharge and visual disturbance. Respiratory: Negative for cough, shortness of breath and wheezing. Cardiovascular: Negative for chest pain, palpitations and leg swelling. Gastrointestinal: Negative for abdominal pain, constipation, diarrhea, nausea and vomiting. Genitourinary: Negative for dysuria and frequency. Musculoskeletal: Positive for arthralgias and back pain. Negative for myalgias. Skin: Negative for rash. Neurological: Negative for dizziness, light-headedness and headaches. As above in HPI Psychiatric/Behavioral: Negative for agitation and dysphoric mood. The patient is not nervous/anxious. BP 130/78 (BP Location: Right arm, Patient Position: Sitting) Pulse 108 Temp 36.7 ??C (98 ??F) (Temporal) Ht 170.2 cm (5' 7.01 ) Wt 117.9 kg (259 lb 14.4 oz) SpO2 98% BMI 40.70 kg/m?? Physical Exam Vitals and nursing note reviewed. Constitutional: Appearance: Normal appearance. She is obese. HENT: Head: Normocephalic and atraumatic. Right Ear: External ear normal. Left Ear: External ear normal. Nose: Nose normal. Mouth/Throat: Mouth: Mucous membranes are moist. Eyes: Extraocular Movements: Extraocular movements intact. Conjunctiva/sclera: Conjunctivae normal. Pupils: Pupils are equal, round, and reactive to light. Cardiovascular: Rate and Rhythm: Normal rate and regular rhythm. Pulses: Normal pulses. Heart sounds: Normal heart sounds. Pulmonary: Effort: Pulmonary effort is normal. Breath sounds: Normal breath sounds. Abdominal: General: Bowel sounds are normal. Palpations: Abdomen is soft. Musculoskeletal: General: Normal range of motion. Cervical back: Normal range of motion and neck supple. Lumbar back: Spasms present. No swelling, deformity or tenderness. Negative right straight leg raise test. Skin: General: Skin is warm and dry. Capillary Refill: Capillary refill takes less than 2 seconds. Neurological: General: No focal deficit present. Mental Status: She is alert and oriented to person, place, and time. Cranial Nerves: No cranial nerve deficit. Psychiatric: Mood and Affect: Mood normal. Behavior: Behavior normal. Thought Content: Thought content normal. Judgment: Judgment normal. Chemistry Lab Results Component Value Date SODIUM 135 10/01/2021 POTASSIUM 3.7 10/01/2021 CHLORIDE 98 10/01/2021 CO2 21 (L) 10/01/2021 ANIONGAP 16 (H) 10/01/2021 BUNSER 12 10/01/2021 CREATININE 0.97 10/01/2021 GLUCOSE 128 10/01/2021 CALCIUM 9.9 10/01/2021 BILITOT <0.2 10/01/2021 PROTEIN 6.7 04/01/2015 ALBUMIN 4.1 10/01/2021 GFRNAA 76 10/01/2021 ALKPHOS 67 10/01/2021 AST 25 10/01/2021 ALT 21 10/01/2021 Dony Reed MD documented in this encounter Procedure Notes * Dony Reed MD - 03/08/2024 3:30 PM CDT Procedures documented in this encounter Plan of Treatment Scheduled Orders Name Type Priority Associated Diagnoses Orde r Schedule SCREENING MAMMOGRAM BILATERAL W JENNIE Imaging Schedule Routine, Read Routine (OP Routine) Encounter for screening mammogram for malignant neoplasm of breast Ordered: 03/08/2024 Scheduled Referrals Name Type Priority Associated Diagnoses Orde r Schedule Ambulatory referral to Psychiatry Outpatient Referral Urgent Paranoid schizophrenia (CMS/HCC) (HCC) Bipolar affective disorder in remission (CMS/HCC) (HCC) Expected: 03/08/2024 (Approximate), Expires: 03/08/2025 Ambulatory referral order to Physical Therapy - Outpatient Referral Routine Chronic right-sided low back pain with right-sided sciatica Expected: 03/08/2024 (Approximate), Expires: 03/08/2025 documented as of this encounter Procedures Procedure Name Priority Date/Time Associated Diagnosis Comments POCT URINALYSIS DIPSTICK Routine 03/08/2024 4:35 PM CDT Dysuria documented in this encounter Results * (ABNORMAL) CBC with auto differential (05/15/2024 4:00 PM CHIEF CLINICAL OFFICER) WBC 11.4(H) 3.8 - 9.9 K/cumm Hgb [...] K/cumm [facility] CH Blood 05/15/2024 4:00 PM CHIEF CLINICAL OFFICER 05/15/2024 8:22 PM CHIEF CLINICAL OFFICER Dony Reed MD LAB BLOOD ORDERABLE S Final Result [facility] [id number] [address] [place] [address] * TSH (05/15/2024 4:00 PM CHIEF CLINICAL OFFICER) Thyroid Stimulating Hormone 1.69 0.30 - 4.20 mcIUnit/mL Blood 05/15/2024 4:00 PM CHIEF CLINICAL OFFICER 05/15/2024 8:22 PM CHIEF CLINICAL OFFICER Dony Reed MD LAB BLOOD ORDERABLE S Final Result [facility] [id number] [facility] Department [place] [address] * Lipid panel (05/15/2024 4:00 PM CHIEF CLINICAL OFFICER) Cholesterol 191 30 - 199 mg/dL Comment: [...] on 2018. HDL 71 >=40 mg/dL [facility] Comment: Interpretive Data Ages < [...] revised on 2018. Chol/HDL ratio 3 CERNER Blood 05/15/2024 4:00 PM CHIEF CLINICAL OFFICER 05/15/2024 8:22 PM CHIEF CLINICAL OFFICER us Dony Reed MD LAB BLOOD ORDERABLE S Final Result [facility] [id number] [address] [place] [address] * Comprehensive metabolic panel (05/15/2024 4:00 PM CHIEF CLINICAL OFFICER) Sodium 136 135 - 145 mmol/L Potassium, pl 4.6 3.3 - 4.9 mmol/L [facility] Chloride 103 97 - 110 mmol/L [facility] CO2 25 22 - 32 mmol/L [facility] Anion gap 8 2 - 15 mmol/L [facility] BUN 13 6 - 25 mg/dL [facility] Creatinine 0.87 0.60 - 1.10 mg/dL [facility] Glucose 95 70 - 199 mg/dL [facility] Comment: Interpretive Data Fasting glucose >/= 126 [...] classification and Diagnosis of Diabetes Diabetes Care 2022; 46: S19-S40. Current interpretive data was last revised 2022. Calcium 8.9 8.5 - 10.3 mg/dL [facility] Bilirubin, total 0.2 0.1 - 1.2 mg/dL [facility] Protein, pl 6.8 6.5 - 8.5 g/dL [facility] Albumin 3.8 3.5 - 5.0 g/dL [facility] Alk phos 59 40 - 130 Units/L [facility] ALT 17 7 - 45 Units/L [facility] AST 23 10 - 45 Units/L [facility] Blood 05/15/2024 4:00 PM CHIEF CLINICAL OFFICER 05/15/2024 8:22 PM CHIEF CLINICAL OFFICER Dony Reed MD LAB BLOOD ORDERABLE S Final Result Performing Organization Address [facility] de Phone Number [facility] [place] [id number] [address] [place] [address] * (ABNORMAL) Hemoglobin A1c (05/15/2024 4:00 PM CHIEF CLINICAL OFFICER) Pathologist [facility] Hgb A1C 6.0(H) 4.0 - 5.6 % Estimated Average Glucose 126 mg/dL [facility] Comment: The ADA recommends reporting an estimated Average Glucose (eAG) with all Hemoglobin A1c results using the equation derived from a study of 507 normal and diabetic adults. ??Minority populations were underrepresented and children were not included. ?? (Diabetes Care 31:8247-5399, 2008). ??The eAG is not equivalent to a fasting glucose. Blood 05/15/2024 4:00 PM CHIEF CLINICAL OFFICER 05/15/2024 8:22 PM CHIEF CLINICAL OFFICER Dony Reed MD LAB BLOOD ORDERABLE S Final Result Performing Organization Address City/[facility]/ZIP Co de Phone Number [facility] [address] [address] [facility] [place] [employer] [place] [address] * (ABNORMAL) POCT urinalysis dipstick (03/08/2024 4:35 PM CDT) Pathologist [facility] Glucose, ur, POC Negative Negative MG/DL Bilirubin, ur, POC Negative Negative, Small, Moderate, Large Ketones, ur, POC Negative Negative Specific [place], POC 1.020 1.003 - 1.030 Blood, ur, POC Trace(A) Negative pH, ur, POC 6.5 5.0 - 8.0 Protein, ur, POC Negative Negative Urobilinogen, urine, POC 0.2 0.2 - 1.0 mg/dL Nitrite, ur, POC Negative Negative Leukocytes, ur, POC Negative Negative Lot Number [id number] Urine 03/08/2024 4:35 PM CDT Dony eRed MD POINT OF CARE TEST ORDERABLES Final Result documented in this encounter Visit Diagnoses Diagnosis Essential hypertension- Primary Unspecified essential hypertension Paranoid schizophrenia ([facility]) ([facility]) Paranoid schizophrenia, unspecified condition Bipolar affective disorder in remission ([facility]) ([facility]) Prediabetes Other abnormal glucose Chronic right-sided low back pain with right-sided sciatica Encounter for screening mammogram for malignant neoplasm of breast Dysuria Morbid obesity with BMI of 40.0-44.9, adult ([facility]) documented in this encounter Discontinued Medications Medication Sig Discontinue Reason Start Date End Da te hydroCHLOROthiazid e (HYDRODIURIL) 25 mg tablet hydrochlorothiazide 25 mg tablet Alternate therapy 03/08/2024 albuterol HFA (PROVENTIL HFA,VENTOLIN HFA,PROAIR HFA) 90 mcg/actuation inhaler albuterol sulfate HFA 90 mcg/actuation aerosol inhaler Therapy completed 03/08/2024 ibuprofen (ADVIL,MOTRIN) 600 mg tablet Take 1 tablet (600 mg total) by mouth every 8 (eight) hours Therapy completed 06/19/2023 03/08/2024 levoFLOXacin (LEVAQUIN) 750 mg tablet TAKE 1 TABLET BY MOUTH EVERY DAY FOR 7 DAYS Therapy completed 07/21/2023 03/08/2024 naproxen (NAPROSYN) 500 mg tablet Take 1 tablet (500 mg total) by mouth 2 (two) times a day with meals Therapy completed 10/01/2021 03/08/2024 traMADoL (ULTRAM) 50 mg tablet TAKE 1 OR 2 TABLETS BY MOUTH EVERY 8 HOURS Therapy completed 05/10/2023 03/08/2024 risperiDONE (RisperDAL) 2 mg tablet risperidone 2 mg tablet Alternate therapy 2023 QUEtiapine (SEROquel) 50 mg tablet Take 1 tablet (50 mg total) by mouth nightly Alternate therapy 03/08/2024 metFORMIN XR (GLUCOPHAGE XR) 500 mg 24 hr tablet metformin ER 500 mg tablet,extended release 24 hr Alternate therapy 03/08/2024 lumateperone (Caplyta) 42 mg capsule Take by mouth Other 03/08/2024 ALPRAZolam (XANAX) 1 mg tablet Take 1 tablet (1 mg total) by mouth nightly Reorder 01/12/2024 03/08/2024 documented as of this encounter Historical Medications * This list may reflect changes made after this encounter. HYDROcodone-acetam inophen (NORCO) 5-325 mg per tablet Take 1 tablet by mouth every 6 (six) hours as needed 02/26/20 ibuprofen (ADVIL,MOTRIN) 600 mg tablet Take 1 tablet (600 mg total) by mouth every 8 (eight) hours 06/19/20 lidocaine (LIDODERM) 5 % APPLY ONE PATCH TOPICALLY TO CLEAN, DRY SKIN ON RIGHT SHOULDER. LEAVE ON FOR 12 HOURS THEN REMOVE. MUST WAIT AT LEAST 12 HOURS BEFORE APPLYING PATCH(ES) AGAIN. 07/01/19 ondansetron ODT (ZOFRAN-ODT) 4 mg disintegrating tablet DISSOLVE AND SWALLOW 1 TABLET BY MOUTH EVERY 8 HOURS FOR 5 DAYS 10/22/19 traMADoL (ULTRAM) 50 mg tablet TAKE 1 OR 2 TABLETS BY MOUTH EVERY 8 HOURS 05/10/20 hydroCHLOROthiazid e (HYDRODIURIL) 25 mg tablet hydrochlorothiazide 25 mg tablet ketorolac (TORADOL) 10 mg tablet Take 1 tablet (10 mg total) by mouth 2 (two) times a day as needed 09/20/19 levoFLOXacin (LEVAQUIN) 750 mg tablet TAKE 1 TABLET BY MOUTH EVERY DAY FOR 7 DAYS 07/21/19 lumateperone (Caplyta) 42 mg capsule Take by mouth metFORMIN XR (GLUCOPHAGE XR) 500 mg 24 hr tablet metformin ER 500 mg tablet,extended release 24 hr QUEtiapine (SEROquel) 50 mg tablet Take 1 tablet (50 mg total) by mouth nightly 02/26 risperiDONE (RisperDAL) 2 mg tablet risperidone 2 mg tablet 0 sertraline (ZOLOFT) 100 mg tablet Take 1 tablet (100 mg total) by mouth daily 09/11/19 24 024 spironolactone (ALDACTONE) 50 mg tablet Take 1 tablet (50 mg total) by mouth daily 12/13/19 24 024 SUMAtriptan (IMITREX) 50 mg tablet 10/08/19 024 fluvoxaMINE (LUVOX) 50 mg tablet fluvoxamine 50 mg tablet cetirizine (ZyrTEC) 10 mg tablet Take 1 tablet (10 mg total) by mouth daily 024 ALPRAZolam (XANAX) 1 mg tablet Take 1 tablet (1 mg total) by mouth nightly 01/12/20 24 amLODIPine (NORVASC) 5 mg tabletIndications: Essential hypertension Take 1 tablet (5 mg total) by mouth daily 09/09/19 24 024 ARIPiprazole (ABILIFY) 10 mg tabletIndications: Paranoid schizophrenia (CMS/HCC) (HCC) Take 1 tablet (10 mg total) by mouth daily 01/12/20 24 024 albuterol HFA (PROVENTIL HFA,VENTOLIN HFA,PROAIR HFA) 90 mcg/actuation inhaler albuterol sulfate HFA 90 mcg/actuation aerosol inhaler 024 added in this encounter Care Teams Hip Hop Performers Relationship Specialty Start Date End Date Dony Reed MD [address] [facility] [address] [place] [address] PCP - General Family Practice 03/08/24 Miscellaneous, Not In File 02/02/24 documented as of this encounter
--- OUTSIDE RECORDS SUMMARY | 2024-06-25 03:39 | XMS_ITS | Encounter Summary ---
Author Organization [facility] Healthcare Address [address] [place] [id number] Care Team Providers Care Feeder Operator Automatic Name Role Phone Unavailable Primary Care Provider Unavailabl e Encounter Details Date Type Department Care Team (Late st Contact Info) Description 07/25/2009 2:21 PM REPORT MANAGER - 07/25/2009 11:59 PM REPORT MANAGER Hospital Encounter [facility] Social History Tobacco Use Types Packs/Day Years Used Date Smoking Tobacco: Never Assessed Comments Unknown Sex and Gender Information Value Date Recorded Sex Assigned at Not on file Legal Sex Female 1:38 PM REPORT MANAGER Gender Identity Not on file Sexual Orientation Not on file documented as of this encounter Plan of Treatment Not on file documented as of this encounter Visit Diagnoses Not on filedocumented in this encounter
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
--- OUTSIDE RECORDS SUMMARY | 2024-06-25 03:39 | XMS_ITS | Encounter Summary ---
Author Organization [facility] Healthcare Address [address] [place] [id number] Care Team Providers Care Stockroom Clerk Name Role Phone Unavailable Primary Care Provider Unavailabl e Encounter Details Date Type Department Care Team (Late st Contact Info) Description 04/01/2015 6:22 AM CDT - 04/03/2015 2:35 PM CDT Hospital Encounter [facility] Zachary Marquez MD [address] [facility] [place] [address] Giana Whittington MD [address] 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 Gender Identity Not on file Sexual Orientation Not on file documented as of this encounter Last Filed Vital Signs Vital Sign Reading Time Taken Comments Blood Pressure 136/72 04/03/2015 10:45 AM CDT Pulse 93 04/03/2015 10:45 AM CDT Temperature - - Respiratory Rate - - Oxygen Saturation - - Inhaled Oxygen Concentration - - Weight 103.8 kg (228 lb 13.4 oz) 04/01/2015 6:46 AM CDT Height 170.2 cm (5' 7.01 ) 04/01/2015 6:46 AM CD T Body Mass Index 35.83 04/01/2015 6:46 AM CDT documented in this encounter Discharge Summaries * ProviderAbigail MD - 04/03/2015 12:00 AM CDT DISCHARGE SUMMARY - [facility] Patient: FREDA MASTERSON Account: [id number] Room No: 3617-01 : 1980 Patient Type: IP Attend.: Zachary Marquez M.D. Admit Date: 04/01/2015 Dict.: Zachary Marquez M.D. Disch. Date: 04/03/2015 PRIMARY CARE PHYSICIAN: None. DISCHARGE DIAGNOSES: 1. Cellulitis with puncture wound. 2. Bronchitis, upper respiratory infection with smoking. HISTORY OF PRESENT ILLNESS: The patient is a 35-year old white female who about four to five days prior to admission said she was reaching into her purse when she stuck her left fourth finger with a pin from her work badge. There was no real bleeding or drainage or immediate consequences. Subsequently about two days prior to admission the finger started to become swollen, hot, painful. It extended onto her palm and the back of her hand almost to her wrist, so she came to the emergency room for evaluation. There she was found to have an elevated white cell count, then was admitted for treatment of cellulitis. Complete history and physical is enumerated in his admitting history and physical. On admission white count was 12.24, hemoglobin 11, hematocrit 36, sodium 138, potassium 3.6, chloride 103, total C02 24, glucose 91, BUN 12, creatinine .76, LFTS normal. HOSPITAL COURSE: 1. Cellulitis: Blood cultures were no growth. The patient was placed on Zosyn and Vancomycin. By the her white count had dropped to 7.5 with only 53 segs and swelling had started to subside. By the day of discharge the swelling was almost completely resolved as well as tenderness in her hand with swelling there. Thus, she was able to be discharged home. She was discharged on Doxycycline 100 b.i.d. for ten days and Cipro 500 b.i.d. for seven days. She can return to work on the . 2. Bronchitis, upper respiratory infection: She had had some cough, sometimes productive. Lungs were clear. She was given some updraft treatments while here and with the antibiotics, her symptoms pretty much totally resolved. She did have a nicotine patch while here, was encouraged to quit smoking. PROCEDURES DURING THIS HOSPITALIZATION: None. CONSULTATIONS: None. CONDITION ON DISCHARGE: Much improved. The hand tenderness and swelling had subsided. She will be on both antibiotics as stated, Doxycycline and Cipro for her discharge medications, 100 b.i.d. and 500 b.i.d. respectively. TIME: This entire process took about 35 minutes to complete. As stated above, she may return to work on the . Electronically Authenticated and Edited by: Zachary Marquez MD On 04/04/2015 08:10 PM CDT Zachary Marquez M.D. SS/dp TD: 04/04/2015 09:09 documented in this encounter H&P Notes * Provider, MD Abigail - 04/01/2015 12:00 AM CDT HISTORY AND PHYSICAL Patient: FREDA MASTERSON Account: [id number] Room No: 3617-01 : 1980 Patient Type: IP Attend.: Lara Whittington M.D. Admit Date: 04/01/2015 Dict.: Lara Whittington M.D. Disch. Date: PRIMARY CARE PHYSICIAN None. REASON FOR ADMISSION Infected left finger. HISTORY OF PRESENT ILLNESS This is a 35-year-old white female with no past medical history. 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 Apparently 4-5 days ago, the patient was reaching into her purse and stabbed her left fourth finger with her badge from [employer]. She stated there was no bleeding at the time, no drainage and no immediate injury. Then approximately two days prior to this admission, the patient noticed her left fourth finger was significantly swollen, red, hot and pain. She states the redness extended to the palmar surface of the hand and the back of the hand almost to the wrist. There was no drainage, no fevers, or chills. The patient did have pain with range of motion. Of note, the patient states that her daughter recently tried to address an ingrown toenail with that same name oumar and thought that this probably might have been the source of her problem. Nonetheless, as her symptoms continued to progress, she presented to the emergency room early this morning and was subsequently admitted. Blood cultures x2 were done. The patient was afebrile in the emergency room. White count was 12.24. Hemoglobin was 11 and hematocrit was 35.9. Sodium was 138, potassium 3.6, chloride 103, CO2 of 24, glucose of 91, BUN of 12, creatinine of 0.76. LFTs were normal. The patient was subsequently admitted. Antibiotics were not started in the emergency room and as of yet, she has not received any dosage of any antibiotics. REVIEW OF SYSTEMS The patient denied any particular weakness, fatigue, malaise, fever or chills. She states her weight has been stable. She denies any other rashes, skin eruptions or jaundice other than that mentioned above. She denied any bleeding, easy bruising or lymph node enlargement. She has had no headaches, syncope, seizures, tremors or strokes. She denies any change in vision or hearing. No post nasal drip, sore throat or cough. She states she is just recovering from an upper respiratory infection but has not had any antibiotics for that. She does have a chronic smoker's cough and associated wheezing, particularly in the morning. She denies any chest pain, dyspnea on exertion, palpitations, edema, previous myocardial infarction, dysrhythmia or hypertension. She denies any other shortness of breath, asthma, chronic obstructive pulmonary disease or sleep apnea. She has had no dysphagia, nausea, vomiting, diarrhea, constipation, blood in the stool, change in stool or abdominal pain. She denied any urinary frequency, urgency, dysuria, hesitancy, hematuria or incontinence. Other than the left fourth finger, she denies any other myalgias, joint pain, stiffness, weakness, redness, heat or inflammation. No history of psychiatric illness. No history of diabetes or thyroid disease. SOCIAL HISTORY The patient currently lives with her boyfriend. She is 1, para 1, A 0 with a 12-year-old who is alive and well. 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 She is single. She continues to smoke one pack per day and has done so for 21 years. No history of alcohol or drug use. FAMILY HISTORY Includes a father with hypertension and a cerebral aneurysm. PAST MEDICAL HISTORY None. PAST SURGICAL HISTORY Appendectomy and tonsillectomy and adenoidectomy. ALLERGIES None. CURRENT MEDICATIONS None. PHYSICAL EXAMINATION At the time of evaluation, found the patient to be awake, alert, in no particular distress. SHEENT: Revealed the following - the patient did have multiple tattoos which were well healed with no obvious cellulitis. On the left hand, the fourth finger was red, warm, swollen, with no obvious discharge. There appeared to be a puncture wound at the distal MCP but again no drainage was expressed from that area. The patient had redness and swelling extending just beyond the finger to the distal hand. She had tenderness of the palmar surface of the hand as well and decreased range of motion. She was unable to make a fist. Head was otherwise normocephalic, atraumatic. Pupils were equal, round and reactive to light and accommodation. Extraocular motions were intact without nystagmus. Oral mucosa was pink, moist without lesions. Dentition was fair. NECK: Nontender, full range of motion. Thyroid was normal. Carotids were 2+ and equal with good upstrokes. Trachea was in the midline. There was no adenopathy. LUNGS: Revealed coarse breath sounds with scattered inspiratory and expiratory wheezing throughout which did not particularly clear with a cough. CARDIAC: Revealed a regular rate and rhythm. Normal S1 and S2 without any murmurs, S3s or S4s heard. ABDOMEN: Soft, nontender, nondistended with positive bowel sounds. There were no masses, hernias, bruits or organomegaly, rebound or guarding. EXTREMITIES, BONES AND JOINTS: As above, otherwise unremarkable with no edema, cyanosis or clubbing. Pulses were 2+ and equal. There was no calf tenderness. NEUROLOGIC: Oriented x4, speech was clear. Cranial nerves II-XII were intact. Motor, sensory and coordination were all tested and found to be normal. The patient was ambulated without difficulty. IMPRESSION 1. Puncture wound to the left fourth finger with associated cellulitis. There is no obvious abscess at this time, though there is considerable inflammation. Plan at this time - the area will be elevated, ice will be applied. Zosyn and vancomycin have been ordered. Blood cultures will be pursued with adjustments in antibiotics as needed. Repeat laboratory work will be done in the morning as well as [place] for pain. If not significantly improved in the next 24 hours, certainly imaging and or possible surgical evaluation will be needed. This was explained to the patient and she understands. 2. Tobacco abuse with recent upper respiratory infection. The patient currently has evidence of rather significant bronchitis which is probably somewhat acute and chronic. Duo-Neb therapy has been ordered, antibiotics as above and NicoDerm will be made available as well. 3. Deep venous thrombosis and GI prophylaxis will be provided in the form of Lovenox and Pepcid therapy. 4. Code status is 1. This will certainly be honored throughout the hospital stay. All of the above has been discussed in detail with the patient. She agrees to the plan of care as outlined above. She is currently admitted and will obviously require in excess of two midnight stay due to the need for IV antibiotics and possible surgical intervention. Electronically Authenticated by: Lara Whittington MD On 04/01/2015 11:59 AM CDT Chung Whaley/ana paula TD: 04/01/2015 08:55 documented in this encounter Plan of Treatment Not on file documented as of this encounter Procedures Procedure Name Priority Date/Time Associated Diagnosis Comments DISCHARGE LABORATORY CUMULATIVE REPORT 04/03/2015 SERUM VANCOMYCIN, TROUGH DRUG LEVEL Routine 04/02/2015 1:24 PM CDT SERUM ESTIMATED GLOMERULAR FILTRATION RATE Routine 04/02/2015 3:28 AM CDT PLASMA BASIC METABOLIC PANEL Routine 04/02/2015 3:28 AM CDT BLOOD CELL COUNT (CBC), MORPHOLOGIC EXAM Routine 04/02/2015 3:28 AM CDT BLOOD CELL MORPHOLOGIC EXAM Routine 04/02/2015 3:28 AM CDT BLOOD CULTURE, CDR Routine 04/01/2015 3: 45 AM CDT BLOOD CULTURE, CDR Routine 04/01/2015 3: 35 AM CDT SERUM ESTIMATED GLOMERULAR FILTRATION RATE Routine 04/01/2015 3:35 AM CDT PLASMA COMPREHENSIVE METABOLIC PANEL Routine 04/01/2015 3:35 AM CDT BLOOD CELL COUNT (CBC), MORPHOLOGIC EXAM Routine 04/01/2015 3:35 AM CDT BLOOD CELL MORPHOLOGIC EXAM Routine 04/01/2015 3:35 AM CDT documented in this encounter Results * DISCHARGE LABORATORY CUMULATIVE REPORT (04/03/2015) Narrative 04/03/2015 Ordered by an unspecified provider. us Historical Provider LAB BLOOD ORDERABLES Rula l Result * (ABNORMAL) Serum vancomycin, trough drug level (04/02/2015 1:24 PM CDT) Vancomycin, trough 20.1(H) 15.0 - 20.0 mcg/ml HISTORICAL RESULTS Comment: Intepretive Data Therapeutic range: ??15 - 20 mcg/ml Current interpretive data was last revised on 2014 Serum 04/02/2015 1:24 PM CDT us Historical Provider LAB BLOOD ORDERABLES Rula l Result HISTORICAL RESULTS * (ABNORMAL) Plasma basic metabolic panel (04/02/2015 3:28 AM CDT) Sodium 142 135 - 145 mmol/L HISTORICAL RESULTS K, pl 3.7 3.5 - 5.1 mmol/L HISTORICAL RESULTS Chloride 109 97 - 110 mmol/L HISTORICAL RESULTS CO2 24 22 - 32 mmol/L HISTORICAL RESULTS A. gap 13 8 - 16 mmol/L HISTORICAL RESULTS Glucose 117 70 - 199 mg/dl HISTORICAL RESULTS Comment: Interpretive Data Note:The glucose is assumed non fasting Fastin-99 mg/dL Random: ??70-199 mg/dL Either a fasting glucose > 126 mg/dL or a random glucose > 200 mg/dL plus symptoms is diagnostic of diabetes when confirmed on another day. Fasting values > 100 mg/dL but < 125 mg/dL are diagnostic of impaired fasting glucose. Current interpretive data was last revised on 2014. BUN 7.8(L) 8.0 - 25.0 mg/dl HISTORICAL RESULTS Creatinine 0.76 0.60 - 1.10 mg/dl HISTORICAL RESULTS Calcium 8.0(L) 8.6 - 10.2 mg/dl HISTORICAL RESULTS BUN/creat ratio 10 10 - 20 HIST ORICAL RESULTS Plasma 04/02/2015 3:28 AM CDT Historical Provider LAB BLOOD ORDERABLES Rula l Result Performing Organization Address [facility] de Phone Number HISTORICAL RESULTS * Serum estimated glomerular filtration rate (04/02/2015 3:28 AM CDT) eGFR >60 ml/min/1.7 3 m2 HISTORICAL RESULTS Comment: Interpretation of Estimated GFR (eGFR): Normal ?>/= 60 mL/min/1.73m2 Possible Chronic Kidney Disease ??15 - 59 mL/min/1.73m2 Possible Kidney Failure ?< 15 ??mL/min/1.73m2 If -Malawian multiply value by 1.16. ??Estimated glomerular filtration rate is determined by the CKD-EPI equation recommended by the National Kidney Foundation (KDIGO 2012 Clinical Practice Guideline for the Evaluation and Management of Chronic Kidney Disease. ??Kidney Intnl Suppl Jun 2012;3:1). ??The CKD-EPI equation should not be used in acute renal failure or acute kidney injury and is not valid in children. Serum 04/02/2015 3:28 AM CDT Historical Provider LAB BLOOD ORDERABLES Rula l Result Performing Organization Address [facility]/ZIP Co de Phone Number HISTORICAL RESULTS * (ABNORMAL) Blood cell morphologic exam (04/02/2015 3:28 AM CDT) Neutrophils 53.9 44.0 - 80.0 % HISTORICAL RESULTS Immature granulocytes 0.4 0.0 - 1.0 % HISTORICAL RESULTS Lymphocytes 29.9 13.0 - 44.0 % HISTORICAL RESULTS Monos 11.2(H) 2.0 - 11.0 % HISTORICAL RESULTS Eosinophils 3.7 0.0 - 6.0 % HISTORICAL RESULTS Basophils 0.9 0.0 - 3.0 % HISTORICAL RESULTS Neutrophils, abs 4.0 1.6 - 7.0 K/cumm HISTORICAL RESULTS Immature granulocyte, abs 0.03 0.00 - 0.20 K/cumm HISTORICAL RESULTS Lymphocytes, abs 2.2 0.5 - 4.3 K/cumm HISTORICAL RESULTS Monocytes, absolute 0.8 0.1 - 1.0 K/cumm HISTORICAL RESULTS Eosinophils, abs 0.3 0.0 - 0.6 K/cumm HISTORICAL RESULTS Basophils, abs 0.1 0.0 - 0.3 K/cumm HISTORICAL RESULTS Blood specimen (specimen) 04/02/2015 3:28 AM CDT us Historical Provider LAB BLOOD ORDERABLES Rula l Result Performing Organization Address [facility] de Phone Number HISTORICAL RESULTS * (ABNORMAL) Blood cell count (CBC), morphologic exam (04/02/2015 3:28 AM CDT) WBC 7.5 3.8 - 9.8 K/cumm HISTORICAL RESULTS RBC 3.42(L) 3.90 - 5.00 M/cumm HISTORICAL RESULTS Hgb 9.2(L) 12.1 - 15.1 g/dl HISTORICAL RESULTS Hct 29.5(L) 36.1 - 44.3 % HISTORICAL RESULTS MCV 86.3 80.0 - 100.0 fl HISTORICAL RESULTS MCH 26.9 26.7 - 33.7 pg HISTORICAL RESULTS MCHC 31.2(L) 32.7 - 36.0 g/dl HISTORICAL RESULTS Rdw 15.1(H) 11.5 - 14.6 % HISTORICAL RESULTS Platelets 187 140 - 440 K/cumm HISTORICAL RESULTS MPV 10.7 8.0 - 12.0 fl HISTORICAL RESULTS NRBC 0.0 0.0 - 0.0 % HISTORIC AL RESULTS NRBC, abs 0.00 0.00 - 0.00 K/cumm HISTORICAL RESULTS Blood specimen (specimen) 04/02/2015 3:28 AM CDT Historical Provider MD LAB BLOOD ORDERABLES Rula l Result Performing Organization Address [place]/[facility] Co de Phone Number HISTORICAL RESULTS * Blood culture (04/01/2015 3:45 AM CDT) Blood specimen (specimen) (Arm, left) 04/01/2015 3:45 AM CDT Impressions HISTORICAL RESULTS - 04/06/2015 7:01 AM CDT Blood cultures are monitored continuously for 5 days (120 hours). The first negative report is issued within 24 hours of receipt in the laboratory. ??All positive cultures are called as soon as they are detected. Narrative HISTORICAL RESULTS - 04/06/2015 7:01 AM CDT No growth on day 5. Historical Provider LAB MICROBIOLOGY - GENERA L ORDERABLES Final Result Performing Organization Address [facility] de Phone Number HISTORICAL RESULTS * Plasma comprehensive metabolic panel (04/01/2015 3:35 AM CDT) Sodium 139 135 - 145 mmol/L HISTORICAL RESULTS K, pl 3.6 3.5 - 5.1 mmol/L HISTORICAL RESULTS Chloride 103 97 - 110 mmol/L HISTORICAL RESULTS CO2 24 22 - 32 mmol/L HISTORICAL RESULTS A. gap 16 8 - 16 mmol/L HISTORICAL RESULTS Glucose 91 70 - 199 mg/dl HISTORICAL RESULTS Comment: Interpretive Data Note:The glucose is assumed non fasting Fastin-99 mg/dL Random: ??70-199 mg/dL Either a fasting glucose > 126 mg/dL or a random glucose > 200 mg/dL plus symptoms is diagnostic of diabetes when confirmed on another day. Fasting values > 100 mg/dL but < 125 mg/dL are diagnostic of impaired fasting glucose. Current interpretive data was last revised on 2014. BUN 11.7 8.0 - 25.0 mg/dl HISTORICAL RESULTS Creatinine 0.76 0.60 - 1.10 mg/dl HISTORICAL RESULTS BUN/creat ratio 15 10 - 20 HIST ORICAL RESULTS Calcium 8.7 8.6 - 10.2 mg/dl HISTORICAL RESULTS Protein, sr 6.7 6.0 - 8.4 g/dl HISTORICAL RESULTS Alb 3.8 3.6 - 5.0 g/dl HISTORICAL RESULTS Alb/glob ratio 1.3 1.1 - 1.8 ratio HISTORICAL RESULTS Alk phos 42 40 - 130 Units/L HISTORICAL RESULTS ALT 14 5 - 45 Units/L HISTORICAL RESULTS AST 15 10 - 40 Units/L HISTORICAL RESULTS Bilirubin 0.3 <=1.2 mg/dl HISTORICAL RESULTS Plasma 04/01/2015 3:35 AM CDT Historical Provider LAB BLOOD ORDERABLES Rula helms Result Performing Organization Address [facility] de Phone Number HISTORICAL RESULTS * (ABNORMAL) Blood cell morphologic exam (04/01/2015 3:35 AM CDT) Neutrophils 64.5 44.0 - 80.0 % HISTORICAL RESULTS Immature granulocytes 0.3 0.0 - 1.0 % HISTORICAL RESULTS Lymphocytes 21.1 13.0 - 44.0 % HISTORICAL RESULTS Monos 10.0 2.0 - 11.0 % HISTORICAL RESULTS Eosinophils 3.4 0.0 - 6.0 % HISTORICAL RESULTS Basophils 0.7 0.0 - 3.0 % HISTORICAL RESULTS Neutrophils, abs 7.9(H) 1.6 - 7.0 K/cumm HISTORICAL RESULTS Immature granulocyte, abs 0.04 0.00 - 0.20 K/cumm HISTORICAL RESULTS Lymphocytes, abs 2.6 0.5 - 4.3 K/cumm HISTORICAL RESULTS Monocytes, absolute 1.2(H) 0.1 - 1.0 K/cumm HISTORICAL RESULTS Eosinophils, abs 0.4 0.0 - 0.6 K/cumm HISTORICAL RESULTS Basophils, abs 0.1 0.0 - 0.3 K/cumm HISTORICAL RESULTS Blood specimen (specimen) 04/01/2015 3:35 AM CDT Historical Provider LAB BLOOD ORDERABLES Rula l Result Performing Organization Address [facility]/ZIP Co de Phone Number HISTORICAL RESULTS * (ABNORMAL) Blood cell count (CBC), morphologic exam (04/01/2015 3:35 AM CDT) WBC 12.2(H) 3.8 - 9.8 K/cumm HISTORICAL RESULTS RBC 4.07 3.90 - 5.00 M/cumm HISTORICAL RESULTS Hgb 11.0(L) 12.1 - 15.1 g/dl HISTORICAL RESULTS Hct 35.9(L) 36.1 - 44.3 % HISTORICAL RESULTS MCV 88.2 80.0 - 100.0 fl HISTORICAL RESULTS MCH 27.0 26.7 - 33.7 pg HISTORICAL RESULTS MCHC 30.6(L) 32.7 - 36.0 g/dl HISTORICAL RESULTS Rdw 15.3(H) 11.5 - 14.6 % HISTORICAL RESULTS Platelets 241 140 - 440 K/cumm HISTORICAL RESULTS MPV 10.3 8.0 - 12.0 fl HISTORICAL RESULTS NRBC 0.0 0.0 - 0.0 % HISTORIC AL RESULTS NRBC, abs 0.00 0.00 - 0.00 K/cumm HISTORICAL RESULTS Blood specimen (specimen) 04/01/2015 3:35 AM CDT us Historical Provider LAB BLOOD ORDERABLES Rula helms Result HISTORICAL RESULTS * Serum estimated glomerular filtration rate (04/01/2015 3:35 AM CDT) eGFR >60 ml/min/1.7 3 m2 HISTORICAL RESULTS Comment: Interpretation of Estimated GFR (eGFR): Normal ?>/= 60 mL/min/1.73m2 Possible Chronic Kidney Disease ??15 - 59 mL/min/1.73m2 Possible Kidney Failure ?< 15 ??mL/min/1.73m2 If -[place]ian multiply value by 1.16. ??Estimated glomerular filtration rate is determined by the CKD-EPI equation recommended by the National Kidney Foundation (KDIGO 2012 Clinical Practice Guideline for the Evaluation and Management of Chronic Kidney Disease. ??Kidney Intnl Suppl Jun 2012;3:1). ??The CKD-EPI equation should not be used in acute renal failure or acute kidney injury and is not valid in children. Serum 04/01/2015 3:35 AM CDT Historical Provider LAB BLOOD ORDERABLES Rula l Result Performing Organization Address [facility] Co de Phone Number HISTORICAL RESULTS * Blood culture (04/01/2015 3:35 AM CDT) Blood specimen (specimen) (Arm, right) 04/01/2015 3:35 AM CDT Impressions HISTORICAL RESULTS - 04/06/2015 7:01 AM CDT Blood cultures are monitored continuously for 5 days (120 hours). The first negative report is issued within 24 hours of receipt in the laboratory. ??All positive cultures are called as soon as they are detected. Narrative HISTORICAL RESULTS - 04/06/2015 7:01 AM CDT No growth on day 5. Historical Provider LAB MICROBIOLOGY - GENERA L ORDERABLES Final Result Performing Organization Address [facility] Co de Phone Number HISTORICAL RESULTS documented in this encounter Visit Diagnoses Diagnosis Cellulitis of finger of left hand Cigarette nicotine dependence, uncomplicated Bronchitis Bronchitis, not specified as acute or chronic Encounter for immunization documented in this encounter
--- OUTSIDE RECORDS SUMMARY | 2024-06-25 03:39 | XMS_ITS | Encounter Summary ---
Author Organization [facility] Healthcare Address [address] [place] [address] Care Team Providers Care Youth Career Specialist Name Role Phone Unavailable Primary Care Provider Unavailabl e Encounter Details Date Type Department Care Team (Late st Contact Info) Description 09/20/2016 Orders Only [facility] Interim [phone] Bambi Echavarria NP [address] [place], [place] [id number] Social History Tobacco Use Types Packs/Day Years Used Date Smoking Tobacco: Never Assessed Comments Unknown Sex and Gender Information Value Date Recorded Sex Assigned at Not on file 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 Current interpretive data was last revised on 2014. 

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
--- OUTSIDE RECORDS SUMMARY | 2024-06-25 03:39 | XMS_ITS | Encounter Summary ---
Author Organization [facility] Healthcare Address [address] [place] [address] Care Team Providers Care Photography Spotter Name Role Phone Unavailable Primary Care Provider Unavailabl e Encounter Details Date Type Department Care Team (Late st Contact Info) Description 11/29/2007 12:15 AM CDT - 11/29/2007 1:35 AM CDT Hospital Encounter [facility] Yohan Rizvi MD [address] [place] [address] [place] [address] Social History Tobacco Use Types Packs/Day Years Used Date Smoking Tobacco: Never Assessed Comments Unknown Sex and Gender Information Value Date Recorded Sex Assigned at Not on file Legal Sex Female 

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
--- OUTSIDE RECORDS SUMMARY | 2024-06-25 03:39 | XMS_ITS | Encounter Summary ---
Author Organization [facility] Healthcare Address [address] [place] [address] Care Team Providers Care Nuclear Fuels Reclamation Engineer Name Role Phone Unavailable Primary Care Provider Unavailabl e Encounter Details Date Type Department Care Team (Late st Contact Info) Description 09/20/2016 Orders Only Brian [facility] Interim [phone] Unknown, Notinfile Social History Tobacco Use Types Packs/Day Years Used Date Smoking Tobacco: Never Assessed Comments Unknown Sex and Gender Information Value Date Recorded Sex Assigned at Not on file Legal Sex Female 1:38 PM 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 BRIAN LOPES ([place]) Comment:Testing performed by : [facility], [address] [facility] [place] [address] Throat 09/20/2016 5:48 PM CDT 09/21/2016 1:56 AM CDT Narrative BRIAN LOPES ([place]) - 09/22/2016 7:25 AM CDT Note: This specimen has been examined for the presence of Streptococcus pyogenes, Streptococcus dysgalactiae, and Arcanobacterium haemolyticum. Current interpretive data was last revised on 2014. us Notinfile Unknown LAB MICROBIOLOGY - GENERAL ORD ERABLES Final Result BRIAN LOPES ([place]) 1 [facility] Department [place] [address] documented in this encounter Visit Diagnoses Not on filedocumented in this encounter
--- OUTSIDE RECORDS SUMMARY | 2024-06-25 03:39 | XMS_ITS | Encounter Summary ---
Author Organization [facility] Healthcare Address [address] [place] [address] Care Team Providers Care Looper Operator Name Role Phone Unavailable Primary Care Provider Unavailabl e Encounter Details Date Type Department Care Team (Late st Contact Info) Description 02/09/2012 9:07 AM CDT - 02/09/2012 11:59 PM CDT Hospital Encounter [facility] Apryl Hansen, ETT[facility] [address] [place] [address] Other disorders of menstruation and other abnormal bleeding from female genital tract Social History Tobacco Use Types Packs/Day Years Used Date Smoking Tobacco: Never Assessed Comments Unknown Sex and Gender Information Value Date Recorded Sex Assigned at Not on file Legal Sex Female 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
--- OUTSIDE RECORDS SUMMARY | 2024-06-25 03:39 | XMS_ITS | Encounter Summary ---
Author Organization [facility] Healthcare Address [address] [place] [place] [address] Care Team Providers Care Medical Interpreter Name Role Phone Miscellaneous, Not In File Unavailable Unava Dony Logan MD Primary Care Provi renetta Reason for Referral * Diagnostic Imaging (Routine) - Authorized Specialty Diagnoses / Procedures Referred By Contac t Referred To Contact Diagnoses Encounter for screening mammogram for breast cancer Procedures Screening Mammogram Bilateral W Chelsea Stone DO [address] [place] [address] Phone: tel: fax: [facility] [address] [place] [address] Referral ID Status Reason Start Date Expiration Date V isits Requested Visits Authorized [id number] Authorized 03/14/2024 04/13/2025 1 1 Reason for Visit * Reason Comments New Patient Encounter Details Date Type Department Care Team (Late st Contact Info) Description 03/14/2024 1:30 PM CDT Office Visit [facility] [address] [place] [address] Chelsea Krooma DO [address] [place] [address] Encounter for annual routine gynecological examination (Primary Dx); Screen for sexually transmitted diseases; Screening for malignant neoplasm of cervix; Encounter for screening mammogram for breast cancer Social History Tobacco Use Types Packs/Day Years [...] on file 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 year old female who presents for a well woman exam. Last pap ASCUS +HPV 10/22/22. Colposcopy note not visible but surgical pathology shows negative ECC on 11/19/22. She reports a h/o LEEP in 2011 and normal paps since until last year. Mammogram negative a year ago per patient. She denies any vaginal or urinary concerns. Would like full STD screening today. Menstrual History: Patient's last menstrual period was 03/02/2024 (exact date). Sexual History: OB History 2 Para 1 Term 1 0 AB 1 Living 1 SAB 1 IAB 0 Ectopic 0 Multiple 0 Live Births 1 # Outcome Date GA Labor/2nd Weight Sex Type Anes PTL Lv A1 A5 1 SAB 2 Term 07/25/02 4.394 kg (9 lb 11 oz) F Vag-Spont Living Past Medical History: Diagnosis Date Back pain Current Outpatient Medications: amLODIPine (NORVASC) 5 mg tablet, Take 1 tablet (5 mg total) by mouth daily, Disp: , Rfl: ARIPiprazole (ABILIFY) 10 mg tablet, Take 1 tablet (10 mg total) by mouth daily, Disp: , Rfl: cetirizine (ZyrTEC) 10 mg tablet, Take 1 tablet (10 mg total) by mouth daily, Disp: , Rfl: sertraline (ZOLOFT) 100 mg tablet, Take 1 tablet (100 mg total) by mouth daily, Disp: , Rfl: ALPRAZolam (XANAX) 1 mg tablet, Take 1 tablet (1 mg total) by mouth nightly (Patient not taking: Reported on 03/14/2024), Disp: 30 tablet, Rfl: 1 cyclobenzaprine (FLEXERIL) 10 mg tablet, Take 1 tablet (10 mg total) by mouth 3 (three) times a dayas needed for muscle spasms (Patient not taking: Reported on 03/14/2024), Disp: 12 tablet, Rfl: 0 fluvoxaMINE (LUVOX) 50 mg tablet, fluvoxamine 50 mg tablet (Patient not taking: Reported on 03/14/2024), Disp: , Rfl: HYDROcodone-acetaminophen (NORCO) 5-325 mg per tablet, Take 1 tablet by mouth every 6 (six) hours as needed (Patient not taking: Reported on 03/14/2024), Disp: , Rfl: ketorolac (TORADOL) 10 mg tablet, Take 1 tablet (10 mg total) by mouth 2 (two) times a day as needed (Patient not taking: Reported on 03/14/2024), Disp: , Rfl: lidocaine (LIDODERM) 5 %, APPLY ONE PATCH TOPICALLY TO CLEAN, DRY SKIN ON RIGHT SHOULDER. LEAVE ON FOR 12 HOURS THEN REMOVE. MUST WAIT AT LEAST 12 HOURS BEFORE APPLYING PATCH(ES) AGAIN. (Patient not taking: Reported on 03/14/2024), Disp: , Rfl: naloxone (NARCAN) 4 mg/actuation spray,non-aerosol, Administer 1 spray into affected nostril(s) as needed for opioid reversal or respiratory depression Call 911. Administer a single spray in one nostril. Repeat every 3 minutes as needed if no or minimal response. (Patient not taking: Reported on 03/14/2024), Disp: 1 each, Rfl: 1 ondansetron ODT (ZOFRAN-ODT) 4 mg disintegrating tablet, DISSOLVE AND SWALLOW 1 TABLET BY MOUTH EVERY 8 HOURS FOR 5 DAYS (Patient not taking: Reported on 03/14/2024), Disp: , Rfl: spironolactone (ALDACTONE) 50 mg tablet, Take 1 tablet (50 mg total) by mouth daily, Disp: , Rfl: SUMAtriptan (IMITREX) 50 mg tablet, , Disp: , Rfl: Allergies Allergen Reactions Codeine Vomiting No family history on file. Social History Tobacco Use Smoking status: Every Day Current packs/day: 1.00 Average packs/day: 1 pack/day for 29.7 years (29.7 ttl pk-yrs) Types: Cigarettes, Vaping Start date: 1992 Smokeless tobacco: Never Substance and Sexual Activity Drug use: No Sexual activity: Yes Partners: Male control/protection: None Alcohol Use: Not on file Review of Systems Constitutional: Negative for fatigue, fever and unexpected weight change. HENT: Positive for dental problem, hearing loss, postnasal drip and voice change. Respiratory: Positive for wheezing. Negative for shortness of breath. Snoring Cardiovascular: Positive for leg swelling. Negative for chest pain and palpitations. Gastrointestinal: Positive for abdominal pain, constipation and diarrhea. Negative for blood in stool, nausea and vomiting. Endocrine: Positive for heat intolerance. Genitourinary: Positive for frequency. Negative for dysuria, hematuria, urgency, vaginal bleeding and vaginal discharge. Musculoskeletal: Positive for arthralgias and back pain. Skin: Negative for rash. Sweating, Hair loss Neurological: Positive for headaches. Hematological: Bruises/bleeds easily. Psychiatric/Behavioral: The patient is nervous/anxious. Depression Objective: BP 138/82 Ht 170.2 cm (5' 7 ) Wt 261 lb (118.4 kg) LMP 03/02/2024 (Exact Date) BMI 40.88 kg/m?? Physical Exam Constitutional: Appearance: She is well-developed. Cardiovascular: Rate and Rhythm: Normal rate and regular rhythm. Pulmonary: Effort: Pulmonary effort is normal. Comments: Mild expiratory wheezes bilaterally Chest: Breasts: Right: No mass or tenderness. Left: No mass or tenderness. Abdominal: Palpations: Abdomen is soft. Tenderness: There is no abdominal tenderness. Genitourinary: Rectum normal, vagina normal and uterus normal. Right labia: normal. Left Labia: normal. No vaginal discharge. Right adnexa: normal. Left adnexa: normal. Cervix: Normal exam. Genitourinary Comments: Bimanual limited by body habitus Musculoskeletal: General: No tenderness. Skin: General: Skin is warm and dry. Neurological: Mental Status: She is alert and oriented to person, place, and time. Psychiatric: Behavior: Behavior normal. Assessment and Plan: Freda Newsome is a 44 y.o. female who presents for a well woman exam. WWE - Screening guidelines reviewed. Pap collected. - STD screening obtained. Bloodwork ordered as well including HSV at patient's request (she was counseled on how we typically only order if patient has a concerning lesion) - Mammogram ordered. - Contraception reviewed. Pt declines. RTC in 1 year for WWE and ELKIN Koroma DO 03/14/2024 documented in this encounter Miscellaneous Notes * Addendum Note - Hazel Espitia - 03/14/2024 1:30 PM CDTAddended by: HAZEL ESPITIA on: 05/18/2024 02:26 PM Modules accepted: Orders R BOOT TOP ASSEMBLER * Addendum Note - Hazel Espitia - 03/14/2024 1:30 PM CDTAddended by: HAZEL ESPITIA on: 05/18/2024 02:28 PM Modules accepted: Orders R BOOT TOP ASSEMBLER documented in this encounter Plan of Treatment Scheduled Orders Name Type Priority Associated Diagnoses Order Schedule Screening Mammogram Bilateral W Agustín Imaging Schedule Routine, Read Routine (OP Routine) Encounter for screening mammogram for breast cancer Expected: 03/14/2024, Expires: 05/14/2025 Trichomonas vaginalis PCR Thin prep-Endocervical Microbiology Routine Screen for sexually transmitted diseases Expected: 03/14/2024, Expires: 03/14/2025 documented as of this encounter Results * High Risk HPV DNA Detection with Genotyping (Molecular component) (03/14/2024 2:20 PM CDT) HPV HR 16 Not Detected Not Detected [facility] Comment:Testing performed by : [facility], [address] [place]., [address] HPV HR 18 Not Detected Not Detected BRIAN Comment:Testing performed by : [facility], [address] [place]., [address] HPV HR Non 16/18 Not Detected Not [...] this test have been verified by the [facility] Molecular Infectious Disease laboratory. Correlate with separately reported cytology results, as applicable. Interpretive data last revised 22 Testing performed by: [facility], [address] [place]., [address] Endocervical 03/14/2024 2:20 PM CDT 03/15/2024 12:22 PM CDT Narrative BRIAN - 03/15/2024 11:56 PM CDT Clinical history and diagnosis->Liquid-based PAP test with high risk HPV test- Z12.4 Number of vials->1 Testing type->Screening Last menstrual period (date if known)->03/02/24 Chelsea Koroma DO LAB BODY FLUIDS AND STO OLS ORDERABLES Final Result BRIAN DIXON [address] Department [place] [address] [facility] * N. gonorrhoeae/C. trachomatis Amplification Thin prep-Endocervical (03/14/2024 2:20 PM CDT) C. trachomatis Not Detected [facility] Comment:Testing performed by : [facility], [address] [place] [address]., [address] N. gonorrhoeae Not Detected [facility] Comment: Interpretive Data This assay detects Chlamydia trachomatis and Neisseria gonorrhoeae by nucleic acid amplification testing (NAAT). This assay has been cleared by the [place] Food and Drug administration. The performance characteristics of this test have been verified by the [facility] Molecular Infectious Disease laboratory. The performance characteristics of this test have not been evaluated in individuals less than 14 years of age. Current Interpretive Data was last revised on 2023. Testing performed by: [facility], [address] [place] [address]., [address] Thin prep-Endocervica l 03/14/2024 2:20 PM CDT 03/15/2024 12:22 PM CDT Chelsea Koroma DO LAB MICROBIOLOGY - GENE RAL ORDERABLES Final Result Performing Organization Address City/[facility] Co de Phone Number BRIAN [address] [address] Department [place] [address] [facility] * Pap and High Risk HPV and Genotyping (Cytology Component) (03/14/2024 8:55 AM CDT) Thin prep (Pap test) 03/14/2024 8:55 AM CDT 03/15/2024 8:55 AM CDT Narrative PATHOLOGY CH - 03/16/2024 10:[address] [facility] Department of Pathology [address] [place] [address] Final Report with Addendum Note to Patients: [...] explain the details. Patient Name: ??FREDA NEWSOME Address: ??[address] [place] [address], ?? [place], [place] [address] Gender: ??F : ??1980 (Age: 44) Service: ?? Location: ?? Hospital #: ??[id number] Patient Type: ??[facility] ANCILLARY Taken: ??03/14/2024 Received: ??03/15/2024 Accessioned:: ??03/15/2024 [...] this test have been verified by the [facility] Infectious Disease laboratory. Correlate with reported [...] determined by the Surgical Pathology Department at [facility] as part of an ongoing quality internship program and in compliance with federally mandated [...] characteristics determined by the Surgical Pathology Department [facility]. ??It has not been cleared or approved by the [place]. [place]. Food and Drug Administration. Chelsea Campbell Sauer DO LAB [place]OLOGY [place] [address] [place] [address] documented in this encounter Visit Diagnoses Diagnosis Encounter for annual routine gynecological examination- Primary Screen for sexually transmitted diseases Screening examination for venereal disease Screening for malignant neoplasm of cervix Screening for malignant neoplasm of the cervix Encounter for screening mammogram for breast cancer Screening for STD (sexually transmitted disease) Screening for malignant neoplasm of cervix Screening for malignant neoplasm of the cervix Screen for sexually transmitted diseases Screening examination for venereal disease documented in this encounter Care Teams Medical Interpreter Relationship Specialty Start Date End Date Dony Reed MD [address] [address] PCP - General Family Practice 03/08/24 Miscellaneous, Not In File 02/02/24 documented as of this encounter
--- OUTSIDE RECORDS SUMMARY | 2024-06-25 03:39 | XMS_ITS | Encounter Summary ---
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
--- OUTSIDE RECORDS SUMMARY | 2024-06-25 03:39 | XMS_ITS | Encounter Summary ---
Author Organization [facility] Healthcare Address [address] [place] [address] Care Team Providers Care Linen Keeper Name Role Phone Unavailable Primary Care Provider Unavailabl e Encounter Details Date Type Department Care Team (Late st Contact Info) Description 08/17/2009 12:00 PM SEED COLLECTOR - 08/17/2009 3:25 PM SEED COLLECTOR Hospital Encounter [facility] MAXXCONThiago Holliday MD [address] [facility] [address] [place] [address] Closed dislocation of elbow; Fall; Place of occurrence, home; External cause status; Tobacco use disorder Social History Tobacco Use Types Packs/Day Years Used Date Smoking Tobacco: Never Assessed Comments Unknown Sex and Gender Information Value Date Recorded Sex Assigned at Not on file Legal Sex Female 1:38 PM SEED COLLECTOR Gender Identity Not on file Sexual Orientation Not on file documented as of this encounter Plan of Treatment Not on file documented as of this encounter Visit Diagnoses Diagnosis Closed dislocation of elbow Closed unspecified dislocation of elbow Fall Unspecified fall Place of occurrence, home External cause status Tobacco use disorder documented in this encounter
--- OUTSIDE RECORDS SUMMARY | 2024-06-25 03:40 | XMS_ITS | Encounter Summary ---
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
--- OUTSIDE RECORDS SUMMARY | 2024-06-25 03:40 | XMS_ITS | Encounter Summary ---
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
--- OUTSIDE RECORDS SUMMARY | 2024-06-25 03:40 | XMS_ITS | Encounter Summary ---
Author Organization [facility] Healthcare Address [address] [place] [address] Care Team Providers Care Rn Circulating Name Role Phone Unavailable Primary Care Provider Unavailabl e Encounter Details Date Type Department Care Team (Late st Contact Info) Description 07/15/2007 8:49 PM WATER SYSTEMS ENGINEER - 07/15/2007 11:59 PM WATER SYSTEMS ENGINEER Hospital Encounter [facility]INCONV Social History Tobacco Use Types Packs/Day Years Used Date Smoking Tobacco: Never Assessed Comments Unknown Sex and Gender Information Value Date Recorded Sex Assigned at Not on file Legal Sex Female 1:38 PM WATER 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
--- OUTSIDE RECORDS SUMMARY | 2024-06-25 03:40 | XMS_ITS | Encounter Summary ---
Author Organization [facility] Healthcare Address [address] [place] [address] Care Team Providers Care Link Knitting Machine Operator Name Role Phone Unavailable Primary Care Provider Unavailabl e Encounter Details Date Type Department Care Team (Late st Contact Info) Description 08/19/2007 12:01 AM SWITCH CLEANER - 08/19/2007 11:59 PM SWITCH CLEANER Hospital Encounter [facility] CLINCONRyan Chilel Social History Tobacco Use Types Packs/Day Years Used Date Smoking Tobacco: Never Assessed Comments Unknown Sex and Gender Information Value Date Recorded Sex Assigned at Not on file Legal Sex Female 1:38 PM SWITCH CLEANER Gender Identity Not on file Sexual Orientation Not on file documented as of this encounter Plan of Treatment Not on file documented as of this encounter Visit Diagnoses Not on filedocumented in this encounter
--- OUTSIDE RECORDS SUMMARY | 2024-06-25 03:40 | XMS_ITS | Encounter Summary ---
Author Organization [facility] Healthcare Address [address] [place] [address] Care Team Providers Care Gasoline Pump Installer Name Role Phone Unavailable Primary Care Provider Unavailabl e Encounter Details Date Type Department Care Team (Late st Contact Info) Description 07/27/2007 12:01 AM JAVA XML DEVELOPER - 07/27/2007 11:59 PM JAVA XML DEVELOPER Hospital Encounter [facility] CLINCONRayn Chilel Social History Tobacco Use Types Packs/Day Years Used Date Smoking Tobacco: Never Assessed Comments Unknown Sex and Gender Information Value Date Recorded Sex Assigned at Not on file Legal Sex Female 1:38 PM JAVA XML DEVELOPER Gender Identity Not on file Sexual Orientation Not on file documented as of this encounter Plan of Treatment Not on file documented as of this encounter Visit Diagnoses Not on filedocumented in this encounter
--- OUTSIDE RECORDS SUMMARY | 2024-06-25 03:40 | XMS_ITS | Encounter Summary ---
Author Organization [facility] Healthcare Address [address] [place] [address] Care Team Providers Care Assembly Supervisor Name Role Phone Unavailable Primary Care Provider Unavailabl e Encounter Details Date Type Department Care Team (Late st Contact Info) Description 08/31/2007 12:01 AM COMBAT ENGINEER - 08/31/2007 11:59 PM COMBAT ENGINEER Hospital Encounter [facility] CLINCONRyan Chilel Social History Tobacco Use Types Packs/Day Years Used Date Smoking Tobacco: Never Assessed Comments Unknown Sex and Gender Information Value Date Recorded Sex Assigned at Not on file Legal Sex Female 1:38 PM COMBAT 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
--- OUTSIDE RECORDS SUMMARY | 2024-06-25 03:40 | XMS_ITS | Encounter Summary ---
Author Organization [facility] Healthcare Address [address] [place] [address] Care Team Providers Care Garage Door Technician Name Role Phone Unavailable Primary Care Provider Unavailabl e Encounter Details Date Type Department Care Team (Late st Contact Info) Description 07/09/2007 9:45 PM PRESIDENT & CEO - 07/09/2007 10:23 PM PRESIDENT & CEO Hospital Encounter [facility] Fer Edwards MD [address] [place] [address] [address] [id number] [id number] Social History Tobacco Use Types Packs/Day Years Used Date Smoking Tobacco: Never Assessed Comments Unknown Sex and Gender Information Value Date Recorded Sex Assigned at Not on file Legal Sex Female 1:38 PM PRESIDENT & CEO Gender Identity Not on file Sexual Orientation Not on file documented as of this encounter Plan of Treatment Not on file documented as of this encounter Visit Diagnoses Not on filedocumented in this encounter
--- OUTSIDE RECORDS SUMMARY | 2024-06-25 03:41 | XMS_ITS | Continuity of Care Document ---
Author Organization [facility] Address [address] [place] [address] [place] [address] Phone Care Team Providers Care Spice Cleaner Name Role Phone Sheldon Borges MD Unavailable Unavailable Allergies, Adverse Reactions, Alerts Substance Reaction Status Criticality No Known Allergies Active No Inform ation Medications Medication Instructions Dosage Effective Dates (start - stop) Status Comments Xanax 1 mg tablet take 1 tablet (1MG) by oral route 3 times every day 1 MG - Active avoid driving or operaet machines Vicodin ES 7.5 mg-750 mg tablet take 1 tablet by oral route 2 times every day - Active avoid driving or operate machines Zoloft 100 mg tablet take 1 tablet (100MG) by oral route every day 100 MG - Active Procedures Procedure Date OFFICE/OUTPATIENT VISIT, EST OFFICE/OUTPATIENT VISIT, EST OFFICE/OUTPATIENT VISIT, EST Advance Directives Directive Yes / No Effective Date File Name No Information Encounters Encounter Description Practice Location Reason(s) For Visit Diagnoses Date Provider Providers Copied on Encounter OFFICE/OUTPA TIENT VISIT, EST [facility], [address] [place], [address], tel:[phone] [facility] anxiety (chief complaint) back pain (chief complaint) Dietary surveillance and counselingLumbagoGe neralized anxiety disorder 201 [address] Jony Chung. [address], [place], [address]. tel:[phone] Referring Provider: Sheldon Borges, [address] [place], [address]. tel:[phone] OFFICE/OUTPA TIENT VISIT, [facility], [place], [facility], [address], [place], [address], tel:[phone] [facility] back pain (chief complaint) anxiety (chief complaint) Dietary surveillance and counselingLumbagoGe neralized anxiety disorder 2 Jony Chung. [address], [place], [address]. tel:[phone] Referring Provider: Tim Trinh [address], [place], [address]. tel:[phone] OFFICE/OUTPA TIENT VISIT, [facility], [place], [facility], [address], [place], [address], tel:[phone] [facility] back pain (chief complaint) anxiety (chief complaint) Dietary surveillance and counselingMajor depressive affective disorder, single episode, mild degreeLumbagoGenera lized anxiety disorder 2 Jony Chung. [address], [address], [place], [address]. tel:[phone] Referring Provider: Sheldon Borges [address], [place], [address]. tel:[phone] Family History Family Member Type Diagnosis Age At Onset Father Problem (finding) Hypertension Sister Problem (finding) Alive and well Mother Problem (finding) Alive and well Payers Payer name Insurance type Covered constitution party ID Authoriza tion(s) No Information Social History Type Description Quantity Date Captured Comments Alcohol Use Details Caffeine Use Details Unknown Tobacco Use Status No Information Smoking Status Current every day smoker 2011 Sex Female Vital Signs Date / Time: Height Weight BMI Pulse Rate Blood Pressure Temperature Respiratory Rate Body Surface Area Head Circumference BMI percentile Pulse Ox Inhaled Ox 2:45 PM 67.00 in 224.50 lbs 35.1 6 kg/m eter (2) 78 /min 128/86 mm[Hg] 98.2 F 16 /min Chief Complaint And Reason For Visit From encounter dated '06/08/2012 13:45'. anxiety (chief complaint) back pain (chief complaint) Plan Of Treatment Date Type Action Status Goal Tobacco cessation counseling completed Goal Tobacco cessation counseling completed Goal Tobacco cessation counseling completed Referral Referred To: Physical Therapy Ordered: Referral: Physical Therapy. ordered History Of Present Illness Encounter Date Complaint History Of Prese nt Illness No Information Instructions Date Instruction Additional Infor mation Dietary counseling Related to Di etary surveillance counseling Decrease caloric intake Related to Dietary surveillance counseling Dietary counseling Related to Di etary surveillance counseling Decrease caloric intake Related to Dietary surveillance counseling Dietary counseling Related to Di etary surveillance counseling Decrease caloric intake Related to Dietary surveillance counseling Assessments Type Assessment Date No Information Mental Status Date Cognitive Assessment Orientation - [place]ah[place] ed to time, place, person, situation.
--- OUTSIDE RECORDS SUMMARY | 2024-06-25 03:41 | XMS_ITS | Continuity of Care Document ---
Author Organization [facility] Address [address] [place] [address] [place] [address] Phone Care Team Providers Care Plaster Mechanic Name Role Phone Sheldon Borges MD Unavailable Unavailable Allergies, Adverse Reactions, Alerts Substance Reaction Status Criticality No Known Allergies Active No Inform ation Medications Medication Instructions Dosage Effective Dates (start - stop) Status Comments Norvasc 5 mg tablet take 1 tablet by oral route every day 5 MG - Active Imitrex 100 mg tablet take 1 tablet by oral route 100 MG - Active Xanax 1 mg tablet take 1 tablet by oral route every bedtime as needed 1 MG - Active PRN for anxiety, avoid driving or operate machines cetirizine 10 mg tablet take 1 tablet by oral route every day 10 MG - Active spironolactone 50 mg tablet take 1 tablet by oral route every day 50 MG - Active Abilify 10 mg tablet take 1 tablet by oral route every day 10 MG - Active Zoloft 50 mg tablet take 1 tablet by oral route every day 50 MG - Active Caplyta 42 mg capsule take 1 capsule by oral route every day 42 MG - Active Procedures Procedure Date OFFICE/OUTPATIENT VISIT, EST Advance Directives Directive Yes / No Effective Date File Name No Information Encounters Encounter Description Practice Location Reason(s) For Visit Diagnoses Date Provider Providers Copied on Encounter [facility], [address] [place], [address], [place] tel:[phone] [facility] No Information 4 Jony Chung. [address], [place], [address]. tel:[phone] OFFICE/OUTPA TIENT VISIT, EST [facility], [address], [place], [address], tel:[phone] [facility] anxiety1 (chief complaint) back pain1 (chief complaint) hair loss1 (chief complaint) HTN (chief complaint) migraine1 (chief complaint) allergy1 (chief complaint) AlopeciaEssential (primary) hypertensionMigrain e w/o aura, not intractable, w/o status migrainosusAllergic rhinitis due to pollenGeneralized Anxiety DisorderOther spondylosis, lumbar region 4 Jony Sheldon. [address], [place], [address]. tel:[phone] Family History Family Member Type Diagnosis Age At Onset Father Problem Hypertension Brother Problem Depression Brother Problem substance abuse Mother Problem Alive and well Sister Problem Alive and well Father Problem brain aneurysm Payers Payer name Insurance type Covered green party ID Authoriza tion(s) No Information Social History Type Description Quantity Date Captured Comments Alcohol Use Details Unknown Caffeine Use Details Unknown Tobacco Use Status Smoking Status No Information Sex Female Chief Complaint And Reason For Visit No Information Plan Of Treatment Date Type Action Status No Information History Of Present Illness Encounter Date Complaint History Of Prese nt Illness allergy1 Pt has seasonal allergy and she takes zyrtec and doing ok migraine1 Pt has occasiona l migraine headache and she takes imitrex PRN Pt states that she rarely has migraine headache. She usually has headache about 1-2 per month and imitrex helps her very well in reliving the headache HTN Pt has HTN Pt ta kes norvasc and her bp is ok anxiety1 Pt has chronic a nxiety and depression with bipolar and schizophrenia pt takes zoloft, xanax PRN, caplyta and abilify. Pt states that she saw a psychiatrist in [place] over a year ago but she has been living in [place] and she has PCP and psychiatrist in [place] who is prescribing above medication for her. She states that the caplyta is not covered by insurance so she is getting it directly from the manufacture. she states that the caplyta helps her with the bipolar and schizophrenia symptoms very well while the abilify is helping her with depression very well in addition to zoloft. Pt usually only takes xanax at night Pt denies any suicidal or homicidal thought Pt denies any crying spells back pain1 Pt has chronic l ow back pain Pt has chronic sciatica Pt denies any loss of bowel or bladder control or saddle area paresthesia. pt states that she has x ray done which showed DDD by her previous doctor . hair loss1 Pt has alopecia and she is on spironolactone and doing well. Instructions Date Instruction Additional Infor mation No Information Assessments Type Assessment Date No Information
== END 2024-06-18 09:57 | disposition home or self-care (01) ==
PROVIDERS: Emergency Medicine; Emergency Provider Emergency Medicine
DX: R10.11 Right upper quadrant pain (principal); F41.8 Other specified anxiety disorders; I10 Essential (primary) hypertension; F20.9 Schizophrenia, unspecified; L40.9 Psoriasis, unspecified; F17.210 Nicotine dependence, cigarettes, uncomplicated
CPT/HCPCS: 36415; 76705; 80053; 81001; 81025; 83690; 85025; 96374; 96375; 99284; A9270; J1885